=== PATIENT | female | born 1955 | race Caucasian/White ===

== ENCOUNTER → 2018-06-20 15:22 | Outpatient (CLI) | payer OTHER, SELFPAY | PROVIDERS: Family Provider Family Medicine; PCP Family Medicine; Visit Provider Family Medicine | DX: R19.7 Diarrhea, unspecified (principal) | CPT/HCPCS: 36415; 87493; 87506 ==

== ENCOUNTER → 2020-04-09 14:55 | Outpatient (CLI) | payer OTHER, SELFPAY ==
--- NOTE | 2020-04-09 15:40 | BI_ITS ---
MAMMOGRAPHY - BILATERAL SCREENING REASON FOR EXAM: Female, 64 years old. Routine annual screening examination. PERTINENT HISTORY: Aunts with breast cancer. TECHNIQUE: Digital bilateral breast lilliana (3D mammographic acquisition) in the CC and MLO projections. 2-D mediolateral oblique (MLO) and craniocaudad (CC) views of both breasts were obtained. CAD: Full Field Digital Mammography with Computer Added Detection was performed. COMPARISON: Comparison is made with prior study dated 05/07/2017. FINDINGS: Breast Composition: There are scattered areas of fibroglandular density. There are no dominant masses or suspicious calcifications. Stable benign appearing bilateral axillary lymph nodes. No other significant abnormalities are identified. There has been no significant change since the prior study. BI/SCREEN MAMM (CAD) W/LILLIANA BILAT IMPRESSION: Stable bilateral screening mammogram. Yearly follow-up mammogram recommended. (A) ASSESSMENT CATEGORY: BIRADS Category 2: Benign. A letter regarding these results will be sent to the patient by the facility within 30 days. Approximately 10% of breast cancers are not detected by mammography. A normal mammogram should not delay biopsy of a clinically suspicious abnormality. [id number] Electronically Signed: Figueroa Cantrell, at 8:04 EDT , Service support ,
== END ==
PROVIDERS: PCP Family Medicine; Referring Provider Family Medicine; Visit Provider Family Medicine
DX: Z12.31 Encounter for screening mammogram for malignant neoplasm of breast (principal)
CPT/HCPCS: 77063; 77067

== ENCOUNTER 2021-09-30 08:14 | Outpatient (RCR) | payer OTHER, SELFPAY ==
--- NOTE | 2021-10-14 11:22 | HP.OTEVAL_ITS ---
Patient's Visit Information KAYLA ALMARAZ is a 66 year old F, referred to Occupational Therapy by ANDRÉS NEWBY, with a diagnosis of cmc arthritis left hand. Date of Evaluation: 09/30/21 Occupational Therapist: Brenda Angelo, OTR/Yusra, CHT - Subjective This 66 year old female was seen for OT eval with dx of left cmc arthritis- pt states she does pretty well with her hands but notices discomfort after or during her golf game. pt likes to golf and play piano. pt in need of fitting for Metagrip push brace - Pain left thumb 0 Pain Intensity Range: 2 - ROM CMC: right 10 left 15 MP: right 50 left 40 IP: right 55 left 60 Radial Abduction: right 35 left 35 ROM Comments: pt demo with slight decrease in radial abduction increasing MP radial motion. MP does not collapse or hyper-extend - Strength Director Of Collections: right 60# left 55# Lateral Pinch: right 14# left 10# Tripod Pinch: right 10# left 6# Strength Comments: pt demo good strength. no noted thumb deviation with resistive testing - Sensation Sensation Comments: denies - DASH-Disabilities of Arm, Shoulder& Hand DASH Sum: 46 - Goals Goal:: pt will demo understanding of joint protection to prevent joint stress with use of hands with ADLs and IADLs by d/c Goal:: pt will demo ind. doffing and donning of left metagrip push thumb brace by d/c - Rehabilitation General Assessment: pt demo with left cmc arthritis- needing fitting for Metagrip orthosis pt measures at 19.5cm placing her in end range of size one or begining measurements of size 2 therapist rec. Rehabilitation Potential: Good - Anticipated Interventions Orthoses, Other Other Interventions: fitting for metagrip orthosis - Visit Plan TEXT: Thank you for the opportunity to evaluate your patient. For Medicare and Medicare HMO plans, please review the plan of care and approve it. It will need to be FAXED BACK to us at [phone] for Medicare purposes. Please let me know if there are questions or concerns regarding this plan of care. Physician Signature: Date:
--- NOTE | 2021-10-14 11:25 | HP.OTEVAL ---
Patient's Visit Information KAYLA ALMARAZ is a 66 year old F, referred to Occupational Therapy by ANDRÉS NEWBY, with a diagnosis of cmc arthritis left hand. Date of Evaluation: 09/30/21 Occupational Therapist: Brenda Angelo, OTR/Yusra, CHT - Subjective This 66 year old female was seen for OT eval with dx of left cmc arthritis- pt states she does pretty well with her hands but notices discomfort after or during her golf game. pt likes to golf and play piano. pt in need of fitting for Metagrip push brace - Pain left thumb 0 Pain Intensity Range: 2 - ROM CMC: right 10 left 15 MP: right 50 left 40 IP: right 55 left 60 Radial Abduction: right 35 left 35 ROM Comments: pt demo with slight decrease in radial abduction increasing MP radial motion. MP does not collapse or hyper-extend - Strength Vocational Training Director: right 60# left 55# Lateral Pinch: right 14# left 10# Tripod Pinch: right 10# left 6# Strength Comments: pt demo good strength. no noted thumb deviation with resistive testing - Sensation Sensation Comments: denies - DASH-Disabilities of Arm, Shoulder& Hand DASH Sum: 46 - Quick DASH-Disab of Arm,Shoulder& Hand Quick DASH Score: 14.4725 - Goals Goal:: pt will demo understanding of joint protection to prevent joint stress with use of hands with ADLs and IADLs by d/c Goal:: pt will demo ind. doffing and donning of left metagrip push thumb brace by d/c - Rehabilitation General Assessment: pt demo with left cmc arthritis- needing fitting for Metagrip orthosis pt measures at 19.5cm placing her in end range of size one or beginning measurements of size 2 therapist rec'd websites to purchase metigrip. pt demo understanding. pt to call with questions or concerns. Rehabilitation Potential: Good - Anticipated Interventions Orthoses, Other Other Interventions: fitting for metagrip orthosis - Visit Plan TEXT: Thank you for the opportunity to evaluate your patient. For Medicare and Medicare HMO plans, please review the plan of care and approve it. It will need to be FAXED BACK to us at [phone] for Medicare purposes. Please let me know if there are questions or concerns regarding this plan of care. Physician Signature: Date:
== END 2021-09-30 19:00 | disposition home or self-care (01) ==
LOC: OT 08:14
PROVIDERS: PCP Family Medicine
DX: M18.12 Unilateral primary osteoarthritis of first carpometacarpal joint, left hand (principal)
CPT/HCPCS: 97166

== ENCOUNTER 2022-01-28 17:07 | Emergency (ER) | payer MEDICARE, SELFPAY ==
[2022-01-28 17:08] VITALS: BP 152/78; PULSE 93; RESP 18; TEMP 36.6; O2SAT 97; BMI 24.2
--- NOTE | 2022-01-28 18:38 | EX.ED.DYSGE1 ---
HPI History of Present Illness Chief Complaint: Nosebleed Informant: patient Onset/Context/Timing Onset: Today Current Severity: Gone Maximum Severity: Moderate Narrative Narrative: Patient presents secondary to nosebleed. Patient states she developed a nosebleed from left nare early Sunday morning. She was seen by Dr. Vance in the ENT office on Sunday and he placed packing after cauterizing a lesion. Patient states today she had heavy bleeding coming out her right nostril. It is currently well controlled at this time. PFSH PFSH Home Medications omeprazole 20 mg capsule,delayed release 40 mg PO BID ##120 03/04/16 [Rx Last Taken Unknown] sucralfate 100 mg/mL oral suspension 1 g PO 4X/DAY ##120 03/04/16 [Rx Last Taken Unknown] erythromycin 5 mg/gram (0.5 %) eye ointment 0.5 inch ophthalmic (eye) BID #1 g 09/25/21 [Rx Last Taken Unknown] Allergy/AdvReac Type Severity Reaction Status Date / Time No Known Allergies Allergy Verified 03/03/16 00:04 Social History Smoking Status: Never smoker ROS ROS ED Constitutional Constitutional ED: Denies chills or fever(s) Eyes Eyes: Denies change in vision or discharge from eye(s) ENT ENT ED: Reports other Details: Epistaxis ; Denies discharge from eye(s), rhinorrhea or sore throat Cardiovascular Cardiovascular: Denies chest pain or palpitations Respiratory/Chest Respiratory/Chest: Denies cough or dyspnea Gastrointestinal Gastrointestinal: Denies abdominal pain or nausea Musculoskeletal Musculoskeletal: Denies back pain Integumentary Denies Abrasions or rash Neurologic Neurologic: Denies headache(s) or weakness Allergic/Immunologic Allergic/Immunologic ED: Denies lip swelling or urticaria EXAM Physical Exam Const Vital Signs: 01/28/22 17:08 Temperature 97.8 F Temperature Source Temporal Pulse Rate 93 Respiratory Rate 18 Blood Pressure 152/78 H Blood Pressure Mean 102 Pulse Ox 97 Oxygen Delivery Method Room Air Positive well nourished and well developed General Appearance ED: well developed HEENT Reports moist mucous membranes Eyes PERRL and EOMs intact bilaterally Neck no lymphadenopathy Resp normal respiratory effort and clear to auscultation bilaterally Cardio regular rate and regular rhythm GI non-tender and non-distended Neuro oriented x3, CN's II-XII intact bilaterally and no sensory deficits noted Motor Exam: strength 5/5 throughout Psych mental status grossly normal Skin no rashes or lesions noted MDM MDM Treatment and Re-Evaluation Narrative: Cetacaine and Afrin was brought to bedside. Packing that was currently in place was removed. There is very minimal blood noted on this. Exam of the nares revealed no obvious blood in the right. Left side has some irritation along one of the nasal turbinates. I do not see blood up high in the nasal cavity. With patient not having significant bleeding at this time we chose to place Mer[place]. I trimmed the ends and try to place it rather high as my concern is that she had blood up and around the packing previously. At this time patient will continue supportive care at home and has a follow-up ointment scheduled with Dr. Vance on Sunday. Return instructions provided. Discharge Plan Triage Chief Complaint: Nosebleed ED Provider: Smiley Coburn Dx/Rx/DC Orders Clinical Impression: Epistaxis Instructions: ED Epistaxis (Adult) Prescriptions: No Action erythromycin 5 mg/gram (0.5 %) ointment 0.5 inch ophthalmic (eye) BID Qty: 1 0RF sucralfate 1 GM/10 ML Udc 1 g PO 4X/DAY Qty: 120 0RF omeprazole 20 MG capsule 40 mg PO BID Qty: 120 0RF Primary Care Provider: Heide Villavicencio Referrals: Heide Villavicencio MD [Primary Care Provider] - Ming Cox MD [STAFF PHYSICIAN] - Keep Ana Lilia appointment Disposition Disposition: Home, Self Care
[2022-01-28] MEDS: Oxymetazoline 0.05% 1 SPRAY SPRAY.BTL 2 SPRAY NASAL (19:08)
[2022-01-28] MEDS: Tetracaine/Benzocaine/Butamben 1 APPLIC TOPICAL (19:08)
== END 2022-01-28 19:09 | disposition home or self-care (01) ==
PROVIDERS: Emergency Provider Emergency Medicine; PCP Family Medicine; Visit Provider Emergency Medicine
DX: R04.0 Epistaxis (principal); Z79.899 Other long term (current) drug therapy
CPT/HCPCS: 30906; 99282

== ENCOUNTER → 2023-03-19 | Outpatient (CLI) | payer MEDICARE, SELFPAY ==
[2023-03-19 17:43] LABS: Absolute Lymphocyte Count 1.53 X10^3/uL (0.83-4.51); Absolute Neutrophil Count 3.1 X10^3/uL (2.0-7.7); Basophil# 0.06 X10^3/uL; Basophil% 1.2 % (0-1); Eosinophil# 0.18 X10^3/uL; Eosinophils% 3.5 % (0-5); Hematocrit 39.7 % (37-47); Hemoglobin 12.9 g/dL (12.0-15.0); Lymphocyte # 1.53 X10^3/ul (0.83-4.51); Lymphocyte % 29.6 % (19-41); Mean Corp Hgb Conc 32.5 g/dL (32-36); Mean Corpuscular Hgb 31.8 pg (27.0-32.0); Mean Corpuscular Volume 97.8 fL (81-99); Mean Platelet Vol. 9.6 fl (6.2-12.0); Monocyte# 0.26 X10^3/uL; NRBC Flagged by Analyzer 0 % (0-5); Neutrophil # 3.13 X10^3/uL (2.7-7.7); Neutrophil % 60.5 % (47-70); Platelet Count 245 K/mm3 (150-450); RBC Distribution Width CV 12.4 % (11.6-14.6); Red Blood Count 4.06 M/mm3 (4.2-5.4); White Blood Count 5.2 K/mm3 (4.4-11.0)
[2023-03-19 18:11] LABS: Erythrocyte Sedimentation Rate 3 mm/hr (0-30)
[2023-03-19 18:27] LABS: CRP < 2.90 mg/L (0.0-3.0); Rheumatoid Factor < 10.0 IU/mL (<15); Uric Acid 5.6 mg/dL (2.6-6.0)
[2023-03-21 12:09] LABS: ANTINUCLEAR ANTIBODIES DIRECT Negative (Negative)
== END | disposition home or self-care (01) ==
LOC: MFPLAB 15:49
PROVIDERS: PCP Family Medicine; Visit Provider Family Medicine
DX: M19.90 Unspecified osteoarthritis, unspecified site (principal); R31.9 Hematuria, unspecified
CPT/HCPCS: 36415; 84550; 85025; 85652; 86038; 86140; 86431

== ENCOUNTER → 2023-07-24 | Outpatient (CLI) | payer MEDICARE, SELFPAY ==
--- NOTE | 2023-07-24 15:58 | BI_ITS ---
MAMMOGRAPHY - BILATERAL SCREENING REASON FOR EXAM: Female, 68 years old. Routine annual screening examination. PERTINENT HISTORY: Aunt with breast cancer. TECHNIQUE: Digital bilateral breast lilliana (3D mammographic acquisition) in the CC and MLO projections. 2-D mediolateral oblique (MLO) and craniocaudad (CC) views of both breasts were obtained. CAD: Full Field Digital Mammography with Computer Added Detection was performed. COMPARISON: Comparison is made with prior study April 09, 2020 and May 07, 2017. FINDINGS: Breast Composition: There are scattered areas of fibroglandular density. There are no dominant masses or suspicious calcifications. Focal faint nodular density in the upper slightly lateral aspect of the left breast. The patient will be called for additional views including 90 degree lateral and compression spot views. No other significant abnormalities are identified. BI/SCRN MAMM (CAD)W/LILLIANA BILAT IMPRESSION: Faint nodular density seen in the upper slightly outer aspect of the left breast. The patient will be recalled for additional views. Recall Side: Left Breast ASSESSMENT CATEGORY: BIRADS Category 0: Incomplete. Need additional imaging evaluation. A letter regarding these results will be sent to the patient by the facility within 30 days. Approximately 10% of breast cancers are not detected by mammography. A normal mammogram should not delay biopsy of a clinically suspicious abnormality. [id number] Electronically Signed: Figueroa Cantrell MD at 8:53 EST ,
--- NOTE | 2023-07-24 16:00 | BD_ITS ---
STUDY: DUAL ENERGY X-RAY ABSORPTIOMETRY / DXA REASON FOR EXAM: Female, 68 years old. V76.12ScreeningBONE DENSITY REASON FOR EXAM TECHNIQUE: Bone Mineral Density (BMD) measurements of lumbar spine and bilateral hips were obtained. COMPARISON: None. FINDINGS: Lumbar Spine (L1-L4): g/cm2 (1.072) / T-score (0.2) / Z-score (2.1) Findings are suggestive of normal bone density with a low fracture risk. Left Femur Total: g/cm2 (0.840) / T-score (-0.8) / Z-score (0.5) Left Femoral Neck: g/cm2 (0.744) / T-score (-0.9) / Z-score (0.7) Right Femur Total: g/cm2 (0.826) / T-score (-1.0) / Z-score (0.4) Right Femoral Neck: g/cm2 (0.712) / T-score (-1.2) / Z-score (0.4) BD/Dexa Bone Density Study IMPRESSION: The patient is considered osteopenic as outlined below according to World Michael Organization (WHO) criteria with a low fracture risk. Reference Information: The T-score is the number of standard deviations above or below the standard which is normal for young adults at their peak bone mineral density. The World Health Organization (WHO) interprets the T-scores as follows: Above -1 Normal bone density Between -1 and -2.5 Osteopenia Equal to / or below -2.5 Osteoporosis As a practical clinical guideline, osteopenia may be graded as follows: Mild -1 through -1.5 Moderate -1.6 through -2.0 Severe -2.1 through -2.4 The Z-score is the number of standard deviations above or below age-matched controls. A Z-score of less than -1.5 would be considered abnormal. References: 1. NIH Osteoporosis and Related Bone Diseases www osteo.org 2. International Society for Clinical Densitometry www iscd.org 3. National Osteoporosis Foundation www nof.org Electronically Signed: Figueroa Cantrell MD at 13:11 EST ,
== END | disposition home or self-care (01) ==
LOC: OPBD 15:57
PROVIDERS: PCP Family Medicine; Referring Provider Family Medicine; Visit Provider Family Medicine
DX: Z12.31 Encounter for screening mammogram for malignant neoplasm of breast (principal); N95.9 Unspecified menopausal and perimenopausal disorder
CPT/HCPCS: 77063; 77067; 77080

== ENCOUNTER → 2023-07-26 | Outpatient (CLI) | payer MEDICARE, SELFPAY ==
--- NOTE | 2023-07-26 09:24 | US_ITS ---
STUDY: ULTRASOUND BREAST - LEFT REASON FOR EXAM: Female, 68 years old. Abnormal screening mammogram. TECHNIQUE: Axial and longitudinal images of the LEFT breast were performed with a high resolution ultrasound transducer. # OF IMAGES: 18 COMPARISON: Comparison is made with prior mammogram dated July 24, 2023 and July 26, 2023. FINDINGS: LEFT Breast: The upper portion of the left breast was examined with ultrasound. Fibroglandular tissue is seen. No sonographic abnormality is present. US/Breast Limited Unilateral IMPRESSION: No sonographic abnormality is seen. ASSESSMENT CATEGORY: BIRADS Category 1: Negative. A letter regarding these results will be sent to the patient by the facility within 30 days. Electronically Signed: Figueroa Cantrell MD at 11:46 EST ,
--- NOTE | 2023-07-26 09:24 | BI_ITS ---
MAMMOGRAPHY - UNILATERAL DIAGNOSTIC: LEFT BREAST REASON FOR EXAM: Female, 68 years old. Abnormal screening mammogram. PERTINENT HISTORY: Aunt with breast cancer. TECHNIQUE: Compression spot views of the left breast in mediolateral oblique and craniocaudad projections were obtained. CAD: Full Field Digital Mammography with Computer Added Detection was performed. COMPARISON: Comparison is made with prior mammogram dated July 24, 2023. FINDINGS: Breast Composition: There are scattered areas of fibroglandular density. The previously seen faint nodular density in the upper slightly outer aspect of the left breast is not as well seen at this time. Correlation with ultrasound is recommended. No other significant abnormalities are identified. BI/DIAG MAMM W/CAD, UNILAT IMPRESSION: The previously seen faint nodule in the left breast as described is not well seen at this time. Correlation with outside is recommended. ASSESSMENT CATEGORY: BIRADS Category 0: Incomplete. Need additional imaging evaluation. A letter regarding these results will be sent to the patient by the facility within 30 days. Approximately 10% of breast cancers are not detected by mammography. A normal mammogram should not delay biopsy of a clinically suspicious abnormality. Electronically Signed: Figueroa Cantrell MD at 10:06 EST ,
== END | disposition home or self-care (01) ==
LOC: OPBI 09:21
PROVIDERS: PCP Family Medicine; Referring Provider Family Medicine; Visit Provider Family Medicine
DX: R92.8 Other abnormal and inconclusive findings on diagnostic imaging of breast (principal)
CPT/HCPCS: 76642; 77065

== ENCOUNTER → 2023-11-01 | Outpatient (CLI) | payer MEDICARE, SELFPAY ==
[2023-11-01 15:30] LABS: Absolute Lymphocyte Count 1.03 X10^3/uL (0.83-4.51); Absolute Neutrophil Count 4.6 X10^3/uL (2.0-7.7); Basophil# 0.04 X10^3/uL; Basophil% 0.6 % (0-1); Eosinophil# 0.13 X10^3/uL; Eosinophils% 2.1 % (0-5); Hematocrit 38.8 % (37-47); Hemoglobin 12.7 g/dL (12.0-15.0); Lymphocyte # 1.03 X10^3/ul (0.83-4.51); Lymphocyte % 16.6 % (19-41); Mean Corp Hgb Conc 32.7 g/dL (32-36); Mean Corpuscular Hgb 32.3 pg (27.0-32.0); Mean Corpuscular Volume 98.7 fL (81-99); Mean Platelet Vol. 9.5 fl (6.2-12.0); Monocyte% 6.5 % (0-10); NRBC Flagged by Analyzer 0 % (0-5); Neutrophil # 4.59 X10^3/uL (2.7-7.7); Platelet Count 190 K/mm3 (150-450); RBC Distribution Width CV 12.1 % (11.6-14.6); RBC Distribution Width SD 44.2 fl (35.1-43.9); Red Blood Count 3.93 M/mm3 (4.2-5.4); White Blood Count 6.2 K/mm3 (4.4-11.0)
[2023-11-01 16:11] LABS: Anion Gap 4 (5-15); BUN 23 mg/dL (7-18); Calcium,Total 8.8 mg/dL (8.5-10.1); Chloride 110 mmol/L (98-107); EST Glomerular Filtration Rate 59 mL/min (>60); Est Glom Filt Rate - Afr Amer 71 mL/min (>60); Glucose 79 mg/dL (74-106); Potassium 4.2 mmol/L (3.5-5.1); Sodium Level 142 mmol/L (136-145); Troponin-I HS 5 pg/mL (3.0-54.0)
== END | disposition home or self-care (01) ==
PROVIDERS: PCP Family Medicine; Referring Provider Family Medicine; Visit Provider Family Medicine
DX: R07.89 Other chest pain (principal)
CPT/HCPCS: 36415; 80048; 84484; 85025

== ENCOUNTER → 2024-03-19 | Outpatient (CLI) | payer MEDICARE, SELFPAY ==
[2024-03-19 15:04] LABS: Absolute Lymphocyte Count 0.78 X10^3/uL (0.83-4.51); Absolute Neutrophil Count 4.8 X10^3/uL (2.0-7.7); Basophil# 0.04 X10^3/uL; Basophil% 0.7 % (0-1); Eosinophils% 1.7 % (0-5); Hematocrit 39.2 % (37-47); Hemoglobin 12.7 g/dL (12.0-15.0); Lymphocyte # 0.78 X10^3/ul (0.83-4.51); Lymphocyte % 12.9 % (19-41); Mean Corp Hgb Conc 32.4 g/dL (32-36); Mean Corpuscular Volume 98.7 fL (81-99); Mean Platelet Vol. 9.3 fl (6.2-12.0); Monocyte# 0.32 X10^3/uL; Monocyte% 5.3 % (0-10); NRBC Flagged by Analyzer 0 % (0-5); Neutrophil # 4.81 X10^3/uL (2.7-7.7); Neutrophil % 79.2 % (47-70); Platelet Count 195 K/mm3 (150-450); RBC Distribution Width CV 12.6 % (11.6-14.6); RBC Distribution Width SD 45.4 fl (35.1-43.9); Red Blood Count 3.97 M/mm3 (4.2-5.4); White Blood Count 6.1 K/mm3 (4.4-11.0)
[2024-03-19 15:24] LABS: Anion Gap 7 (5-15); BUN 16 mg/dL (7-18); BUN/Creat Ratio 13.2 RATIO (10-20); Chloride 106 mmol/L (98-107); Creatinine, Serum 1.21 mg/dL (0.55-1.02); EST Glomerular Filtration Rate 47 mL/min (>60); Est Glom Filt Rate - Afr Amer 57 mL/min (>60); Glucose 89 mg/dL (74-106); Potassium 3.9 mmol/L (3.5-5.1); Sodium Level 139 mmol/L (136-145); Troponin-I HS 8 pg/mL (3.0-54.0)
== END | disposition home or self-care (01) ==
PROVIDERS: PCP Family Medicine; Visit Provider Registered Nurse
DX: R07.9 Chest pain, unspecified (principal); R19.7 Diarrhea, unspecified
CPT/HCPCS: 36415; 80048; 84484; 85025; 87493

== ENCOUNTER → 2024-05-26 | Outpatient (CLI) | payer MEDICARE, SELFPAY ==
--- NOTE | 2024-05-26 08:02 | AAVD_ITS ---
Reason For Study: AAA Screening Aorta Measurements Aorta Doppler Measurements Proximal aorta measures2.03cm x 2.10cm. in cross- Peak systolic flow velocities within the proximal sectional axis. aorta measure 94 cm/sec. Proximal aorta measures1.74cm. in longitudinal Peak systolic flow velocities within the mid aorta axis. measure 90 cm/sec. Mid aorta measures1.82cm x 1.76cm. in cross- Peak systolic flow velocities within the distal sectional axis. aorta measure 109 cm/sec. Mid aorta measures1.64cm. in longitudinal axis. Distal aorta measures1.64cm x 1.85cm. in cross- sectional axis. Distal aorta measures1.66cm. in longitudinal axis. Left Iliac Artery Left iliac artery measures 1.06cm x 1.10 cm. in the cross-sectional axis. Left iliac artery measures 1.03 cm. in the longitudinal axis. Peak systolic velocity in the left iliac artery measures 80 cm/sec. Right Iliac Artery Right iliac artery measures 1.04cm x 1.17 cm. in the cross-sectional axis. Right iliac artery measures 0.93 cm. in the longitudinal axis. Peak systolic velocity in the right iliac artery measures 98 cm/sec. Procedure Aorta IVC Iliac vasculature or bypass grafts [id number]. Exam performed in department. VL/Abd Aortic/IVC Duplex scan Interpretation Summary The dimensions of the intra-abdominal aorta appear normal, without evidence of aneurysmal dilatation. The iliac arteries also appear to be normal in caliber bilaterally. The intra-abdominal aorta and iliac arteries are patent, demonstrating normal, pulsatile arterial f low and normal peak systolic velocities. Ordering Physician: Heide Villavicencio Referring Physician: Heide Villavicencio Performed By: Nicolle Oconnor, YAN, RVT
--- OUTSIDE RECORDS SUMMARY | 2024-05-26 08:23 | XMS RPT_ITS | CCD ---
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 Name Role Phone Heide Villavicencio Primary Care Provider [phone] ANDRÉS NEWBY Attending Unavailable HEIDE VILLAVICENCIO Primary Care Unavailable Allergies Allergy Classification Reported Allergen(s) Allergy Type Date of Onset Reaction(s) Facility (3 sources) Chlorhexidine; Translations: [CHLORHEXIDINE] Drug Allergy 11-30-2009 [facility] Work Phone: Medications Current Medications Medication Drug Class(es) Dates Sig (Normalized) Sig (Original) pantoprazole 40 mg delayed release oral tablet (2 sources) Proton Pump Inhibitor Start: 10-28-2012 take 1 tablet by mouth once daily pantoprazole (PROTONIX) 40 mg tablet Take 1 tablet by mouth once daily. (may use generic) 30 tablet 2 10/28/2012 Active Comment on above: Take 1 tablet by melody th once daily. (may use generic) Completed/Discontinued Medications Medication Drug Class(es) Dates Sig (Normalized) Sig (Original) betamethasone 3 mg/ml / betamethasone acetate 3 mg/ml injectable suspension (4 sources) Corticosteroid Start: 03-03-2024 End: 03-03-2024 betamethasone acetate-betamethas one sodium phosphate 6 mg injection (CELESTONE) Lidocaine (5 sources) Antiarrhythmic, Amide Local Anesthetic Start: 03-03-2024 End: 03-03-2024 lidocaine 10 mg/mL (1 %) 0.5 mL injection (XYLOCAINE) Start: 12-30-2021 End: 12-30-2021 lidocaine (PF) 10 mg/mL (1 % ) 0.5 mL injection (XYLOCAINE) 1 ml triamcinolone acetonide 40 mg/ml injection (1 source) Corticosteroid Start: 12-30-2021 End: 12-30-2021 triamcinolone acetonide 40 mg injection (KeNALog 40) Start: 12-30-2021 End: 12-30-2021 triamcinolone acetonide 40 m g injection (KeNALog 40) Problems Active Problems Problem Classification Problem Date Documented Date Episodic/Chronic Esophageal disorders (2 sources) Gastro-esophageal reflux disease with esophagitis; Translations: [Gastro-esophageal reflux disease with esophagitis] Onset: 03-05-2016 03-05-2016 Chronic Osteoarthritis (10 sources) Arthritis of first carpometacarpal joint of left hand; Translations: [Unilateral primary osteoarthritis of first carpometacarpal joint, left hand] Onset: 09-28-2021 Chronic Past or Other Problems Problem Classification Problem Date Documented Da te Episodic/Chronic Abdominal pain (2 sources) Epigastric pain; Translations: [Epigastric pain] Onset: 03-05-2016 03-05-2016 Episodic Results Test Name Value Interpretation Reference Range Facility [facility] 03-03-2024 CNOV Office Visit ([id number] ) VALERIE BUCIO ([id number]) 1955 F Date Time Provider Department 03/03/24 2:15 PM ANDRÉS NEWBY [id number] During your visit today, we recorded the following information about you: Respiration Weight Height 16/minute 68 kg 1.676 m Pancho Cardenas Tech 03/10/2024 9:53 PM Signed REVIEW OF SYSTEMS: GENERAL: Well developed, well nourished. No acute distress PAIN: right thumb pain CARDIOVASCULAR: Negative for chest pain, leg swelling and palpations. MSK: Negative for joint swelling SKIN: Negative for lesions, rash, itching, metal sensitivity NEURO: Negative for seizure, trauma, numbness/tingling of extremities. ENDOCRINE: Negative for diabetic associated symptoms HEMATOLOGY: Negative for excessive bleeding, clots, bleeding disorders. Andrés Newby MD 03/10/2024 9:53 PM Signed Patient presents with: Right Thumb - New, Pain HISTORY OF PRESENT ILLNESS Valerie Bucio presents to the office for evaluation of a new issue: Pain at her right thumb. I had seen the patient several years ago for left basilar joint pain and she underwent injection with good response. No recent trauma. Location: Right thumb Severity: 5 on a scale of 0-10 Duration of symptoms: Several months Treatments tried include bracing, activity modification Symptoms have Worsened REVIEW OF SYSTEMS Cardiovascular ROS:No history of chest pain, palpitation, orthopnea, cyanosis, pedal edema Neurologic ROS: Numbness and Tingling: No PAST MEDICAL HISTORY Past medical, surgical, family, and social histories have been reviewed and updated with the patient today and are located elsewhere in the medical record. Diabetes:No ALLERGIES ALLERGIES Allergen Reactions Chlorhexidine Rash PHYSICAL EXAMINATION Resp 16 Ht 167.6 cm (5' 6 ) Wt 68 kg (150 lb) BMI 24.21 kg/m? Body mass index is 24.21 kg/m?. General Appearance Well appearing, alert, in no acute distress, well-hydrated, well nourished. Alert and oriented times: 3 Normal affect times: 3 Appears stated age and well nourished Gait and station:normal Bilateral Upper Extremity Exam: Inspection shows some squaring off at the base of each thumb No atrophy or depigmentation at the site of prior left thumb CMC injection Tenderness to palpation: Painful at bilateral thumb carpometacarpal joints, right greater than left ROM: Full composite fist bilaterally Sensation intact median, radial, ulnar nerve distribution 2+ radial pulse Painful thumb CMC load and grind REVIEW OF STUDIES X-rays 03/03/24 3 views of the right hand demonstrate no fracture or dislocation. Stage II Eaton thumb CMC arthritis is present. No lytic or erosive lesions. Some mild degenerative change at the distal radial ulnar joint with a small osteophyte noted at the ulnar head. X-rays 09/28/21 3 views of the left hand demonstrate Eaton stage IV thumb CMC arthritis. Joint space narrowing, subluxation is noted at the thumb metacarpal. There is STT degenerative change present. No lytic or erosive lesions. ASSESSMENT AND PLAN ASSESSMENT/PLAN: 1. Arthritis of carpometacarpal (CMC) joint of right thumb - ICD9: 716.94, ICD10: M18.11 (primary diagnosis) - XR HAND GENERAL 3V PA/LAT/OBL RIGHT 2. Arthritis of carpometacarpal (CMC) joint of left thumb - ICD9: 716.94, ICD10: M18.12 I reviewed the diagnosis with the patient and reviewed her updated imaging with her. This is a similar issue to what she has dealt with in the past at the left hand. We reviewed treatment options including nonoperative as well as operative measures. She had responded well to injection in the past and would like to proceed with bilateral injections today. Risks and benefits of the injections were reviewed. Please see procedure notes. We will plan on following up together as symptoms dictate. Small Joint Arthro/Inj: bilateral thumb CMC Informed Consent Consent Obtained: Verbal Gilbert Protocol A moment to CARE was completed. SIGN IN Personnel directly involved with the procedure wore the appropriate PPE. Patient/Surrogate Stated/Verified: Patient name, Date of , Relevant allergies and Intended procedure TIME OUT Intended patient and procedure match the source document(s). Relevant labs, photos, and/or imaging studies have been reviewed. Correct side/site marked and visible. Medications required for procedure verified. 03/03/2024 2:34 PM The procedure site was prepped in the usual sterile fashion. Medications (Right): 6 mg betamethasone acetate-betamethasone sodium phosphate 6 mg/mL Medications (Left): 6 mg betamethasone acetate-betamethasone sodium phosphate 6 mg/mL Anesthetics (Right): 0.5 mL lidocaine 10 mg/mL (1 %) Anesthetics (Left): 0.5 mL lidocaine 10 mg/mL (1 %) Outcome: tolerated well, no immediate complications Post-injection instructions were reviewed with th (more content not included)... Normal [facility] Small Joint Arthro/Inj: bila teral thumb CMCon 03-03-2024 Andrés Newby MD 03/10/2024 9:53 PM Small Joint Arthro/Inj: bilateral thumb CMC Informed Consent Consent Obtained: Verbal Gilbert Protocol A moment to CARE was completed. SIGN IN Personnel directly involved with the procedure wore the appropriate PPE. Patient/Surrogate Stated/Verified: Patient name, Date of , Relevant allergies and Intended procedure TIME OUT Intended patient and procedure match the source document(s). Relevant labs, photos, and/or imaging studies have been reviewed. Correct side/site marked and visible. Medications required for procedure verified. 03/03/2024 2:34 PM The procedure site was prepped in the usual sterile fashion. Medications (Right): 6 mg betamethasone acetate-betamethasone sodium phosphate 6 mg/mL Medications (Left): 6 mg betamethasone acetate-betamethasone sodium phosphate 6 mg/mL Anesthetics (Right): 0.5 mL lidocaine 10 mg/mL (1 %) Anesthetics (Left): 0.5 mL lidocaine 10 mg/mL (1 %) Outcome: tolerated well, no immediate complications Post-injection instructions were reviewed with the patient and the patient voiced understanding of these instructions. SIGN OUT All instruments, equipment, possible retained foreign bodies accounted for. Post-procedure follow-up management communicated and Plan of Care Visit completed when applicable [facility] CNOVon 02-09-2017 CNOV Office Visit (AGPLAHWW) ------VALERIE BUCIO ( ) 1955 F IPADate Time Provider Department02/09/17 9:15 AM LEESA YATES During your visit today, we recorded the following information about you: Weight Height 72.6 kg 1.676 MITZY Schuster 02/09/2017 10:47 AM SignedThe patient is a 61 year old female who presents today with complains of excessabdominal skin and fat. She has been dieting and exercising and has lost 6 lbsover the past 4 months. She has 2 children, and has not had any children in thepast year. She currently weighs 160 lbs, and is not satisfied with theappearance of her abdomen.OB History: @OB(ANDlt;SYNTAXANDgt; error)@Plan for future pregnancies: NoPast Medical History:PAST MEDICAL HISTORYDiagnosis Date- Abdominal pain- Abdominal pain, epigastric 11/22/2009- Flatulence, eructation, and gas pain 11/22/2009- Other specified disorders of biliary tract 11/22/2009Past Surgical History: PAST SURGICAL HISTORYNo date: DELIVERY ONLY Comment: , low transverse x210/25/12: COLONOSCOP W/ OR W/O [facility] SPEC Comment: Colonoscopy03/03/16: EGD W/O [facility] SPECIMEN W/BX Comment: distal esophagitis10/25/12: EGD W/O OR W/BRUSH/WASH Comment: EGD11/22/2009: LAP CHOLECYSTECT/CHOLANGIOGRAPHY No date: PAST SURGICAL HISTORY OF Comment: lap x2No date: REMOVAL OF TONSILS,ANDlt;13 Y/O Comment: TonsillectomyOther pertinent history changes since last visit: NoneHistory of Bleeding Disorder: NoHistory of DVT/Pulmonary Embolism: NoHistory of MRSA: No MRSA InfectionHistory of Diabetes: NoHistory of Sleep Apnea: NoHistory of HTN: NoCurrent Outpatient Prescriptions:pantoprazole (PROTONIX) 40 mg tablet Take 1 tablet by mouth once daily. (mayuse generic)No current facility-administered medications for this visit.Uses herbs and/or over-the counters: None.Social History Narrative None on fileEVALUATION:Evaluation of patient reveals laxity. Patient was given an explanation of thesurgical procedure, risks, benefits and personnel. Patient understands andwishes to proceed. We discussed the tap block for post op pain.ROS:CONSTITUTIONAL: Negative for fever, sweats or chills, adenopathy, fatigue,anorexia or weight loss ANDgt; 5 pounds.NEURO: Migraine headaches. On and off no medicationsSKIN: negative for lesions, rash, and itchingBEHAVIOR/PSYCH: NegativePHYSICAL EXAM:Ht 5' 6ANDquot; (1.68m) Wt 160 lb (72.6kg) BMI 25.84 kg/(m2).General Appearance: Well appearing, alert, in no acute distress, well-hydrated,well nourished..Skin: Skin color, texture, turgor normal, no suspicious rashes or lesions.Abdomen:she has had two c-scectionsSkin Tone: Light white skin, always richard, never tansNeuro: Awake, alert and oriented x 3Data- Radiology Review: No outside records or outside imaging availableAssessment:The patient is a good candidate for abdominoplasty. She has a distinct fold inthe mid portion of the abdomen. She has stretch suazo but below the umbilicus.She would also benefit from liposuction of the flanks. If she chooses to haveliposuction, she will have a drain. Because of the previous laparoscopiesinvolving her umbilicus, Dr. Yates explained that he may not be able to keepher bellybutton and she would wake up from surgery without one. She does have adiastasis rectus and worse above her umbilicus.The incision will go below theprevious scar and out to the iliac crest. She may have an incisionaround her bellybutton unless he sacrifices her umbilicus. Explained thatweight loss will help but due to the stretch suazo, diastasis and excess skinshe willk always have laxity without surgery. Daughter is getting atthe end of May..Plan: Abdominoplasty with Diastasis Repair. Liposuction bilateral flanks ifshe wishes to add that at the time of surgery as well.Pre-op photos to be takenPlanned procedure: Abdominoplasty; I have discussed the procedure in detailwith the patient and she agrees to the procedure understanding the roles andtasks of the personnel to be involved; the alternatives to the procedure areliposuction or a mini tummy tuck. She understands the risks to include but notbe limited to infection, bleeding, pain, infection, fluid accumulation, poorwound healing, skin loss, numbness or other changes in skin sensation, skindiscoloration and/or prolonged swelling, unfavorable scarring, recurrentlooseness of skin and possibility of revisional surgery. The patient agrees andconsents to the procedure attesting to her understanding.Follow up at the time of surgeryThis visit lasted for more than 20 minutes and greater than 50% of the visitwas involved in the discussion of the options for treatment.Fatou Maldonado COS 02/09/2017 10:10 AM SignedCall to schedule surgery or with questions.Allergies As of Date: 02/09/2017 Noted Allergy ReactionCHLORHEXIDINE 11/30/2009 2 - RashDate Reviewed: 02/09/2017Reviewed by: Leesa Yates - Fully AssessedReason for Visit: Consult [502] Cmt: abadominalplastyPrimary Visit Diagnosis:Other plastic surgery for unacceptable cosmetic appearance [Z41.1]Prescriptions as of 02/09/2017 Sig: PANTOPRAZOLE 40 MG TABLET,DEL* Take 1 tablet by mouth once d*Problem List As Of Date 02/09/2017 Noted Resolved Epigastric pain [R10.13] INVALID FOR* Gastro-esophageal reflux disease with esophagit*INVALID FOR* Other instructions from your clinician: Call to schedule surgery or with questions.Medications Discontinued During This Encounter cholestyramine low-calorie (CHOLESTY* 30 P* 2 10/28/2012 02/09/2017 Route: ORAL Sig: Take 1 Packet by mouth once daily. in 8 oz of water (may use generic) Disc: Reason for discontinue is not on file.Level of Service: NEW PATIENT VISIT LEVEL 2 [[id number]]Disposition: Return if symptoms worsen or fail to improve.Follow-up and Disposition History RecordedEncounter Number: [id number] Status:Closed by LEESA YATES MD on 02/09/17 [facility] PROGRESSon 02-09-2017 PROGRESS HNO ID: [id number] thor: Nicolle (Cos) Lavelle: (none)Author Type: CosmetologistType: Progress NotesFiled: 02/09/2017 10:47 AMNote Text:The patient is a 61 year old female who presents today with complains ofexcess abdominal skin and fat. She has been dieting and exercising and haslost 6 lbs over the past 4 months. She has 2 children, and has not had anychildren in the past year. She currently weighs 160 lbs, and is notsatisfied with the appearance of her abdomen.OB History: @OB( error)@Plan for future pregnancies: NoPast Medical History:PAST MEDICAL HISTORYDiagnosis Date- Abdominal pain- Abdominal pain, epigastric 11/22/2009- Flatulence, eructation, and gas pain 11/22/2009- Other specified disorders of biliary tract 11/22/2009Past Surgical History: PAST SURGICAL HISTORYNo date: DELIVERY ONLY Comment: , low transverse x210/25/12: COLONOSCOP W/ OR W/O [facility] SPEC Comment: Colonoscopy03/03/16: EGD W/O [facility] SPECIMEN W/BX Comment: distal esophagitis10/25/12: EGD W/O OR W/BRUSH/WASH Comment: EGD11/22/2009: LAP CHOLECYSTECT/CHOLANGIOGRAPHY No date: PAST SURGICAL HISTORY OF Comment: lap x2No date: REMOVAL OF TONSILS,<13 Y/O Comment: TonsillectomyOther pertinent history changes since last visit: NoneHistory of Bleeding Disorder: NoHistory of DVT/Pulmonary Embolism: NoHistory of MRSA: No MRSA InfectionHistory of Diabetes: NoHistory of Sleep Apnea: NoHistory of HTN: NoCurrent Outpatient Prescriptions:pantoprazole (PROTONIX) 40 mg tablet Take 1 tablet by mouth once daily.(may use generic)No current facility-administered medications for this visit.Uses herbs and/or over-the counters: None.Social History Narrative None on fileEVALUATION:Evaluation of patient reveals laxity. Patient was given an explanation ofthe surgical procedure, risks, benefits and personnel. Patientunderstands and wishes to proceed. We discussed the tap block for post oppain.ROS:CONSTITUTIONAL: Negative for fever, sweats or chills, adenopathy,fatigue, anorexia or weight loss > 5 pounds.NEURO: Migraine headaches. On and off no medicationsSKIN: negative for lesions, rash, and itchingBEHAVIOR/PSYCH: NegativePHYSICAL EXAM:Ht 5' 6 (1.68m) Wt 160 lb (72.6kg) BMI 25.84 kg/(m2).General Appearance: Well appearing, alert, in no acute distress,well-hydrated, well nourished..Skin: Skin color, texture, turgor normal, no suspicious rashes or lesions.Abdomen:she has had two c-scectionsSkin Tone: Light white skin, always richard, never tansNeuro: Awake, alert and oriented x 3Data- Radiology Review: No outside records or outside imaging availableAssessment:The patient is a good candidate for abdominoplasty. She has a distinctfold in the mid portion of the abdomen. She has stretch suazo but belowthe umbilicus. She would also benefit from liposuction of the flanks. Ifshe chooses to have liposuction, she will have a drain. Because of theprevious laparoscopies involving her umbilicus, Dr. Yates explainedthat he may not be able to keep her bellybutton and she would wake up fromsurgery without one. She does have a diastasis rectus and worse above herumbilicus.The incision will go below the previous scar and outto the iliac crest. She may have an incision around her bellybutton unlesshe sacrifices her umbilicus. Explained that weight loss will help but dueto the stretch suazo, diastasis and excess skin she willk always havelaxity without surgery. Daughter is getting at the end of May..Plan: Abdominoplasty with Diastasis Repair. Liposuction bilateral flanksif she wishes to add that at the time of surgery as well.Pre-op photos to be takenPlanned procedure: Abdominoplasty; I have discussed the procedure indetail with the patient and she agrees to the procedure understanding theroles and tasks of the personnel to be involved; the alternatives to theprocedure are liposuction or a mini tummy tuck. She understands the risksto include but not be limited to infection, bleeding, pain, infection,fluid accumulation, poor wound healing, skin loss, numbness or otherchanges in skin sensation, skin discoloration and/or prolonged swelling,unfavorable scarring, recurrent looseness of skin and possibility ofrevisional surgery. The patient agrees and consents to the procedureattesting to her understanding.Follow up at the time of surgeryThis visit lasted for more than 20 minutes and greater than 50% of thevisit was involved in the discussion of the options for treatment.Leesa Yates MD [facility] Small Joint Arthro/Inj: L [facility] Vital Signs Date Time Vital Sign Value Performing Clinician Faci ashtyn 03-03-2024 14:11 Body height 167.6 cm Andrés Newby MD Work Phone: [facility] 03-03-2024 14:040 Body mass index (BMI) [Ratio] 24.21 kg/m2 Andrés Newby MD Work Phone: [facility] 03-03-2024 14:11 Body weight 68.04 kg Andrés Newby MD Work Phone: [facility] 03-03-2024 14:040 Respiratory rate 16 /min Andrés Newby MD Work Phone: [facility] 12-30-2021 09:08-0400 Body height 167.6 cm Andrés Newyb MD Work Phone: [facility] 12-30-2021 09:08-0400 Body weight 68.04 kg Andrés Newby MD Work Phone: [facility] 12-30-2021 09:08-0400 Respiratory rate 18 /min Andrés Newby MD Work Phone: [facility] Encounters Encounter Date Encounter Type Care Provider Facility Start: 03-03-2024 End: 03-03-2024 Patient encounter procedure Andrés Newby MD [facility] Phone[facility] Comment on above: 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); Arthritis of carpometacarpal (CMC) joint of left thumb Start: 03-03-2024 End: 03-03-2024 ambulatory ANDRÉS NEWBY Facility:[facility] Start: 12-30-2021 End: 12-30-2021 Patient encounter procedure Andrés eNwby MD Work Phone: [facility] Comment on above: Arthritis of carpome tacarpal (CMC) joint of left thumb (Primary Dx); Arthritis of wpbwcnvn-qzogohvnf-khagsvrvt joint of left hand Procedures Date Procedure Procedure Detail Performing Clinician Start: 03-03-2024 Arthrocentesis aspir &/inj small jt/bursa w/o us Andrés Newby MD Work Phone: Start: 12-30-2021 Arthrocentesis aspir &/inj small jt/bursa w/o us Andrés Newby MD Work Phone: Start: 10-25-2012 [facility] Andrés hernandez MD Work Phone: Plan of Treatment Date Care Activity Detail Author Start: 04-06-2024 Influenza vaccination Influenza Vacc ine (#1) [facility] Start: 08-06-2023 Advance Directive Discussion Advance Directive Discussion [facility] Start: 04-06-2023 Covid-19 Vaccine () Covid-19 Vaccine () [facility] Start: 10-25-2022 Colonoscopy COLONOSCOPY [facility] Start: 10-25-2022 COLORECTAL CANCER SCREENING COLORECTAL CANCER SCREENING [facility] Start: 10-25-2022 Screening for malign ant neoplasm of colon [facility] Start: 04-22-2022 Urine microalbumin profile DTaP,Tdap,Td Vaccine (2 - Td or Tdap) [facility] Start: 10-19-2021 COVID-19 VACCINE (4 - Booster for Moderna series) COVID-19 VACCINE (4 - Booster for Moderna series) [facility] Start: 08-06-2021 ADVANCE DIRECTIVE DISCUSSION ADVANCE DIRECTIVE DISCUSSION [facility] Start: 2021 BONE DENSITY BONE DENSITY [facility] Start: 2021 PNEUMOCOCCAL: 65+ (1 - PCV) PNEUMOCOCCAL: 65+ (1 - PCV) [facility] Start: 2021 Screening for osteoporosis Bone Density Screening [facility] Start: 2016 RSV Vaccine (1 - 1-d ose 60+ series) RSV Vaccine (1 - 1-dose 60+ series) [facility] Start: 10-26-2015 DIABETES SCREEN DIABETES SCREEN [facility] Start: 10-26-2015 Diabetes Screening Diabetes Screenin g [facility] Start: 2006 SHINGRIX VACCINE (1 of 2) SHINGRIX VACCINE (1 of 2) [facility] Start: 2001 COLOGUARD (FIT-DNA) COLOGUARD (FIT-D NA) [facility] Start: [address] COLONOGRAPHY [facility] Start: 2001 FECAL OCCULT BLOOD FECAL OCCULT BLOO D [facility] Start: 2001 Lipid panel Lipid Screening [facility] Start: 2001 LIPID SCREEN LIPID SCREEN [facility] Start: 2001 Screening for malign ant neoplasm of colon [facility] Start: 2001 SIGMOIDOSCOPY SIGMOIDOSCOPY [facility] Start: 1996 Mammography MAMMOGRAM [facility] Start: 1996 Screening for malign ant neoplasm of breast Mammogram Screening [facility] Start: 1975 Urine microalbumin profile DTAP,TDAP,TD (1 - Tdap) [facility] Start: 1974 Anxiety Screening Anxiety Screening [facility] Start: 1974 Depression Screening Depression Scre enjulienne [facility] Start: 1974 HEPATITIS C SCREENING HEPATITIS C [facility] Start: 1974 Hepatitis C screening Hepatitis C [facility] Start: 1974 HIV SCREENING HIV SCREENING [facility] Start: 1968 Adult depression screening assessment DEPRESSION SCREENING [facility] XR Hand - right PA a nd Lateral and Oblique XR HAND GENERAL 3V PA/LAT/OBL RIGHT Radiology Routine Arthritis of carpometacarpal (CMC) joint of right thumb Ordered: 03/03/2024 [facility] Work Phone: Comment on above: Ordered: 03/03/2024 Immunizations Immunization Date Immunization Notes Care Provider Jared low 05-31-2023 influenza virus vacc ine, unspecified formulation Andrés Newby MD Work Phone: [facility] Payers Date Payer Category Payer Medicare [facility] MEDICARE [facility] AARP [employer] HMO [id number] 2022-Present [phone] [address] [address] [place] [address] HMO [id number] 2022 Unknown [id number] 2021 Unknown MMO MMO MHS [id number] 2021-Present [phone] [address] [address] [place] [address] Indemnity [id number] Social History Date Type Detail Facility Start: 03-03-2024 Tobacco smoking stat us NHIS Never smoked tobacco [facility] Start: 12-30-2021 End: 03-03-2024 Alcohol intake Current non-drinker of alcohol (finding) [facility] Start: 1955 Sex Assigned At Not on file [facility] Start: 12-20-2021 End: 12-30-2021 Exposure to SARS-CoV-2 (event) Not sure [facility] Start: 03-03-2024 Tobacco use and exposure Smoke less tobacco non-user [facility] Start: 03-03-2024 History of Social function [facility] Start: 03-03-2024 Tobacco use panel [facility] National Score (1-10 0), lower number is lower risk 35 [facility] Progress note 03-03-2024 Note Date & Type Note Facility 03-03-2024 Note HNO ID: [id number] Author: BING AVILEZ LPN Service: ? Author Type: LICENSED NURSE Type: Progress Notes Filed: 03/10/2024 21:53 Note Text: Injection prepared per Dr. Newby's order and handed directly to him. Injection site: karen thumbs Bing Avilez LPN [facility] History of Present illness Narrative 03-03-2024 Bing Avilez LPN - 03/03/2024 2:36 PM Andrés Mccarthy MD - 03/03/2024 2:34 PM Pancho Quarles Tech - 03/03/2024 2:08 PM EDT Note Date & Type Note Facility 03-03-2024 History of Presen t illness Narrative Injection prepared per Dr. Newby's order and handed directly to him. Injection site: karen thumbs Bing Avilez LPN Associated Order(s): Small Joint Arthro/Inj: bilateral thumb CMC Post-Procedure Diagnose(s): Arthritis of carpometacarpal (CMC) joint of right thumb; Arthritis of carpometacarpal (CMC) joint of left thumb Patient presents with: Right Thumb - New, Pain HISTORY OF PRESENT ILLNESS Valerie Bucio presents to the office for evaluation of a new issue: Pain at her right thumb. I had seen the patient several years ago for left basilar joint pain and she underwent injection with good response. No recent trauma. Location: Right thumb Severity: 5 on a scale of 0-10 Duration of symptoms: Several months Treatments tried include bracing, activity modification Symptoms have Worsened REVIEW OF SYSTEMS Cardiovascular ROS:No history of chest pain, palpitation, orthopnea, cyanosis, pedal edema Neurologic ROS: Numbness and Tingling: No PAST MEDICAL HISTORY Past medical, surgical, family, and social histories have been reviewed and updated with the patient today and are located elsewhere in the medical record. Diabetes:No ALLERGIES ALLERGIES Allergen Reactions Chlorhexidine Rash PHYSICAL EXAMINATION Resp 16 Ht 167.6 cm (5' 6 ) Wt 68 kg (150 lb) BMI 24.21 kg/m Body mass index is 24.21 kg/m . General Appearance Well appearing, alert, in no acute distress, well-hydrated, well nourished. Alert and oriented times: 3 Normal affect times: 3 Appears stated age and well nourished Gait and station:normal Bilateral Upper Extremity Exam: Inspection shows some squaring off at the base of each thumb No atrophy or depigmentation at the site of prior left thumb CMC injection Tenderness to palpation: Painful at bilateral thumb carpometacarpal joints, right greater than left ROM: Full composite fist bilaterally Sensation intact median, radial, ulnar nerve distribution 2+ radial pulse Painful thumb CMC load and grind REVIEW OF STUDIES X-rays 03/03/24 3 views of the right hand demonstrate no fracture or dislocation. Stage II Eaton thumb CMC arthritis is present. No lytic or erosive lesions. Some mild degenerative change at the distal radial ulnar joint with a small osteophyte noted at the ulnar head. X-rays 09/28/21 3 views of the left hand demonstrate Eaton stage IV thumb CMC arthritis. Joint space narrowing, subluxation is noted at the thumb metacarpal. There is STT degenerative change present. No lytic or erosive lesions. ASSESSMENT AND PLAN ASSESSMENT/PLAN: 1. Arthritis of carpometacarpal (CMC) joint of right thumb - ICD9: 716.94, ICD10: M18.11 (primary diagnosis) - XR HAND GENERAL 3V PA/LAT/OBL RIGHT 2. Arthritis of carpometacarpal (CMC) joint of left thumb - ICD9: 716.94, ICD10: M18.12 I reviewed the diagnosis with the patient and reviewed her updated imaging with her. This is a similar issue to what she has dealt with in the past at the left hand. We reviewed treatment options including nonoperative as well as operative measures. She had responded well to injection in the past and would like to proceed with bilateral injections today. Risks and benefits of the injections were reviewed. Please see procedure notes. We will plan on following up together as symptoms dictate. Small Joint Arthro/Inj: bilateral thumb CMC Informed Consent Consent Obtained: Verbal Gilbert Protocol A moment to CARE was completed. SIGN IN Personnel directly involved with the procedure wore the appropriate PPE. Patient/Surrogate Stated/Verified: Patient name, Date of , Relevant allergies and Intended procedure TIME OUT Intended patient and procedure match the source document(s). Relevant labs, photos, and/or imaging studies have been reviewed. Correct side/site marked and visible. Medications required for procedure verified. 03/03/2024 2:34 PM The procedure site was prepped in the usual sterile fashion. Medications (Right): 6 mg betamethasone acetate-betamethasone sodium phosphate 6 mg/mL Medications (Left): 6 mg betamethasone acetate-betamethasone sodium phosphate 6 mg/mL Anesthetics (Right): 0.5 mL lidocaine 10 mg/mL (1 %) Anesthetics (Left): 0.5 mL lidocaine 10 mg/mL (1 %) Outcome: tolerated well, no immediate complications Post-injection instructions were reviewed with the patient and the patient voiced understanding of these instructions. SIGN OUT All instruments, equipment, possible retained foreign bodies accounted for. Post-procedure follow-up management communicated and Plan of Care Visit completed when applicable Andrés Newby MD Patient educated on treatment options for thumb CMC arthritis. Patient instructed to call the office with questions or concerns. REVIEW OF SYSTEMS: GENERAL: Well developed, well nourished. No acute distress PAIN: right thumb pain CARDIOVASCULAR: Negative for chest pain, leg swelling and palpations. MSK: Negative for joint swelling SKIN: Negative for lesions, rash, itching, metal sensitivity NEURO: Negative for seizure, trauma, numbness/tingling of extremities. ENDOCRINE: Negative for diabetic associated symptoms HEMATOLOGY: Negative for excessive bleeding, clots, bleeding disorders. documented in this encounter [facility] Progress note 03-03-2024 Note Date & Type Note Facility 03-03-2024 Note HNO ID: [id number] Author: ANDRÉS NEWBY MD Service: ? Author Type: Physician Type: Progress Notes Filed: 03/10/2024 21:53 Note Text: Patient presents with: Right Thumb - New, Pain HISTORY OF PRESENT ILLNESS Valerie Bucio presents to the office for evaluation of a new issue: Pain at her right thumb. I had seen the patient several years ago for left basilar joint pain and she underwent injection with good response. No recent trauma. Location: Right thumb Severity: 5 on a scale of 0-10 Duration of symptoms: Several months Treatments tried include bracing, activity modification Symptoms have Worsened REVIEW OF SYSTEMS Cardiovascular ROS:No history of chest pain, palpitation, orthopnea, cyanosis, pedal edema Neurologic ROS: Numbness and Tingling: No PAST MEDICAL HISTORY Past medical, surgical, family, and social histories have been reviewed and updated with the patient today and are located elsewhere in the medical record. Diabetes:No ALLERGIES ALLERGIES Allergen Reactions Chlorhexidine Rash PHYSICAL EXAMINATION Resp 16 Ht 167.6 cm (5' 6 ) Wt 68 kg (150 lb) BMI 24.21 kg/m? Body mass index is 24.21 kg/m?. General Appearance Well appearing, alert, in no acute distress, well-hydrated, well nourished. Alert and oriented times: 3 Normal affect times: 3 Appears stated age and well nourished Gait and station:normal Bilateral Upper Extremity Exam: Inspection shows some squaring off at the base of each thumb No atrophy or depigmentation at the site of prior left thumb CMC injection Tenderness to palpation: Painful at bilateral thumb carpometacarpal joints, right greater than left ROM: Full composite fist bilaterally Sensation intact median, radial, ulnar nerve distribution 2+ radial pulse Painful thumb CMC load and grind REVIEW OF STUDIES X-rays 03/03/24 3 views of the right hand demonstrate no fracture or dislocation. Stage II Eaton thumb CMC arthritis is present. No lytic or erosive lesions. Some mild degenerative change at the distal radial ulnar joint with a small osteophyte noted at the ulnar head. X-rays 09/28/21 3 views of the left hand demonstrate Eaton stage IV thumb CMC arthritis. Joint space narrowing, subluxation is noted at the thumb metacarpal. There is STT degenerative change present. No lytic or erosive lesions. ASSESSMENT AND PLAN ASSESSMENT/PLAN: 1. Arthritis of carpometacarpal (CMC) joint of right thumb - ICD9: 716.94, ICD10: M18.11 (primary diagnosis) - XR HAND GENERAL 3V PA/LAT/OBL RIGHT 2. Arthritis of carpometacarpal (CMC) joint of left thumb - ICD9: 716.94, ICD10: M18.12 I reviewed the diagnosis with the patient and reviewed her updated imaging with her. This is a similar issue to what she has dealt with in the past at the left hand. We reviewed treatment options including nonoperative as well as operative measures. She had responded well to injection in the past and would like to proceed with bilateral injections today. Risks and benefits of the injections were reviewed. Please see procedure notes. We will plan on following up together as symptoms dictate. Small Joint Arthro/Inj: bilateral thumb CMC Informed Consent Consent Obtained: Verbal Gilbert Protocol A moment to CARE was completed. SIGN IN Personnel directly involved with the procedure wore the appropriate PPE. Patient/Surrogate Stated/Verified: Patient name, Date of , Relevant allergies and Intended procedure TIME OUT Intended patient and procedure match the source document(s). Relevant labs, photos, and/or imaging studies have been reviewed. Correct side/site marked and visible. Medications required for procedure verified. 03/03/2024 2:34 PM The procedure site was prepped in the usual sterile fashion. Medications (Right): 6 mg betamethasone acetate-betamethasone sodium phosphate 6 mg/mL Medications (Left): 6 mg betamethasone acetate-betamethasone sodium phosphate 6 mg/mL Anesthetics (Right): 0.5 mL lidocaine 10 mg/mL (1 %) Anesthetics (Left): 0.5 mL lidocaine 10 mg/mL (1 %) Outcome: tolerated well, no immediate complications Post-injection instructions were reviewed with the patient and the patient voiced understanding of these instructions. SIGN OUT All instruments, equipment, possible retained foreign bodies accounted for. Post-procedure follow-up management communicated and Plan of Care Visit completed when applicable Andrés Newby MD Patient educated on treatment options for thumb CMC arthritis. Patient instructed to call the office with questions or concerns. [facility] Progress note 03-03-2024 Note Date & Type Note Facility 03-03-2024 Note HNO ID: [id number] Author: PANCHO CARDENAS Tech Service: ? Author Type: Web Press Roll Tender Type: Progress Notes Filed: 03/10/2024 21:53 Note Text: REVIEW OF SYSTEMS: GENERAL: Well developed, well nourished. No acute distress PAIN: right thumb pain CARDIOVASCULAR: Negative for chest pain, leg swelling and palpations. MSK: Negative for joint swelling SKIN: Negative for lesions, rash, itching, metal sensitivity NEURO: Negative for seizure, trauma, numbness/tingling of extremities. ENDOCRINE: Negative for diabetic associated symptoms HEMATOLOGY: Negative for excessive bleeding, clots, bleeding disorders. [facility] History of Present illness Narrative 12-30-2021 Donna Calderon LPN - 12/30/2021 9:38 AM Wade Newby MD - 12/30/2021 9:26 AM EDT Note Date & Type Note Facility 12-30-2021 History of Presen t illness Narrative Injection prepared per Dr. Newby's order and handed directly to him. Lulu Calderon LPN Associated Order(s): Small Joint Arthro/Inj: L thumb CMC Post-Procedure Diagnose(s): Arthritis of carpometacarpal (CMC) joint of left thumb Patient presents with: Left Thumb - Follow Up Follow Up: lt thumb HISTORY OF PRESENT ILLNESS Valerie Bucio presents to the office for follow up of left thumb CMC arthritis. The patient has found the brace to be helpful but she still having significant pain. This is localized consistently to the base of the thumb metacarpal, not noticeably at the STT articulation. She like to discuss further options today. Location: Left thumb CMC, wrist Severity: 3 on a scale of 0-10 Duration of symptoms: Several years Treatments tried include bracing, anti-inflammatories Symptoms have Worsened REVIEW OF SYSTEMS Cardiovascular ROS:No history of chest pain, palpitation, orthopnea, cyanosis, pedal edema Neurologic ROS: Numbness and Tingling: No PAST MEDICAL HISTORY Past medical, surgical, family, and social histories have been reviewed and updated with the patient today and are located elsewhere in the medical record. Diabetes:No ALLERGIES ALLERGIES Allergen Reactions Chlorhexidine Rash PHYSICAL EXAMINATION Resp 18 Ht 167.6 cm (5' 6 ) Wt 68 kg (150 lb) BMI 24.21 kg/m Body mass index is 24.21 kg/m . General Appearance Well appearing, alert, in no acute distress, well-hydrated, well nourished. Alert and oriented times: 3 Normal affect times: 3 Appears stated age and well nourished Gait and station:normal Left Upper Extremity Exam: Inspection shows some mild swelling at the base of the left thumb Squaring off at the joint is noted shoulder sign Skin: WNL Tenderness to palpation: Tender at the base of the thumb metacarpal Some tenderness at the STT ROM: Wrist flexion, extension, pronation/supination symmetric to the contralateral side Instability: none Sensation:Normal sensation Atrophy: None Brisk capillary refill Special tests: Pain with thumb CMC load/grind REVIEW OF STUDIES X-rays 09/28/21 3 views of the left hand demonstrate Eaton stage IV thumb CMC arthritis. Joint space narrowing, subluxation is noted at the thumb metacarpal. There is STT degenerative change present. No lytic or erosive lesions. ASSESSMENT AND PLAN ASSESSMENT/PLAN: 1. Arthritis of carpometacarpal (CMC) joint of left thumb - ICD9: 716.94, ICD10: M18.12 (primary diagnosis) 2. Arthritis of yjefrybb-bgarofvet-nibuvrlbg joint of left hand - ICD9: 716.93, ICD10: M19.032 I reviewed the diagnosis with the patient and we discussed options. I think she would be a good candidate for an injection. As noted the STT articulation does not seem to be nearly as symptomatic. We will begin with injection at the thumb CMC. Risks and benefits reviewed. Please see procedure note. We will follow-up together as symptoms dictate. Small Joint Arthro/Inj: L thumb CMC Informed Consent Consent Obtained: Verbal Gilbert Protocol A moment to CARE was completed. SIGN IN Personnel directly involved with the procedure wore the appropriate PPE. Patient/Surrogate Stated/Verified: Patient name, Date of , Relevant allergies and Intended procedure TIME OUT Intended patient and procedure match the source document(s). 12/30/2021 9:38 AM The procedure site was prepped in the usual sterile fashion. Medications: 40 mg triamcinolone acetonide 40 mg/mL Anesthetics: 0.5 mL lidocaine (PF) 10 mg/mL (1 %) Outcome: tolerated well, no immediate complications Post-injection instructions were reviewed with the patient and the patient voiced understanding of these instructions. SIGN OUT Post-procedure follow-up management communicated and Plan of Care Visit completed when applicable Andrés Newby Patient educated on treatment options for thumb CMC, STT arthritis Patient instructed to call the office with questions or concerns. documented in this encounter [facility] Evaluation note Note Date & Type Note Facility Evaluation note Diagnosis Arthritis of carpometacarpal (CMC) joint of left thumb- Primary Arthritis of mikyvugm-omiorbvmw-iiobymvih joint of left hand documented in this encounter [facility] Evaluation note Note Date & Type Note Facility Evaluation note Diagnosis Arthritis of carpometacarpal (CMC) joint of right thumb- Primary Arthritis of carpometacarpal (CMC) joint of left thumb documented in this encounter [facility] Reason for referral (narrative) Diagnostic Procedure Only (Routine) - New Request Note Date & Type Note Facility Reason for referral (narrati ve) Specialty Diagnoses / Procedures Referred By Hugo t Referred To Contact XR IMAGING Diagnoses Arthritis of carpometacarpal (CMC) joint of right thumb Procedures XR HAND GENERAL 3V PA/LAT/OBL RIGHT RADEX HAND MINIMUM 3 VIEWS Andrés Newby MD [address] [address] [place] [address] Referral ID Status Reason Start Date Expiration Date Visits Requested Visits Authorized [id number] New Request Auto-Generat ed Referral 03/03/2024 04/02/2025 1 1 [facility] Summary Purpose Family History No Family History Records FoundNo Family History Records Found Advance Directives No Advanced Directives Records FoundNo Advanced Directives Records Found Medications Administered Section Inactive Administered Medications - up to 3 most recent administrations Medication Order MAR Action Action Date Dose Rate Site lidocaine (PF) 10 mg/mL (1 %) 0.5 mL injection (XYLOCAINE) 0.5 mL, Injection - FOR ORTHO USE ONLY, ONE TIME INJECTION, 1 dose, Starting on Sun12/30/21 at 0938, Until 5/27/22 at 0938 Given 12/30/2021 9:38 AM EDT 0.5 mL triamcinolone acetonide 40 mg injection (KeNALog 40) 40 mg, Injection - FOR ORTHO USE ONLY, ONE TIME INJECTION, 1 dose, Starting on Sun12/30/21 at 0938, Until Sun12/30/21 at 0938 Given 12/30/2021 9:38 AM EDT 40 mg Additional Source Comments INFORMATION SOURCE (unrecogn ized section and content) DATE CREATED AUTHOR 01/30/2018 [facility] DATE CREATED AUTHOR AUTHOR'S ORGANIZ ATION 03/12/2024 [facility] Source Comments (unrecognize d section and content) In the event this informatio n is protected by the Federal Confidentiality of Alcohol and Drug Abuse Patient Records regulations: The Federal rules restrict any use of the information to criminally investigate or prosecute any alcohol or drug abuse patient.[facility] the event this information is protected by the Federal Confidentiality of Alcohol and Drug Abuse Patient Records regulations: The Federal rules restrict any use of the information to criminally investigate or prosecute any alcohol or drug abuse patient.[facility] Reason for Visit (unrecogniz ed section and content) Reason Comments Follow Up lt thumb Follow Up Reason Comments New Pain Care Teams (unrecognized sec tion and content) Steel Unloader Relationship Specialty Start Date End Date Heide Villavicencio [address] [place] [address] PCP - General 11/13/00 Steel Unloader Relationship Specialty Start Date End Date Heide Villavicencio [address] [place] [address] PCP - General 11/13/00 FOR RECORDS PERTAINING TO PATIENTS WHO ARE OR HAVE BEEN ENROLLED IN A CHEMICAL DEPENDENCY/SUBSTANCEABUSE PROGRAM, SOME INFORMATION MAY BE OMITTED. This clinical summary was aggregated from multiple sources. Caution should be exercised in using it in the provision of clinical care. This summary normalizes information from multiple sources, and as a consequence, information in this document may materially change the coding, format and clinical context of patient data. In addition, data may be omitted in some cases. CLINICAL DECISIONS SHOULD BE BASED ON THE PRIMARY CLINICAL RECORDS. [facility] [employer] [facility]. provides no warranty or guarantee of the accuracy or completeness of information in this document.
== END | disposition home or self-care (01) ==
LOC: CVS 08:01
PROVIDERS: PCP Family Medicine; Referring Provider Family Medicine; Visit Provider Family Medicine
DX: Z13.6 Encounter for screening for cardiovascular disorders (principal); Z82.49 Family history of ischemic heart disease and other diseases of the circulatory system
CPT/HCPCS: 93978

== ENCOUNTER → 2024-06-18 | Outpatient (CLI) | payer MEDICARE, SELFPAY ==
[2024-06-18 18:14] LABS: Absolute Lymphocyte Count 0.91 X10^3/uL (0.83-4.51); Absolute Neutrophil Count 3.3 X10^3/uL (2.0-7.7); Basophil# 0.05 X10^3/uL; Basophil% 1.1 % (0-1); Eosinophil# 0.06 X10^3/uL; Eosinophils% 1.3 % (0-5); Hematocrit 40.7 % (37-47); Hemoglobin 12.8 g/dL (12.0-15.0); Lymphocyte # 0.91 X10^3/ul (0.83-4.51); Lymphocyte % 19.3 % (19-41); Mean Corp Hgb Conc 31.4 g/dL (32-36); Mean Corpuscular Hgb 31.1 pg (27.0-32.0); Mean Corpuscular Volume 98.8 fL (81-99); Mean Platelet Vol. 9.4 fl (6.2-12.0); Monocyte# 0.43 X10^3/uL; Monocyte% 9.1 % (0-10); NRBC Flagged by Analyzer 0 % (0-5); Neutrophil # 3.26 X10^3/uL (2.7-7.7); Platelet Count 202 K/mm3 (150-450); RBC Distribution Width CV 12.2 % (11.6-14.6); RBC Distribution Width SD 44.5 fl (35.1-43.9); Red Blood Count 4.12 M/mm3 (4.2-5.4); White Blood Count 4.7 K/mm3 (4.4-11.0)
[2024-06-18 18:45] LABS: AST(SGOT) 20 U/L (15-37); Alanine Aminotransfer ALT/SGPT 23 U/L (13-56); Albumin, Serum 3.7 g/dL (3.2-5.0); Alkaline Phosphatase 73 U/L (45-117); Anion Gap 5 (5-15); BUN 21 mg/dL (7-18); BUN/Creat Ratio 18.3 RATIO (10-20); Calcium,Total 9.2 mg/dL (8.5-10.1); Chloride 110 mmol/L (98-107); Creatinine, Serum 1.15 mg/dL (0.55-1.02); EST Glomerular Filtration Rate 50 mL/min (>60); Est Glom Filt Rate - Afr Amer 60 mL/min (>60); Globulin 3.6 g/dL (2.2-4.2); Glucose 88 mg/dL (74-106); Protein, Total 7.3 g/dL (6.4-8.2); Sodium Level 140 mmol/L (136-145)
[2024-06-18 18:55] LABS: Erythrocyte Sedimentation Rate < 1 mm/hr (0-30)
[2024-06-20 15:09] LABS: PROEL- A/G Ratio 1.3 (0.7-1.7); PROEL- Albumin 3.8 g/dL (2.9-4.4); PROEL- Alpha-1 Globulin 0.3 g/dL (0.0-0.4); PROEL- Alpha-2 Globulin 0.6 g/dL (0.4-1.0); PROEL- Beta Globulin 0.9 g/dL (0.7-1.3); PROEL- Gamma Globulin 1.2 g/dL (0.4-1.8); PROEL- Globulin, Total 2.9 g/dL (2.2-3.9); PROEL- TOTAL PROTEIN 6.7 g/dL (6.0-8.5); PROEL-M-Spike 0.6 g/dL (Not Observed)
== END | disposition home or self-care (01) ==
LOC: MFPLAB 13:51
PROVIDERS: PCP Family Medicine; Referring Provider Family Medicine; Visit Provider Family Medicine
DX: R10.9 Unspecified abdominal pain (principal)
CPT/HCPCS: 36415; 80053; 84165; 85025; 85652

== ENCOUNTER → 2024-07-24 | Outpatient (CLI) | payer MEDICARE, SELFPAY ==
--- NOTE | 2024-07-24 13:30 | CT_ITS ---
STUDY: CT ABDOMEN AND PELVIS WITH CONTRAST REASON FOR EXAM: Female, 69 years old. L flank pain for months and is worsening RADIATION DOSAGE (If Supplied By Facility): CTDIvol = ( 7.73 ) mGy, DLP = ( 556.51 ) mGycm TECHNIQUE: Transaxial images were obtained from the dome of the diaphragm to the symphysis pubis with oral contrast. Oral and amp; IV Redi-CAT and amp; 100mL Isovue-300 was administered. Sagittal and coronal images were reconstructed. Individualized dose optimization techniques were used for this CT. COMPARISON: Comparison is made with prior study dated March 03, 2016. FINDINGS: The visualized lung bases are unremarkable. The visualized portions of the heart are within normal limits. There is a 2 cm x 2 cm cyst in the anterior aspect of the right lobe of the liver. This has increased in size as compared to prior study. There is also evidence of a 2.6 cm x 2.6 cm cyst in the posterior inferior lateral aspect of the right lobe of the liver. This has increased in size as well. The patient is status post cholecystectomy. Normal spleen. Normal pancreas. Normal bilateral adrenal glands. Normal right kidney. Normal left kidney. Normal visualized stomach. Normal small intestine. There are multiple colonic diverticula consistent with diverticulosis. The appendix is visualized and appears normal. There is scattered atherosclerotic calcification of the abdominal aorta, without a demonstrated aneurysm. Normal inferior vena cava. Normal retroperitoneum. Normal urinary bladder. Normal abdominal wall. There are degenerative changes of the visualized lumbar spine. This is worse at the L2-L3 level. CT/Abdomen/Pelvis WITH Contrast IMPRESSION: Right hepatic cysts which have increased in size as compared to prior study. Status post cholecystectomy. Sigmoid diverticulosis with no radiographic evidence of diverticulitis at this time. Electronically Signed: Figueroa Cantrell MD at 12:57 EST ,
== END | disposition home or self-care (01) ==
LOC: CT 13:29
PROVIDERS: PCP Family Medicine; Referring Provider Family Medicine; Visit Provider Family Medicine
DX: R10.9 Unspecified abdominal pain (principal); G89.29 Other chronic pain
CPT/HCPCS: 74177; Q9967

== ENCOUNTER → 2024-07-28 | Outpatient (CLI) | payer MEDICARE, SELFPAY ==
--- NOTE | 2024-07-28 09:57 | BI_ITS ---
MAMMOGRAPHY - BILATERAL SCREENING 3-D TOMOSYNTHESIS REASON FOR EXAM: Female, 69 years old. screening PERTINENT HISTORY: No significant family history. TECHNIQUE: 2-D mammograms and 3-D Tomosynthesis of the breast (s) were performed. CAD was performed. COMPARISON: 07/24/2023 FINDINGS: The breast composition is composed of scattered fibroglandular density. Scattered benign calcifications are seen. No dense spiculated masses or suspicious microcalcifications are identified. No architectural distortion is identified. There is no skin thickening or retraction. There has been no significant change since the prior study. BI/SCRN MAMM (CAD)W/LILLIANA BILAT IMPRESSION: No mammographic signs of malignancy. Routine yearly mammograms recommended. ASSESSMENT CATEGORY: BIRADS Category 1: Negative. A letter regarding these results will be sent to the patient by the facility within 30 days. FOLLOW UP RECOMMENDATION: Yearly follow up mammogram recommended. (A) Approximately 10% of breast cancers are not detected by mammography. A normal mammogram should not delay biopsy of a clinically suspicious abnormality. Electronically Signed: Rishabh Willoughby MD at 17:47 EST ,
== END | disposition home or self-care (01) ==
LOC: OPBI 09:57
PROVIDERS: PCP Family Medicine; Referring Provider Family Medicine; Visit Provider Family Medicine
DX: Z12.31 Encounter for screening mammogram for malignant neoplasm of breast (principal)
CPT/HCPCS: 77063; 77067

== ENCOUNTER → 2024-08-14 | Outpatient (CLI) | payer MEDICARE, SELFPAY ==
[2024-08-15 15:07] LABS: Endomysial Antibody IgA Negative (Negative); Immunoglobulin A 78 mg/dL (87-352); t-Transglutaminase IgA <2 U/mL (0-3)
== END | disposition home or self-care (01) ==
LOC: MTLAB 10:07
PROVIDERS: PCP Family Medicine; Referring Provider Internal Medicine Gastroenterology; Visit Provider Internal Medicine Gastroenterology
DX: R10.13 Epigastric pain (principal); R11.0 Nausea
CPT/HCPCS: 36415; 82784; 83516; 86255

== ENCOUNTER 2024-10-09 10:00 | Outpatient (RCR) | payer MEDICARE, SELFPAY ==
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
== END 2024-10-09 19:00 | disposition home or self-care (01) ==
LOC: PT 10:00
PROVIDERS: PCP Family Medicine; Referring Provider Family Medicine; Visit Provider Family Medicine
DX: R10.9 Unspecified abdominal pain (principal)
CPT/HCPCS: 97035; 97162; 97530

== ENCOUNTER → 2025-08-03 | Outpatient (CLI) | payer MEDICARE, SELFPAY ==
--- NOTE | 2025-08-03 12:30 | BI_ITS ---
EXAM: SCRN MAMM (CAD)W/LILLIANA BILAT DATE: 08/03/2025 CLINICAL HISTORY: F, Age 70 y/o , SCREEN FOR BREAST CANCER TECHNIQUE: Procedure Code: [id number] Modality: MG Procedure: SCRN MAMM (CAD)W/LILLIANA BILAT COMPARISON: Prior exam(s) dated 07/28/2024 and 07/24/2023. FINDINGS: TISSUE DENSITY: There are scattered areas of fibroglandular density. Bilateral Breast Mammographic Findings: Partially obscured stable isodense masses are seen in both breasts. Benign- appearing round microcalcifications are seen in both breasts. No suspicious masses, suspicious cluster of microcalcifications, architectural distortion or secondary sign of malignancy is identified in either breast. BI/SCRN MAMM (CAD)W/LILLIANA BILAT IMPRESSION: Benign screening mammogram OVERALL FINAL ASSESSMENT BI-RADS 2: BENIGN RECOMMENDATION: Routine annual follow-up in 1 Year Additional Recommendation none A letter with findings and recommendations will be mailed to the patient. Reading Location: [id number]
--- OUTSIDE RECORDS SUMMARY | 2025-08-03 17:19 | XMS RPT_ITS | CCD ---
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 Heide Villavicencio Primary Care Provider [phone] Dr. Heide Villavicencio Referring Provider Dr. Chelsey Gibson Attending Provider [phone] Heide Villavicencio Primary Care Provider DA, DANIEL A Referring Unavailable JOLLIFF, HEIDE KE Primary Care Unavailable MASCI, DANIEL A Referring Unavailable JOLLIFF, HEIDE KE Primary Care Unavailable ANDRÉS MOLINA Attending Unavailable JOLLIFF, HEIDE KE Primary Care Unavailable SELF Referring Unavailable JOLLIFF, HEIDE KE Primary Care Unavailable DOMITILA HENNESSY Attending Unavailable Joseph Méndez MD Unavailable CHELSEY PLUMMER Referring Unavailable JOLLIFF, HEIDE KE Primary Care Unavailable MASCI, DANIEL Chen Referring Unavailable MASCDANIEL Kilgore Attending Unavailable JOLLIFF, HEIDE KE Primary Care Unavailable MASCDANIEL Kilgore Referring Unavailable JOLLIFF, HEIDE KE Primary Care Unavailable MASCI, DANIEL A Referring Unavailable JOLLIFF, HEIDE KE Primary Care Unavailable MASCI, DANIEL A Referring Unavailable JOLLIFF, HEIDE KE Primary Care Unavailable DEMETRA RUIZ Attending Unavailable JOLLIFF, HEIDE KE Primary Care Unavailable MASCI, DANIEL A Referring Unavailable JOLLIFF, HEIDE KE Primary Care Unavailable MASCI, DANIEL A Referring Unavailable JOLLIFF, HEIDE KE Primary Care Unavailable MASCI, DANIEL A Attending Unavailable JOLLIFF, HEIDE KE Primary Care Unavailable JOLLIFF, HEIDE KE Primary Care Unavailable JOLLIFF, HEIDE KE Primary Care Unavailable CHELSEY PLUMMER Attending Unavailable MASCI, DANIEL Chen Referring Unavailable MASCI, DANIEL Chen Attending Unavailable JOLLIFF, HEIDE KE Primary Care Unavailable JOLLIFF, HEIDE KE Primary Care Unavailable MASCI, DANIEL A Referring Unavailable CHELSEY PLUMMER Attending Unavailable JOLLIFF, HEIDE KE Primary Care Unavailable MASCI, DANIEL A Referring Unavailable JOLLIFF, HEIDE KE Primary Care Unavailable MASCI, DANIEL A Referring Unavailable JOLLIFF, HEIDE KE Primary Care Unavailable MASCI, DANIEL A Referring Unavailable JOLLIFF, HEIDE KE Primary Care Unavailable ROCK, KYM A Referring Unavailable MASCI, DANIEL A Attending Unavailable JOLLIFF, HEIDE KE Primary Care Unavailable Jolliff, Heide S Primary Care Unavailable Rock, Kym Attending Unavailable Rock, Kym Referring Unavailable Jolliff, Heide S Referring Unavailable Jolliff, Heide S Primary Care Unavailable Jolliff, Heide S Attending Unavailable Jolliff, Heide S Primary Care Unavailable Joseph Méndez Attending Unavailable Jabour, Vincbrandon Referring Unavailable Jolliff, Heide S Referring Unavailable Jolliff, Heide S Primary Care Unavailable Jolliff, Heide S Attending Unavailable Jolliff, Heide S Attending Unavailable Jolliff, Heide S Referring Unavailable Jolliff, Heide S Primary Care Unavailable Jolliff, Heide S Primary Care Unavailable Pranav, Kym Attending Unavailable Rock, Kym Referring Unavailable Allergies Allergy Classification Reported Allergen(s) Allergy Type Date of Onset Reaction(s) Facility (20 sources) Chlorhexidine; Translations: [CHLORHEXIDINE] Drug Allergy 11-30-2009 Rash [facility] Work Phone: Medications Current Medications Medication Drug Class(es) Dates Sig (Normalized) Sig (Original) acetaminophen 500 mg oral tablet (20 sources) take 2 tablets by mouth every eight hours as needed acetaminophen (TYLENOL EXTRA STRENGTH) 500 mg tablet Take 1,000 mg by mouth every 8 hours as needed. Active benzonatate 200 mg oral capsule (15 sources) Non-narcotic Antitussive Start: 09-18-2024 End: 04-21-2025 Benzonatate 200 mg capsule 09/18/2024 04/21/2025 Discontinued Start: 09-25-2021 End: 10-02-2021 take 1 capsule by mouth twice daily as needed for cough Benzonatate 100 mg capsule Discontinued 100 mg PO TWICE A DAY as needed for cough 14 7 0 September 25, 2021 1:00am October 01, 2021 1:00am September 25, 2021 2:27pm enteric contrast (will be provided with radiology test) (1 source) Start: 10-06-2024 End: 10-07-2024 enteric contrast (will be provided with radiology test) Indications: IgG lambda monoclonal gammopathy , Epigastric pain , Left flank pain For CT ABD/PEL W IVCON Routine order Administer, As Directed One Time Only, via Oral, Rectal, both Oral and Rectal, Enteric Tube, Stoma or Indwelling Catheter, Enteric Contrast as designated per enteric contrast guidelines 1 Each 10/06/2024 10/07/2024 Active erythromycin 0.005 mg/mg ophthalmic ointment (12 sources) Macrolide, Macrolide Antimicrobial Start: 09-25-2021 End: 09-25-2021 Start: 09-25-2021 End: 09-25-2021 Erythromycin Active 0.5 INCH OPHTHALMIC TWICE A DAY September 25, 2021 1:00am LORazepam 1 mg oral tablet (4 sources) Benzodiazepine Start: 11-05-2024 End: 04-21-2025 take 1 tablet by mouth once, then take 1 tablet by mouth every hour LORazepam (ATIVAN) 1 mg tablet Take 1 tablet by mouth one time only for 1 dose. about 1 hour prior to MRI. 11/05/2024 04/21/2025 Discontinued Start: 09-11-2024 End: 09-11-2024 take 1 tablet by mouth once, then take 1 tablet by mouth every hour omeprazole 20 mg delayed release oral capsule (12 sources) Proton Pump Inhibitor Start: 03-04-2016 End: 03-04-2016 take 2 capsules by mouth twice daily Start: 03-04-2016 End: 03-04-2016 take 40 mg by mouth twice daily Omeprazole Active 40 M G PO TWICE A DAY 120 March 04, 2016 10:24am RABEprazole sodium 20 mg delayed release oral tablet (20 sources) Proton Pump Inhibitor Start: 08-01-2024 take 1 tablet by mouth once daily RABEprazole (ACIPHEX) 20 mg tablet Take 20 mg by mouth once daily. 08/01/2024 Active sucralfate 100 mg/ml oral suspension (12 sources) Aluminum Complex Start: 03-04-2016 End: 03-04-2016 take 1 g by mouth four times daily Completed/Discontinued Medications Medication Drug Class(es) Dates Sig (Normalized) Sig (Original) amoxicillin 500 mg oral capsule (12 sources) Penicillin-class Antibacterial Start: 09-25-2021 End: 10-05-2021 take 1 capsule by mouth every six hours Amoxicillin 500 mg capsule Discontinued 500 mg PO EVERY 6 HOURS 40 10 0 September 25, 2021 1:00am October 04, 2021 1:00am September 25, 2021 2:26pm betamethasone 3 mg/ml / betamethasone acetate 3 mg/ml injectable suspension (6 sources) Corticosteroid Start: 09-10-2024 End: 09-10-2024 betamethasone acetate-betamethas one sodium phosphate 6 mg injection (CELESTONE) Start: 09-10-2024 End: 09-10-2024 6 mg, Injection - FOR ORTHO USE ONLY, ONCE, 1 dose, Starting on Sun09/10/24 at 1456, Until Sun09/10/24 at 1456 Start: 03-03-2024 End: 03-03-2024 betamethasone acetate-betame thasone sodium phosphate 6 mg injection (CELESTONE) iv contrast (will be provide d with radiology test) (2 sources) Start: 11-21-2024 End: 11-22-2024 iv contrast (will be provide d with radiology test) CT kidney wow Inject, intravenously, once for 1 dose.No IV access, insert saline lock prior to the beginning of sedation, infusion, injection of imaging exam. Discontinue saline lock post exam. If Pt. has a central line or IVAD, may access for administration according to line specific nursing protocol. Once exam is complete flush line and de-access according to line specific nursing protocol in the CT contrast administration guidelines link. 1 each 11/21/2024 11/22/2024 Start: 10-06-2024 End: 10-07-2024 iv contrast (will be provide d with radiology test) Indications: IgG lambda monoclonal gammopathy , Epigastric pain , Left flank pain CT ABD/PEL -Inject, intravenously, once for 1 dose.No IV access, insert saline lock prior to the beginning of sedation, infusion, injection of imaging exam. Discontinue saline lock post exam. If Pt. has a central line or IVAD, may access for administration according to line specific nursing protocol. Once exam is complete flush line and de-access according to line specific nursing protocol in the CT contrast administration guidelines link. 1 Each 10/06/2024 10/07/2024 Active Lidocaine (7 sources) Antiarrhythmic, Amide Local Anesthetic Start: 09-10-2024 End: 09-10-2024 lidocaine 10 mg/mL (1 %) 1 mL injection (XYLOCAINE) Start: 09-10-2024 End: 09-10-2024 1 mL, Injection - FOR ORTHO USE ONLY, ONCE, 1 dose, Starting on Sun09/10/24 at 1456, Until Sun09/10/24 at 1456 Start: 03-03-2024 End: 03-03-2024 lidocaine 10 mg/mL (1 %) 0.5 mL injection (XYLOCAINE) Start: 12-30-2021 End: 12-30-2021 lidocaine (PF) 10 mg/mL (1 % ) 0.5 mL injection (XYLOCAINE) pantoprazole 40 mg delayed release oral tablet (4 sources) Proton Pump Inhibitor Start: 10-28-2012 End: 08-13-2024 take 1 tablet by mouth once daily pantoprazole (PROTONIX) 40 mg tablet Take 1 tablet by mouth once daily. (may use generic) 30 tablet 2 10/28/2012 08/13/2024 Discontinued Comment on above: Take 1 tablet by melody once daily. 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 Neoplasms of unspecified nature or uncertain behavior (15 sources) Monoclonal gammopathy (clinical); Translations: [Monoclonal gammopathy] Onset: 08-13-2024 08-13-2024 Chronic Osteoarthritis (20 sources) Arthritis of first carpometacarpal joint of left hand; Translations: [Unilateral primary osteoarthritis of first carpometacarpal joint, left hand] Onset: 09-28-2021 Chronic Other diseases of kidney and ureters (2 sources) Disorder of kidney and/or ureter; Translations: [Other specified disorders of kidney and ureter] 11-10-2024 Chronic Other diseases of kidney and ureters (5 sources) Renal mass; Translations: [Other specified disorders of kidney and ureter] Onset: 01-08-2025 11-10-2024 Chronic Other diseases of kidney and ureters (3 sources) Other specified disorders of kidney and ureter; Translations: [Left renal mass] Onset: 11-21-2024 Chronic Other diseases of kidney and ureters (1 source) Disorder of kidney and/or ureter 01-08-2025 Episodic Other nutritional; endocrine; and metabolic disorders (1 source) Abnormal weight loss; Translations: [Abnormal weight loss] 10-06-2024 Episodic Other upper respiratory disease (6 sources) Bleeding from nose; Translations: [Epistaxis] 02-05-2022 Episodic Pancreatic disorders (not diabetes) (1 source) Disorder of pancreas; Translations: [Disease of pancreas, unspecified] 11-10-2024 Episodic Residual codes; unclassified (1 source) Family history of breast cancer; Translations: [Family history of malignant neoplasm of breast] 10-06-2024 Episodic Residual codes; unclassified (1 source) Family history of malignant neoplasm of ovary; Translations: [Family history of malignant neoplasm of ovary] 10-06-2024 Episodic Past or Other Problems Problem Classification Problem Date Documented Da te Episodic/Chronic Abdominal pain (20 sources) Epigastric pain; Translations: [Epigastric pain] Onset: 03-05-2016 03-05-2016 Episodic Other screening for suspected conditions (not mental disorders or infectious disease) (8 sources) Raised cardiac enzyme or marker; Translations: [Other specified abnormal findings of blood chemistry] Onset: 06-20-2024 10-06-2024 Episodic Results Test Name Value Interpretation Reference Range Facility [facility] 05-12-2025 CNOV Office Visit (UROLMN ) ----- VALERIE ALMARAZ ([id number]) 1955 F Date Time Provider Department 05/12/25 3:10 PM CHELSEY PLUMMER During your visit today, we recorded the following information about you: Letitia Michelle APRN.FLAKER OPERATOR 05/13/2025 7:46 AM Signed Chief Complaint: follow up renal mass Clinic note from 11/21/2024 copied and updated. HPI: Valerie Almaraz is a 69 year old female with left renal mass on who presents for follow up evaluation. Renal mass incidentally discovered on CT scan in 10/2023 for evaluation of abdominal pain. Initially presented to Dr. Plummer 11/21/2024 for evaluation of renal mass. Reported dull left flank pain for past 6 months. Discussed management including , biopsy vs partial nephrectomy. Patient wished to continue with with CT kidney in 04/2025. Presents today to discuss results. CT KIDNEY WO/W IVCON 05/06/2025 IMPRESSION: 1. Since 11/10/2024, similar appearance of a 3 cm left renal mass/neoplasm, allowing for differences in modality. 2. Patent renal veins and inferior vena cava. No abdominal metastatic disease. Interval Hx: She reports persistent, continuous flank pain since summer of 2023. Describes as nagging ache- rates pain 2 out of 10. Doesn't stop her from doing normal activities- plays golf and pickleball. Her son is a physical therapist- she does exercises to stretch her back. She is no longer have sharp pain that she was previously experiencing last summer. No gross hematuria. UA dip today with moderate blood. States her urine tests have historically shown blood- had UA w/ micro in the past which was negative for red blood cells. LABS Creatinine Date Value Ref Range Status 04/13/2025 0.93 0.58 - 0.96 mg/dL Final 10/30/2024 0.78 0.58 - 0.96 mg/dL Final 08/13/2024 0.87 0.58 - 0.96 mg/dL Final IMAGING MRI Kidney (11/10/2024) IMPRESSION: Upper pole left renal heterogeneously enhancing solid mass is consistent with neoplasm. No evidence of metastatic disease within the visualized abdomen. Sub-5 mm nonenhancing pancreatic cystic foci are consistent with IPMN. No solid or enhancing pancreatic lesion or focal enlargement CT Abdomen/Pelvis (10/31/2024) IMPRESSION: 1. There is a 3.0 x 2.8 cm heterogeneously enhancing mass within the upper pole of the left kidney that is considered malignant until proven otherwise. Further evaluation with MRI is recommended. 2. A 1.3 cm enhancing focus within the pancreatic body is incidentally noted. However, this is not well seen and may be artifactual, reflecting small vascular structures. This can also be further evaluated at MRI. REVIEW OF SYSTEMS GENERAL:Negative for significant weight loss, fever, SEE HPI; +fatigue GENITOURINARY: Negative for hematuria The remainder of the ROS was negative. HISTORIES PAST MEDICAL HISTORY Diagnosis Date Abdominal pain Abdominal pain, epigastric 11/22/2009 Flatulence, eructation, and gas pain 11/22/2009 GERD (gastroesophageal reflux disease) Other specified disorders of biliary tract 11/22/2009 FAMILY HISTORY Problem Relation Age of Onset Hearing Loss Mother Heart Brother Heart Brother Coronary Artery Disease Maternal Grandfather Emphysema Paternal Grandfather Breast Cancer Paternal Aunt Ovarian cancer Paternal Aunt Breast Cancer Maternal Aunt SOCIAL HISTORY SOCIAL HISTORY[1] PHYSICAL EXAMINATION General appearance: Well appearing, alert, in no acute distress, and well-hydrated, well nourished Lungs: no wheezing or rhonchi Abdomen: Negative CVA tenderness Genitourinary: deferred Assessment (N28.89) Left renal mass (primary encounter diagnosis) (Z13.89) Screening for genitourinary condition 69 year old female with left renal mass on Discussed CT kidney results from 05/06/25 with stable mass- results also reviewed with patient by Dr. Plummer who recommends continued surveillance. Dr. Plummer reassured that her left flank discomfort is likely unrelated to renal mass. Urine dip with blood- discussed rationale to check UA w/ micro Plan -Check UA w/ micro- if +RBC's, recommend cystoscopy and CT urogram for hematuria evaluation -Will proceed with of renal mass with CT abdomen in 1 year with follow up visit Plan of care reviewed and reinforced with patient by Dr. Plummer. Letitia Michelle APRN.FLAKER OPERATOR [1] Social History Tobacco Use Smoking status: Never Smokeless tobacco: Never Vaping Use Vaping status: Never Used Substance Use Topics Alcohol use: No Drug use: No Allergies As of Date: 05/12/2025 Noted Allergy Reaction CHLORHEXIDINE 11/30/2009 2 - Rash Date Reviewed: 05/12/2025 Reviewed by: Vivian Bay MA - Fully Assessed Reason for Visit: Follow Up [171] Primary Visit Diagnosis:Left renal mass [N28.89] Other Visit Diagnoses:Screening for genitourinary condition [Z13.89] Other s (more content not included)... Normal [facility] Urinalysis complete panel (U )on 05-12-2025 Bacteria LM.HPF (Urine sed) [#/Area] Negative Normal Negative [facility] Comment on above: Order Comment: Speci men Type: URINE SPECIMEN Ordering Facility: [facility] Address: [address] [place] [address] Performed By: #### 2 4356-8 #### [facility] CLIA [id number] [address] [place] [address] [place] Bilirubin Ql (U) Negative Normal Negative [facility] Comment on above: Order Comment: Speci men Type: URINE SPECIMEN Ordering Facility: [facility] Address: [address] [place] [address] Performed By: #### 2 4356-8 #### [facility] CLIA [id number] [address] [place] [address] [place] Clarity (Unsp spec) Clear Normal Clear [facility] Comment on above: Order Comment: Speci men Type: URINE SPECIMEN Ordering Facility: [facility] Address: [address] [place] [address] Performed By: #### 2 4356-8 #### [facility] CLIA [id number] [address] [place] [address] [place] Color (U) Yellow Normal Yellow [facility] Comment on above: Order Comment: Speci men Type: URINE SPECIMEN Ordering Facility: [facility] Address: [address] [place] [address] Performed By: #### 2 4356-8 #### [facility] CLIA [id number] [address] [place] [address] [place] Epithelial cells LM.HPF (Urine sed) [#/Area] None Seen Normal [facility] Comment on above: Order Comment: Speci men Type: URINE SPECIMEN Ordering Facility: [facility] Address: [address] [place] [address] Performed By: #### 2 4356-8 #### [facility] CLIA [id number] [address] [place] [address] [place] Glucose Test strip (U) [Mass/Vol] Negative Normal Negative [facility] Comment on above: Order Comment: Speci men Type: URINE SPECIMEN Ordering Facility: [facility] Address: [address] [place] [address] Performed By: #### 2 4356-8 #### [facility] CLIA [id number] [address] [place] [address] [place] Hemoglobin Ql (U) 1+ Abnormal Negative [facility] Comment on above: Order Comment: Speci men Type: URINE SPECIMEN Ordering Facility: [facility] Address: [address] [place] [address] Performed By: #### 2 4356-8 #### [facility] CLIA [id number] [address] [place] [address] [place] Hyaline casts (Urine sed) [#/Area] 1-3 /LPF Abnormal 0 /LPF [facility] Comment on above: Order Comment: Speci men Type: URINE SPECIMEN Ordering Facility: [facility] Address: [address] [place] [address] Performed By: #### 2 4356-8 #### [facility] CLIA [id number] [address] [place] [address] [place] Ketones Ql (U) Negative Normal Negative [facility] Comment on above: Order Comment: Speci men Type: URINE SPECIMEN Ordering Facility: [facility] Address: [address] [place] [address] Performed By: #### 2 4356-8 #### [facility] CLIA [id number] [address] [place] [address] [place] Leukocyte esterase Test strip Ql (U) Negative Normal Negative [facility] Comment on above: Order Comment: Speci men Type: URINE SPECIMEN Ordering Facility: [facility] Address: [address] [place] [address] Performed By: #### 2 4356-8 #### [facility] CLIA [id number] [address] [place] [address] [place] Nitrite Ql (U) Negative Normal Negative [facility] Comment on above: Order Comment: Speci men Type: URINE SPECIMEN Ordering Facility: [facility] Address: [address] [place] [address] Performed By: #### 2 4356-8 #### [facility] CLIA [id number] [address] [place] [address] [place] pH (U) 7.0 [pH] Normal 5.0-8.0 [facility] Comment on above: Order Comment: Speci men Type: URINE SPECIMEN Ordering Facility: [facility] Address: [address] [place] [address] Performed By: #### 2 4356-8 #### [facility] CLIA [id number] [address] [place] [address] [place] Protein (U) [Mass/Vol] Negative Normal Negative [facility] Comment on above: Order Comment: Speci men Type: URINE SPECIMEN Ordering Facility: [facility] Address: [address] [place] [address] Performed By: #### 2 4356-8 #### [facility] CLIA [id number] [address] [place] [address] [place] RBC LM.HPF (Urine sed) [#/Area] 0-2 /HPF Normal 0-2 /HPF [facility] Comment on above: Order Comment: Speci men Type: URINE SPECIMEN Ordering Facility: [facility] Address: [address] [place] [address] Performed By: #### 2 4356-8 #### [facility] IA [id number] [address] [place] [address] [place] Specific gravity (U) [Rel density] 1.006 Normal 1.005-1.030 [facility] Comment on above: Order Comment: Speci men Type: URINE SPECIMEN Ordering Facility: [facility] Address: [address] [place] [address] Performed By: #### 2 4356-8 #### [facility] IA [id number] [address] [place] [address] [place] Urobilinogen Ql (U) 0.2 EU/dL Normal 0.2-1.0 EU/dL [facility] Comment on above: Order Comment: Speci men Type: URINE SPECIMEN Ordering Facility: [facility] Address: [address] [place] [address] Performed By: #### 2 4356-8 #### [facility] IA [id number] [address] [place] [address] [place] WBC LM.HPF (Urine sed) [#/Area] 0-5 /HPF Normal 0-5 /HPF [facility] Comment on above: Order Comment: Speci men Type: URINE SPECIMEN Ordering Facility: [facility] Address: [address] [place] [address] Performed By: #### 2 4356-8 #### [facility] IA [id number] [address] [place] [address] [place] CT KIDNEY WO/W IVCONon 05-06 CT KIDNEY WO/W IVCON * * *Final Report* * * DATE OF EXAM: May 06 2025 12:00PM [facility] 0546 - CT KIDNEY WO/W IVCON / PROCEDURE REASON: Other specified disorders of kidney and ureter * * * * Physician Interpretation * * * * EXAMINATION: CT ABDOMEN (KIDNEY) WITHOUT AND WITH IV CONTRAST CLINICAL HISTORY: Renal mass characterization. TECHNIQUE: Spiral imaging in three phases through the kidneys and including the abdomen was performed utilizing IV contrast only. No oral contrast was given. Arterial phase MIP, and nephrographic phase oblique coronal and sagittal reformations were created from thin-slice images under physician supervision on the imaging modality workstation. MQ: [id number] Contrast: IV: 121 ml of Omnipaque 350 Oral Contrast: None CT Radiation dose: Integrated dose-length product (DLP) for this visit = 642 mGy*cm. CT Dose Reduction Employed: Automated exposure control(AEC) and iterative recon COMPARISON: MRI renal mass 11/10/[address] abdomen/pelvis 10/31/2024 RESULT: Renal findings RIGHT kidney and vasculature: Right kidney and ureter: No nephrolithiasis or hydronephrosis. Normal enhancement of the renal parenchyma. No suspicious right renal mass. Right renal vasculature: Patent artery and vein. Right adrenal: Normal, no nodules or thickening LEFT kidney and vasculature: Left kidney and ureter: No nephrolithiasis or hydronephrosis. A heterogeneously enhancing mass arising from the medial left renal upper pole measures 3 x 2.5 cm on series 11, image 24 (previously 2.6 x 2.9 cm on 11/10/2024). Left renal vasculature: Patent artery and vein Left adrenal: Normal, no nodules or thickening Retroperitoneal lymphadenopathy and IVC involvement: No retroperitoneal lymphadenopathy. The inferior vena cava is patent. Abdomen: Liver: Normal liver morphology. There are hepatic cysts, measuring up to 2.9 cm within segment 6. No suspicious hepatic mass. Biliary: No bile duct dilation. The gallbladder is absent. Spleen: No mass. No splenomegaly. Pancreas: No mass or duct dilation. GI tract: The imaged bowel is normal in caliber and without wall thickening or obstruction. Lymph nodes (other): No abdominal lymphadenopathy. Mesentery/Peritoneum: No ascites or mass. Retroperitoneum: No mass. Vasculature (other): - Abdominal aorta: Atherosclerotic calcifications without aneurysm. - Celiac and SMA: Patent without stenosis. - Portal venous system (SMV, splenic vein, portal vein and branches): Patent. - Hepatic veins: Patent. - IVC: Patent IVC without thrombus. Bones/Soft Tissues: Degenerative change involves the lumbar spine. No destructive lytic or blastic osseous abnormality. Lower thorax: Unremarkable. Localizer images: No additional findings. IMPRESSION: 1. Since 11/10/2024, similar appearance of a 3 cm left renal mass/neoplasm, allowing for differences in modality. 2. Patent renal veins and inferior vena cava. No abdominal metastatic disease. Uniform Room Attendant: WINIFRED Transcribe Date/Time: May 06 2025 12:25P Dictated by : YUNG MENDOZA MD This examination was interpreted and the report reviewed and electronically signed by: YUNG MENDOZA MD on May 06 2025 1:55PM EST [id number] Normal [facility] CNOVSPon 04-20-2025 CNOVSP Visit (SP) Office (HEMAWS) ----- VALERIE ALMARAZ ([id number]) 1955 F Date Time Provider Department 04/20/25 3:10 PM DANIEL ROBERSON During your visit today, we recorded the following information about you: Temperature Pulse Blood pressure Weight 98.6 degrees 68/minute 120/76 60.1 kg Daniel Roberson DO 04/21/2025 6:16 AM Signed Hematologic problem(s): 1) IgG lambda monoclonal gammopathy. HPI: The patient is a 69-year-old female with past medical history as outlined below. Initial consultation: Noticed morning stiffness "all over" beginning about a year ago. Labs for RA negative. Left flank pain started more consistently and couldn't find comfortable position. CT A/P. EGD/colonoscopy. Diverticula. Biopsy--inflammation in duodenum. Was told needs serologic testing for celiac. Patient had a CBC on 06/18/2024 demonstrated total white count 4700. Red blood cell count slightly low at 4,120,000/mm?. Hemoglobin normal 12.8 g/dL with a normal hematocrit of 40.7%. MCV was 98.8 fL and MCH was 31.1 pg. Platelet count was 202,000. Differential was unremarkable with the exception of extremely mild increase in basophils of 1.1%. In March 2023 basophils were 1.2%. On 2 other occasions in 2023 basophils were normal. A recent chemistry panel on 03/19/2024 demonstrated a serum creatinine of 1.31 mg/L with a BUN of 16. Calcium was normal at 9.0 mg/dL. Repeat chemistry panel on 06/18/2024 revealed a serum creatinine of 1.15 mg/dL with a BUN of 21. Ratio was 18.3. Calcium was 9.2 mg/dL. Total bilirubin 0.40 mg/dL with normal AST and ALT of 20 and 23 units/L respectively. Alkaline phosphatase normal at 73 units/L. Total serum protein of 7.3 g/dL with an albumin of 3.7 g/dL and a globulin fraction of 3.6 g/dL. On 06/25/2024, had electrophoresis of the serum which demonstrated a monoclonal spike quantitated at 0.6 g/dL. No immunofixation. No symptoms of neuropathy. The flank pain is localized to left CVA. Pain radiates if turns to the right. All other motions okay. Long history microscopic hematuria. No NSAID use. Presents for ongoing hematologic management. Interim history: No complaints today, but does endorse generalized joint stiffness and pain in the mornings. PAST MEDICAL HISTORY Diagnosis Date Abdominal pain Abdominal pain, epigastric 11/22/2009 Flatulence, eructation, and gas pain 11/22/2009 GERD (gastroesophageal reflux disease) Other specified disorders of biliary tract 11/22/2009 PAST SURGICAL HISTORY Procedure Laterality Date DELIVERY ONLY , low transverse x2 COLONOSCOPY 06/20/2024 COLONOSCOPY FLX DX W/COLLJ SPEC WHEN PFRMD 10/25/2012 Colonoscopy EGD 08/05/2024 EGD TRANSORAL BIOPSY SINGLE/MULTIPLE 03/03/2016 distal esophagitis ESOPHAGOGASTRODUODENOSCOP Y TRANSORAL DIAGNOSTIC 10/25/2012 EGD LAPS SURG CHOLECYSTECTOMY W/CHOLANGIOGRAPHY 11/22/2009 PAST SURGICAL HISTORY OF lap x2 TONSILLECTOMY PRIMARY/SECONDARY Tonsillectomy RABEprazole (ACIPHEX) 20 mg tablet Take 20 mg by mouth once daily. acetaminophen (TYLENOL EXTRA STRENGTH) 500 mg tablet Take 1,000 mg by mouth every 8 hours as needed. Benzonatate 200 mg capsule LORazepam (ATIVAN) 1 mg tablet Take 1 tablet by mouth one time only for 1 dose. about 1 hour prior to MRI. ALLERGIES Allergen Reactions Chlorhexidine Rash Social History Tobacco Use Smoking status: Never Smokeless tobacco: Never Vaping Use Vaping status: Never Used Substance Use Topics Alcohol use: No Drug use: No FAMILY HISTORY Problem Relation Age of Onset Hearing Loss Mother Heart Brother Heart Brother Coronary Artery Disease Maternal Grandfather Emphysema Paternal Grandfather Breast Cancer Paternal Aunt Ovarian cancer Paternal Aunt Breast Cancer Maternal Aunt REVIEW OF SYSTEMS: Constitutional: No episodes of fever and night sweats. Not significantly fatigued. Normal appetite. Neuro: No OQUENDO, vertigo, dizziness and imbalance. HEENT: No recent change in voice, vision or hearing. Resp: No cough, wheeze and hemoptysis. No shortness of breath at rest. No DUFFY. CVS: No exertional chest pain, PND, orthopnea and LE edema. GI: No n/v, change in bowel habits or abdominal pain. : No dysuria or gross hematuria. No symptoms of bladder outlet obstruction. Endo: No hot flashes. No polyuria and polydipsia. No heat and cold intolerance. Musculoskeletal: See above. Derm: No current rash. No history of jaundice or diffuse pruritis. Heme: No unusual bleeding and unexplained bruising. Psych: Normal mood. PHYSICAL EXAM: Vitals: Blood pressure 120/76, pulse 68, temperature 37 ?C (98.6 ?F), temperature source Temporal, weight 60.1 kg (132 lb 8 oz), SpO2 97%. Well-appearing and in no acute distress. EYES: Sclerae are anicteric bilaterally. LYMPHATIC: There is no palpable cervical or supraclavicular adenopa (more content not included)... Normal [facility] B2 Microglob SerPl-mCncon Kmik-9-Keepcqxgvayvy [Mass/Vol] 2.0 ug/mL Normal <3.1 [facility] Comment on above: Order Comment: Speci men Type: URINE SPECIMEN Ordering Facility: [facility] Address: [address] [place] [address] Result Comment: Beta -2 Microglobulin test is performed using the [employer] immunoturbidimetric method. Results obtained with different methods or kits cannot be used interchangeably. Performed By: #### L [id number] #### [facility] CLIA [id number] [address] [place] [address] [place] CBC W Auto Differential pane l (Bld)on 04-13-2025 Basophils (Bld) [#/Vol] 0.05 10*3/uL Normal <0.11 [facility] Comment on above: Order Comment: Speci men Type: BLOOD SPECIMENOrdering Facility: [facility] Address: [address] [place] [address] Performed By: #### 5 7021-8 ####[facility] [id number] [place] [address] [place] Basophils/100 WBC (Bld) 1.1 % Normal [facility] Comment on above: Order Comment: Speci men Type: BLOOD SPECIMENOrdering Facility: [facility] Address: [address] [place] [address] Performed By: #### 5 7021-8 ####[facility] [id number] [place] [address] [place] Differential cell count method Nom (Bld) Auto Normal [facility] Comment on above: Order Comment: Speci men Type: BLOOD SPECIMENOrdering Facility: [facility] Address: [address] [place] [address] Performed By: #### 5 7021-8 ####[facility] MILLWNCLIA [id number] [place] [address] [place] Eosinophils (Bld) [#/Vol] 0.12 10*3/uL Normal <0.46 [facility] Comment on above: Order Comment: Speci men Type: BLOOD SPECIMENOrdering Facility: [facility] Address: [address] [place] [address] Performed By: #### 5 7021-8 ####[facility] [id number] [place] [id number] [place] Eosinophils/100 WBC (Bld) 2.5 % Normal [facility] Comment on above: Order Comment: Speci men Type: BLOOD SPECIMENOrdering Facility: [facility] Address: [address] [place] [address] Performed By: #### 5 7021-8 ####[facility]OKENCLIA [id number] [place] [address] [place] Erythrocyte distribution width (RBC) [Ratio] 12.8 % Normal 11.5-15.0 [facility] Comment on above: Order Comment: Speci men Type: BLOOD SPECIMENOrdering Facility: [facility] Address: [address] [place] [address] Performed By: #### 5 7021-8 ####[facility] PEM[facility]OKENCA [id number] [place] [address] [place] Hematocrit (Bld) [Volume fraction] 38.5 % Normal 36.0-46.0 [facility] Comment on above: Order Comment: Speci men Type: BLOOD SPECIMENOrdering Facility: [facility] Address: [address] [place] [address] Performed By: #### 5 7021-8 ####[facility] PEMBROKENCLIA [id number] [place] [address] [place] Hemoglobin (Bld) [Mass/Vol] 12.8 g/dL Normal 11.5-15.5 [facility] Comment on above: Order Comment: Speci men Type: BLOOD SPECIMENOrdering Facility: [facility] Address: [address] [place] [address] Performed By: #### 5 7021-8 ####[facility] PEM[facility]OKENCLIA [id number] [place] [address] [place] Immature granulocytes (Bld) [#/Vol] 10*3/uL Normal <0.10 [facility] Comment on above: Order Comment: Speci men Type: BLOOD SPECIMENOrdering Facility: [facility] Address: [address] [place] [address] Performed By: #### 5 7021-8 ####[facility] NANIJOON [id number] [place] [address] [place] Immature granulocytes/100 WBC (Bld) 0.4 % Normal [facility] Comment on above: Order Comment: Speci men Type: BLOOD SPECIMENOrdering Facility: [facility] Address: [address] [place] [address] Performed By: #### 5 7021-8 ####[facility] [id number] [place] [address] [place] Lymphocytes (Bld) [#/Vol] 1.39 10*3/uL Normal 1.00-4.00 [facility] Comment on above: Order Comment: Speci men Type: BLOOD SPECIMENOrdering Facility: [facility] Address: [address] [place] [address] Performed By: #### 5 7021-8 ####[facility] [id number] [address] [place] [facility] Lymphocytes/100 WBC (Bld) 29.4 % Normal [facility] Comment on above: Order Comment: Speci men Type: BLOOD SPECIMENOrdering Facility: [facility] Address: [address] [place] [address] Performed By: #### 5 7021-8 ####[facility] [id number] [place] [address] [place] MCH (RBC) [Entitic mass] 32.6 pg Normal 26.0-34.0 [facility] Comment on above: Order Comment: Speci men Type: BLOOD SPECIMENOrdering Facility: [facility] Address: [address] [place] [address] Performed By: #### 5 7021-8 ####[facility] PEMBROKENCLIA [id number] [place] [address] [place] MCHC (RBC) [Mass/Vol] 33.2 g/dL Normal 30.5-36.0 [facility] Comment on above: Order Comment: Speci men Type: BLOOD SPECIMENOrdering Facility: [facility] Address: [address] [place] [address] Performed By: #### 5 7021-8 ####[facility] PEMBROKENCLIA [id number] [place] [address] [place] MCV (RBC) [Entitic vol] 98.0 fL Normal 80.0-100.0 [facility] Comment on above: Order Comment: Speci men Type: BLOOD SPECIMENOrdering Facility: [facility] Address: [address] [place] [address] Performed By: #### 5 7021-8 ####[facility] [id number] [place] [address] [place] Monocytes (Bld) [#/Vol] 0.29 10*3/uL Normal <0.87 [facility] Comment on above: Order Comment: Speci men Type: BLOOD SPECIMENOrdering Facility: [facility] Address: [address] [place] [address] Performed By: #### 5 7021-8 ####[facility] [id number] [place] [address] [place] Monocytes/100 WBC (Bld) 6.1 % Normal [facility] Comment on above: Order Comment: Speci men Type: BLOOD SPECIMENOrdering Facility: [facility] Address: [address] [place] [address] Performed By: #### 5 7021-8 ####[facility] PEMBROKENCLIA [id number] [place] [address] [place] Neutrophils (Bld) [#/Vol] 2.85 10*3/uL Normal 1.45-7.50 [facility] Comment on above: Order Comment: Speci men Type: BLOOD SPECIMENOrdering Facility: [facility] Address: [address] [place] [address] Performed By: #### 5 7021-8 ####[facility] [id number] [place] [address] [place] Neutrophils/100 WBC (Bld) 60.5 % Normal [facility] Comment on above: Order Comment: Speci men Type: BLOOD SPECIMENOrdering Facility: [facility] Address: [address] [place] [address] Performed By: #### 5 7021-8 ####[facility] [id number] [place] [address] [place] Nucleated RBC (Bld) [#/Vol] 10*3/uL Normal <0.01 [facility] Comment on above: Order Comment: Speci men Type: BLOOD SPECIMENOrdering Facility: [facility] Address: [address] [place] [address] Performed By: #### 5 7021-8 ####[facility] [id number] [place] [address] [place] Nucleated RBC/100 WBC (Bld) [Ratio] 0.0 /100 WBC Normal [facility] Comment on above: Order Comment: Speci men Type: BLOOD SPECIMENOrdering Facility: [facility] Address: [address] [place] [address] Performed By: #### 5 7021-8 ####[facility] [id number] [place] [address] [place] Platelet mean volume (Bld) [Entitic vol] 8.5 fL Low 9.0-12.7 [facility] Comment on above: Order Comment: Speci men Type: BLOOD SPECIMENOrdering Facility: [facility] Address: [address] [place] [address] Performed By: #### 5 7021-8 ####[facility] TEJINDERNCLIA [id number] [place] [address] [place] Platelets (Bld) [#/Vol] 221 10*3/uL Normal 150-400 [facility] Comment on above: Order Comment: Speci men Type: BLOOD SPECIMENOrdering Facility: [facility] Address: [address] [place] [address] Performed By: #### 5 7021-8 ####[facility] NANIERBACONNCLIA [id number] [place] [address] [place] RBC (Bld) [#/Vol] 3.93 10*6/uL Normal 3.90-5.20 [facility] Comment on above: Order Comment: Speci men Type: BLOOD SPECIMENOrdering Facility: [facility] Address: [address] [place] [address] Performed By: #### 5 7021-8 ####[facility] NANIERBACONNCLIA [id number] [place] [address] [place] WBC (Bld) [#/Vol] 4.72 10*3/uL Normal 3.70-11.00 [facility] Comment on above: Order Comment: Speci men Type: BLOOD SPECIMENOrdering Facility: [facility] Address: [address] [place] [address] Performed By: #### 5 7021-8 ####[facility] PEMBROKENCLIA [id number] [place] [address] [place] Comprehensive metabolic 2000 panelon 04-13-2025 Albumin [Mass/Vol] 4.5 g/dL Normal 3.9-4.9 [facility] Comment on above: Order Comment: Speci men Type: BLOOD SPECIMENOrdering Facility: [facility] Address: [address] [place] [address] Performed By: #### 2 4323-8, 2531-0 ####[facility] MILLTOWNCLIA [id number] [place] [address] [place] ALP [Catalytic activity/Vol] 77 U/L Normal 34-123 [facility] Comment on above: Order Comment: Speci men Type: BLOOD SPECIMENOrdering Facility: [facility] Address: [address] [place] [address] Performed By: #### 2 4323-8, 2531-0 ####[facility] NANIWMARYAMLIA [id number] [place] [address] [place] ALT [Catalytic activity/Vol] 8 U/L Normal 7-38 [facility] Comment on above: Order Comment: Speci men Type: BLOOD SPECIMENOrdering Facility: [facility] Address: [address] [place] [address] Performed By: #### 2 4323-8, 2531-0 ####[facility]ITALWMARYAMLIA [id number] [place] [address] [place] Anion gap [Moles/Vol] 12 mmol/L Normal 8-15 [facility] Comment on above: Order Comment: Speci men Type: BLOOD SPECIMENOrdering Facility: [facility] Address: [address] [place] [address] Performed By: #### 2 4323-8, 2531-0 ####[facility] MILLTOWNCLIA [id number] [place] [address] [place] AST [Catalytic activity/Vol] 14 U/L Normal 13-35 [facility] Comment on above: Order Comment: Speci men Type: BLOOD SPECIMENOrdering Facility: [facility] Address: [address] [place] [address] Performed By: #### 2 4323-8, 2-0 ####[facility] PEMBROKENCLIA [id number] [place] [address] [place] Bilirubin [Mass/Vol] 0.4 mg/dL Normal 0.2-1.3 [facility] Comment on above: Order Comment: Speci men Type: BLOOD SPECIMENOrdering Facility: [facility] Address: [address] [place] [address] Performed By: #### 2 4323-8, 2531-0 ####[facility] MILLTOWNCLIA [id number] [place] [address] [place] Calcium [Mass/Vol] 9.5 mg/dL Normal 8.5-10.2 [facility] Comment on above: Order Comment: Speci men Type: BLOOD SPECIMENOrdering Facility: [facility] Address: [address] [place] [address] Performed By: #### 2 432-8, 2531-0 ####[facility] MILLTOWNCLIA [id number] [place] [address] [place] Chloride [Moles/Vol] 107 mmol/L Normal 98-107 [facility] Comment on above: Order Comment: Speci men Type: BLOOD SPECIMENOrdering Facility: [facility] Address: [address] [place] [address] Performed By: #### 2 4323-8, 2531-0 ####[facility] MILLTOWNCLIA [id number] [place] [address] [place] CO2 [Moles/Vol] 24 mmol/L Normal 22-30 [facility] Comment on above: Order Comment: Speci men Type: BLOOD SPECIMENOrdering Facility: [facility] Address: [address] [place] [address] Performed By: #### 2 4323-8, 2531-0 ####[facility] MILLTOWNCLIA [id number] [place] [address] [place] Creatinine [Mass/Vol] 0.93 mg/dL Normal 0.58-0.96 [facility] Comment on above: Order Comment: Darron mazariegos Type: BLOOD SPECIMENOrdering Facility: [facility] Address: [address] [place] [address] Performed By: #### 2 4323-8, 2531-0 ####[facility] [id number] [place] [address] [place] eGFRcr SerPlBld CKD-EPI 2020 67 mL/min/1.73m??? Normal >=60 [facility] Comment on above: Order Comment: Darron mazariegos Type: BLOOD SPECIMENOrdering Facility: [facility] Address: [address] [place] [address] Result Comment: Divya mated Glomerular Filtration Rate (eGFR) is calculated using the 2020 CKD-EPI creatinine equation. This equation utilizes serum creatinine, sex, and age as parameters. The creatinine assay has traceable calibration to isotope dilution-mass spectrometry. Refer to KDIGO guidelines for clinical interpretation. In patients with unstable renal function, e.g. those with acute kidney injury, the eGFR may not accurately reflect actual GFR. Performed By: #### 2 4323-8, 0 ####[facility] [id number] [place] [address] [place] Glucose [Mass/Vol] 112 mg/dL High 74-99 [facility] Comment on above: Order Comment: Darron mazariegos Type: BLOOD SPECIMENOrdering Facility: [facility] Address: [address] [place] [address] Result Comment: The [place] Diabetes Association (ADA) provides guidance for cutoff values for fasting glucose and random glucose. The ADA defines fasting as no caloric intake for at least 8 hours. Fasting plasma glucose results between 100 to 125 mg/dL indicate increased risk for diabetes (prediabetes). Fasting plasma glucose results greater than or equal to 126 mg/dL meet the criteria for diagnosis of diabetes. In the absence of unequivocal hyperglycemia, results should be confirmed by repeat testing. In a patient with classic symptoms of hyperglycemia or hyperglycemic crisis, random plasma glucose results greater than or equal to 200 mg/dL meet the criteria for diagnosis of diabetes. Reference: Standards of Medical Care in Diabetes 2016, [place] [employer]. Diabetes Care. 2016.39(Suppl 1). Performed By: #### 2 432-8, ####[facility] [id number] [place] [address] [place] Potassium [Moles/Vol] 3.6 mmol/L Low 3.7-5.1 [facility] Comment on above: Order Comment: Speci men Type: BLOOD SPECIMENOrdering Facility: [facility] Address: [address] [place] [address] Performed By: #### 2 4328, ####[facility] [id number] [place] [address] [place] Protein [Mass/Vol] 6.9 g/dL Normal 6.3-8.0 [facility] Comment on above: Order Comment: Speci men Type: BLOOD SPECIMENOrdering Facility: [facility] Address: [address] [place] [address] Performed By: #### 2 4328, ####[facility] [id number] [place] [address] [place] Sodium [Moles/Vol] 143 mmol/L Normal 136-144 [facility] Comment on above: Order Comment: Speci men Type: BLOOD SPECIMENOrdering Facility: [facility] Address: [address] [place] [address] Performed By: #### 2 4328, ####[facility] [id number] [place] [address] [place] Urea nitrogen [Mass/Vol] 16 mg/dL Normal 7-21 [facility] Comment on above: Order Comment: Speci men Type: BLOOD SPECIMENOrdering Facility: [facility] Address: [address] [place] [address] Performed By: #### 2 4323-8, 2532-0 ####[facility] RADHA LEDEZMA [id number] [place] [id number] [place] [address] [place] IMMUNOFIXATION SCREEN, SERUM on 04-13-2025 INTERPRETATION (MPA) Atypical restricted bands are present in the IgG and lambda regions. Consistent with IgG lambda monoclonal gammopathy. Normal [facility] Comment on above: Order Comment: Speci men Type: BLOOD SPECIMENOrdering Facility: [facility] Address: [address] [place] [address] Performed By: #### I FES ####[facility] [id number] [address] [place] MPA RESULT M protein is present. Abnormal No M p rotein is identified. [facility] Comment on above: Order Comment: Speci men Type: BLOOD SPECIMENOrdering Facility: [facility] Address: [address] [place] [address] Performed By: #### I FES ####[facility] [id number] [address] STAFF REVIEW ([facility]) Reviewed by Rach Sterling MD Normal [facility] Comment on above: Order Comment: Speci men Type: BLOOD SPECIMENOrdering Facility: [facility] Address: [address] [place] [address] Performed By: #### I FES ####[facility] [id number] [place] [id number] [place] IMMUNOGLOBULINS,IGG,IGA,IGMo n 04-13-2025 IgA [Mass/Vol] 75 mg/dL Normal 70-400 [facility] Comment on above: Order Comment: Speci men Type: BLOOD SPECIMENOrdering Facility: [facility] Address: [address] [place] [address] Performed By: #### S ERIMM ####[facility] [id number] [place] [address] [place] IgG [Mass/Vol] 1252 mg/dL Normal 700-1600 [facility] Comment on above: Order Comment: Speci men Type: BLOOD SPECIMENOrdering Facility: [facility] Address: [address] [place] [address] Performed By: #### S ERIMM ####[facility] [id number] [place] [address] [place] IgM [Mass/Vol] 74 mg/dL Normal 40-230 [facility] Comment on above: Order Comment: Speci men Type: BLOOD SPECIMENOrdering Facility: [facility] Address: [address] [place] [address] Performed By: #### S ERIMM ####[facility] [id number] [place] [address] [place] KAPPA/LOPEZ,FREE,SERon 2024 Immunoglobulin light chains.kappa.free (S) [Mass/Vol] 12.0 mg/L Normal 3.3-19.4 [facility] Comment on above: Order Comment: Speci men Type: URINE SPECIMEN [facility] Address: [address] [place] [address] Result Comment: Rare ly, increased serum free light chains levels may not be detected or accurately quantified due to prozone phenomenon or in high viscosity samples using this immunoturbidimetric assay. Correlation with other laboratory results and clinical findings is recommended. The [place] Free Light Chain was performed using the Binding Site Optilite immunoturbidimetric method. Result obtained with different assay methods or kits cannot be used interchangeably. Performed By: #### L [id number] #### [facility] CLIA [id number] [address] [place] [address] [place] Immunoglobulin light chains.kappa/Immunogl obulin light chains.lambda (S) [Mass ratio] 0.15 Low 0.26-1.65 [facility] Comment on above: Order Comment: Speci men Type: URINE SPECIMEN [facility] Address: [address] [place] [address] Performed By: #### L [id number] #### [facility] CLIA [id number] [address] [place] [address] [place] Immunoglobulin light chains.lambda.free [Mass/Vol] 82.3 mg/L High 5.7-26.3 [facility] Comment on above: Order Comment: Speci men Type: URINE SPECIMEN [facility] Address: [address] [place] [address] Result Comment: Rare ly, increased serum free light chains levels may not be detected or accurately quantified due to prozone phenomenon or in high viscosity samples using this immunoturbidimetric assay. Correlation with other laboratory results and clinical findings is recommended. The [place] Free Light Chain was performed using the Binding Site Optilite immunoturbidimetric method. Result obtained with different assay methods or kits cannot be used interchangeably. Performed By: #### L [id number] #### [facility] CLIA [id number] [address] [place] [address] [place] LDH SerPl-cCncon 04-13-2025 LDH [Catalytic activity/Vol] 196 U/L Normal 135-214 [facility] Comment on above: Order Comment: Speci men Type: BLOOD SPECIMENOrdering Facility: [facility] Address: [address] [place] [address] Result Comment: Hemo lysis present. The origin of the hemolysis, in vitro versus an in vivo hemolytic process, cannot be distinguished via this assay alone. In vitro hemolysis may lead to non-physiological (spurious) elevation in lactate dehydrogenase (LDH) results. The result should be interpreted in context of the clinical setting and other test results. Suggest reorder as clinically indicated. Performed By: #### 2 4323-8, 2532-0 ####[facility] [id number] [place] [address] [place] MONOCLONAL PROT UR W/INTERPo n 04-13-2025 INTERPRETATION ([place]) An atypical restri cted band is present in the lambda region. The presence of free lambda light chains in the urine is consistent with a lambda-containing monoclonal gammopathy. Normal [facility] Comment on above: Order Comment: Speci men Type: URINE SPECIMEN [facility] Address: [address] [place] [address] Performed By: #### L [id number] #### [facility] CLIA [id number] [address] [place] [address] [place] STAFF [place] ([place]) Reviewed by Yuridia Downing M.D., Ph.D Normal [facility] Comment on above: Order Comment: Speci men Type: URINE SPECIMEN [facility] Address: [address] [place] [address] Performed By: #### L [id number] #### [facility] CLIA [id number] [address] [place] [address] [place] UMPA RESULT M protein is present. Abnormal No M p rotein is identified. [facility] Comment on above: Order Comment: Speci men Type: URINE SPECIMEN [facility] Address: [address] [place] [address] Performed By: #### L [id number] #### [facility] CLIA [id number] [address] [place] [address] [place] PROTEIN ELECTROPHORESIS SERU M (P)on 04-13-2025 Albumin [Mass/Vol] 4.34 g/dL Normal 3.43-5.41 [facility] Comment on above: Order Comment: Speci men Type: BLOOD SPECIMENOrdering Facility: [facility] Address: [address] [place] [address] Performed By: #### L [id number] ####[facility] [id number] [place] [address] [place] Alpha 1 globulin Elph [Mass/Vol] 0.29 g/dL Normal 0.18-0.43 [facility] Comment on above: Order Comment: Speci men Type: BLOOD SPECIMENOrdering Facility: [facility] Address: [address] [place] [address] Performed By: #### L [id number] ####[facility] [id number] [place] [address] [place] Alpha 2 globulin Elph [Mass/Vol] 0.57 g/dL Normal 0.42-0.98 [facility] Comment on above: Order Comment: Speci men Type: BLOOD SPECIMENOrdering Facility: [facility] Address: [address] [place] [address] Performed By: #### L [id number] ####[facility] [id number] [place] [address] [place] Beta globulin Elph [Mass/Vol] 0.57 g/dL Low 0.61-1.17 [facility] Comment on above: Order Comment: Speci men Type: BLOOD SPECIMENOrdering Facility: [facility] Address: [address] [place] [address] Performed By: #### L [id number] ####[facility] [id number] [place] [address] [place] Gamma globulin Elph [Mass/Vol] 1.03 g/dL Normal 0.53-1.51 [facility] Comment on above: Order Comment: Speci men Type: BLOOD SPECIMENOrdering Facility: [facility] Address: [address] [place] [address] Performed By: #### L [id number] ####[facility] [id number] [place] [address] [place] M-PROTEIN LOCATION Gamma Fraction 1 Normal [facility] Comment on above: Order Comment: Speci men Type: BLOOD SPECIMENOrdering Facility: [facility] Address: [address] [place] [address] Performed By: #### L [id number] ####[facility] [id number] [place] [address] [place] Protein Fractions [Interp] An M protein is identified on protein electrophoresis. Abnormal No definitive M protein is identified on protein electrophore sis. [facility] Comment on above: Order Comment: Speci men Type: BLOOD SPECIMENOrdering Facility: [facility] Address: [address] [place] [address] Performed By: #### L [id number] ####[facility] [id number] [place] [address] [place] Protein.monoclonal Elph [Mass/Vol] 0.49 g/dL High <=0.00 [facility] Comment on above: Order Comment: Speci men Type: BLOOD SPECIMENOrdering Facility: [facility] Address: [address] [place] [address] Performed By: #### L [id number] ####[facility] [id number] [place] [address] [place] SPE STAFF REVIEW Reviewed by Yuridia Downing M.D., Ph.D Normal [facility] Comment on above: Order Comment: Speci men Type: BLOOD SPECIMENOrdering Facility: [facility] Address: [address] [place] [address] Performed By: #### L [id number] ####[facility] [id number] [place] [id number] [place] Prot SerPl-mCncon 04-13-2025 Protein [Mass/Vol] 6.8 g/dL Normal 6.3-8.0 [facility] Comment on above: Order Comment: Speci men Type: URINE SPECIMEN [facility] Address: [address] [place] [address] Performed By: #### L [id number] #### [facility] CLIA [id number] [address] [place] [address] [place] Prot Ur-mCncon 04-13-2025 Protein (U) [Mass/Vol] 7 mg/dL Normal 0-20 [facility] Comment on above: Order Comment: Speci men Type: URINE SPECIMENOrdering Facility: [facility] Address: [address] [place] [address] Performed By: #### 2 [id number] ####[facility] [id number] [place] [address] [place] URINE PROTEIN ELECTROPHORESI S RANDOM (P)on 04-13-2025 Albumin Elph (U) [Mass fraction] 29.29 % Normal [facility] Comment on above: Order Comment: Speci men Type: URINE SPECIMEN [facility] Address: [address] [place] [address] Performed By: #### L [id number] #### [facility] CLIA [id number] [address] [place] [address] [place] Alpha 1 globulin Elph (U) [Mass fraction] 6.47 % Normal [facility] Comment on above: Order Comment: Speci men Type: URINE SPECIMEN [facility] Address: [address] [place] [address] Performed By: #### L [id number] #### [facility] CLIA [id number] [address] [place] [address] [place] Alpha 2 globulin Elph (U) [Mass fraction] 14.23 % Normal [facility] Comment on above: Order Comment: Speci men Type: URINE SPECIMEN [facility] Address: [address] [place] [address] Performed By: #### L [id number] #### [facility] CLIA [id number] [address] [place] [address] [place] Beta globulin Elph (U) [Mass fraction] 21.07 % Normal [facility] Comment on above: Order Comment: Speci men Type: URINE SPECIMEN [facility] Address: [address] [place] [address] Performed By: #### L [id number] #### [facility] CLIA [id number] [place], [place] [address] [place] Gamma globulin Elph (U) [Mass fraction] 28.93 % Normal [facility] Comment on above: Order Comment: Speci men Type: URINE SPECIMEN [facility] Address: [address] [place] [address] Performed By: #### L [id number] #### [facility] CLIA [id number] [address] [place] [address] [place] INTERPRETATION COMMENT FOR PROTEIN ELECTROPHORESIS See separate immunofixation report for characterization of monoclonal gammopathy. Normal [facility] Comment on above: Order Comment: Speci men Type: URINE SPECIMEN [facility] Address: [address] [place] [address] Performed By: #### L [id number] #### [facility] CLIA [id number] [address] [place] [address] [place] Order Comment: Speci men Type: BLOOD SPECIMENOrdering Facility: [facility] Address: [address] [place] [address] Performed By: #### L [id number] ####[facility] [id number] [place] [id number] [place] Protein Fractions Elph Hernan (U) [Interp] An M protein is identified on protein electrophoresis. Abnormal No definitive M protein is identified on protein electrophore sis. [facility] Comment on above: Order Comment: Speci men Type: URINE SPECIMEN [facility] Address: [address] [place], [place] [id number] Performed By: #### L [id number] #### [facility] CLIA [id number] [address] [place] [address] [place] STAFF REVIEW (URINE ELECTRO) Reviewed by Yuridia Downing M.D., Ph.D Normal [facility] Comment on above: Order Comment: Speci men Type: URINE SPECIMEN [facility] Address: [address] [place] [address] Performed By: #### L [id number] #### [facility] CLIA [id number] [address] [place] [address] OF [facility] CNOVon 11-21-2024 CNOV Office Visit (UROLMN ) ----- VALERIE ALMARAZ ([id number]) 1955 F Date Time Provider Department 11/21/24 11:30 AM CHELSEY PLUMMER During your visit today, we recorded the following information about you: Chelsey Plummer MD 01/08/2025 2:58 PM Signed Referring Provider: Self Chief Complaint: Left renal mass HPI Valerie Floresnargis is a 69 year old female with a history of MGUS, incidentally diagnosed left renal mass on CT for abdominal pain in 10/2023 (prior CT A/P at OSH negative on report) , confirmed by her oncologist on MRI ,who presents for evaluation of the same Interval Hx: Complains of continuous left flank pian, dull- aching for the past 6 months No Family history of malignancy PSH: Laparoscopic Cholecystectomy (2009), C-sections x 2 Never- smoker Not on any AC, H/O DVT/PE/ Cardiac issues LABS Creatinine Date Value Ref Range Status 10/30/2024 0.78 0.58 - 0.96 mg/dL Final 08/13/2024 0.87 0.58 - 0.96 mg/dL Final IMAGING MRI Kidney (11/10/2024) IMPRESSION: Upper pole left renal heterogeneously enhancing solid mass is consistent with neoplasm. No evidence of metastatic disease within the visualized abdomen. Sub-5 mm nonenhancing pancreatic cystic foci are consistent with IPMN. No solid or enhancing pancreatic lesion or focal enlargement CT Abdomen/Pelvis (10/31/2024) IMPRESSION: 1. There is a 3.0 x 2.8 cm heterogeneously enhancing mass within the upper pole of the left kidney that is considered malignant until proven otherwise. Further evaluation with MRI is recommended. 2. A 1.3 cm enhancing focus within the pancreatic body is incidentally noted. However, this is not well seen and may be artifactual, reflecting small vascular structures. This can also be further evaluated at MRI. REVIEW OF SYSTEMS: GENERAL: Negative for fevers, chills, or night sweats. HEENT: Negative for sudden vision or hearing changes. RESPIRATORY: Negative for cough or shortness of breath. CARDIAC: Negative for chest pain, palpitations, murmurs, or syncopal episodes. GASTROINTESTINAL: Negative for diarrhea, constipation, abdominal pain and poor appetite. GENITOURINARY: See HPI. MUSCULOSKELETAL: Negative Bone Aches/pain NEUROLOGIC: Negative for dizziness, headache, weakness or numbness. HEMATOLOGIC: Negative for bleeding or easy bruising. SKIN: Negative for rashes or other skin changes. 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 Back: Normal exam Lungs: Negative Heart: Not examined Abdomen: Normal abdominal exam Extremities: Extremities normal. No deformities, edema, or skin discoloration. Good capillary refill. Musculoskeletal: Negative Genitourinary: No CVA tenderness Assessment We talked with the patient about vs. Biopsy vs Partial Nephrectomy, all risks and befits were explained. The patient wants to continue with , with CT kidney in April 2025 at [facility]. Plan CT Kidney w/ WO contrast in 04/2025 and VV atleast [address] Plummer. Anjelica Attestation: By signing my name below, I, Dany Cobb, attest that this documentation has been prepared under the direction and in the presence of Dr. Chelsey Plummer MD. Electronically signed: Anjelica Stack, November 21, 2024 8:53 AM I, Chelsey Plummer MD, personally performed the services described in this documentation. All medical record entries made by the boraibe were at my direction and in my presence. I have reviewed the chart and discharge instructions (if applicable) and agree that the record reflects my personal performance and is accurate and complete. Chelsey Plummer MD Referring Provider: DANIEL ROBERSON [[id number]] Allergies As of Date: 11/21/2024 Noted Allergy Reaction CHLORHEXIDINE 11/30/2009 2 - Rash Date Reviewed: 11/21/2024 Reviewed by: Vivian Bay MA - Fully Assessed Reason for Visit: New Patient [172] Primary Visit Diagnosis:Screening for genitourinary condition [Z13.89] Other Visit Diagnoses:Renal mass [N28.89] Other specified disorders of kidney and ureter [N28.89] Order(s):CONS (more content not included)... Normal [facility] Laboratory - Hematology and Cell countson 11-21-2024 Hemoglobin Ql (U) Small Abnormal Negative [facility] Laboratory - Urinalysison Protein Ql (U) Negative Negative mg/dL [facility] No Panel Informationon 11-21 BILIRUBIN UA (POCT) Negative Negative [facility] CLARITY UA (POCT) Clear [facility] COLOR UA (POCT) Other [facility] GLUCOSE UA (POCT) Negative Negative mg/dL [facility] Interpretation and review of laboratory results Abnormal [facility] KETONE UA (POCT) Negative Negative mg/dL [facility] LEUKOCYTES UA (POCT) Negative Negative [facility] NITRITE UA (POCT) Negative Negative [facility] PH UA (POCT) 6.5 4.5 - 8.0 [facility] SPECIFIC GRAVITY UA (POCT) <=1.005 Abnormal 1.005 - 1.030 [facility] UROBILINOGEN UA (POCT) 0.2 Normal E.U./dL [facility] Location:[facility], [address] [place] [address], [address] [facility] POINT OF CARE [facility] MRI KIDNEY WO/W IVCONon 04-0 MRI KIDNEY WO/W IVCON * * *Final Report* * * DATE OF EXAM: Nov 10 2024 12:10PM [facility] 0721 - MRI KIDNEY WO/W IVCON / PROCEDURE REASON: multiple diagnoses * * * * Physician Interpretation * * * * EXAMINATION: MRI ABDOMEN WITHOUT AND WITH IV CONTRAST CLINICAL HISTORY: Left renal mass . Possible pancreatic lesion TECHNIQUE: Pulse sequences included: axial precontrast T1 weighted in- and efo-yt-enenq, axial and coronal HASTE, axial DWI with creation of ADC map; axial and coronal T1-VIBE before and after the administration of intravenous gadolinium chelate. Multiple post processing techniques were performed. MQ: [id number] Contrast: IV administration of 6 ml of Elucirem COMPARISON: 10/31/2024 CT. RESULT: Kidneys, adrenals and ureters: Bilateral subcentimeter cysts Right kidney: No solid/enhancing mass. Right renal vasculature - Arterial: single. No early branch (< 1cm). - Venous: single. Right ureter: Single ureter. No hydronephrosis. Right adrenal: Normal, no nodules or thickening Left kidney: Upper pole heterogeneously enhancing solid left renal lesion of 3 x 2.7 x 2.6 cm. No significant encroachment on the renal sinus Left renal vasculature - Arterial: single. No early branch (< 1cm). - Venous: conventional, anterior to the aorta. Left ureter: Single ureter. No hydronephrosis. Left adrenal: Normal, no nodules or thickening Retroperitoneal lymphadenopathy and IV involvement: None Abdomen: Liver: Normal morphology. No hepatic steatosis. No solid or enhancing mass. Several cysts. Inferior right lobe 3.2 cm anterior right lobe 2.5 cm. Biliary: No bile duct dilation. Cholecystectomy. Common duct is 0.6 cm. No filling defect within it. Spleen: No mass. No splenomegaly. Pancreas: No duct dilation. Several sub-5 mm cystic foci within the pancreas. No worrisome features. No pathologic enhancement. Likely sidebranch IPMN GI tract: No dilation or wall thickening. The appendix appears normal Lymph nodes (other): No abdominal or pelvic lymphadenopathy. Mesentery/Peritoneum: No ascites or mass. Retroperitoneum: No mass. Vasculature: The celiac axis and SMA are patent. The portal vein and branches, splenic vein, SMV, and hepatic veins are patent. The aorta is normal in caliber Bones/Soft Tissues: Degenerative changes. Mild levoscoliosis Lower thorax: Unremarkable. IMPRESSION: Upper pole left renal heterogeneously enhancing solid mass is consistent with neoplasm. No evidence of metastatic disease within the visualized abdomen. Sub-5 mm nonenhancing pancreatic cystic foci are consistent with IPMN. No solid or enhancing pancreatic lesion or focal enlargement Uniform Room Attendant: [facility] Transcribe Date/Time: Nov 13 2024 7:46A Dictated by : BENNY BLOUNT MD This examination was interpreted and the report reviewed and electronically signed by: BENNY BLOUNT MD on Nov 13 2024 8:07AM EST [id number] Normal [facility] CNPCoret[facility] VALERIE ALMARAZ ([id number]) 1955 F Date Time Provider Department 11/04/24 DANIEL ROBERSON During your visit today, we recorded the following information about you: Daniel Roberson DO 11/04/2024 4:25 PM Signed Can let her know the echocardiogram showed normal heart pumping strength and no evidence of cardiac amyloidosis. Can schedule up as followed in April. DO Da Duran Paul A, DO 11/05/2024 12:56 PM Signed I spoke with her about the results of the CT scan. Please schedule for MRI (prefers here). Also please refer to urologic surgery at [facility]. Referral order filed. DO Da Duran Paul A, DO 11/05/2024 12:56 PM Signed Addended by: DANIEL ROBERSON on: 11/05/2024 12:56 PM Modules accepted: Lucía Pelletier 11/05/2024 3:30 PM Signed Patient is already scheduled for the MRI for 11/10/24. I called her and scheduled the consult to urology at [facility] for 11/25/24 @ 3:[address]Robert Plummer, patient confirmed this date, time and location Lucía Mendoza Allergies As of Date: 11/04/2024 Noted Allergy Reaction CHLORHEXIDINE 11/30/2009 2 - Rash Date Reviewed: 10/30/2024 Reviewed by: Cherie Hermosillo, RT(R) - Fully Assessed Reason for Visit: Results [95] Primary Visit Diagnosis:Renal mass [N28.89] Other Visit Diagnoses:Other specified disorders of kidney and ureter [N28.89] Pancreatic lesion (HCC) [K86.9] Order(s):MRI KIDNEY WO/W IVCON [[id number]] Order #: [id number] FUTURE iv contrast (will be provided with radiology test)MRI Kidney Inject, intravenously, once for 1 dose. No IV access, insert saline lock prior to the beginning of sedation, infusion, injection of imaging exam. Discontinue saline lock post exam. If Pt. has a central line or IVAD, may access for administration according to line specific nursing protocol. Once exam is complete flush line and de-access according to line specific nursing protocol in the MR contrast administration guidelines link.Disp: 1 EachRfl: 0 LORazepam (ATIVAN) 1 mg tabletTake 1 tablet by mouth one time only for 1 dose. about 1 hour prior to MRI.Disp: 1 tabletRfl: 0 CONSULT TO UROLOGY [9041] Order #: [id number]: 1 FUTURE Prescriptions as of 11/05/2024 - iv contrast (will be provided with radiology test) MRI Kidney Inject, intravenously, once for 1 dose. No IV access, insert saline lock prior to the beginning of sedation, infusion, injection of imaging exam. Discontinue saline lock post exam. If Pt. has a central line or IVAD, may access for administration according to line specific nursing protocol. Once exam is complete flush line and de-access according to line specific nursing protocol in the MR contrast administration guidelines link. - LORazepam (ATIVAN) 1 mg tablet Take 1 tablet by mouth one time only for 1 dose. about 1 hour prior to MRI. - RABEprazole (ACIPHEX) 20 mg tablet Take 20 mg by mouth once daily. - acetaminophen (TYLENOL EXTRA STRENGTH) 500 mg tablet Take 1,000 mg by mouth every 8 hours as needed. Problem List As Of Date 11/04/2024 Noted Resolved Epigastric pain [R10.13] 03/05/2016 Gastro-esophageal reflux disease with esophagit*03/05/2016 Arthritis of carpometacarpal (CMC) joint of lef*09/28/2021 Arthritis of ulkcyzsd-vfdmdyeqa-rszaas oid joint*09/28/2021 Prescriptions ordered this encounter Disp Refills Start End IV CONTRAST (RADIOLOGY PROCEDURE) - * 1 Ea* 0 11/05/2024 11/06/2024 Class: In Office Sig: MRI Kidney Inject, intravenously, once for 1 dose. No IV access, insert saline lock prior to the beginning of sedation, infusion, injection of imaging exam. Discontinue saline lock post exam. If Pt. has a central line or IVAD, may access for administration according to line specific nursing protocol. Once exam is complete flush line and de-access according to line specific nursing protocol in the MR contrast administration guidelines link. LORAZEPAM 1 MG TABLET 1 ta* 0 11/05/2024 11/05/2024 Route: ORAL Sig: Take 1 tablet by mouth one time only for 1 dose. about 1 hour prior to MRI. Encounter Status:Closed by LEANA WHITMAN on 11/05/24 [facility] ECHOon 11-04-2024 Echocardiography Echocardiography Rep ort: Transthoracic Echo [facility] Date of service: 11/04/2024 1:43:19 PM DIGGER Ordering physician: DANIEL ROBERSON Indication: Initial evaluation of Heart Failure Technologist: Steffany Craven [facility] Interpreting physician: Jeison Thomas MD PATIENT: Name: MRS. VALERIE ALMARAZ : 1955 Age: 69 years Gender: F Primary rhythm: sinus. Height: 166.00 cm BSA: 1.66 m Weight: 59.88 kg BMI: 21.7 kg/m Heart rate 65 bpm Blood pressure 143/68 mmHg Color Doppler was utilized to interrogate the cardiac valves assessed and spectral Doppler was utilized to determine the flow velocities and pressure gradients reported in this exam. Myocardial strain analysis was performed in this exam to aid in the assessment of cardiac function. MEASUREMENTS: Value Indexed Normal Max aortic dimension 3.2 cm Ao < 3.8 Left atrial volume 52 ml (biplane A-L) 31 ml/m Jacque <= 34 LV ID (diastole) 4.1 cm (2D) 2.49 cm/m LV ID (systole) 2.5 cm (2D) 1.48 cm/m IVS, leaflet tips 1.0 cm (2D) Posterior wall thickness 1.0 cm (2D) Left ventricular mass 136 g (2D) 82 g/m Global peak long strain -21.3 % LV stroke volume 50 ml (2D biplane) LV end diastolic volume 74 ml (2D biplane) 44.8 ml/m 29<=EDVi<62 LV end systolic volume 24 ml (2D biplane) 14.6 ml/m Ejection Fraction 67 % (2D biplane) EF > 54 FINDINGS: LEFT VENTRICLE The left ventricle is normal in size. Left ventricular systolic function is normal. Global LV myocardial strain is normal. Normal left ventricular diastolic function. Mitral annular lateral E/e': 5.7. Mitral annular septal E/e': 9.6. Wall Motion: All scored segments are normal. RIGHT VENTRICLE The right ventricle is normal in size. Right ventricular systolic function is normal. RV systolic tissue Doppler velocity is 13.0 cm/s. Tricuspid annular displacement is 2.0 cm. Estimated right ventricular systolic pressure is 31 mmHg consistent with normal pulmonary artery pressures. Estimated right atrial pressure is 3 mmHg (although IVC not seen). LEFT ATRIUM The left atrial cavity is normal in size. RIGHT ATRIUM The right atrial cavity is normal in size. Inferior Vena Cava: The inferior vena cava appears normal measuring 1.5 cm. MITRAL VALVE The mitral valve leaflets are structurally normal. There is trace mitral valve regurgitation. The pressure half time is 35 msec. The peak mitral E/A ratio is 0.81. The average mitral E/e' ratio is 7.7. The mitral flow deceleration time is 122 msec. TRICUSPID VALVE The tricuspid valve leaflets are structurally normal. There is trace (trace - 1+) tricuspid valve regurgitation. AORTIC VALVE The aortic valve cusps are structurally normal. There is no aortic valve regurgitation. Tricuspid aortic valve. The peak gradient is 11 mmHg (peak velocity = 164.2 cm/s). PULMONIC VALVE The pulmonic valve cusps are structurally normal. There is trace (trace - 1+) pulmonic valve regurgitation. AORTA The visualized aorta is normal in size. Measurements - Mid ascending aorta 3.2 cm. INTERATRIAL SEPTUM There is no evidence of intracardiac shunting as detected by Doppler. PERICARDIUM There is no pericardial effusion. CONCLUSIONS: - Exam indication: Initial evaluation of Heart Failure - The left ventricle is normal in size. Left ventricular systolic function is normal. EF = 67 5% (2D biplane) Normal left ventricular diastolic function. - The right ventricle is normal in size. Right ventricular systolic function is normal. - There are no significant valvular abnormalities. - The patient has not had a prior CC echocardiographic exam for comparison. * * * Final * * * [facility] Image : [id number] Normal [facility] CT ABD/PEL W IVCONon 10-31-[address] ABD/PEL W IVCON * * *Final Report* * * DATE OF EXAM: Oct 31 2024 2:52PM [facility] 0530 - CT ABD/PEL W IVCON / PROCEDURE REASON: multiple diagnoses * * * * Physician Interpretation * * * * EXAMINATION: CT ABDOMEN AND PELVIS WITH IV CONTRAST CLINICAL HISTORY: Epigastric and left flank pain in a patient with IgG lambda monoclonal gammopathy TECHNIQUE: CT of the abdomen and pelvis was performed using standard technique, scanning from just above the dome of the diaphragm to the upper thighs. Contrast: IV: 100 ml of Omnipaque 350 Oral: 10 ml of Omni 240 10-25ml diluted with water CT Radiation dose: Integrated Dose-length product (DLP) for this visit = 357 mGy*cm. CT Dose Reduction Employed: Automated exposure control(AEC) and iterative recon COMPARISON: None FINDINGS: LOWER CHEST: No significant abnormality. A flattened 4 mm soft tissue nodule at the lateral periphery of the left lower lobe likely reflects a subpleural lymph node given the appearance and location. HEPATOBILIARY: Few scattered water-attenuating cysts are present within the liver. Otherwise, the liver is grossly unremarkable. The gallbladder is absent. No biliary ductal dilatation. SPLEEN, PANCREAS, ADRENAL GLANDS: A 1.3 cm enhancing region of the pancreatic body (5:31) is noted. However, this is not well seen and may be artifactual, reflecting small vascular structures. Otherwise, within normal limits. KIDNEYS, URETERS, BLADDER: There is a 2.8 x 3.0 cm heterogeneously enhancing mass within the left upper pole that is of uncertain etiology but highly concerning for malignancy. A tiny hypodensity at the lateral periphery of the left upper pole (7:61) is too small to accurately characterize. Otherwise, parenchymal enhancement remain symmetric with no obstructing calculus or hydronephrosis. Ureters and bladder within normal limits.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 chromosome abnormality and no structural change detected within the limits of resolution. Clinical and pathologic correlation is recommended. As reviewed by Yuko Yan, PhD Performed by [facility] Molecular Pathology and Cytogenomics ([id number]), Division of Laboratory Medicine Chelsey Tapia Department of Pathology & Laboratory Medicine, Diagnostics [place] [address] [place] [address] Toll free: Performed By: #### [facility] ####[facility] [id number] [place] [address] [place] CBC W Auto Differential pane l (Bld)on 09-22-2024 Basophils (Bld) [#/Vol] 0.09 10*3/uL Normal <0.11 [facility] Comment on above: Order Comment: Speci men Type: BLOOD SPECIMENOrdering Facility: [facility] Address: [address] [place] [address] Performed By: #### 5 7021-8 ####[facility] [id number] [place] [address] [place] Basophils/100 WBC (Bld) 1.4 % Normal [facility] Comment on above: Order Comment: Speci men Type: BLOOD SPECIMENOrdering Facility: [facility] Address: [address] [place] [address] Performed By: #### 5 7021-8 ####[facility] [id number] [place] [address] [place] Differential cell count method Nom (Bld) Auto Normal [facility] Comment on above: Order Comment: Speci men Type: BLOOD SPECIMENOrdering Facility: [facility] Address: [address] [place] [address] Performed By: #### 5 7021-8 ####[facility] [id number] [place] [address] [place] Eosinophils (Bld) [#/Vol] 0.43 10*3/uL Normal <0.46 [facility] Comment on above: Order Comment: Speci men Type: BLOOD SPECIMENOrdering Facility: [facility] Address: [address] [place] [address] Performed By: #### 5 7021-8 ####[facility] GUNNARWMARYAMLIA [id number] [place] [address] [place] Eosinophils/100 WBC (Bld) 6.5 % Normal [facility] Comment on above: Order Comment: Speci men Type: BLOOD SPECIMENOrdering Facility: [facility] Address: [address] [place] [address] Performed By: #### 5 7021-8 ####[facility] PEMBROKEMARYAMLIA [id number] [place] [address] [place] Erythrocyte distribution width (RBC) [Ratio] 12.4 % Normal 11.5-15.0 [facility] Comment on above: Order Comment: Speci men Type: BLOOD SPECIMENOrdering Facility: [facility] Address: [address] [place] [address] Performed By: #### 5 7021-8 ####[facility] [id number] [place] [address] [place] Hematocrit (Bld) [Volume fraction] 38.5 % Normal 36.0-46.0 [facility] Comment on above: Order Comment: Speci men Type: BLOOD SPECIMENOrdering Facility: [facility] Address: [address] [place] [address] Performed By: #### 5 7021-8 ####[facility] NANIERBACONNCLIA [id number] [place] [address] [place] Hemoglobin (Bld) [Mass/Vol] 12.8 g/dL Normal 11.5-15.5 [facility] Comment on above: Order Comment: Speci men Type: BLOOD SPECIMENOrdering Facility: [facility] Address: [address] [place] [address] Performed By: #### 5 7021-8 ####[facility] NANIERBACONMARYAMLIA [id number] [place] [address] [place] Immature granulocytes (Bld) [#/Vol] 10*3/uL Normal <0.10 [facility] Comment on above: Order Comment: Speci men Type: BLOOD SPECIMENOrdering Facility: [facility] Address: [address] [place] [address] Performed By: #### 5 7021-8 ####[facility] MILLWNCLIA [id number] [place] [address] [place] Immature granulocytes/100 WBC (Bld) 0.3 % Normal [facility] Comment on above: Order Comment: Speci men Type: BLOOD SPECIMENOrdering Facility: [facility] Address: [address] [place] [address] Performed By: #### 5 7021-8 ####[facility] PEMBROKENCLIA [id number] [place] [address] [place] Lymphocytes (Bld) [#/Vol] 1.07 10*3/uL Normal 1.00-4.00 [facility] Comment on above: Order Comment: Speci men Type: BLOOD SPECIMENOrdering Facility: [facility] Address: [address] [place] [address] Performed By: #### 5 7021-8 ####[facility] [id number] [place] [address] [place] Lymphocytes/100 WBC (Bld) 16.1 % Normal [facility] Comment on above: Order Comment: Speci men Type: BLOOD SPECIMENOrdering Facility: [facility] Address: [address] [place] [address] Performed By: #### 5 7021-8 ####[facility] PEMBROKENCLIA [id number] [place] [address] [place] MCH (RBC) [Entitic mass] 31.8 pg Normal 26.0-34.0 [facility] Comment on above: Order Comment: Speci men Type: BLOOD SPECIMENOrdering Facility: [facility] Address: [address] [place] [address] Performed By: #### 5 7021-8 ####[facility] RADHA MARRNCANA [id number] [place] [address] [place] MCHC (RBC) [Mass/Vol] 33.2 g/dL Normal 30.5-36.0 [facility] Comment on above: Order Comment: Speci men Type: BLOOD SPECIMENOrdering Facility: [facility] Address: [address] [place] [address] Performed By: #### 5 7021-8 ####[facility] PEMBROKENCLIA [id number] [place] [address] [place] MCV (RBC) [Entitic vol] 95.8 fL Normal 80.0-100.0 [facility] Comment on above: Order Comment: Speci men Type: BLOOD SPECIMENOrdering Facility: [facility] Address: [address] [place] [address] Performed By: #### 5 7021-8 ####[facility] PEMBROKENCLIA [id number] [place] [address] [place] Monocytes (Bld) [#/Vol] 0.34 10*3/uL Normal <0.87 [facility] Comment on above: Order Comment: Speci men Type: BLOOD SPECIMENOrdering Facility: [facility] Address: [address] [place] [address] Performed By: #### 5 7021-8 ####[facility] PEMBROKENCLIA [id number] [address] [place] Monocytes/100 WBC (Bld) 5.1 % Normal [facility] Comment on above: Order Comment: Speci men Type: BLOOD SPECIMENOrdering Facility: [facility] Address: [address] [place] [address] Performed By: #### 5 7021-8 ####[facility] MILLWNCLIA [id number] [place] [address] [place] Neutrophils (Bld) [#/Vol] 4.71 10*3/uL Normal 1.45-7.50 [facility] Comment on above: Order Comment: Speci men Type: BLOOD SPECIMENOrdering Facility: [facility] Address: [address] [place] [address] Performed By: #### 5 7021-8 ####[facility] [id number] [place] [address] [place] Neutrophils/100 WBC (Bld) 70.6 % Normal [facility] Comment on above: Order Comment: Speci men Type: BLOOD SPECIMENOrdering Facility: [facility] Address: [address] [place] [address] Performed By: #### 5 7021-8 ####[facility] [id number] [place] [address] [place] Nucleated RBC (Bld) [#/Vol] 10*3/uL Normal <0.01 [facility] Comment on above: Order Comment: Speci men Type: BLOOD SPECIMENOrdering Facility: [facility] Address: [address] [place] [address] Performed By: #### 5 7021-8 ####[facility] PEMBROKENCLIA [id number] [place] [address] [place] Nucleated RBC/100 WBC (Bld) [Ratio] 0.0 /100 WBC Normal [facility] Comment on above: Order Comment: Speci men Type: BLOOD SPECIMENOrdering Facility: [facility] Address: [address] [place] [address] Performed By: #### 5 7021-8 ####[facility] PEMBROKENCLIA [id number] [place] [address] [place] Platelet mean volume (Bld) [Entitic vol] 8.6 fL Low 9.0-12.7 [facility] Comment on above: Order Comment: Speci men Type: BLOOD SPECIMENOrdering Facility: [facility] Address: [address] [place] [address] Performed By: #### 5 7021-8 ####[facility] NANIERBACONMARYAMANA [id number] [place] [address] [place] Platelets (Bld) [#/Vol] 255 10*3/uL Normal 150-400 [facility] Comment on above: Order Comment: Speci men Type: BLOOD SPECIMENOrdering Facility: [facility] Address: [address] [place] [address] Performed By: #### 5 7021-8 ####[facility] PEMBROKENCANA [id number] [place] [address] [place] RBC (Bld) [#/Vol] 4.02 10*6/uL Normal 3.90-5.20 [facility] Comment on above: Order Comment: Speci men Type: BLOOD SPECIMENOrdering Facility: [facility] Address: [address] [place] [address] Performed By: #### 5 7021-8 ####[facility] PEMBROKEMARYAMLIA [id number] [place] [address] [place] WBC (Bld) [#/Vol] 6.66 10*3/uL Normal 3.70-11.00 [facility] Comment on above: Order Comment: Speci men Type: BLOOD SPECIMENOrdering Facility: [facility] Address: [address] [place] [address] Performed By: #### 5 7021-8 ####[facility] PEMBROKENCLIA [id number] [place] [address] [place] CNOVSPon 09-22-2024 CNOVSP Visit (SP) Office (HEMAWS) ----- RUFINAVALERIE ([id number]) 1955 F Date Time Provider Department 09/22/24 1:00 PM DEMETRA RUIZ During your visit today, we recorded the following information about you: Temperature Pulse Respiration Blood pressure 98.6 degrees 67/minute 12/minute 130/79 Deanna Xavier LPN 09/22/2024 1:25 PM Signed Pt discharged to home with after BMBX with dry sterile dressing in place. No drainage noted. Post-procedure care reviewed with patient. Pt to call with any complaints of redness, swelling, increased or unresolved pain, bleeding, chills, bruising, and/or fever. Pt verbalized understanding. Demetra Salinas LPN, APRN.CNP 09/22/2024 1:25 PM Signed BEDSIDE PROCEDURE NOTE BONE MARROW BIOPSY Date/Start Time: 09/22/2024 1:00 PM Date/Stop Time: 09/22/2024 1:14 PM Performed by: Demetra Ruiz APRN.FLAKER OPERATOR Authorized by: Demetra Ruiz APRN.RADHA Where was Patient When this Procedure was Performed: [facility] Informed Consent Consent Obtained: Written [place] Protocol A moment to CARE was completed. SIGN IN Personnel directly involved with the procedure wore the appropriate PPE. Special Equipment: Yes Patient/Surrogate Stated/Verified: Patient name, Date of , Relevant allergies and Intended procedure TIME OUT Relevant labs, photos, and/or imaging studies have been reviewed. Intended patient and procedure match the source document(s). Consent documented and matches the intended procedure. Correct side/site marked and visible. Medications required for procedure verified. No fire risk assessment and interventions applicable. No implant(s) inserted. Pre-Procedure Details: The area was prepped with povidone Iodine (Betadine) and allowed to dry. A sterile partial body drape was applied following the usual aseptic technique. Medications: Local Anesthesia (see MAR): Lidocaine 1% Anxiolysis (see MAR): Lorazapem Procedure Details: Patient Position: Left lateral decubitus Aspiration Laterality: Unilateral Aspiration Site: Right posterior superior iliac crest Biopsy Laterality: Unilateral Biopsy Site: Right posterior sperior iliac crest OnControl biopsy system was used. Using aseptic technique, bone marrow aspiration was performed. A touch prep was taken. Core biopsy was obtained 0.9 cm. The core biopsy was confirmed. Number of External Insertion Sites: 1 Pressure dressing applied to Bone Marrow site(s). Hemostasis maintained. Assisting Clinician(s): Deanna Xavier LPN and Teresa Pinto MA Post-Procedure Details: Patient Tolerance: Patient tolerated the procedure well with no immediate complications Immediate Complications: N/A Estimated Blood Loss: scant Specimens Sent: bone marrow analysis, bone marrow chromosome analysis, DNA extraction and flow cytometry Teaching Complete: Bone Marrow Biopsy Post-procedure teaching complete Post-procedure care was reviewed and explained. Patient instructed to communicate complaints of redness, swelling, increased or unresolved pain, bleeding chills, bruising, and/or fever. Patient verbalized understanding. SIGN OUT All specimen containers correctly labeled. All instruments, equipment, possible retained foreign bodies accounted for. Post-procedure follow-up management communicated and Plan of Care Visit completed when applicable SIGNATURE: Demetra Ruiz APRN.RADHA PATIENT NAME: Valerie Almaraz DATE: September 22, 2024 TIME: 1:23 PM Allergies As of Date: 09/22/2024 Noted Allergy Reaction CHLORHEXIDINE 11/30/2009 2 - Rash Date Reviewed: 09/22/2024 Reviewed by: Demetra Ruiz APRN.FLAKER OPERATOR - Fully Assessed Reason for Visit: Procedure [88] Cmt: BMBX Visit Diagnosis:MGUS (monoclonal gammopathy of unknown significance) [D47.2] Order(s):BONE MARROW ASPIRATE ANDBIOPSY [[id number]] Order #: [id number]: 1 BONE MARROW ANALYSIS [SQBMRT] Order #: [id number]. #:[id number] BONE MARROW CHROMOSOME ANAL [SQCHRBMH] Order #: [id number]. #:[id number] DNA EXTRACTION BONE MARROW (BUFFY COAT) [SQNUCBUF] Order #: [id number]. #:[id number] FLOW CYTOMETRY FOR LEUKEMIA/LYMPHOMA (FCLL) [VCE4865] Order #: [id number]. #:[id number] FISH FOR PLASMA CELL MYELOMA [SQFSHPCM] Order #: [id number]. #:[id number] FLOW CYTOMETRY FOR LEUKEMIA/LYMPHOMA (FCLL) PERFORMABLE [ONX9589] Reflex Order#: [id number] (Ord#:[id number])Spec. #:[id number] BONE MARROW BIOPSY [PRO6] Order #: [id number] Prescriptions as of 09/22/2024 - RABEprazole (ACIPHEX) 20 mg tablet Take 20 mg by mouth once daily. - acetaminophen (TYLENOL EXTRA STRENGTH) 500 mg tablet Take 1,000 mg by mouth every 8 hours as needed. Problem List As Of Date 09/22/2024 Noted Resolved Epigastric pain [R10.13] 03/05/2016 Gastro-esophageal reflux disease with esophagit* (more content not included)... Normal [facility] DNA EXTRACTION BONE MARROW ( BUFFY COAT)on 09-22-2024 DNA EXTRACTION BONE MARROW (BUFFY COAT) Normal [facility] Comment on above: Order Comment: Speci men Type: BONE MARROW SPECIMENOrdering Facility: [facility] Address: [address] [place] [address] Result Comment: This specimen was received and successfully processed for future DNA purification should molecular testing be needed. Specimens will be available for 3 years from date of collection. To order testing on this specimen for [facility] patients, please place an [facility] order for DNA and RNA Clinical Testing ([id number]). To order testing for patients outside of the [facility] system, please request DNA and RNA for Clinical Testing, order code [id number]. If additional paperwork is required for testing, please send completed forms via secure email to . Performed By: #### N UCBUF ####CLARITY ILLUMINA LIMSCLIA [id number] [address] OF [place] FISH FOR PLASMA CELL MYELOMA on 09-22-2024 FISH FOR PLASMA CELL MYELOMA Normal [facility] Comment on above: Order Comment: Speci men Type: BONE MARROW SPECIMENOrdering Facility: [facility] Address: Tammy OB[address]O, [place] [address] Result Comment: FISH for Plasma Cell Myeloma Laboratory Accession Number: [id number] Case: [id number] Sample type: Bone Marrow Aspirate Number of nuclei scored: 93-100 Received Date: 2024-09-23 06:32:35 RESULT: Result 1p32 (CDKN2C): Normal pattern 1q21 (CKS1B): Normal pattern +9 (CEP9): Normal pattern t(11;14)(q13;q32)(IGH/CCND1): Normal pattern 13q14 (RB1): Normal pattern 14q32 (IGH): Positive for IGH translocation (33/100) +15 (CEP15): Normal pattern 17p13 (TP53): Normal pattern t(4;14)(p16;q32)(MMSET/IGH): Negative t(14;16)(q32;q23)(IGH/MAF): Positive (40/100) INTERPRETATION: These findings demonstrate a plasma cell population with IGH::MAF translocation. These findings are consistent with the presence of a plasma cell neoplasm. In plasma cell myeloma, these findings are associated with high risk disease. Clinical and pathological correlation is recommended. REFERENCE RANGE: Reference ranges for the 13q14/17p13, 1p32/1q21 and CEP9/CEP15: Normal Range = 0-20% if at least 100 cells scored If fewer than 100 cells scored, then report if positive when >19 abnormal nuclei found If <20 plasma cells counted, report as insufficient Reference range for IGH: Normal Range = 0-15% if at least 100 cells scored If fewer than 100 cells scored, then report if positive when >14 abnormal nuclei found If <20 plasma cells counted, report as insufficient Reference range for t(11;14), t(4;14) and t(14;16) Normal Range = 0-10% if at least 100 cells scored If fewer than 100 cells scored, then report if positive when >9 abnormal nuclei found If <20 plasma cells counted, report as insufficient Nomenclature: nuc yesenia(IGHx2)(3'IGH sep 5'IGHx1)[],(IGH,MAF)x3(IGH con MAFx2)[31/100] REFERENCES: 1) Poncho E et al. The International Consensus Classification of Mature Lymphoid Neoplasms: a report from the Clinical Advisory Committee. Blood. 2021 15;140(11):4961-0816 (PMID: 75696972) 2) Marek SK, [place] SV. The multiple myelomas - current concepts in cytogenetic classification and therapy. Adilene Rev Oncol. 2018;15(7):409-421 (PMID: 70523173) 3) Wyatt JR et al. Management of newly diagnosed symptomatic multiple myeloma: updated [place] Stratification of Myeloma and Risk- Adapted Therapy (mSMART) consensus guidelines 2013. Storey Clin Proc 2013 Nov;88(4):360-76 (PMID: 27009160) 4) Cora NC et al. Consensus recommendations for risk stratification in multiple myeloma: report of the International Myeloma Workshop Consensus Panel 2. Blood 2010December 08;117(18):4290-4366 (PMID: 10613761) METHODOLOGY: Bone marrow plasma cells were isolated by CD138 purification ([employer], [facility], [facility], [place]). Interphase fluorescence in situ hybridization was performed using probes to the CDKN2C locus on chromosome 1p32 (Hwang [employer]/Cytocell), CKS1B locus on chromosome 1q21 (Hwang Vysis/Cytocell), t(4;14) (LSI IGH/FGFR3 Dual Color, Dual Fusion, Hwang Vysis), chromosome 9 centromere (Hwang [employer]ysis), t(11;14) (IGH/CCND1 Dual Color, Dual Fusion probe, Hwang Vysis), 13q14 ([employer], [facility] [place], [place]), IGH locus on chromosome 14q32 (LSI IGH Dual Color, Break-Apart, Hwang Vysis), t(14;16) (LSI IGH/MAF Dual Color, Dual Fusion, Hwang Vysis), chromosome 15 centromere (Hwang Vysis), and the TP53 locus on chromosome 17p13 (Hwang Vysis). 100 plasma cells were scored whenever possible. DISCLAIMER: This test was developed and its performance characteristics determined by [facility]'s Pathology and Laboratory Medicine Department. It has not been cleared or approved by the FDA. [facility] Pathology and Laboratory Medicine Department is regulated under CLIA as certified to perform high-complexity testing. This test is used for clinical purposes. It should not be regarded as investigational or for research. Interpretation performed at [facility], [address] [place] [address]. CLIA Number: [id number] As reviewed by Allie Mclaughlin MD, PhD Performed By: #### F SHP ####CLARITY ILLUMINA LIMSCLIA [id number] [address] OF [place] FLOW CYTOMETRY FOR LEUKEMIA/ LYMPHOMA (FCLL) PERFORMABLEon 09-22-2024 FLOW CYTOMETRY ORDER STATUS Results will be reported under F case ID when completed Normal [facility] Comment on above: Order Comment: Speci men Type: BONE MARROW SPECIMENOrdering Facility: [facility] Address: [address] [place] [address] Performed By: #### F CLLP ####[facility] [id number] [address] FLOW CYTOMETRY FOR LEUKEMIA/ LYMPHOMA (FCLL) REFLEXon 09-22-2024 DIAGNOSIS COMMENT Normal [facility] Comment on above: Order Comment: Speci men Type: URINE SPECIMEN [facility] Address: [address] [place] [address] Result Comment: This assay is not designed to detect minimal residual disease or myeloid antigen maturational patterns. This test was developed and its performance characteristics determined by [facility]'s Chelsey Suarez [facility] Pathology and Laboratory Medicine [place] ([facility]). It has not been cleared or approved by the FDA. [facility] is regulated under CLIA as qualified to perform high-complexity testing. This test is used for clinical purposes. It should not be regarded as investigational or for research. Performed By: #### L [id number] #### [facility] CLIA [id number] [address] [place] [address] OF [facility] FINAL PERFORMING LAB Normal [facility] Comment on above: Order Comment: Speci men Type: URINE SPECIMEN [facility] Address: [address] [place] [address] Result Comment: Diag nostic interpretation performed at [facility], [address] [place] [address] CLIA# [id number] Client Account Specialist: Rico Huerta M.D. Performed By: #### L [id number] #### [facility] CLIA [id number] [address] [place] [address] [place] FLOW CYTOMETRY RESULTS Normal [facility] Comment on above: Order Comment: Speci men Type: URINE SPECIMEN [facility] Address: [address] [place] [address] Result Comment: Spec imen type: Bone marrow aspirate Morphology comments: See histopathology report ([id number]) Viability: 96% Results: Flow Cytometry Bone Marrow Immunophenotyping Marker Normal Cell Type Result (Lymphocytes) CD3 T-cells Normal Pattern CD4 T-cell subset Normal Pattern CD5 T-cells Normal Pattern CD7 T/NK-cells Normal Pattern CD8 T-cell subset Normal Pattern CD13 Myeloid Normal Pattern CD16/56 NK cells Normal Pattern CD19 B-cells Normal Pattern CD34 Blasts Normal Pattern CD45 [place]-leukocyte Normal Pattern kappa/lambda B-cells Normal Pattern Flow Cytometry Bone Marrow Plasma Cell Immunophenotyping Marker Normal Cell Type Result (Plasma Cells) CD19 B lymphocyte See Interpretation CD20 B lymphocyte See Interpretation CD27 Plasma cell See Interpretation VS38c Plasma cell See Interpretation CD45 Leukocyte See Interpretation CD56 NK cell See Interpretation CD81 Plasma cell See Interpretation CD117 Progenitor cell See Interpretation CD138 Plasma cell See Interpretation CD229 Plasma cell See Interpretation cKappa/cLambda Plasma cell See Interpretation Flow cytometric analysis of the bone marrow aspirate reveals that 7% of total events have the CD45 and light scatter properties of lymphocytes. The lymphocytes are composed of T-cells 83%, CD4:CD8 ratio = 1.1), NK cells (4%), and polytypic B-cells (11%). Granulocytic elements are 80% of events. Blasts are not increased. Plasma cells are 0.04% of total events according to the staining properties. The plasma cells are too few for definitive immunophenotypic evaluation. Performed By: #### L [id number] #### [facility] CLIA [id number] [address] [place] [address] [place] GROSS DESCRIPTION A. Bone Marrow Normal [facility] Comment on above: Order Comment: Speci men Type: URINE SPECIMEN [facility] Address: [address] [place] [address] Result Comment: Rece ived 3 ml BM in heparin. Performed By: #### L [id number] #### [facility] CLIA [id number] [address] [place] [address] [place] INTERPRETATION Normal [facility] Comment on above: Order Comment: Speci men Type: URINE SPECIMEN [facility] Address: [address] [place] [address] Result Comment: Ther e is no evidence of involvement by a lymphoproliferative disorder or abnormal blast population. The plasma cells are too few for definitive immunophenotypic evaluation. Correlation with the clinical laboratory, radiologic, and bone marrow histopathologic findings is suggested. at 0907 EST Performed By: #### L [id number] #### [facility] CLIA [id number] [address] [place] [address] [place] HIGH SENSITIVITY TROPONIN To n 09-22-2024 Troponin T.cardiac High sensitivity method [Mass/Vol] 13 ng/L High <12 [facility] Comment on above: Order Comment: Speci men Type: BLOOD SPECIMENOrdering Facility: [facility] Address: [address] [place] [address] Performed By: #### H STNT, [id number] ####[facility] [id number] [place] [address] [place] NT-proBNP [facility] 09-22 Natriuretic peptide.B prohormone N-Terminal [Mass/Vol] 111 pg/mL Normal <125 [facility] Comment on above: Order Comment: Speci men Type: BLOOD SPECIMENOrdering Facility: [facility] Address: [address] [place] [address] Performed By: #### H STNT, [id number] ####[facility]KEY [id number] [place] [address] [place] CNOVSPon 09-11-2024 CNOVSP Visit (SP) Office (HEMAWS) ----- RUFINAVALERIE R ([id number]) 1955 F Date Time Provider Department 09/11/24 9:30 AM DANIEL ROBERSON During your visit today, we recorded the following information about you: Temperature Pulse Respiration Blood pressure 98.8 degrees 77/minute 12/minute 118/70 Weight 60.8 kg Daniel Roberson DO 09/11/2024 5:00 PM Signed Hematologic problem(s): 1) IgG lambda monoclonal gammopathy. HPI: The patient is a 69-year-old female with past medical history as outlined below. Noticed morning stiffness "all over" beginning about a year ago. Labs for RA negative. Left flank pain started more consistently and couldn't find comfortable position. CT A/P. EGD/colonoscopy. Diverticular today. Biopsy--inflammation in duodenum. Was told needs serologic testing for celiac. Patient had a CBC on 06/18/2024 demonstrated total white count 4700. Red blood cell count slightly low at 4,120,000/mm?. Hemoglobin normal 12.8 g/dL with a normal hematocrit of 40.7%. MCV was 98.8 fL and MCH was 31.1 pg. Platelet count was 202,000. Differential was unremarkable with the exception of extremely mild increase in basophils of 1.1%. In March 2023 basophils were 1.2%. On 2 other occasions in 2023 basophils were normal. A recent chemistry panel on 03/19/2024 demonstrated a serum creatinine of 1.31 mg/L with a BUN of 16. Calcium was normal at 9.0 mg/dL. Repeat chemistry panel on 06/18/2024 revealed a serum creatinine of 1.15 mg/dL with a BUN of 21. Ratio was 18.3. Calcium was 9.2 mg/dL. Total bilirubin 0.40 mg/dL with normal AST and ALT of 20 and 23 units/L respectively. Alkaline phosphatase normal at 73 units/L. Total serum protein of 7.3 g/dL with an albumin of 3.7 g/dL and a globulin fraction of 3.6 g/dL. On 06/25/2024, had electrophoresis of the serum which demonstrated a monoclonal spike quantitated at 0.6 g/dL. No immunofixation. No symptoms of neuropathy. The flank pain is localized to left CVA. Pain radiates if turns to the right. All other motions okay. Long history microscopic hematuria. No NSAID use. Presents for ongoing hematologic management. Interim history: Left flank pain persists. PAST MEDICAL HISTORY Diagnosis Date Abdominal pain Abdominal pain, epigastric 11/22/2009 Flatulence, eructation, and gas pain 11/22/2009 GERD (gastroesophageal reflux disease) Other specified disorders of biliary tract 11/22/2009 PAST SURGICAL HISTORY Procedure Laterality Date DELIVERY ONLY , low transverse x2 COLONOSCOPY 06/20/2024 COLONOSCOPY FLX DX W/COLLJ SPEC WHEN PFRMD 10/25/2012 Colonoscopy EGD 08/05/2024 EGD TRANSORAL BIOPSY SINGLE/MULTIPLE 03/03/2016 distal esophagitis ESOPHAGOGASTRODUODENOSCOP Y TRANSORAL DIAGNOSTIC 10/25/2012 EGD LAPS SURG CHOLECYSTECTOMY W/CHOLANGIOGRAPHY 11/22/2009 PAST SURGICAL HISTORY OF lap x2 TONSILLECTOMY PRIMARY/SECONDARY Tonsillectomy RABEprazole (ACIPHEX) 20 mg tablet Take 20 mg by mouth once daily. acetaminophen (TYLENOL EXTRA STRENGTH) 500 mg tablet Take 1,000 mg by mouth every 8 hours as needed. ALLERGIES Allergen Reactions Chlorhexidine Rash Social History Tobacco Use Smoking status: Never Smokeless tobacco: Never Substance Use Topics Alcohol use: No Drug use: No FAMILY HISTORY Problem Relation Age of Onset Hearing Loss Mother Heart Brother Heart Brother Coronary Artery Disease Maternal Grandfather Emphysema Paternal Grandfather Breast Cancer Paternal Aunt Ovarian cancer Paternal Aunt Breast Cancer Maternal Aunt REVIEW OF SYSTEMS: Constitutional: No episodes of fever and night sweats. Not significantly fatigued. Normal appetite. Neuro: No OQUENDO, vertigo, dizziness and imbalance. HEENT: No recent change in voice, vision or hearing. Resp: No cough, wheeze and hemoptysis. No shortness of breath at rest. No DUFFY. CVS: No exertional chest pain, PND, orthopnea and LE edema. GI: No n/v, change in bowel habits or abdominal pain. : No dysuria or gross hematuria. No symptoms of bladder outlet obstruction. Endo: No hot flashes. No polyuria and polydipsia. No heat and cold intolerance. Musculoskeletal: See above. Derm: No current rash. No history of jaundice or diffuse pruritis. Heme: No unusual bleeding and unexplained bruising. Psych: Normal mood. PHYSICAL EXAM: Vitals: Blood pressure 118/70, pulse 77, temperature 37.1 ?C (98.8 ?F), resp. rate 12, weight 60.8 kg (134 lb), SpO2 98%. Well-appearing and in no acute distress. EYES: Sclerae are anicteric bilaterally. LYMPHATIC: There is no palpable cervical or supraclavicular adenopathy. CARDIOVASCULAR: Rhythm is regular. ABDOMEN: The abdomen is nondistended. Extremities: No swelling or edema. SKIN: No jaundice. MUSCULOSKELETAL: No left flank tenderness. No posterior rib tenderness. ASSESSMENT/PLAN: Assessment: -The patie (more content not included)... [facility] VALERIE ALMARAZ ([id number]) 1955 F Date Time Provider Department 09/11/24 DANIEL ROBERSON During your visit today, we recorded the following information about you: Daniel Roberson DO 09/11/2024 5:02 PM Signed Can let her know we got the fax of her previous EKG from March 25. Difficult to read but no obvious abnormality. Plan to repeat EKG when here for bone marrow biopsy. Order filed under today's office visit encounter. DO Bucky Cardozo Melissa 09/12/2024 9:18 AM Signed 1st attempt. Message left for patient to call for message below. EKG is scheduled, inform patient to arrive at 1215. Samreen Brewer 09/12/2024 2:32 PM Signed Patient returned the call, informed the below appointment Samreen Brewer Allergies As of Date: 09/11/2024 Noted Allergy Reaction CHLORHEXIDINE 11/30/2009 2 - Rash Date Reviewed: 09/11/2024 Reviewed by: Deanna Xavier LPN - Fully Assessed Reason for Visit: Follow Up [171] Prescriptions as of 09/12/2024 - RABEprazole (ACIPHEX) 20 mg tablet Take 20 mg by mouth once daily. - acetaminophen (TYLENOL EXTRA STRENGTH) 500 mg tablet Take 1,000 mg by mouth every 8 hours as needed. Problem List As Of Date 09/11/2024 Noted Resolved Epigastric pain [R10.13] 03/05/2016 Gastro-esophageal reflux disease with esophagit*03/05/2016 Arthritis of carpometacarpal (CMC) joint of lef*09/28/2021 Arthritis of khakhimd-gttnughwo-jhhgvp oid joint*09/28/2021 Encounter Status:Closed by SAMREEN BREWER on 09/12/24 [facility] CNOVon 09-10-2024 CNOV Office Visit (AGHWW1 ) ----- VALERIE ALMARAZ ([id number]) 1955 F Date Time Provider Department 09/10/24 2:30 PM DOMITILA HENNESSY [id number] During your visit today, we recorded the following information about you: Temperature Weight Height 98.3 degrees 59 kg 1.676 m Domitila Hennessy PA-C 09/10/2024 3:00 PM Signed ORTHOPAEDIC OFFICE NOTE CHIEF COMPLAINT: Follow Up and Pain of the Right Hand and Follow Up and Pain of the Right Thumb Patient presents with: Right Hand - Follow Up, Pain Right Thumb - Follow Up, Pain HISTORY OF PRESENT ILLNESS: Valerie Almaraz presents to the office for follow up of right thumb CMC joint pain. Patient states she has pain and difficulty with gripping, grasping, and twisting motions. She states it is difficult for her to wear the push MetaGrip splint due to how active she is. She is interested in hearing about all treatment options for her right thumb CMC arthritis. Location: Right thumb Severity: 1 on a scale of 0-10 Duration of symptoms: Years Date of injury: None Symptoms have: Worsened Previous treatment: Right thumb CMC joint injection x 1 Numbness/tingling: No Radiating: Yes Context worse with Activity/Motion and Gripping Smoking status: Tobacco Use: Never Reviewed nursing note and current pain scale. PAIN EVALUATION 09/03/2024 1835 09/10/2024 1429 Pain Level: 4 1 Pain Location: Hand-Right -- Description: Aching;Sharp Aching;Stabbing Duration Amount of Time: 8 -- Duration Units: Months -- Frequency: Intermittent Intermittent Intervention/Comfort measure: Reposition;Positioning -- PAST MEDICAL HISTORY Past medical, surgical, family, and social histories have been reviewed and updated with the patient today and are located elsewhere in the medical record. Diabetes:No ALLERGIES ALLERGIES Allergen Reactions Chlorhexidine Rash PHYSICAL EXAMINATION Temp 36.8 ?C (98.3 ?F) Ht 167.6 cm (5' 6") Wt 59 kg (130 lb) BMI 20.98 kg/m? Body mass index is 20.98 kg/m?. General Appearance: Well appearing, alert, in no acute distress, well-hydrated, well nourished. Psyche: she is alert and oriented and cooperative to our examination. Neuro: she alert and oriented times: 3. Normal affect times: 3. Gait and station: normal. Pulmonary: she has non labored breathing. There is no evidence of cyanosis. There is no clubbing of fingernails. she has no pursed lips. Head: Normocephalic and atraumatic Neck: Supple with no JVD Lymph: There is no palpable epitrochlear Musculoskeletal- Right Hand/Wrist/Upper Extremity Exam: Skin: WNL. There is no swelling or ecchymosis. There are no skin lacerations or abrasions. Inspection: There is no boutonniere or swan-neck deformity of the fingers. There is no ulnar drift of the fingers. There is no intrinsic muscular atrophy. There is a + shoulder sign over the thumb CMC joint. There is no dorsal subluxation of the ulnar head. Cardiovascular: <3 sec capillary refill, +2 radial pulse palpated. Tenderness to palpation: Over right thumb CMC joint ROM: Able to make full fist. Instability: none Sensation: Normal sensation Atrophy: None Special tests: - Thumb CMC grind: Positive REVIEW OF STUDIES: No new imaging obtained at today's visit. ASSESSMENT AND PLAN: 1. Arthritis of carpometacarpal (CMC) joint of right thumb - ICD9: 716.94, ICD10: M18.11 - SMALL JOINT INJECTION/ARTHROCENTESIS Patient educated on clinical and exam findings, suspected diagnosis, and treatment options. -We discussed treatment options such as thumb CMC MetaGrip splint, thumb CMC custom orthosis made by OT, egmm-dbp-ycoucqr oral medicines such as ibuprofen and Tylenol, topical Voltaren, steroid injections, and thumb CMC arthroplasty surgery. After discussion, patient would like to pursue injection. -I did offer patient a corticosteroid injection into right thumb CMC joint. I explained the risks and benefits of this. Risks of corticosteroid injection were discussed including self-limited post-injection flare, risk of transient blood glucose elevation, risk of self-limited facial flushing, risk of skin atrophy or depigmentation and risk of infection. Activities and restrictions after injection were also discussed. Patient may perform any ADLs after injection. I recommend no increase in baseline activity while the lidocaine is in effect. It could take 3-5 days for maximal steroid effect. Patient advised to monitor symptoms for the next 3 days and allow 2 weeks for maximal effect. Patient expressed understanding and agreed to proceed. See procedure note below. -Ice/elevate as needed -NSAIDs/Tylenol as needed Follow up as needed - Patient instructed to call office with questions or concerns. Arthritis of carpometacarpal (cmc) joint of right thumb (primary encounter diagnosis) Injection performed as detailed below: Small (more content not included)... Normal [facility] Small Joint Arthro/Inj: R th umb CMCon 09-10-2024 Domitila Hennessy PA- C 09/10/2024 3:00 PM Small Joint Arthro/Inj: R thumb CMC Informed Consent Consent Obtained: Verbal [place] Protocol A moment to CARE was completed. SIGN IN Personnel directly involved with the procedure wore the appropriate PPE. Special Equipment: Yes Patient/Surrogate Stated/Verified: Patient name, Date of , Relevant allergies and Intended procedure TIME OUT Relevant labs, photos, and/or imaging studies have been reviewed. Intended patient and procedure match the source document(s). Consent documented and matches the intended procedure. Correct side/site marked and visible. Medications required for procedure verified. No fire risk assessment and interventions applicable. No implant(s) inserted.09/10/2024 2:56 PM The procedure site was prepped in the usual sterile fashion. Medications: 6 mg betamethasone acetate-betamethasone sodium phosphate 6 mg/mL Anesthetics: 1 mL lidocaine 10 mg/mL (1 %) Outcome: tolerated well, no immediate complications Post-injection instructions were reviewed with the patient and the patient voiced understanding of these instructions. SIGN OUT No specimen collected. All instruments, equipment, possible retained foreign bodies accounted for. Post-procedure follow-up management communicated and Plan of Care Visit completed when applicable [facility] GLUCOSE, BLOOD (POC)on 08-25 Glucose [Mass/Vol] 79 mg/dL 74 - 99 mg/dL [facility] Comment on above: Location:[facility], [address] [place] [address], [id number] The Accu-Chek Inform II glucose meter has not been approved for testing on patients receiving intensive medical intervention or therapy and results from this point of care glucose test should not be used for patient management decisions in these cases. Inaccurate results may also occur from other interfering factors, such as N-acetylcysteine (blood concentrations of greater than 5mg/dL), galactose, extremes of hematocrit (<10 or >65), or high doses of ascorbic acid (vitamin C) greater than 3mg/dL. Consider alternate testing mechanisms (e.g. core lab, blood gas instrument) in the above situations. [facility] NM PET/CT WHOLE BODY INITon 08-25-2024 NM PET/CT WHOLE BODY INIT * * *Final Report* * * DATE OF EXAM: Aug 25 2024 12:59PM MDP 0061 - NM PET/CT WHOLE BODY INIT / PROCEDURE REASON: multiple diagnoses * * * * Physician Interpretation * * * * EXAMINATION: BODY FDG PET-CT CLINICAL HISTORY: 69-year-old female with monoclonal gammopathy. EXAM CATEGORY: Initial treatment strategy. TECHNIQUE: Radiopharmaceutical was administered intravenously followed by PET imaging from the skull vertex to feet. Free breathing, low dose CT of the same body region was acquired without IV contrast for attenuation correction and anatomic localization. Unenhanced imaging is limited for the evaluation of some pathology and the acquired CT was not designed to produce diagnostic CT scan quality. Physiologic/non-pathologi c uptake in some body regions could confound or obscure some pathology. * CT Dose-Length Product (DLP): 500 mGy*cm * CT Dose Reduction Employed: Yes * Blood glucose: 79 mg/dL * Injection site: Right Forearm-Antecubital * Injected activity: 10.6 mCi * Uptake Time: 53 minutes * Radiopharmaceutical: X49-Xtefjouklhqmhizwxa (FDG) COMPARISON: No previous FDG PET/CT available CORRELATION: XR Bone survey 08/13/2024 RESULT: REFERENCES: FDG uptake is used as a surrogate marker for glucose metabolism. All reported standardized uptake values represent maximum SUV (SUVmax) per body weight, unless otherwise specified. SUV reference values, as follows: * Blood Pool (Descending Aorta): SUVmax 1.8 * Background Liver: SUVmax 2.7; SUVmean 2.2 Localizer Images: No additional findings. HEAD AND NECK: Head: No radiotracer avid lesion or mass effect in the imaged intracranial compartment. Aerodigestive Tract: No radiotracer avid lesion. Lymph Nodes: No radiotracer avid lymphadenopathy. Neck Soft Tissues: Diffuse increased thyroid uptake with SUV max 6.6. CHEST: Lungs and Pleura: No radiotracer avid mass, nodule, or consolidation. No pleural effusion. Lymph Nodes: No radiotracer avid lymphadenopathy. Mediastinum: No radiotracer avid mass. Cardiovascular: Blood pool activity. No pericardial effusion. Normal heart size. Chest Wall: No radiotracer avid soft tissue lesion. ABDOMEN AND PELVIS: Hepatobiliary: No radiotracer avid lesion. No measurable mass. Hepatic hypodensities presumably cysts. Spleen: No radiotracer avid lesion. No splenomegaly. Pancreas: No radiotracer avid lesion. Adrenals: No radiotracer avid nodule. Urinary Tract: Physiologic radiotracer excretion in the renal collecting systems and urinary bladder. No hydronephrosis. GI Tract: No radiotracer avid lesion. No bowel dilation. Peritoneum: No radiotracer avid lesion. No ascites. Lymph Nodes: No radiotracer avid lymphadenopathy. Vasculature: Blood pool activity. Abdominal aortic atherosclerotic calcifications without aneurysm. Pelvic Organs: No radiotracer avid lesion. MUSCULOSKELETAL: Bones: No radiotracer avid lesion. Degenerative changes. Soft Tissues: No radiotracer avid lesion. IMPRESSION: OSSEOUS DISEASE: * No metabolically active osseous lesion. EXTRAOSSEOUS DISEASE: * No metabolically active extraosseous disease. ADDITIONAL FINDINGS: * Diffuse increased thyroid uptake for correlation with thyroid function. Uniform Room Attendant: [facility] Transcribe Date/Time: Aug 25 2024 2:56P Dictated by : JAIME BECKER MD This examination was interpreted and the report reviewed and electronically signed by: JAIME BECKER MD on Aug 25 2024 3:05PM EST [id number] [facility] PET+CT Whole body Bone W 18F -NaF [place] 08-25-2024 IMPRESSION: OSSEOUS DISEASE: * No metabolically active osseous lesion. EXTRAOSSEOUS DISEASE: * No metabolically active extraosseous disease. ADDITIONAL FINDINGS: * Diffuse increased thyroid uptake for correlation with thyroid function. Uniform Room Attendant: [facility] Transcribe Date/Time: Aug 25 2024 2:56P Dictated by : JAIME BECKER MD This examination was interpreted and the report reviewed and electronically signed by: JAIME BECKER MD on Aug 25 2024 3:05PM EST [facility] * * *Final Report* * * DATE OF EXAM: Aug 25 2024 12:59PM MDP 0061 - NM PET/CT WHOLE BODY INIT / PROCEDURE REASON: multiple diagnoses * * * * Physician Interpretation * * * * EXAMINATION: BODY FDG PET-CT CLINICAL HISTORY: 69-year-old female with monoclonal gammopathy. EXAM CATEGORY: Initial treatment strategy. TECHNIQUE: Radiopharmaceutical was administered intravenously followed by PET imaging from the skull vertex to feet. Free breathing, low dose CT of the same body region was acquired without IV contrast for attenuation correction and anatomic localization. Unenhanced imaging is limited for the evaluation of some pathology and the acquired CT was not designed to produce diagnostic CT scan quality. Physiologic/non-pathologi c uptake in some body regions could confound or obscure some pathology. * CT Dose-Length Product (DLP): 500 mGy*cm * CT Dose Reduction Employed: Yes * Blood glucose: 79 mg/dL * Injection site: Right Forearm-Antecubital * Injected activity: 10.6 mCi * Uptake Time: 53 minutes * Radiopharmaceutical: Q42-Fwgqejbqfefhlknxhg (FDG) COMPARISON: No previous FDG PET/CT available CORRELATION: XR Bone survey 08/13/2024 RESULT: REFERENCES: FDG uptake is used as a surrogate marker for glucose metabolism. All reported standardized uptake values represent maximum SUV (SUVmax) per body weight, unless otherwise specified. SUV reference values, as follows: * Blood Pool (Descending Aorta): SUVmax 1.8 * Background Liver: SUVmax 2.7; SUVmean 2.2 Localizer Images: No additional findings. HEAD AND NECK: Head: No radiotracer avid lesion or mass effect in the imaged intracranial compartment. Aerodigestive Tract: No radiotracer avid lesion. Lymph Nodes: No radiotracer avid lymphadenopathy. Neck Soft Tissues: Diffuse increased thyroid uptake with SUV max 6.6. CHEST: Lungs & Pleura: No radiotracer avid mass, nodule, or consolidation. No pleural effusion. Lymph Nodes: No radiotracer avid lymphadenopathy. Mediastinum: No radiotracer avid mass. Cardiovascular: Blood pool activity. No pericardial effusion. Normal heart size. Chest Wall: No radiotracer avid soft tissue lesion. ABDOMEN AND PELVIS: Hepatobiliary: No radiotracer avid lesion. No measurable mass. Hepatic hypodensities presumably cysts. Spleen: No radiotracer avid lesion. No splenomegaly. Pancreas: No radiotracer avid lesion. Adrenals: No radiotracer avid nodule. Urinary Tract: Physiologic radiotracer excretion in the renal collecting systems and urinary bladder. No hydronephrosis. GI Tract: No radiotracer avid lesion. No bowel dilation. Peritoneum: No radiotracer avid lesion. No ascites. Lymph Nodes: No radiotracer avid lymphadenopathy. Vasculature: Blood pool activity. Abdominal aortic atherosclerotic calcifications without aneurysm. Pelvic Organs: No radiotracer avid lesion. MUSCULOSKELETAL: Bones: No radiotracer avid lesion. Degenerative changes. Soft Tissues: No radiotracer avid lesion. [facility] * * *Final Report* * * DATE OF EXAM: Aug 25 2024 12:59PM MDP 0061 - NM PET/CT WHOLE BODY INIT / PROCEDURE REASON: multiple diagnoses * * * * Physician Interpretation * * * * EXAMINATION: BODY FDG PET-CT CLINICAL HISTORY: 69-year-old female with monoclonal gammopathy. EXAM CATEGORY: Initial treatment strategy. TECHNIQUE: Radiopharmaceutical was administered intravenously followed by PET imaging from the skull vertex to feet. Free breathing, low dose CT of the same body region was acquired without IV contrast for attenuation correction and anatomic localization. Unenhanced imaging is limited for the evaluation of some pathology and the acquired CT was not designed to produce diagnostic CT scan quality. Physiologic/non-pathologi c uptake in some body regions could confound or obscure some pathology. * CT Dose-Length Product (DLP): 500 mGy*cm * CT Dose Reduction Employed: Yes * Blood glucose: 79 mg/dL * Injection site: Right Forearm-Antecubital * Injected activity: 10.6 mCi * Uptake Time: 53 minutes * Radiopharmaceutical: B44-Ifegdxgybuavmjqmax (FDG) COMPARISON: No previous FDG PET/CT available CORRELATION: XR Bone survey 08/13/2024 RESULT: REFERENCES: FDG uptake is used as a surrogate marker for glucose metabolism. All reported standardized uptake values represent maximum SUV (SUVmax) per body weight, unless otherwise specified. SUV reference values, as follows: * Blood Pool (Descending Aorta): SUVmax 1.8 * Background Liver: SUVmax 2.7; SUVmean 2.2 Localizer Images: No additional findings. HEAD AND NECK: Head: No radiotracer avid lesion or mass effect in the imaged intracranial compartment. Aerodigestive Tract: No radiotracer avid lesion. Lymph Nodes: No radiotracer avid lymphadenopathy. Neck Soft Tissues: Diffuse increased thyroid uptake with SUV max 6.6. CHEST: Lungs & Pleura: No radiotracer avid mass, nodule, or consolidation. No pleural effusion. Lymph Nodes: No radiotracer avid lymphadenopathy. Mediastinum: No radiotracer avid mass. Cardiovascular: Blood pool activity. No pericardial effusion. Normal heart size. Chest Wall: No radiotracer avid soft tissue lesion. ABDOMEN AND PELVIS: Hepatobiliary: No radiotracer avid lesion. No measurable mass. Hepatic hypodensities presumably cysts. Spleen: No radiotracer avid lesion. No splenomegaly. Pancreas: No radiotracer avid lesion. Adrenals: No radiotracer avid nodule. Urinary Tract: Physiologic radiotracer excretion in the renal collecting systems and urinary bladder. No hydronephrosis. GI Tract: No radiotracer avid lesion. No bowel dilation. Peritoneum: No radiotracer avid lesion. No ascites. Lymph Nodes: No radiotracer avid lymphadenopathy. Vasculature: Blood pool activity. Abdominal aortic atherosclerotic calcifications without aneurysm. Pelvic Organs: No radiotracer avid lesion. MUSCULOSKELETAL: Bones: No radiotracer avid lesion. Degenerative changes. Soft Tissues: No radiotracer avid lesion. IMPRESSION IMPRESSION: OSSEOUS DISEASE: * No metabolically active osseous lesion. EXTRAOSSEOUS DISEASE: * No metabolically active extraosseous disease. ADDITIONAL FINDINGS: * Diffuse increased thyroid uptake for correlation with thyroid function. Uniform Room Attendant: [facility] Transcribe Date/Time: Aug 25 2024 2:56P Dictated by : JAIME BECKER MD This examination was interpreted and the report reviewed and electronically signed by: JAIME BECKER MD on Aug 25 2024 3:05PM EST [facility] Radiology Study observation (narrative) [facility] PET+CT Whole body Bone W 18F -NaF IVOrdered By: [facility] Provider on 08-25-2024 [facility] MONOCLONAL PROT 24 UR W/INTE RPon 08-18-2024 INTERPRETATION (UMPA) Atypical restricte d bands are present in the IgG and lambda regions. Consistent with IgG lambda monoclonal gammopathy. Normal [facility] Comment on above: Order Comment: Speci men Type: URINE SPECIMENOrdering Facility: [facility] Address: [address] [place] [address] Performed By: #### U 24MPA ####[facility] [id number] [address] OF [place] STAFF REVIEW (UMPA) Reviewed by Dr. Hansel Marshall MD Normal [facility] Comment on above: Order Comment: Speci men Type: URINE SPECIMENOrdering Facility: [facility] Address: [address] [place] [address] Performed By: #### U 24MPA ####[facility] [id number] [address] [address] UMPA RESULT M protein is present. Abnormal No M p rotein is identified. [facility] Comment on above: Order Comment: Speci men Type: URINE SPECIMENOrdering Facility: [facility] Address: [address] [place] [address] Performed By: #### U 24MPA ####[facility] [id number] [place] [address] [place] PROT ELEC UR 24HR W/M SPIKE (P)on 08-18-2024 Albumin/Globulin Elph (24H U) [Mass ratio] 23.52 % Normal [facility] Comment on above: Order Comment: Speci men Type: URINE SPECIMENOrdering Facility: [facility] Address: [address] [place] [address] Performed By: #### L [id number] ####[facility] [id number] [place] [address] [place] Alpha 1 globulin Elph (24H U) [Mass fraction] 3.77 % Normal [facility] Comment on above: Order Comment: Speci men Type: URINE SPECIMENOrdering Facility: [facility] Address: [address] [place] [address] Performed By: #### L [id number] ####[facility] [id number] [place] [address] [place] Alpha 2 globulin Elph (24H U) [Mass fraction] 18.66 % Normal [facility] Comment on above: Order Comment: Speci men Type: URINE SPECIMENOrdering Facility: [facility] Address: [address] [place] [address] Performed By: #### L [id number] ####[facility] [id number] [place] [address] [place] Beta globulin Elph (24H U) [Mass fraction] 26.82 % Normal [facility] Comment on above: Order Comment: Speci men Type: URINE SPECIMENOrdering Facility: [facility] Address: [address] [place] [address] Performed By: #### L [id number] ####[facility] [id number] [place] [address] [place] Gamma globulin Elph (24H U) [Mass fraction] 27.23 % Normal [facility] Comment on above: Order Comment: Speci men Type: URINE SPECIMENOrdering Facility: [facility] Address: [address] [place] [address] Performed By: #### L [id number] ####[facility] [id number] [place] [address] [place] INTERPRETATION COMMENT FOR PROTEIN ELECTROPHORESIS See separate immunofixation report for characterization of monoclonal gammopathy. Normal [facility] Comment on above: Order Comment: Speci men Type: URINE SPECIMENOrdering Facility: [facility] Address: [address] [place] [address] Performed By: #### L [id number] ####[facility] LABIA [id number] [place] [address] [place] Protein Fractions Elph [place] (24H U) [Interp] An M protein is identified on protein electrophoresis. Abnormal No definitive M protein is identified on protein electrophore sis. [facility] Comment on above: Order Comment: Speci men Type: URINE SPECIMENOrdering Facility: [facility] Address: [address] [place] [address] Performed By: #### L [id number] ####[facility]IA [id number] [place] [address] [place] Protein.monoclonal Elph (24H U) [Mass/Time] 0.01 g/24hr Normal [facility] Comment on above: Order Comment: Speci men Type: URINE SPECIMENOrdering Facility: [facility] Address: [address] [place] [address] Performed By: #### L [id number] ####[facility] LABIA [id number] [place] [id number] [facility] OF [place] STAFF REVIEW ([id number]) Reviewed by Dr. Sa souleymane Marshall MD Normal [facility] Comment on above: Order Comment: Speci men Type: URINE SPECIMENOrdering Facility: [facility] Address: [address] [place] [address] Performed By: #### L [id number] ####[facility] [id number] [place] [id number] [place] Prot 24h Ur-mRateon 08-18-19 25 Protein (24H U) [Mass/Time] 0.09 g/24 Hr Normal <0.15 [facility] Comment on above: Order Comment: Speci men Type: URINE SPECIMENOrdering Facility: [facility] Address: [address] [place] [address] Result Comment: Adul t Proteinuria Categories: <0.15 g/24 hours is considered normal to mildly increased 0.15 - 0.50 g/24 hours is considered moderately increased >0.50 g/24 hours is considered severely increased KDIGO. (2013). KDIGO 2012 Clinical Practice Guideline for the Evaluation and Management of Chronic Kidney Disease. Official Journal of the International Society of Nephrology, 3(1), 1-150. Performed By: #### 2 889-4 ####[facility] [id number] [place] [id number] [place] [facility] [id number] [place] [address] [place] Protein (24H U) [Mass/Time]o n 08-18-2024 PERIOD (HRS) 24 hr Normal [facility] Comment on above: Order Comment: Speci men Type: URINE SPECIMENOrdering Facility: [facility] Address: [address] [place] [address] Performed By: #### 2 889-4 ####[facility]IA [id number] [place] [id number] [facility] [id number] [place] [address] [place] Specimen volume (24H U) 0.45 L Normal [facility] Comment on above: Order Comment: Speci men Type: URINE SPECIMENOrdering Facility: [facility] Address: [address] [place] [address] Performed By: #### 2 889-4 ####[facility]CL[facility] [id number] [facility]ITAL[facility] Anne AVENUEDESK [place] [id number] [facility] [id number] [address] STATES OF [place] Celiac Disease Profileon ENDOMYSIAL IGA Negative Normal Negative [facility] Comment on above: Order Comment: FAX R ESULTS [phone] Performed By: #### L 3410.2400 #### [facility] [address] [facility] [id number] IMMUNOGLOB A QN 78 mg/dL Low 87-352 [facility] Comment on above: Order Comment: FAX R ESULTS [phone] Performed By: #### L 3410.2400 #### [facility] [address] [facility] [address] tTG IGA <2 Normal 0-3 [facility] Comment on above: Order Comment: FAX R ESULTS [phone] Result Comment: Nega tive 0 - 3 Weak Positive 4 - 10 Positive >10 Tissue Transglutaminase (tTG) has been identified as the endomysial antigen. Studies have demonstr- ated that endomysial IgA antibodies have over 99% specificity for gluten sensitive enteropathy. Performed By: #### L 3410.2400 #### [facility] [address] [facility] [address] tTG IGG <2 Normal 0-5 [facility] Comment on above: Order Comment: FAX R ESULTS [phone] Result Comment: Nega tive 0 - 5 Weak Positive 6 - 9 Positive >9 Performed at: - [facility] [id number] Engine Maintenance Mechanic: Joseph Linton PhD, Phone: [phone] Performed By: #### L 3410.2400 #### [facility] [address] [place], [address] B2 Microglob SerPl-mCncon Wsfx-5-Sqrtgaramprjd [Mass/Vol] 2.1 ug/mL Normal <3.1 [facility] Comment on above: Order Comment: Speci men Type: BLOOD SPECIMENOrdering Facility: [facility] Address: [address] [place] [address] Result Comment: Beta -2 Microglobulin test is performed using the [employer] immunoturbidimetric method. Results obtained with different methods or kits cannot be used interchangeably. Performed By: #### 1 988-5, 2885-2, 19509-06 ####[facility] [id number] [place] [address] [place] CBC W Auto Differential pane l (Bld)on 08-13-2024 Basophils (Bld) [#/Vol] 0.05 10*3/uL [facility] Basophils/100 WBC (Bld) 0.8 % [facility] Differential cell count method Nom (Bld) Auto [facility] Eosinophils (Bld) [#/Vol] 0.07 10*3/uL [facility] Eosinophils/100 WBC (Bld) 1.1 % [facility] Erythrocyte distribution width (RBC) [Ratio] 12.3 % 11.5 - 15.0 % [facility] Hematocrit (Bld) [Volume fraction] 38.4 % 36.0 - 46.0 % [facility] Hemoglobin (Bld) [Mass/Vol] 12.4 g/dL 11.5 - 15.5 g/dL [facility] Immature granulocytes (Bld) [#/Vol] 0.03 10*3/uL [facility] Immature granulocytes/100 WBC (Bld) 0.5 % [facility] Lymphocytes (Bld) [#/Vol] 1.33 10*3/uL [facility] Lymphocytes/100 WBC (Bld) 21.0 % [facility] MCH (RBC) [Entitic mass] 31.2 pg 26.0 - 34.0 pg [facility] MCHC (RBC) [Mass/Vol] 32.3 g/dL 30.5 - 36.0 g/dL [facility] MCV (RBC) [Entitic vol] 96.5 fL 80.0 - 100.0 fL [facility] Monocytes (Bld) [#/Vol] 0.33 10*3/uL [facility] Monocytes/100 WBC (Bld) 5.2 % [facility] Neutrophils (Bld) [#/Vol] 4.52 10*3/uL [facility] Neutrophils/100 WBC (Bld) 71.4 % [facility] Nucleated RBC (Bld) [#/Vol] NINF [facility] Nucleated RBC/100 WBC (Bld) [Ratio] 0.0 % /100 WBC [facility] Platelet mean volume (Bld) [Entitic vol] 9.2 fL 9.0 - 12.7 fL [facility] Platelets (Bld) [#/Vol] 203 10*3/uL [facility] RBC (Bld) [#/Vol] 3.98 10*6/uL 3.90 - 5.2 0 m/uL [facility] WBC (Bld) [#/Vol] 6.33 10*3/uL [facility] Basophils (Bld) [#/Vol] 0.05 10*3/uL Normal <0.11 [facility] Comment on above: Order Comment: Speci men Type: BLOOD SPECIMENOrdering Facility: [facility] Address: [address] [place] [address] Performed By: #### 5 7021-8 ####[facility] [id number] [place] [id number] [place] Basophils/100 WBC (Bld) 0.8 % Normal [facility] Comment on above: Order Comment: Speci men Type: BLOOD SPECIMENOrdering Facility: [facility] Address: [address] [place] [address] Performed By: #### 5 7021-8 ####[facility] NANIJESUSLIA [id number] [place] [address] [place] Differential cell count method Nom (Bld) Auto Normal [facility] Comment on above: Order Comment: Speci men Type: BLOOD SPECIMENOrdering Facility: [facility] Address: [address] [place] [address] Performed By: #### 5 7021-8 ####[facility]AM[facility]BERA [id number] [place] [address] [place] Eosinophils (Bld) [#/Vol] 0.07 10*3/uL Normal <0.46 [facility] Comment on above: Order Comment: Speci men Type: BLOOD SPECIMENOrdering Facility: [facility] Address: [address] [place] [address] Performed By: #### 5 7021-8 ####[facility] [id number] [place] [address] [place] Eosinophils/100 WBC (Bld) 1.1 % Normal [facility] Comment on above: Order Comment: Speci men Type: BLOOD SPECIMENOrdering Facility: [facility] Address: [address] [place] [address] Performed By: #### 5 7021-8 ####[facility]EMBROKEMARYAMLIA [id number] [place] [address] [place] Erythrocyte distribution width (RBC) [Ratio] 12.3 % Normal 11.5-15.0 [facility] Comment on above: Order Comment: Speci men Type: BLOOD SPECIMENOrdering Facility: [facility] Address: [address] [place] [address] Performed By: #### 5 7021-8 ####[facility] PEMBROKENCLIA [id number] [place] [address] [place] Hematocrit (Bld) [Volume fraction] 38.4 % Normal 36.0-46.0 [facility] Comment on above: Order Comment: Speci men Type: BLOOD SPECIMENOrdering Facility: [facility] Address: [address] [place] [address] Performed By: #### 5 7021-8 ####[facility] PEMBROKEAMELIE [id number] [place] [address] [place] Hemoglobin (Bld) [Mass/Vol] 12.4 g/dL Normal 11.5-15.5 [facility] Comment on above: Order Comment: Speci men Type: BLOOD SPECIMENOrdering Facility: [facility] Address: [address] [place] [address] Performed By: #### 5 7021-8 ####[facility] PEMBROKEAMELIE [id number] [place] [address] [place] Immature granulocytes (Bld) [#/Vol] 0.03 10*3/uL Normal <0.10 [facility] Comment on above: Order Comment: Speci men Type: BLOOD SPECIMENOrdering Facility: [facility] Address: [address] [place] [address] Performed By: #### 5 7021-8 ####[facility] PEMBROKETHOMASA [id number] [place] [address] [place] Immature granulocytes/100 WBC (Bld) 0.5 % Normal [facility] Comment on above: Order Comment: Speci men Type: BLOOD SPECIMENOrdering Facility: [facility] Address: [address] [place] [address] Performed By: #### 5 7021-8 ####[facility] PEMBROKENCLIA [id number] [place] [address] [place] Lymphocytes (Bld) [#/Vol] 1.33 10*3/uL Normal 1.00-4.00 [facility] Comment on above: Order Comment: Speci men Type: BLOOD SPECIMENOrdering Facility: [facility] Address: [address] [place] [address] Performed By: #### 5 7021-8 ####[facility] NANIDipakNCANA [id number] [place] [address] [place] Lymphocytes/100 WBC (Bld) 21.0 % Normal [facility] Comment on above: Order Comment: Speci men Type: BLOOD SPECIMENOrdering Facility: [facility] Address: [address] [place] [address] Performed By: #### 5 7021-8 ####[facility] PEMBROKENCANA [id number] [place] [address] [place] MCH (RBC) [Entitic mass] 31.2 pg Normal 26.0-34.0 [facility] Comment on above: Order Comment: Speci men Type: BLOOD SPECIMENOrdering Facility: [facility] Address: [address] [place] [address] Performed By: #### 5 7021-8 ####[facility] PEMBROKENCA [id number] [place] [address] [place] MCHC (RBC) [Mass/Vol] 32.3 g/dL Normal 30.5-36.0 [facility] Comment on above: Order Comment: Speci men Type: BLOOD SPECIMENOrdering Facility: [facility] Address: [address] [place] [address] Performed By: #### 5 7021-8 ####[facility] PEMBROKENCLIA [id number] [place] [address] [place] MCV (RBC) [Entitic vol] 96.5 fL Normal 80.0-100.0 [facility] Comment on above: Order Comment: Speci men Type: BLOOD SPECIMENOrdering Facility: [facility] Address: [address] [place] [address] Performed By: #### 5 7021-8 ####[facility] MILLTOWNCLIA [id number] [place] [address] [place] Monocytes (Bld) [#/Vol] 0.33 10*3/uL Normal <0.87 [facility] Comment on above: Order Comment: Speci men Type: BLOOD SPECIMENOrdering Facility: [facility] Address: [address] [place] [address] Performed By: #### 5 7021-8 ####[facility] HOSPITALWNCLIA [id number] [place] [address] [place] Monocytes/100 WBC (Bld) 5.2 % Normal [facility] Comment on above: Order Comment: Speci men Type: BLOOD SPECIMENOrdering Facility: [facility] Address: [address] [place] [address] Performed By: #### 5 7021-8 ####[facility] HOSPITALLIA [id number] [place] [address] [place] Neutrophils (Bld) [#/Vol] 4.52 10*3/uL Normal 1.45-7.50 [facility] Comment on above: Order Comment: Speci men Type: BLOOD SPECIMENOrdering Facility: [facility] Address: [address] [place] [address] Performed By: #### 5 7021-8 ####[facility] MILLWNCLIA [id number] [place] [address] [place] Neutrophils/100 WBC (Bld) 71.4 % Normal [facility] Comment on above: Order Comment: Speci men Type: BLOOD SPECIMENOrdering Facility: [facility] Address: [address] [place] [address] Performed By: #### 5 7021-8 ####[facility] PEMBROKENCLIA [id number] [place] [id number] [place] Nucleated RBC (Bld) [#/Vol] 10*3/uL Normal <0.01 [facility] Comment on above: Order Comment: Speci men Type: BLOOD SPECIMENOrdering Facility: [facility] Address: [address] [place] [address] Performed By: #### 5 7021-8 ####[facility]BROKENCDEL[facility] [id number] [place] [address] [place] Nucleated RBC/100 WBC (Bld) [Ratio] 0.0 /100 WBC Normal [facility] Comment on above: Order Comment: Speci men Type: BLOOD SPECIMENOrdering Facility: [facility] Address: [address] [place] [address] Performed By: #### 5 7021-8 ####[facility]EMBROKENCDEL[facility] [id number] [place] [address] [place] Platelet mean volume (Bld) [Entitic vol] 9.2 fL Normal 9.0-12.7 [facility] Comment on above: Order Comment: Speci men Type: BLOOD SPECIMENOrdering Facility: [facility] Address: [address] [place] [address] Performed By: #### 5 7021-8 ####[facility] PEMBROKENCLIA [id number] [place] [address] [place] Platelets (Bld) [#/Vol] 203 10*3/uL Normal 150-400 [facility] Comment on above: Order Comment: Speci men Type: BLOOD SPECIMENOrdering Facility: [facility] Address: [address] [place] [address] Performed By: #### 5 7021-8 ####[facility] PEMBROKENCLIA [id number] [place] [address] [place] RBC (Bld) [#/Vol] 3.98 10*6/uL Normal 3.90-5.20 [facility] Comment on above: Order Comment: Speci men Type: BLOOD SPECIMENOrdering Facility: [facility] Address: [address] [place] [address] Performed By: #### 5 7021-8 ####[facility] NANITOWNCLIA [id number] [place] [address] [place] WBC (Bld) [#/Vol] 6.33 10*3/uL Normal 3.70-11.00 [facility] Comment on above: Order Comment: Speci men Type: BLOOD SPECIMENOrdering Facility: [facility] Address: [address] [place] [address] Performed By: #### 5 7021-8 ####[facility] NANITOWNCLIA [id number] [address] [place] CNOVSPon 08-13-2024 CNOVSP Visit (SP) Office (HEMAWS) ----- VALERIE ALMARAZ ([id number]) 1955 F Date Time Provider Department 08/13/24 1:00 PM DANIEL ROBERSON During your visit today, we recorded the following information about you: Temperature Pulse Blood pressure Weight 97.2 degrees 69/minute 133/76 62.1 kg Height 1.651 m Daniel Roberson DO 08/13/2024 2:26 PM Signed 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 HPI: The patient is a 69-year-old female with past medical history as outlined below. Noticed morning stiffness "all over" beginning about a year ago. Labs for RA negative. Left flank pain started more consistently and couldn't find comfortable position. CT A/P. EGD/colonoscopy. Diverticular today. Biopsy--inflammation in duodenum. Was told needs serologic testing for celiac. Patient had a CBC on 06/18/2024 demonstrated total white count 4700. Red blood cell count slightly low at 4,120,000/mm?. Hemoglobin normal 12.8 g/dL with a normal hematocrit of 40.7%. MCV was 98.8 fL and MCH was 31.1 pg. Platelet count was 202,000. Differential was unremarkable with the exception of extremely mild increase in basophils of 1.1%. In March 2023 basophils were 1.2%. On 2 other occasions in 2023 basophils were normal. A recent chemistry panel on 03/19/2024 demonstrated a serum creatinine of 1.31 mg/L with a BUN of 16. Calcium was normal at 9.0 mg/dL. Repeat chemistry panel on 06/18/2024 revealed a serum creatinine of 1.15 mg/dL with a BUN of 21. Ratio was 18.3. Calcium was 9.2 mg/dL. Total bilirubin 0.40 mg/dL with normal AST and ALT of 20 and 23 units/L respectively. Alkaline phosphatase normal at 73 units/L. Total serum protein of 7.3 g/dL with an albumin of 3.7 g/dL and a globulin fraction of 3.6 g/dL. On 06/25/2024, had electrophoresis of the serum which demonstrated a monoclonal spike quantitated at 0.6 g/dL. No immunofixation. No symptoms of neuropathy. The flank pain is localized to left CVA. Pain radiates if turns to the right. All other motions okay. Long history microscopic hematuria. No NSAID use. PAST MEDICAL HISTORY Diagnosis Date Abdominal pain Abdominal pain, epigastric 11/22/2009 Flatulence, eructation, and gas pain 11/22/2009 GERD (gastroesophageal reflux disease) Other specified disorders of biliary tract 11/22/2009 PAST SURGICAL HISTORY Procedure Laterality Date DELIVERY ONLY , low transverse x2 COLONOSCOPY 06/20/2024 COLONOSCOPY FLX DX W/COLLJ SPEC WHEN PFRMD 10/25/2012 Colonoscopy EGD TRANSORAL BIOPSY SINGLE/MULTIPLE 03/03/2016 distal esophagitis ESOPHAGOGASTRODUODENOSCOP Y TRANSORAL DIAGNOSTIC 10/25/2012 EGD LAPS SURG CHOLECYSTECTOMY W/CHOLANGIOGRAPHY 11/22/2009 PAST SURGICAL HISTORY OF lap x2 TONSILLECTOMY PRIMARY/SECONDARY Tonsillectomy RABEprazole (ACIPHEX) 20 mg tablet Take 20 mg by mouth once daily. acetaminophen (TYLENOL EXTRA STRENGTH) 500 mg tablet Take 1,000 mg by mouth every 8 hours as needed. pantoprazole (PROTONIX) 40 mg tablet Take 1 tablet by mouth once daily. (may use generic) ALLERGIES Allergen Reactions Chlorhexidine Rash Social History Tobacco Use Smoking status: Never Smokeless tobacco: Never Substance Use Topics Alcohol use: No Drug use: No FAMILY HISTORY Problem Relation Age of Onset Coronary Artery Disease Brother Coronary Artery Disease Maternal Grandfather Emphysema Paternal Grandfather Hearing Loss Mother REVIEW OF SYSTEMS: Constitutional: No episodes of fever and night sweats. Not significantly fatigued. Normal appetite. Neuro: No OQUENDO, vertigo, dizziness and imbalance. HEENT: No recent change in voice, vision or hearing. Resp: No cough, wheeze and hemoptysis. No shortness of breath at rest. No DUFFY. CVS: No exertional chest pain, PND, orthopnea and LE edema. GI: No n/v, change in bowel habits or abdominal pain. : No dysuria or gross hematuria. No symptoms of bladder outlet obstruction. Endo: No hot flashes. No polyuria and polydipsia. No heat and cold intolerance. Musculoskeletal: See above. Derm: No current rash. No history of jaundice or diffuse pruritis. Heme: No unusual bleeding and unexplained bruising. Psych: Normal mood. PHYSICAL EXAM: Vitals: Blood pressure 133/76, pulse 69, temperature 36.2 ?C (97.2 ?F), temperature source Temporal, height 165.1 cm (5' 5"), weight 62.1 kg (137 lb), SpO2 99%. Well-appearing and in no acute distress. EYES: Sclerae are anicteric bilaterally. LYMPHATIC: There is no palpable cervical or supraclavicular adenopathy. CARDIOVASCULAR: Rhythm is regular. ABDOMEN: The abdomen is nondistended. Extremities: No swelling or edema. SKIN: No jaundice. MUSCULOSKELETAL: No left flank tenderness. No posterior rib tenderness. ASSESSMENT/PLAN: Assessment: -The patient is a 69-year-old female with a past medical history as outlined abov (more content not included)... Normal [facility] CRP SerPl-mCncon 08-13-2024 CRP [Mass/Vol] mg/L Normal <0.9 [facility] Comment on above: Order Comment: Speci men Type: BLOOD SPECIMENOrdering Facility: [facility] Address: [address] [facility] [place] [address] Performed By: #### 1 988-5, 2885-2, 1951-08 ####[facility] LABCLIA [id number] [facility]ITALMary Anne AVENUEDESK [id number] [facility] Comprehensive metabolic 2000 panelOrdered By: Makayla Zee on 08-13-2024 Albumin [Mass/Vol] 4.4 g/dL 3.9 - 4.9 g/dL [facility] ALP [Catalytic activity/Vol] 73 U/L 34 - 123 U/L [facility] ALT [Catalytic activity/Vol] 11 U/L 7 - 38 U/L [facility] Anion gap [Moles/Vol] 8 mmol/L 8 - 15 mmol/L [facility] AST [Catalytic activity/Vol] 15 U/L 13 - 35 U/L [facility] Bilirubin [Mass/Vol] 0.5 mg/dL 0.2 - 1 .3 mg/dL [facility] Calcium [Mass/Vol] 9.5 mg/dL 8.5 - 10. 2 mg/dL [facility] Chloride [Moles/Vol] 105 mmol/L 98 - 10 7 mmol/L [facility] CO2 [Moles/Vol] 28 mmol/L 22 - 30 mmol/L [facility] Creatinine [Mass/Vol] 0.87 mg/dL 0.58 - 0.96 mg/dL [facility] GFR/1.73 sq M.predicted among non-blacks MDRD (S/P/Bld) [Vol rate/Area] 73 mL/min/{1.73_m2} - PINF [facility] Comment on above: Estimated Glomerular Filtration Rate (eGFR) is calculated using the 2020 CKD-EPI creatinine equation. This equation utilizes serum creatinine, sex, and age as parameters. The creatinine assay has traceable calibration to isotope dilution-mass spectrometry. Refer to KDIGO guidelines for clinical interpretation. In patients with unstable renal function, e.g. those with acute kidney injury, the eGFR may not accurately reflect actual GFR. Glucose [Mass/Vol] 91 mg/dL 74 - 99 mg/dL [facility] Comment on above: The [place] Diab[employer] s Association (ADA) provides guidance for cutoff values for fasting glucose and random glucose. The ADA defines fasting as no caloric intake for at least 8 hours. Fasting plasma glucose results between 100 to 125 mg/dL indicate increased risk for diabetes (prediabetes). Fasting plasma glucose results greater than or equal to 126 mg/dL meet the criteria for diagnosis of diabetes. In the absence of unequivocal hyperglycemia, results should be confirmed by repeat testing. In a patient with classic symptoms of hyperglycemia or hyperglycemic crisis, random plasma glucose results greater than or equal to 200 mg/dL meet the criteria for diagnosis of diabetes. Reference: Standards of Medical Care in Diabetes 2016, [place] [employer] Association. Diabetes Care. 2016.39(Suppl 1). Interpretation and review of laboratory results Abnormal [facility] Potassium [Moles/Vol] 3.6 mmol/L Low 3.7 - 5.1 mmol/L [facility] Protein [Mass/Vol] 6.8 g/dL 6.3 - 8.0 g/dL [facility] Sodium [Moles/Vol] 141 mmol/L 136 - 144 mmol/L [facility] Urea nitrogen [Mass/Vol] 16 mg/dL 7 - 21 mg/dL [facility] Comprehensive metabolic 2000 panelon 08-13-2024 Albumin [Mass/Vol] 4.4 g/dL Normal 3.9-4.9 [facility] Comment on above: Order Comment: Darron mazariegos Type: BLOOD SPECIMENOrdering Facility: [facility] Address: [address] [place] [address] Performed By: #### 3 084-1, 2532-0, 57236-6 ####[facility] PEMBROKEAMELIE [id number] [address] [place] ALP [Catalytic activity/Vol] 73 U/L Normal 34-123 [facility] Comment on above: Order Comment: Trevoni men Type: BLOOD SPECIMENOrdering Facility: [facility] Address: [address] [place] [address] Performed By: #### 3 084-1, 2532-0, 32465-0 ####[facility] PEMBROKEAMELIE [id number] [place] [id number] [place] ALT [Catalytic activity/Vol] 11 U/L Normal 7-38 [facility] Comment on above: Order Comment: Speci men Type: BLOOD SPECIMENOrdering Facility: [facility] Address: [address] [place] [address] Performed By: #### 3 084-1, 2532-0, 79912-8 ####[facility] RADHA NANIERBACONAMELIE [id number] [place] [address] [place] Anion gap [Moles/Vol] 8 mmol/L Normal 8-15 [facility] Comment on above: Order Comment: Speci men Type: BLOOD SPECIMENOrdering Facility: [facility] Address: [address] [place] [address] Performed By: #### 3 084-1, 2532-0, 23951-6 ####[facility] PEMBROKEAMELIE [id number] [place] [address] [place] AST [Catalytic activity/Vol] 15 U/L Normal 13-35 [facility] Comment on above: Order Comment: Speci men Type: BLOOD SPECIMENOrdering Facility: [facility] Address: [address] [place] [address] Performed By: #### 3 084-1, 2532-0, 68924-6 ####[facility] PEMBROKETHOMASA [id number] [place] [address] [place] Bilirubin [Mass/Vol] 0.5 mg/dL Normal 0.2-1.3 [facility] Comment on above: Order Comment: Speci men Type: BLOOD SPECIMENOrdering Facility: [facility] Address: [address] [place] [address] Performed By: #### 3 084-1, 2532-0, 16140-4 ####[facility] PEMBROKENCLIA [id number] [place] [address] [place] Calcium [Mass/Vol] 9.5 mg/dL Normal 8.5-10.2 [facility] Comment on above: Order Comment: Speci men Type: BLOOD SPECIMENOrdering Facility: [facility] Address: [address] [place] [address] Performed By: #### 3 084-1, 2532-0, 06022-7 ####[facility] NANIWNCLIA [id number] [place] [address] [place] Chloride [Moles/Vol] 105 mmol/L Normal 98-107 [facility] Comment on above: Order Comment: Speci men Type: BLOOD SPECIMENOrdering Facility: [facility] Address: [address] [place] [address] Performed By: #### 3 084-1, 2532-0, 33030-4 ####[facility] PEMBROKENCAMBERA [id number] [place] [address] [place] CO2 [Moles/Vol] 28 mmol/L Normal 22-30 [facility] Comment on above: Order Comment: Speci men Type: BLOOD SPECIMENOrdering Facility: [facility] Address: [address] [place] [address] Performed By: #### 3 084-1, 2-0, 12802-7 ####[facility] PEMBROKENCLIA [id number] [place] [address] [place] Creatinine [Mass/Vol] 0.87 mg/dL Normal 0.58-0.96 [facility] Comment on above: Order Comment: Speci men Type: BLOOD SPECIMENOrdering Facility: [facility] Address: [address] [place] [address] Performed By: #### 3 084-1, 2532-0, 92038-1 ####[facility] PEMBROKENCLIA [id number] [place] [address] [place] Creatinine and Glomerular filtration rate.predicted panel (S/P/Bld) 73 mL/min/1.73m??? Normal >=60 [facility] Comment on above: Order Comment: Darron mazariegos Type: BLOOD SPECIMENOrdering Facility: [facility] Address: [address] [place] [id number] Result Comment: Divya mated Glomerular Filtration Rate (eGFR) is calculated using the 2020 CKD-EPI creatinine equation. This equation utilizes serum creatinine, sex, and age as parameters. The creatinine assay has traceable calibration to isotope dilution-mass spectrometry. Refer to KDIGO guidelines for clinical interpretation. In patients with unstable renal function, e.g. those with acute kidney injury, the eGFR may not accurately reflect actual GFR. Performed By: #### 3 084-1, 2532-0, 03963-6 ####[facility] [id number] [place] [address] [place] Glucose [Mass/Vol] 91 mg/dL Normal 74-99 [facility] Comment on above: Order Comment: Darron mazariegos Type: BLOOD SPECIMENOrdering Facility: [facility] Address: [address] [place] [address] Result Comment: The [place] Diabetes Association (ADA) provides guidance for cutoff values for fasting glucose and random glucose. The ADA defines fasting as no caloric intake for at least 8 hours. Fasting plasma glucose results between 100 to 125 mg/dL indicate increased risk for diabetes (prediabetes). Fasting plasma glucose results greater than or equal to 126 mg/dL meet the criteria for diagnosis of diabetes. In the absence of unequivocal hyperglycemia, results should be confirmed by repeat testing. In a patient with classic symptoms of hyperglycemia or hyperglycemic crisis, random plasma glucose results greater than or equal to 200 mg/dL meet the criteria for diagnosis of diabetes. Reference: Standards of Medical Care in Diabetes 2016, [place] Diabetes Association. Diabetes Care. 2016.39(Suppl 1). Performed By: #### 3 084-1, 2532-0, 66037-2 ####[facility] [id number] [place] [address] [place] Potassium [Moles/Vol] 3.6 mmol/L Low 3.7-5.1 [facility] Comment on above: Order Comment: Speci men Type: BLOOD SPECIMENOrdering Facility: [facility] Address: [address] [place] [address] Performed By: #### 3 084-1, 2531-0, ####[facility] PEMBROKENCLIA [id number] [place] [address] [place] Protein [Mass/Vol] 6.8 g/dL Normal 6.3-8.0 [facility] Comment on above: Order Comment: Speci men Type: BLOOD SPECIMENOrdering Facility: [facility] Address: [address] [place] [address] Performed By: #### 3 084-1, 2531-0, ####[facility] PEMBROKEMARYAMApril [id number] [place] [address] [place] Sodium [Moles/Vol] 141 mmol/L Normal 136-144 [facility] Comment on above: Order Comment: Speci men Type: BLOOD SPECIMENOrdering Facility: [facility] Address: [address] [place] [address] Performed By: #### 3 084-1, 0, ####[facility] PEMBROKETHOMASA [id number] [place] [address] [place] Urea nitrogen [Mass/Vol] 16 mg/dL Normal 7-21 [facility] Comment on above: Order Comment: Speci men Type: BLOOD SPECIMENOrdering Facility: [facility] Address: [address] [place] [address] Performed By: #### 3 084-1, 2531-0, ####[facility]OSPITALWNCLIA [id number] [place] [address] [place] ESR Westergren method (Bld) [Velocity]on 08-13-2024 ESR (Bld) [Velocity] 2 mm/h Normal 0-20 [facility] Comment on above: Order Comment: Darron mazariegos Type: BLOOD SPECIMENOrdering Facility: [facility] Address: [address] [place] [address] Performed By: #### 4 537-7 ####[facility] LABCLIA [id number] [place] [address] [place] HBV core Ab Ser Qlon 025 HBV core Ab Ql (S) Negative Normal Negative [facility] Comment on above: Order Comment: Darron mazariegos Type: BLOOD SPECIMENOrdering Facility: [facility] Address: [address] [place] [address] Result Comment: No e vidence of current or past infection with Hepatitis B virus. Should recent infection be suspected, repeat testing may be considered 3-4 weeks after this draw. Performed By: #### 2 2322-2, 5195-3, 96736-6 ####[facility] LABCLIA [id number] [address] [place] HBV surface Ab Ql (S)on HBV surface Ab Qn (S) <8.00 Normal [facility] Comment on above: Order Comment: Darron mazariegos Type: BLOOD SPECIMENOrdering Facility: [facility] Address: [address] [place] [address] Result Comment: <8 m IU/mL: No serological evidence of immunity to Hepatitis B Virus. >/= 8 to <12 mIU/mL: No serological evidence of immunity to Hepatitis B Virus. >/= 12 mIU/mL: Consistent with serological evidence of immunity to Hepatitis B Virus. Performed By: #### 2 2322-2, 5195-3, 69930-2 ####[facility] LABCLIA [id number] [place] [address] [place] HBV surface Ab Ser Qlon HBV surface Ab Ql (S) Negative Normal [facility] Comment on above: Order Comment: Speci men Type: BLOOD SPECIMENOrdering Facility: [facility] Address: [address] [place] [address] Result Comment: No s erological evidence of immunity to Hepatitis B Virus. Performed By: #### 2 2322-2, 5195-3, 23774-6 ####[facility] LABCLIA [id number] [place] [address] [place] HBV surface Ag Ser Qlon HBV surface Ag Ql (S) Negative Normal Negative [facility] Comment on above: Order Comment: Speci men Type: BLOOD SPECIMENOrdering Facility: [facility] Address: [address] [place] [address] Performed By: #### 2 2322-2, 5195-3, 44935-2 ####[facility] [id number] [address] [place] HCV Ab Ser Qlon 08-13-2024 HCV Ab Ql (S) Negative Normal Negative [facility] Comment on above: Order Comment: Speci [facility] Type: BLOOD SPECIMENOrdering Facility: [facility] Address: [address] [place] [address] Result Comment: The result suggests no evidence of active infection with Hepatitis C virus. Should recent infection be suspected, repeat testing may be considered 4-6 weeks after this draw. Performed By: #### 1 6128-1 ####[facility] [id number] [address] [place] IMMUNOFIXATION SCREEN, SERUM on 08-13-2024 INTERPRETATION (MPA) Atypical restricted bands are present in the IgG and lambda regions. Consistent with IgG lambda monoclonal gammopathy. Normal [facility] Comment on above: Order Comment: Speci [facility] Type: BLOOD SPECIMENOrdering Facility: [facility] Address: [address] [place] [address] Performed By: #### I [facility] ####[facility] [id number] [address] MPA RESULT M protein is present. Abnormal No M p rotein is identified. [facility] Comment on above: Order Comment: Speci men Type: BLOOD SPECIMENOrdering Facility: [facility] Address: [address] [place] [address] Performed By: #### I FESC ####[facility] [id number] [address] [place] STAFF REVIEW (MPA) Reviewed by Dr. Hansel Marshall MD [facility] Comment on above: Order Comment: Speci men Type: BLOOD SPECIMENOrdering Facility: [facility] Address: [address] [place] [address] Performed By: #### I FESC ####[facility] [id number] [place] [address] [place] IMMUNOGLOBULINS,IGG,IGA,IGMo n 08-13-2024 IgA [Mass/Vol] 67 mg/dL Low 70-400 [facility] Comment on above: Order Comment: Speci men Type: URINE SPECIMEN [facility] Address: [address] [place] [address] Performed By: #### L [id number] #### [facility] CLIA [id number] [address] [place] [address] [place] IgG [Mass/Vol] 1179 mg/dL Normal 700-1600 [facility] Comment on above: Order Comment: Speci men Type: URINE SPECIMEN [facility] Address: [address] [place] [address] Performed By: #### L [id number] #### [facility] CLIA [id number] [address] [place] [address] [place] IgM [Mass/Vol] 68 mg/dL Normal 40-230 [facility] Comment on above: Order Comment: Speci men Type: URINE SPECIMEN [facility] Address: [address] [place] [address] Performed By: #### L [id number] #### [facility] CLIA [id number] [address] [place] [address] [place] KAPPA/LOPEZ,FREE,SERon 2024 Immunoglobulin light chains.kappa.free (S) [Mass/Vol] 11.9 mg/L Normal 3.3-19.4 [facility] Comment on above: Order Comment: Speci men Type: URINE SPECIMEN [facility] Address: [address] [place] [address] Result Comment: Rare ly, increased serum free light chains levels may not be detected or accurately quantified due to prozone phenomenon or in high viscosity samples using this immunoturbidimetric assay. Correlation with other laboratory results and clinical findings is recommended. The [place] Free Light Chain was performed using the Binding Site Optilite immunoturbidimetric method. Result obtained with different assay methods or kits cannot be used interchangeably. Performed By: #### L [id number] #### [facility] CLIA [id number] [address] [place] [address] [place] Immunoglobulin light chains.kappa/Immunogl obulin light chains.lambda (S) [Mass ratio] 0.16 Low 0.26-1.65 [facility] Comment on above: Order Comment: Speci men Type: URINE SPECIMEN [facility] Address: [address] [place] [address] Performed By: #### L [id number] #### [facility] CLIA [id number] [address] [place] [address] [place] Immunoglobulin light chains.lambda.free [Mass/Vol] 76.0 mg/L High 5.7-26.3 [facility] Comment on above: Order Comment: Speci men Type: URINE SPECIMEN [facility] Address: [address] [place] [address] Result Comment: Rare ly, increased serum free light chains levels may not be detected or accurately quantified due to prozone phenomenon or in high viscosity samples using this immunoturbidimetric assay. Correlation with other laboratory results and clinical findings is recommended. The [place] Free Light Chain was performed using the Binding Site Optilite immunoturbidimetric method. Result obtained with different assay methods or kits cannot be used interchangeably. Performed By: #### L [id number] #### [facility] CLIA [id number] [address] [place] [address] [place] LACTATE DEHYDROGENASEon -0 LDH [Catalytic activity/Vol] 181 U/L 135 - 214 U/L [facility] LDH SerPl-cCncon 08-13-2024 LDH [Catalytic activity/Vol] 181 U/L Normal 135-214 [facility] Comment on above: Order Comment: Speci men Type: BLOOD SPECIMENOrdering Facility: [facility] Address: [address] [place] [address] Performed By: #### 3 084-1, 2532-0, 68075-7 ####[facility] RADHA [facility] [id number] [place] [address] [place] LDH [Catalytic activity/Vol] on 08-13-2024 Interpretation and review of laboratory results Normal [facility] No Panel InformationOrdered By: Makayla Zee on 08-13-2024 [facility] PROTEIN ELECTROPHORESIS SERU M (P)on 08-13-2024 Albumin [Mass/Vol] 4.38 g/dL Normal 3.43-5.41 [facility] Comment on above: Order Comment: Speci men Type: URINE SPECIMEN [facility] Address: [address] [place] [address] Performed By: #### L [id number] #### [facility] CLIA [id number] [address] [place] [address] [place] Alpha 1 globulin Elph [Mass/Vol] 0.25 g/dL Normal 0.18-0.43 [facility] Comment on above: Order Comment: Speci men Type: URINE SPECIMEN [facility] Address: [address] [place] [address] Performed By: #### L [id number] #### [facility] CLIA [id number] [address] [place] [address] [place] Alpha 2 globulin Elph [Mass/Vol] 0.48 g/dL Normal 0.42-0.98 [facility] Comment on above: Order Comment: Speci men Type: URINE SPECIMEN [facility] Address: [address] [place] [address] Performed By: #### L [id number] #### [facility] CLIA [id number] [address] [place] [address] [place] Beta globulin Elph [Mass/Vol] 0.60 g/dL Low 0.61-1.17 [facility] Comment on above: Order Comment: Speci men Type: URINE SPECIMEN [facility] Address: [address] [place] [address] Performed By: #### L [id number] #### [facility] CLIA [id number] [address] [place] [address] [place] Gamma globulin Elph [Mass/Vol] 1.00 g/dL Normal 0.53-1.51 [facility] Comment on above: Order Comment: Speci men Type: URINE SPECIMEN [facility] Address: [address] [place] [address] Performed By: #### L [id number] #### [facility] CLIA [id number] [address] [place], [place] [address] [place] INTERPRETATION COMMENT FOR PROTEIN ELECTROPHORESIS See separate immunofixation report for characterization of monoclonal gammopathy. Normal [facility] Comment on above: Order Comment: Speci men Type: URINE SPECIMEN [facility] Address: [address] [place] [address] Performed By: #### L [id number] #### [facility] CLIA [id number] [address] [place] [address] [place] M-PROTEIN LOCATION Gamma Fraction 1 Normal [facility] Comment on above: Order Comment: Speci men Type: URINE SPECIMEN [facility] Address: [address] [place] [address] Performed By: #### L [id number] #### [facility] CLIA [id number] [address] [place] [address] [place] Protein Fractions [Interp] An M protein is identified on protein electrophoresis. Abnormal No definitive M protein is identified on protein electrophore sis. [facility] Comment on above: Order Comment: Speci men Type: URINE SPECIMEN [facility] Address: [address] [place] [address] Performed By: #### L [id number] #### [facility] CLIA [id number] [address] [place] [address] [place] Protein.monoclonal Elph [Mass/Vol] 0.48 g/dL High <=0.00 [facility] Comment on above: Order Comment: Speci men Type: URINE SPECIMEN [facility] Address: [address] [place] [address] Performed By: #### L [id number] #### [facility] CLIA [id number] [address] [place] [address] [place] SPE STAFF REVIEW Reviewed by Dr. Hasnel Marshall MD Normal [facility] Comment on above: Order Comment: Speci men Type: URINE SPECIMEN [facility] Address: [address] [place] [address] Performed By: #### L [id number] #### [facility] CLIA [id number] [address] [place] [address] [place] Prot SerPl-mCncon 08-13-2024 Protein [Mass/Vol] 6.7 g/dL Normal 6.3-8.0 [facility] Comment on above: Order Comment: Speci men Type: BLOOD SPECIMENOrdering Facility: [facility] Address: [address] [place] [address] Performed By: #### 1 988-5, 2885-2, 1951-08 ####[facility] [id number] [place] [id number] [place] SERUM VISCOSITYon 08-13-2024 VISCOSITY, SERUM 1.10 cP Normal <=1.50 [facility] Comment on above: Order Comment: Speci men Type: BLOOD SPECIMENOrdering Facility: [facility] Address: [address] [place] [address] Result Comment: INTE RPRETIVE INFORMATION: Viscosity, Serum Increased viscosity is associated with disorders such as monoclonal gammopathy, macroglobulinemia, and multiple myeloma. Significantly elevated viscosity (>3.0 cP) is associated with clinical symptoms of hyperviscosity syndrome. This test was developed and its performance characteristics determined by [employer]. It has not been cleared or approved by the [place] Food and Drug Administration. This test was performed in a CLIA certified laboratory and is intended for clinical purposes. Performed By: [facility] [address] [place] [address] Client Account Specialist: Alexia Reyna MD, PhD CLIA Number: [id number] Performed By: #### S DONALD ####[facility] LABORATORIESIA [id number] [place] [address] URIC ACIDon 08-13-2024 Urate [Mass/Vol] 5.7 mg/dL 2.5 - 6.6 mg/dL [facility] Urate SerPl-mCncon Urate [Mass/Vol] 5.7 mg/dL Normal 2.5-6.6 [facility] Comment on above: Order Comment: Speci men Type: BLOOD SPECIMENOrdering Facility: [facility] Address: [address] [place] [address] Performed By: #### 3 084-1, 2532-0, 97123-8 ####[facility] RADHA [facility] [id number] [place] [address] [place] Urate [Mass/Vol]on Interpretation and review of laboratory results Normal [facility] XR BONE SURVEY ROUTINEon XR BONE SURVEY ROUTINE * * *Final Report* * * DATE OF EXAM: Aug 13 2024 3:05PM [id number] - XR BONE SURVEY ROUTINE / PROCEDURE REASON: Monoclonal gammopathy * * * * Physician Interpretation * * * * EXAMINATION / TECHNIQUE: XR BONE SURVEY ROUTINE HISTORY: PT STATES ABNORMAL LABS FIRST BONE SURVEY Monoclonal gammopathy COMPARISON: None. RESULT: No aggressive calvarial lesion is identified. There is multilevel lower cervical degenerative disc disease. No thoracic or lumbar compression fracture is identified. There is no acute displaced rib fracture or expansile rib lesion. No aggressive osseous lesion or area of aggressive endosteal scalloping is identified within the visualized upper or lower extremities. No aggressive pelvic osseous lesion is identified. IMPRESSION: No suspicious bony lesion is identified. Uniform Room Attendant: [facility] Transcribe Date/Time: Aug 16 2024 1:33P Dictated by : ALEXIA KRAMER MD This examination was interpreted and the report reviewed and electronically signed by: ALEXIA KRAMER MD on Aug 16 2024 1:34PM EST [id number] Normal [facility] SCRN MAMM (CAD)W/LILLIANA BILATo n 07-28-2024 SCRN MAMM (CAD)W/LILLIANA BILAT [facility] Imaging Services [address] [place] [id number] SCRN MAMM (CAD)W/LILLIANA BILAT MR#: [id number] Acct: [id number] Name: VALERIE ALMARAZ Rep #: [id number] : 1955 F 69 From: Rishabh Willoughby MD PCP: Dr. Heide Villavicencio MD Status: REG CLI Study: SCRN MAMM (CAD)W/LILLIANA BILAT Date of Exam: 07/07 10/27 Exam# [id number] Ordering Dr: Heide Villavicencio MD [id number] MAMMOGRAPHY - BILATERAL SCREENING 3-D TOMOSYNTHESIS REASON FOR EXAM: Female, 69 years old. screening PERTINENT HISTORY: No significant family history. TECHNIQUE: 2-D mammograms and 3-D Tomosynthesis of the breast (s) were performed. CAD was performed. COMPARISON: 07/24/2023 FINDINGS: The breast composition is composed of scattered fibroglandular density. Scattered benign calcifications are seen. No dense spiculated masses or suspicious microcalcifications are identified. No architectural distortion is identified. There is no skin thickening or retraction. There has been no significant change since the prior study. BI/SCRN MAMM (CAD)W/LILLIANA BILAT IMPRESSION: No mammographic signs of malignancy. Routine yearly mammograms recommended. ASSESSMENT CATEGORY: BIRADS Category 1: Negative. A letter regarding these results will be sent to the patient by the facility within 30 days. FOLLOW UP RECOMMENDATION: Yearly follow up mammogram recommended. (A) Approximately 10% of breast cancers are not detected by mammography. A normal mammogram should not delay biopsy of a clinically suspicious abnormality. Electronically Signed: Rishabh Willoughby MD at 17:47 EST , CC: Dr. Heide Villavicencio MD Uniform Room Attendant: Signed Normal [facility] Abdomen/Pelvis WITH Contrast on 07-24-2024 Abdomen/Pelvis WITH Contrast [facility] Imaging Services [address] [place] [id number] Abdomen/Pelvis WITH Contrast MR#: [id number] Acct: [id number] Name: VALERIE ALMARAZ Rep #: [id number] : 1955 F 69 From: Figueroa pelaez MD PCP: Dr. Heide Villavicencio MD Status: REG CLI Study: Abdomen/Pelvis WITH Contrast Date of Exam: Exam# [id number] Ordering Dr: Kym Rock MD [id number] STUDY: CT ABDOMEN AND PELVIS WITH CONTRAST REASON FOR EXAM: Female, 69 years old. L flank pain for months and is worsening RADIATION DOSAGE (If Supplied By Facility): CTDIvol = ( 7.73 ) mGy, DLP = ( 556.51 ) mGycm TECHNIQUE: Transaxial images were obtained from the dome of the diaphragm to the symphysis pubis with oral contrast. Oral and amp; IV Redi-CAT and amp; 100mL Isovue-300 was administered. Sagittal and coronal images were reconstructed. Individualized dose optimization techniques were used for this CT. COMPARISON: Comparison is made with prior study dated March 03, 2016. FINDINGS: The visualized lung bases are unremarkable. The visualized portions of the heart are within normal limits. There is a 2 cm x 2 cm cyst in the anterior aspect of the right lobe of the liver. This has increased in size as compared to prior study. There is also evidence of a 2.6 cm x 2.6 cm cyst in the posterior inferior lateral aspect of the right lobe of the liver. This has increased in size as well. The patient is status post cholecystectomy. Normal spleen. Normal pancreas. Normal bilateral adrenal glands. Normal right kidney. Normal left kidney. Normal visualized stomach. Normal small intestine. There are multiple colonic diverticula consistent with diverticulosis. The appendix is visualized and appears normal. There is scattered atherosclerotic calcification of the abdominal aorta, without a demonstrated aneurysm. Normal inferior vena cava. Normal retroperitoneum. Normal urinary bladder. Normal abdominal wall. There are degenerative changes of the visualized lumbar spine. This is worse at the L2-L3 level. CT/Abdomen/Pelvis WITH Contrast IMPRESSION: Right hepatic cysts which have increased in size as compared to prior study. Status post cholecystectomy. Sigmoid diverticulosis with no radiographic evidence of diverticulitis at this time. Electronically Signed: Figueroa Cantrell MD at 12:57 EST , CC: Dr. Heide Villavicencio MD; Dr. Kym Rock MD Uniform Room Attendant: Signed [facility] 07-23-2024 CNPN Telephone (4CQ) ----- VALERIE ALMARAZ ([id number]) 1955 F Date Time Provider Department 07/23/24 DANIEL ROBERSON 4CQ During your visit today, we recorded the following information about you: Rajesh Chiquita 07/23/2024 11:26 AM Signed Pt called to schedule appt with da, Pt stated orders were sent twice on 07/16 and 07/[address] Kym Rock. Please advise. Deanna Xavier LPN 07/23/2024 12:50 PM Signed The only thing we received for this referral was a referral note. No labs and no OV note. I sent a fax requesting labs be sent and again today contacted the office to request labs and OV note. They were faxed today. 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 ANIKA Stevens Brandy 07/23/2024 3:58 PM Signed Patient called back and has been scheduled for 08/13/24 @ 1:00 pm with She confirmed this date, time and location Lucía Chavis Pss Allergies As of Date: 07/23/2024 Noted Allergy Reaction CHLORHEXIDINE 11/30/2009 2 - Rash Date Reviewed: 03/03/2024 Reviewed by: Pancho Cardenas Tech - Fully Assessed Prescriptions as of 07/23/2024 - pantoprazole (PROTONIX) 40 mg tablet Take 1 tablet by mouth once daily. (may use generic) Problem List As Of Date 07/23/2024 Noted Resolved Epigastric pain [R10.13] 03/05/2016 Gastro-esophageal reflux disease with esophagit*03/05/2016 Arthritis of carpometacarpal (CMC) joint of lef*09/28/2021 Arthritis of djvcnpjq-ylokokwrw-xdnoxw oid joint*09/28/2021 Encounter Status:Closed by LUCÍA MORRIS on 07/23/24 Normal [facility] [place] Protein Electroph, Son 06-20 Albumin [Mass/Vol] 3.8 g/dL Normal 2.9-4.4 [facility] Comment on above: Order Comment: Order Date: 06/17/24 Order Info: 0060-1 - PROEL Performed By: #### L 100.0100, L101.9900, L3100.3450, L500.4050 #### [facility] [address] [place], [address] Albumin/Globulin [Mass ratio] 1.3 {ratio} Normal 0.7-1.7 [facility] Comment on above: Order Comment: Order Date: 06/17/24 Order Info: 0060-1 - PROEL Performed By: #### L 100.0100, L101.9900, L3100.3450, L500.4050 #### [facility] [address] [place], [address] ALPHA-1 GLOBUL 0.3 g/dL Normal 0.0-0.4 [facility] Comment on above: Order Comment: Order Date: 06/17/24 Order Info: 0060-1 - PROEL Performed By: #### L 100.0100, L101.9900, L3100.3450, L500.4050 #### [facility] [address] [place], [address] ALPHA-2 GLOBUL 0.6 g/dL Normal 0.4-1.0 [facility] Comment on above: Order Comment: Order Date: 06/17/24 Order Info: 0060-1 - PROEL Performed By: #### L 100.0100, L101.9900, L3100.3450, L500.4050 #### [facility] [address] [place], [address] BETA GLOBULIN 0.9 g/dL Normal 0.7-1.3 [facility] Comment on above: Order Comment: Order Date: 06/17/24 Order Info: 0060-1 - PROEL Performed By: #### L 100.0100, L101.9900, L3100.3450, L500.4050 #### [facility] [address] [place], [address] GAMMA GLOBULIN 1.2 g/dL Normal 0.4-1.8 [facility] Comment on above: Order Comment: Order Date: 06/17/24 Order Info: 0060-1 - PROEL Performed By: #### L 100.0100, L101.9900, L3100.3450, L500.4050 #### [facility] [address] [place], [address] Globulin (S) [Mass/Vol] 2.9 g/dL Normal 2.2-3.9 [facility] Comment on above: Order Comment: Order Date: 06/17/24 Order Info: 0060-1 - PROEL Performed By: #### L 100.0100, L101.9900, L3100.3450, L500.4050 #### [facility] [address] [place], [address] INTERPRETATION Comment Normal . [facility] Comment on above: Order Comment: Order Date: 06/17/24 Order Info: 0060-1 - PROEL Result Comment: Prot ein electrophoresis scan will follow via computer, mail, or return clerk delivery. Performed By: #### L 100.0100, L101.9900, L3100.3450, L500.4050 #### [facility] [address] [place], [address] M-SPIKE 0.6 g/dL Abnormal Not Observed [facility] Comment on above: Order Comment: Order Date: 06/17/24 Order Info: 0060-1 - PROEL Performed By: #### L 100.0100, L101.9900, L3100.3450, L500.4050 #### [facility] [address] [place], [place], [id number] NOTE: Comment Normal . [facility] Comment on above: Order Comment: Order Date: 06/17/24 Order Info: 0060-1 - PROEL Result Comment: The SPE pattern demonstrates a single peak (M-spike) in the gamma region which may represent monoclonal protein. This peak may also be caused by circulating immune complexes, cryoglobulins, C-reactive protein, fibrinogen or hemolysis. If clinically indicated, the presence of a monoclonal gammopathy may be confirmed by immuno-fixation, as well as an evaluation of the urine for the presence of Bence-Miller protein. Performed at: [address] [id number] Engine Maintenance Mechanic: Joseph Linton PhD, Phone: [phone] Performed By: #### L 100.0100, L101.9900, L3100.3450, L500.4050 #### [facility] [address] [place], [place], [id number] Protein [Mass/Vol] 6.7 g/dL Normal 6.0-8.5 [facility] Comment on above: Order Comment: Order Date: 06/17/24 Order Info: 0060-1 - PROEL Performed By: #### L 100.0100, L101.9900, L3100.3450, L500.4050 #### [facility] [address] [place], [place], [id number] CBC W/Diff, Automatedon 06-06 Absolute Lymph 0.91 X10 3/uL Normal 0.83-4.51 [facility] Comment on above: Order Comment: Order Date: 06/17/24 Order Info: 0184-1 - CBCD Order Info: 33910-4 - SED Performed By: #### L 100.0100, L101.9900, L3100.3450, L500.4050 #### [facility] [address] [place], [address] Absolute Neut 3.3 X10 3/uL Normal 2.0-7.7 [facility] Comment on above: Order Comment: Order Date: 06/17/24 Order Info: 018-1 - CBCD Order Info: 65199-1 - SED Performed By: #### L 100.0100, L101.9900, L3100.3450, L500.4050 #### [facility] [address] [place], [address] Basophils/100 WBC (Bld) 1.1 % High 0-1 [facility] Comment on above: Order Comment: Order Date: 06/17/24 Order Info: 183-1 - CBCD Order Info: 04607-1 - SED Performed By: #### L 100.0100, L101.9900, L3100.3450, L500.4050 #### [facility] [address] [place], [address] Eosinophils/100 WBC (Bld) 1.3 % Normal 0-5 [facility] Comment on above: Order Comment: Order Date: 06/17/24 Order Info: [id number] - CBCD Order Info: 33494-5 - SED Performed By: #### L 100.0100, L101.9900, L3100.3450, L500.4050 #### [facility] [address] [place], [address] Erythrocyte distribution width (RBC) [Ratio] 12.2 % Normal 11.6-14.6 [facility] Comment on above: Order Comment: Order Date: 06/17/24 Order Info: 018- - CBCD Order Info: 31794-6 - SED Performed By: #### L 100.0100, L101.9900, L3100.3450, L500.4050 #### [facility] [address] [place], [address] Hematocrit (Bld) [Volume fraction] 40.7 % Normal 37-47 [facility] Comment on above: Order Comment: Order Date: 06/17/24 Order Info: 018-1 - CBCD Order Info: 73922-8 - SED Performed By: #### L 100.0100, L101.9900, L3100.3450, L500.4050 #### [facility] [address] [place], [address] Hemoglobin (Bld) [Mass/Vol] 12.8 g/dL Normal 12.0-15.0 [facility] Comment on above: Order Comment: Order Date: 06/17/24 Order Info: 183-08 - CBCD Order Info: - SED Performed By: #### L 100.0100, L101.9900, L3100.3450, L500.4050 #### [facility] [address] [place], [address] IG% 0.200 Normal 0.0-0.9 [facility] Comment on above: Order Comment: Order Date: 06/17/24 Order Info: 183-08 - CBCD Order Info: - SED Result Comment: IG% - Immature Granulocytes (promyelocytes, myelocytes and metamyelocytes) > 1% indicates that a LEFT SHIFT is Present. Performed By: #### L 100.0100, L101.9900, L3100.3450, L500.4050 #### [facility] [address] [place], [address] Lymphocytes/100 WBC (Bld) 19.3 % Normal 19-41 [facility] Comment on above: Order Comment: Order Date: 06/17/24 Order Info: [id number] - CBCD Order Info: 03204-7 - SED Performed By: #### L 100.0100, L101.9900, L3100.3450, L500.4050 #### [facility] [address] [place], [address] MCH (RBC) [Entitic mass] 31.1 pg Normal 27.0-32.0 [facility] Comment on above: Order Comment: Order Date: 06/17/24 Order Info: 183-08 - CBCD Order Info: - SED Performed By: #### L 100.0100, L101.9900, L3100.3450, L500.4050 #### [facility] [address] [place], [address] MCHC (RBC) [Mass/Vol] 31.4 g/dL Low 32-36 [facility] Comment on above: Order Comment: Order Date: 06/17/24 Order Info: 183-08 - CBCD Order Info: - SED Performed By: #### L 100.0100, L101.9900, L3100.3450, L500.4050 #### [facility] [address] [place], [address] MCV (RBC) [Entitic vol] 98.8 fL Normal 81-99 [facility] Comment on above: Order Comment: Order Date: 06/17/24 Order Info: 183-08 - CBCD Order Info: - SED Performed By: #### L 100.0100, L101.9900, L3100.3450, L500.4050 #### [facility] [address] [place], [address] Monocytes/100 WBC (Bld) 9.1 % Normal 0-10 [facility] Comment on above: Order Comment: Order Date: 06/17/24 Order Info: 183-08 - CBCD Order Info: - SED Performed By: #### L 100.0100, L101.9900, L3100.3450, L500.4050 #### [facility] [address] [place], [address] Neutrophils/100 WBC (Bld) 69.0 % Normal 47-70 [facility] Comment on above: Order Comment: Order Date: 06/17/24 Order Info: 183-08 - CBCD Order Info: 97559-5 - SED Performed By: #### L 100.0100, L101.9900, L3100.3450, L500.4050 #### [facility] [address] [place], [address] Nucleated RBC (Bld) [#/Vol] 0 10*3/uL Normal 0-5 [facility] Comment on above: Order Comment: Order Date: 06/17/24 Order Info: 183-08 - CBCD Order Info: [id number] - SED Performed By: #### L 100.0100, L101.9900, L3100.3450, L500.4050 #### [facility] [address] [place], [address] Platelet mean volume (Bld) [Entitic vol] 9.4 fL Normal 6.2-12.0 [facility] Comment on above: Order Comment: Order Date: 06/17/24 Order Info: 183-08 - CBCD Order Info: 71437-3 - SED Performed By: #### L 100.0100, L101.9900, L3100.3450, L500.4050 #### [facility] [address] [place], [address] Platelets (Bld) [#/Vol] 202 10*3/uL Normal 150-450 [facility] Comment on above: Order Comment: Order Date: 06/17/24 Order Info: 183-08 - CBCD Order Info: [id number] - SED Performed By: #### L 100.0100, L101.9900, L3100.3450, L500.4050 #### [facility] [address] [place], [address] RBC (Bld) [#/Vol] 4.12 10*6/uL Low 4.2-5.4 [facility] Comment on above: Order Comment: Order Date: 06/17/24 Order Info: 183-08 - CBCD Order Info: 87875-0 - SED Performed By: #### L 100.0100, L101.9900, L3100.3450, L500.4050 #### [facility] [address] [place], [address] RDW SD 44.5 fl High 35.1-43.9 [facility] Comment on above: Order Comment: Order Date: 06/17/24 Order Info: 0184-1 - CBCD Order Info: 93431-6 - SED Performed By: #### L 100.0100, L101.9900, L3100.3450, L500.4050 #### [facility] [address] [place], [address] WBC (Bld) [#/Vol] 4.7 10*3/uL Normal 4.4-11.0 [facility] Comment on above: Order Comment: Order Date: 06/17/24 Order Info: 0184- - CBCD Order Info: [id number] - SED Performed By: #### L 100.0100, L101.9900, L3100.3450, L500.4050 #### [facility] [address] [place], [address] Comprehensive Metabolic Prof [facility] 06-18-2024 Albumin [Mass/Vol] 3.7 g/dL Normal 3.2-5.0 [facility] Comment on above: Order Comment: Order Date: 06/17/24 Order Info: 0786-1 - CMP Performed By: #### L 100.0100, L101.9900, L3100.3450, L500.4050 #### [facility] [address] [place], [address] Albumin/Globulin [Mass ratio] 1.0 {ratio} Normal 0.9-2.4 [facility] Comment on above: Order Comment: Order Date: 06/17/24 Order Info: 0786-1 - CMP Performed By: #### L 100.0100, L101.9900, L3100.3450, L500.4050 #### [facility] [address] [place], [address] ALK P 73 U/L Normal 45-117 [facility] Comment on above: Order Comment: Order Date: 06/17/24 Order Info: 0786-1 - CMP Performed By: #### L 100.0100, L101.9900, L3100.3450, L500.4050 #### [facility] [address] [place], [address] ALT [Catalytic activity/Vol] 23 U/L Normal 13-56 [facility] Comment on above: Order Comment: Order Date: 06/17/24 Order Info: 0786-1 - CMP Performed By: #### L 100.0100, L101.9900, L3100.3450, L500.4050 #### [facility] [address] [place], [address] AST [Catalytic activity/Vol] 20 U/L Normal 15-37 [facility] Comment on above: Order Comment: Order Date: 06/17/24 Order Info: 0786-1 - CMP Result Comment: Slig ht Hemolysis, Result may be falsely increased. Performed By: #### L 100.0100, L101.9900, L3100.3450, L500.4050 #### [facility] [address] [place], [address] Bilirubin [Mass/Vol] 0.40 mg/dL Normal 0.20-1.00 [facility] Comment on above: Order Comment: Order Date: 06/17/24 Order Info: 0786-1 - CMP Result Comment: For patients on eltrombopag therapy, use of Dimension [place] TBIL is not recommended. Performed By: #### L 100.0100, L101.9900, L3100.3450, L500.4050 #### [facility] [address] [place], [address] BUN/CRE 18.3 RATIO Normal 10-20 [facility] Comment on above: Order Comment: Order Date: 06/17/24 Order Info: 0786-1 - CMP Performed By: #### L 100.0100, L101.9900, L3100.3450, L500.4050 #### [facility] [address] [place], [address] CA,Total 9.2 mg/dL Normal 8.5-10.1 [facility] Comment on above: Order Comment: Order Date: 06/17/24 Order Info: 0786-1 - CMP Performed By: #### L 100.0100, L101.9900, L3100.3450, L500.4050 #### [facility] [address] [place], [address] Chloride [Moles/Vol] 110 mmol/L High 98-107 [facility] Comment on above: Order Comment: Order Date: 06/17/24 Order Info: 0786-1 - CMP Performed By: #### L 100.0100, L101.9900, L3100.3450, L500.4050 #### [facility] [address] [place], [address] CO2 [Moles/Vol] 25.0 mmol/L Normal 21.0-32.0 [facility] Comment on above: Order Comment: Order Date: 06/17/24 Order Info: 0786-1 - CMP Performed By: #### L 100.0100, L101.9900, L3100.3450, L500.4050 #### [facility] [address] [place], [address] Creatinine [Mass/Vol] 1.15 mg/dL High 0.55-1.02 [facility] Comment on above: Order Comment: Order Date: 06/17/24 Order Info: 0786-1 - CMP Result Comment: The validity of the calculated GFR GFRAA in patients over 70 years has not been determined. Clinical correlation is essential. Performed By: #### L 100.0100, L101.9900, L3100.3450, L500.4050 #### [facility] [address] [place], [address] EST GFR - AA 60 mL/min Normal >60 [facility] Comment on above: Order Comment: Order Date: 06/17/24 Order Info: 0786-1 - CMP Result Comment: Afri can [place] GFR Calc Performed By: #### L 100.0100, L101.9900, L3100.3450, L500.4050 #### [facility] [address] [place], [address] GAP 5 Normal 5-15 [facility] Comment on above: Order Comment: Order Date: 06/17/24 Order Info: 0786-1 - CMP Performed By: #### L 100.0100, L101.9900, L3100.3450, L500.4050 #### [facility] [address] [place], [address] GFR/1.73 sq M.predicted among non-blacks MDRD (S/P/Bld) [Vol rate/Area] 50 mL/min/{1.73_m2} Low >60 [facility] Comment on above: Order Comment: Order Date: 06/17/24 Order Info: 0786-1 - CMP Result Comment: Non- GFR Calc Performed By: #### L 100.0100, L101.9900, L3100.3450, L500.4050 #### [facility] [address] [place], [address] Globulin (S) [Mass/Vol] 3.6 g/dL Normal 2.2-4.2 [facility] Comment on above: Order Comment: Order Date: 06/17/24 Order Info: 0786-1 - CMP Performed By: #### L 100.0100, L101.9900, L3100.3450, L500.4050 #### [facility] [address] [place], [address] Glucose [Mass/Vol] 88 mg/dL Normal 74-106 [facility] Comment on above: Order Comment: Order Date: 06/17/24 Order Info: 0786-1 - CMP Performed By: #### L 100.0100, L101.9900, L3100.3450, L500.4050 #### [facility] [address] [place], [address] Potassium [Moles/Vol] 4.0 mmol/L Normal 3.5-5.1 [facility] Comment on above: Order Comment: Order Date: 06/17/24 Order Info: 0786-1 - CMP Result Comment: Slig ht Hemolysis, Result may be falsely increased. Performed By: #### L 100.0100, L101.9900, L3100.3450, L500.4050 #### [facility] [address] [place], [address] Sodium [Moles/Vol] 140 mmol/L Normal 136-145 [facility] Comment on above: Order Comment: Order Date: 06/17/24 Order Info: 0786-1 - CMP Performed By: #### L 100.0100, L101.9900, L3100.3450, L500.4050 #### [facility] [address] [place], [address] T PROT 7.3 g/dL Normal 6.4-8.2 [facility] Comment on above: Order Comment: Order Date: 06/17/24 Order Info: 0786-1 - CMP Performed By: #### L 100.0100, L101.9900, L3100.3450, L500.4050 #### [facility] [address] [place], [address] Urea nitrogen [Mass/Vol] 21 mg/dL High 7-18 [facility] Comment on above: Order Comment: Order Date: 06/17/24 Order Info: 0786-1 - CMP Performed By: #### L 100.0100, L101.9900, L3100.3450, L500.4050 #### [facility] [address] [place], [address] Erythrocyte Sed Rateon 06-18 SED RATE < 1 Normal 0-30 [facility] Comment on above: Order Comment: Order Date: 06/17/24 Order Info: 0184-1 - CBCD Order Info: [id number] - SED Performed By: #### L 100.0100, L101.9900, L3100.3450, L500.4050 #### [facility] [address] [place], [address] Abd Aortic/IVC Duplex scanon 05-26-2024 Abd Aortic/IVC Duplex scan [facility] [address] [place] [address] Abd Aortic/IVC Duplex scan 05/26/24 0808 MR#: [id number] Acct: [id number] Name: VALERIE ALMARAZ Rep #: [id number] : 1955 69 From: Bi Miranda MD Attending Dr: Dr. Heide Villavicencio MD Status: REG CLI Ordering Dr: Heide Villavicencio MD Date: 05/26/24 Location: [facility] Sex: F C Admitted: Reason For Study: AAA Screening Aorta Measurements Aorta Doppler Measurements Proximal aorta measures2.03cm x 2.10cm. in cross- Peak systolic flow velocities within the proximal sectional axis. aorta measure 94 cm/sec. Proximal aorta measures1.74cm. in longitudinal Peak systolic flow velocities within the mid aorta axis. measure 90 cm/sec. Mid aorta measures1.82cm x 1.76cm. in cross- Peak systolic flow velocities within the distal sectional axis. aorta measure 109 cm/sec. Mid aorta measures1.64cm. in longitudinal axis. Distal aorta measures1.64cm x 1.85cm. in cross- sectional axis. Distal aorta measures1.66cm. in longitudinal axis. Left Iliac Artery Left iliac artery measures 1.06cm x 1.10 cm. in the cross-sectional axis. Left iliac artery measures 1.03 cm. in the longitudinal axis. Peak systolic velocity in the left iliac artery measures 80 cm/sec. Right Iliac Artery Right iliac artery measures 1.04cm x 1.17 cm. in the cross-sectional axis. Right iliac artery measures 0.93 cm. in the longitudinal axis. Peak systolic velocity in the right iliac artery measures 98 cm/sec. Procedure Aorta IVC Iliac vasculature or bypass grafts [address]96[address]. Exam performed in department. VL/Abd Aortic/IVC Duplex scan Interpretation Summary The dimensions of the intra-abdominal aorta appear normal, without evidence of aneurysmal dilatation. The iliac arteries also appear to be normal in caliber bilaterally. The intra-abdominal aorta and iliac arteries are patent, demonstrating normal, pulsatile arterial flow and normal peak systolic velocities. ___ Ordering Physician: Heide Villavicencio Referring Physician: Heide Villavicencio Performed By: Nicolle Oconnor, YAN, RVT 05/27/241757 Date Bi Miranda MD CC: Dr. Heide Villavicencio MD Date Dictated: 05/26/24807 Date Transcribed: 05/27/241757 Uniform Room Attendant: Signed [facility] 03-03-2024 [facility] Office Visit ([id number] ) ----- VALERIE ALMARAZ ([id number]) 1955 F Date Time Provider Department 03/03/24 2:15 PM ANDRÉS MOLINA [id number] During your visit today, we recorded the following information about you: Respiration Weight Height 16/minute 68 kg 1.676 m Armin PanchoAlbina 03/10/2024 9:53 PM Signed REVIEW OF SYSTEMS: [...] for excessive bleeding, clots, bleeding disorders. Andrés Molina MD 03/10/2024 9:53 PM Signed Patient presents with: Right Thumb - New, Pain HISTORY OF PRESENT ILLNESS Valerie Almaraz presents to the office for evaluation of [...] EXAMINATION Resp 16 Ht 167.6 cm (5' 6") Wt 68 kg (150 lb) BMI 24.21 [...] thumb [facility] Informed Consent Consent Obtained: Verbal [place] Protocol A moment to CARE was completed. [...] immediate complications Post-injection instructions were reviewed with (more content not included)... Normal [facility] Small Joint Arthro/Inj: bila teral thumb CMCon 03-03-2024 Andrés Molina MD 03/10/2024 9:53 PM Small Joint Arthro/Inj: bilateral thumb [facility] Informed Consent Consent Obtained: Verbal [place] Protocol A moment to CARE was completed. [...] Plan of Care Visit completed when applicable [facility] Absolute lymphocyte countOrd ered By: Daniel Lucero on 11-01-2023 Lymphocytes Auto (Unsp spec) [#/Vol] 1.03 10*3/uL 0.83-4.51 [facility] Automated lymphocyte count a s percentage of total leukocytesOrdered By: Daniel Lucero on 11-01-2023 Lymphocytes/100 WBC Auto (Unsp spec) 16.6 % 19-41 [facility] Basophil percentageOrdered B y: Daniel Lucero on 11-01-2023 Basophils/100 WBC (Bld) 0.6 % 0-1 [facility] Chloride [Moles/Vol] 110 mmol/L 98-107 [facility] Eosinophils/100 WBC (Bld) 2.1 % 0-5 [facility] Glucose [Mass/Vol] 79 mg/dL 74-106 [facility] Hemoglobin (Bld) [Mass/Vol] 12.7 g/dL 12.0-15.0 [facility] Monocytes/100 WBC (Bld) 6.5 % 0-10 [facility] Neutrophils (Bld) [#/Vol] 4.6 10*3/uL 2.0-7.7 [facility] Neutrophils/100 WBC (Bld) 74.0 % 47-70 [facility] Potassium [Moles/Vol] 4.2 mmol/L 3.5-5.1 [facility] Sodium [Moles/Vol] 142 mmol/L 136-145 [facility] WBC (Bld) [#/Vol] 6.2 10*3/uL 4.4-11.0 [facility] Determination of erythrocyte mean corpuscular volume (MCV)Ordered By: Daniel Lucero on 11-01-2023 MCV (RBC) [Entitic vol] 98.7 fL 81-99 [facility] Erythrocyte distribution wid th ratioOrdered By: Daniel Lucero on 11-01-2023 Erythrocyte distribution width (RBC) [Ratio] 12.1 % 11.6-14.6 [facility] Erythrocyte distribution wid th standard deviationOrdered By: Daniel Lucero on 11-01-2023 Erythrocyte distribution width (RBC) [Entitic vol] 44.2 fL 35.1-43.9 [facility] Hematocrit Auto (Bld) [Volum e fraction]Ordered By: Daniel Lucero on 11-01-2023 Hematocrit (Bld) [Volume fraction] 38.8 % 37-47 [facility] Immature granulocytes/100 WB C Auto (Bld)Ordered By: Daniel Lucero on 11-01-2023 Immature granulocytes/100 WBC (Bld) 0.200 % 0.0-0.9 [facility] Comment on above: IG% - Immature Granu locytes (promyelocytes, myelocytes and metamyelocytes) > 1% indicates that a LEFT SHIFT is Present. Laboratory - Chemistry and C hemistry - challengeOrdered By: Daniel Lucero on 11-01-2023 CO2 [Moles/Vol] 28.0 mmol/L 21.0-32.0 [facility] Urea nitrogen/Creatinine [Mass ratio] 23.0 mg/mg 10-20 [facility] - Hematology and Cell countsOrdered By: Daniel Lucero on 11-01-2023 MCH (RBC) [Entitic mass] 32.3 pg 27.0-32.0 [facility] MCHC (RBC) [Mass/Vol] 32.7 g/dL 32-36 [facility] Nucleated RBC/100 WBC (Bld) [Ratio] 0 % 0-5 [facility] Platelet mean volume (Bld) [Entitic vol] 9.5 fL 6.2-12.0 [facility] Platelets (Bld) [#/Vol] 190 10*3/uL 150-450 [facility] No Panel InformationOrdered By: Daniel Lucero on 11-01-2023 Estimated GFR (MDRD) Amer 71 mL/min >60 [facility] Comment on above: GFR Calc Estimated GFR (MDRD) Non-Af Amer 59 mL/min >60 [facility] Comment on above: Non- GFR Calc Troponin I High Sensitivity 5 pg/mL 3.0-54.0 [facility] Comment on above: Please Note: [place] t Units and Gender Specific Reference Ranges. For more information see Policy Stat Procedure [place] High Sensitivity Troponin (TNIH) and attachments. RBC Auto (Bld) [#/Vol]Ordere d By: Daniel Lucero on 11-01-2023 RBC (Bld) [#/Vol] 3.93 10*6/uL 4.2-5.4 [facility] Serum or plasma calcium daniel urement (mass/volume)Ordered By: Daniel Lucero on 11-01-2023 Calcium [Mass/Vol] 8.8 mg/dL 8.5-10.1 [facility] Serum or plasma creatinine m easurement (mass/volume)Ordered By: Daniel Lucero on 11-01-2023 Creatinine [Mass/Vol] 1.00 mg/dL 0.55-1.02 [facility] Comment on above: The validity of the calculated GFR & GFRAA in patients over 70 years has not been determined. Clinical correlation is essential. Serum or plasma urea nitroge n measurement (mass/volume)Ordered By: Daniel Lucero on 11-01-2023 Urea nitrogen [Mass/Vol] 23 mg/dL 7-18 [facility] Thin prep Papanicolaou smear with manual screeningOrdered By: Daniel Lucero on 11-01-2023 Thin prep Papanicolaou smear with manual screening 4 5-15 [facility] Absolute lymphocyte countOrd ered By: Heide Villavicencio on 03-19-2023 Lymphocytes Auto (Unsp spec) [#/Vol] 1.53 10*3/uL 0.83-4.51 [facility] Basophil percentageOrdered B y: Heide Villavicencio on 03-19-2023 Basophils/100 WBC (Bld) 1.2 % 0-1 [facility] Eosinophils/100 WBC (Bld) 3.5 % 0-5 [facility] Neutrophils (Bld) [#/Vol] 3.1 10*3/uL 2.0-7.7 [facility] Neutrophils/100 WBC (Bld) 60.5 % 47-70 [facility] WBC (Bld) [#/Vol] 5.2 10*3/uL 4.4-11.0 [facility] Blood erythrocytes count (nu mber/volume)Ordered By: Heide Villavicencio on 03-19-2023 RBC (Bld) [#/Vol] 4.06 10*6/uL 4.2-5.4 [facility] Blood hemoglobin measurement (mass/volume)Ordered By: Heide Villavicencio on 03-19-2023 Hemoglobin (Bld) [Mass/Vol] 12.9 g/dL 12.0-15.0 [facility] Blood lymphocytes/100 leukoc ytesOrdered By: Heide Villavicencio on 03-19-2023 Lymphocytes/100 WBC (Bld) 29.6 % 19-41 [facility] Blood monocytes/100 leukocyt esOrdered By: Heide Villavicencio on 03-19-2023 Monocytes/100 WBC (Bld) 5.0 % 0-10 [facility] Blood platelet mean volumeOr dered By: Heide Villavicencio on 03-19-2023 Platelet mean volume (Bld) [Entitic vol] 9.6 fL 6.2-12.0 [facility] Determination of erythrocyte mean corpuscular volume (MCV)Ordered By: Heide Villavicencio on 03-19-2023 MCV (RBC) [Entitic vol] 97.8 fL 81-99 [facility] Erythrocyte sedimentation ra teOrdered By: Heide Villavicencio on 03-19-2023 ESR (Bld) [Velocity] 3 mm/h 0-30 [facility] Hematocrit Auto (Bld) [Volum e fraction]Ordered By: Heide Villavicencio on 03-19-2023 Hematocrit (Bld) [Volume fraction] 39.7 % 37-47 [facility] - Hematology and Cell countsOrdered By: Heide Villavicencio on 03-19-2023 Erythrocyte distribution width (RBC) [Entitic vol] 44.0 fL 35.1-43.9 [facility] Erythrocyte distribution width (RBC) [Ratio] 12.4 % 11.6-14.6 [facility] Immature granulocytes/100 WBC (Bld) 0.200 % 0.0-0.9 [facility] Comment on above: IG% - Immature Granu locytes (promyelocytes, myelocytes and metamyelocytes) > 1% indicates that a LEFT SHIFT is Present. MCH (RBC) [Entitic mass] 31.8 pg 27.0-32.0 [facility] Nucleated RBC/100 WBC (Bld) [Ratio] 0 % 0-5 [facility] MCHC Auto (RBC) [Mass/Vol]Or dered By: Heide Villavicencio on 03-19-2023 MCHC (RBC) [Mass/Vol] 32.5 g/dL 32-36 [facility] No Panel InformationOrdered By: Heide Villavicencio on 03-19-2023 Anti-Nuclear Antibody Screen Negative Negative [facility] Comment on above: Performed at: [address] Director: Joseph Linton PhD, Phone: [phone] Platelets bldOrdered By: Heide Villavicencio on 03-19-2023 Platelets (Bld) [#/Vol] 245 10*3/uL 150-450 [facility] Serum or plasma C reactive p rotein measurement (mass/volume)Ordered By: Heide Villavicencio on 03-19-2023 CRP [Mass/Vol] mg/L 0.0-3.0 [facility] Comment on above: C-Reactive Protein ( CRP) provides useful information for thediagnosis, therapy and monitoring of inflammatory processesand associated diseases. For the evaluation of Relative Riskfor Cardiovascular Disease, a High Sensitivity CRP (HSCRP)should be ordered. Serum or plasma uric acid me asurement (mass/volume)Ordered By: Heide Villavicencio on 03-19-2023 Urate [Mass/Vol] 5.6 mg/dL 2.6-6.0 [facility] Comment on above: The drugs N-Acetylcy steine and Metamizole may falsely depress this assay. Serum rheumatoid factor dete ctionOrdered By: Heide Villavicencio on 03-19-2023 Rheumatoid factor Ql (S) < 10.0 IU/mL <15 [facility] - Microbiology an d Antimicrobial susceptibilityon 10-17-2021 SARS-CoV-2 (COVID-19) RNA HERBERTH+probe Ql (Unsp spec) Detected [facility] Work Phone: No Panel Informationon 10-17 Influenza Types A,B Rapid (Clinic) Not detected [facility] Work Phone: CNOVon 02-09-2017 CNOV Office Visit (LESA) VALERIE ALMARAZ ( ) 1955 F IPADate Time Provider [...] EGD W/O OR W/BRUSH/WASH Comment: EGD11/22/2009: LAP CHOLECYSTECT/CHOLANGIOGRA PHYNo date: PAST SURGICAL HISTORY OF Comment: lap x2No date: REMOVAL OF TONSILS,ANDlt;13 Y/O Comment: TonsillectomyOther pertinent history changes since last visit: NoneHistory of Bleeding Disorder: NoHistory of DVT/Pulmonary Embolism: NoHistory of MRSA: No MRSA InfectionHistory of Diabetes: NoHistory of Sleep Apnea: NoHistory of HTN: NoCurrent Outpatient Prescriptions:pantoprazol e (PROTONIX) 40 mg tablet Take 1 tablet [...] the discussion of the options for treatment.Fatou Maldonado, MITZY 02/09/2017 10:10 AM SignedCall to schedule surgery [...] of Service: NEW PATIENT VISIT LEVEL 2 [[id number]]Disposition: Return if symptoms worsen or fail to improve.Follow-up and Disposition History RecordedEncounter Number: [id number] Status:Closed by LEESA YATES MD on 02/09/17 Normal [facility] PROGRESSon 02-09-2017 PROGRESS HNO ID: [id number] thor: Nicolle (Cos) Lavelle: (none)Author Type: CosmetologistType: [...] date: DELIVERY ONLY Comment: , low transverse x23: COLONOSCOP W/ OR W/O [facility] SPEC Comment: Colonoscopy03/03/16: EGD W/O [facility] SPECIMEN W/BX Comment: distal esophagitis10/25/12: EGD W/O OR W/BRUSH/WASH Comment: EGD11/22/2009: LAP CHOLECYSTECT/CHOLANGIOGRA PHYNo date: PAST SURGICAL HISTORY OF Comment: lap x2No date: REMOVAL OF TONSILS,<13 Y/O Comment: TonsillectomyOther pertinent history changes since last visit: NoneHistory of Bleeding Disorder: NoHistory of DVT/Pulmonary Embolism: NoHistory of MRSA: No MRSA InfectionHistory of Diabetes: NoHistory of Sleep Apnea: NoHistory of HTN: NoCurrent Outpatient Prescriptions:pantoprazol e (PROTONIX) 40 mg tablet Take 1 tablet by mouth once daily.(may use generic)No current facility-administered medications for this visit.Uses herbs and/or over-the counters: None.Social History Narrative None on fileEVALUATION:Evaluation of patient reveals laxity. Patient was given an explanation ofthe surgical procedure, risks, benefits and personnel. Patientunderstands and wishes to proceed. We discussed the tap block for post oppain.ROS:CONSTITUTIONAL : Negative for fever, sweats or chills, adenopathy,fatigue, anorexia or weight loss > 5 pounds.NEURO: Migraine headaches. On and off no medicationsSKIN: negative for lesions, rash, and itchingBEHAVIOR/PSYCH: NegativePHYSICAL EXAM:Ht 5' 6" (1.68m) Wt 160 lb (72.6kg) BMI 25.84 [...] of the options for treatment.Leesa Yates MD Normal [facility] Small Joint Arthro/Inj: L [facility] Vital Signs Date Time Vital Sign Value Performing Clinician Facility 04-20-2025 15:05-0400 Body mass index (BMI) [Ratio] 21.81 kg/m2 Daniel Roberson DO Work Phone: [facility] 04-20-2025 15:05-040 Body temperature 98.6 [degF] Daniel Roberson DO Work Phone: [facility] 04-20-2025 15:05-0400 Body weight 60.1 kg Daniel Masci DO Work Phone: [facility] 04-20-2025 15:05-0400 Diastolic blood pressure 76 mm[Hg] Daniel Masci DO Work Phone: [facility] 04-20-2025 15:05-0400 Heart rate 68 /min Daniel Masci DO Work Phone: [facility] 04-20-2025 15:05-0400 SaO2% (BldA) [Mass fraction] 97 % Daniel Masci DO Work Phone: [facility] 04-20-2025 15:05-0400 Systolic blood pressure 120 mm[Hg] Daniel Masci DO Work Phone: [facility] 10-06-2024 09:22-0500 Body height 166 cm Daniel Masci DO Work Phone: [facility] 10-06-2024 09:22-0500 Body mass index (BMI) [Ratio] 21.73 kg/m2 Daniel Masci DO Work Phone: [facility] 10-06-2024 09:22-0500 Body temperature 98.1 [degF] Daniel Masci DO Work Phone: [facility] 10-06-2024 09:22-0500 Body weight 59.88 kg Daniel Masci DO Work Phone: [facility] 10-06-2024 09:22-0500 Diastolic blood pressure 58 mm[Hg] Daniel Masci DO Work Phone: [facility] 10-06-2024 09:22-0500 Heart rate 56 /min Daniel Masci DO Work Phone: [facility] 10-06-2024 09:22-0500 SaO2% (BldA) [Mass fraction] 98 % Daniel Masci DO Work Phone: [facility] 10-06-2024 09:22-0500 Systolic blood pressure 119 mm[Hg] Dnaiel Masci DO Work Phone: [facility] 09-22-2024 13:16-0500 Diastolic blood pressure 79 mm[Hg] Demetra Ruiz FOOD CART ATTENDANT.FLAKER OPERATOR Work Phone: [facility] 09-22-2024 13:16-0500 Heart rate 67 /min Demetra De Leonenter FOOD CART ATTENDANT.FLAKER OPERATOR Work Phone: [facility] 09-22-2024 13:16-0500 SaO2% (BldA) [Mass fraction] 97 % Demetra Ruiz FOOD CART ATTENDANT.FLAKER OPERATOR Work Phone: [facility] 09-22-2024 13:16-0500 Systolic blood pressure 130 mm[Hg] Greensborodemetrice Ruiz FOOD CART ATTENDANT.FLAKER OPERATOR Work Phone: [facility] 09-22-2024 12:50-0500 Body temperature 98.6 [degF] Demetra De Leonenter FOOD CART ATTENDANT.FLAKER OPERATOR Work Phone: [facility] 09-22-2024 12:50-0500 Respiratory rate 12 /min Demetra De Leonenter FOOD CART ATTENDANT.FLAKER OPERATOR Work Phone: [facility] 09-11-2024 09:28-0500 Body mass index (BMI) [Ratio] 21.63 kg/m2 Daniel Masci DO Work Phone: [facility] 09-11-2024 09:28-0500 Body temperature 98.8 [degF] Daniel Masci DO Work Phone: [facility] 09-11-2024 09:28-0500 Body weight 60.78 kg Daniel Masci DO Work Phone: [facility] 09-11-2024 09:28-0500 Diastolic blood pressure 70 mm[Hg] Daniel Masci DO Work Phone: [facility] 09-11-2024 09:28-0500 Heart rate 77 /min Daniel Masci DO Work Phone: [facility] 09-11-2024 09:28-0500 Respiratory rate 12 /min Daniel Masci DO Work Phone: [facility] 09-11-2024 09:28-0500 SaO2% (BldA) [Mass fraction] 98 % Daniel Masci DO Work Phone: [facility] 09-11-2024 09:28-0500 Systolic blood pressure 118 mm[Hg] Daniel Masci DO Work Phone: [facility] 09-10-2024 14:30-0500 Body height 167.6 cm Domitila Saldivarulski PA-C Work Phone: [facility] 09-10-2024 14:30-0500 Body mass index (BMI) [Ratio] 20.98 kg/m2 Domitila Mikulski PA-C Work Phone: [facility] 09-10-2024 14:30-0500 Body temperature 98.29 [degF] Domitila Mikulski PA-C Work Phone: [facility] 09-10-2024 14:30-0500 Body weight 58.97 kg Domitila Mikulski PA-C Work Phone: [facility] 08-13-2024 12:59-0500 Body height 165.1 cm Daniel Masci DO Work Phone: [facility] 08-13-2024 12:59-0500 Body mass index (BMI) [Ratio] 22.8 kg/m2 Daniel Masci DO Work Phone: [facility] 08-13-2024 12:59-0500 Body temperature 97.2 [degF] Daniel Masci DO Work Phone: [facility] 08-13-2024 12:59-0500 Body weight 62.14 kg Daniel Masci DO Work Phone: [facility] 08-13-2024 12:59-0500 Diastolic blood pressure 76 mm[Hg] Daniel Masci DO Work Phone: [facility] 08-13-2024 12:59-0500 Heart rate 69 /min Daniel Masci DO Work Phone: [facility] 08-13-2024 12:59-0500 SaO2% (BldA) [Mass fraction] 99 % Daniel Masci DO Work Phone: [facility] 08-13-2024 12:59-0500 Systolic blood pressure 133 mm[Hg] Daniel Masci DO Work Phone: [facility] 03-03-2024 14:11-0400 Body height 167.6 cm Andrés Molina MD Work Phone: [facility] 03-03-2024 14:11-0400 Body mass index (BMI) [Ratio] 24.21 kg/m2 Andrés Molina MD Work Phone: [facility] 03-03-2024 14:11-0400 Body weight 68.04 kg Andrés Molina MD Work Phone: [facility] 03-03-2024 14:11-0400 Respiratory rate 16 /min Andrés Molina MD Work Phone: [facility] 01-28-2022 17:08-0400 Body height 167.[address] Heide Villavicencio Work Phone: [facility] Work Phone: 01-28-2022 17:08-0400 Body mass index (BMI) [Ratio] 24.2 kg/m2 Dr. Heide Villavicencio Work Phone: [facility] Work Phone: 01-28-2022 17:08-0400 Body temperature 97.8 [degF] Dr. Heide Villavicencio Work Phone: [facility] Work Phone: 01-28-2022 17:08-0400 Body weight 68.[address] Heide Villavicencio Work Phone: [facility] Work Phone: 01-28-2022 17:08-0400 Diastolic blood pressure 78 mm[Hg] Dr. Heide Villavicencio Work Phone: [facility] Work Phone: 01-28-2022 17:08-0400 Heart rate 93 /min Dr. Heide Villavicencio Work Phone: [facility] Work Phone: 01-28-2022 17:08-0400 Respiratory rate 18 /min Dr. Heide Villavicencio Work Phone: [facility] Work Phone: 01-28-2022 17:08-0400 SaO2% (BldA) [Mass fraction] 97 % Dr. Heide Villavicencio Work Phone: [facility] Work Phone: 01-28-2022 17:08-0400 Systolic blood pressure 152 mm[Hg] Dr. Heide Villavicencio Work Phone: [facility] Work Phone: 12-30-2021 09:08-0400 Body height 167.6 cm Andrés Molina MD Work Phone: [facility] 12-30-2021 09:08-0400 Body weight 68.04 kg Andrés Molina MD Work Phone: [facility] 12-30-2021 09:08-0400 Respiratory rate 18 /min Andrés Molina MD Work Phone: [facility] Encounters Encounter Date Encounter Type Care Provider Facility Start: 05-12-2025 End: 05-12-2025 ambulatory CHELSEY PLUMMER Facility:[facility] Start: 05-06-2025 ambulatory CHELSEY PLUMMER Facility :[facility] Start: 04-20-2025 End: 04-20-2025 Patient encounter procedure Daniel Roberson DO Work Phone: Hematology/Oncology Start: 04-20-2025 End: 04-20-2025 ambulatory Daniel Roberson DO Work Phone: Hematology/Oncology Comment on above: IgG lambda monoclona l gammopathy (Primary Dx) Start: 04-13-2025 End: 04-13-2025 ambulatory DANIEL ROBERSON Facility:[facility] Start: 11-21-2024 End: 11-21-2024 Patient encounter procedure Chelsey Plummer MD Work Phone: Urology Comment on above: Screening for genito urinary condition (Primary Dx); Renal mass; Other specified disorders of kidney and ureter Start: 11-21-2024 End: 11-24-2024 ambulatory Chelsey Plummer MD Work Phone: Urology Start: 11-17-2024 End: 11-17-2024 ambulatory Daniel Roberson DO Work Phone: Hematology/Oncology Comment on above: MRI results Start: 11-17-2024 End: 01-17-2025 Follow-up encounter Daniel Roberson DO Work Phone: Hematology/Oncology Start: 11-10-2024 End: 11-10-2024 ambulatory DANIEL ROBERSON Facility:[facility] Start: 11-10-2024 End: 11-10-2024 Subsequent hospital visit by physician Mri Radio [facility] Virtual Webtr (I-Stat/1.5t) Work Phone: Radiology Comment on above: Other specified diso rders of kidney and ureter [N28.89] Start: 11-04-2024 End: 11-05-2024 Telephone encounter Daniel Roberson DO Work Phone: Hematology/Oncology Comment on above: Results Start: 11-04-2024 End: 11-04-2024 ambulatory HEIDE VILLAVICENCIO Facility:[facility] Start: 10-31-2024 End: 10-31-2024 ambulatory DANIEL ROBERSON Facility:[facility] Start: 10-31-2024 End: 10-31-2024 Subsequent hospital visit by physician Ct [facility]tr (I-Stat) Work Phone: Cat Scan Comment on above: 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] Start: 10-30-2024 End: 10-30-2024 ambulatory DANIEL ROBERSON Facility:[facility] Start: 10-28-2024 End: 10-29-2024 Telephone encounter Daniel Roberson DO Work Phone: Hematology/Oncology Comment on above: Orders Start: 10-09-2024 End: 10-09-2024 ambulatory Heide Villavicencio Facility:[facility] Start: 10-06-2024 End: 10-06-2024 ambulatory Daniel Roberson DO Work Phone: Hematology/Oncology Comment on above: IgG lambda monoclona l gammopathy (Primary Dx); Elevated troponin; Epigastric pain; Left flank pain; Abnormal weight loss; Family history of breast cancer in male; Family history of ovarian cancer Start: 10-06-2024 End: 10-06-2024 Patient encounter procedure Daniel Roberson DO Work Phone: Hematology/Oncology Start: 09-22-2024 End: 09-22-2024 Patient encounter procedure Demetra Ruiz FOOD CART ATTENDANT.FLAKER OPERATOR Work Phone: Hematology/Oncology Start: 09-22-2024 End: 09-22-2024 ambulatory Lab/[place] [facility] Work Phone: Hematology/Oncology Comment on above: MGUS (monoclonal gume mopathy of unknown significance) (Primary Dx) MGUS (monoclonal gume mopathy of unknown significance) Start: 09-11-2024 End: 09-12-2024 Telephone encounter Daniel Roberson DO Work Phone: Hematology/Oncology Comment on above: Follow Up Start: 09-11-2024 End: 09-11-2024 ambulatory Daniel Roberson DO Work Phone: Hematology/Oncology Comment on above: MGUS (monoclonal gume mopathy of unknown significance) (Primary Dx) Start: 09-11-2024 End: 09-11-2024 Patient encounter procedure Daniel Roberson DO Work Phone: Hematology/Oncology Start: 09-10-2024 End: 09-10-2024 Patient encounter procedure Domitila Hennessy PA-C Work Phone: [facility] Comment on above: 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) Start: 09-10-2024 End: 09-10-2024 ambulatory SELF Facility:[facility] Start: 08-28-2024 End: 08-28-2024 Telephone encounter Daniel Roberson DO Work Phone: Hematology/Oncology Comment on above: Opened In Error Start: 08-25-2024 ambulatory DANIEL ROBERSON Facility:[facility] Start: 08-25-2024 End: 08-25-2024 Subsequent hospital visit by physician Injection Pet Ct [facility] CT Comment on above: Monoclonal gammopath y [D47.2] Start: 08-13-2024 End: 08-13-2024 Subsequent hospital visit by physician Xr [facility] Jared Work Phone: Radiology Comment on above: Monoclonal gammopath y [D47.2] Start: 08-13-2024 End: 08-14-2024 ambulatory Daniel Roberson DO Work Phone: Hematology/Oncology Comment on above: Monoclonal gammopath y (Primary Dx); Left flank pain Start: 08-13-2024 End: 08-13-2024 Patient encounter procedure Daniel Roberson DO Work Phone: Hematology/Oncology Start: 07-28-2024 End: 07-28-2024 ambulatory Heide S Jolliff Facility:[facility] Start: 07-24-2024 End: 07-24-2024 ambulatory [facility] S Jolliff Facility:[facility] Start: 07-23-2024 End: 07-23-2024 Telephone encounter Daniel April Richiclyde MENDOZA Work Phone: [address] [place] [address] Start: 06-18-2024 End: 06-18-2024 ambulatory Heide S Jolliff Facility:[facility] Start: 05-26-2024 End: 05-26-2024 ambulatory Heide S Jolliff Facility:[facility] Start: 03-03-2024 End: 03-03-2024 Patient encounter procedure Andrés Molina MD Work Phone: [facility] Comment on above: 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); Arthritis of carpometacarpal (CMC) joint of left thumb Start: 03-03-2024 End: 03-03-2024 ambulatory ANDRÉS MOLINA Facility:[facility] Start: 11-01-2023 End: 11-01-2023 ambulatory [facility] Work Phone: Start: 11-01-2023 End: 11-01-2023 Patient encounter procedure [facility] Work Phone: Start: 07-26-2023 End: 07-26-2023 Patient encounter procedure [facility]-Outpatient Breast Imaging Work Phone: Start: 07-24-2023 End: 07-24-2023 ambulatory [facility] Work Phone: Start: 07-24-2023 End: 07-24-2023 Patient encounter procedure [facility]-Outpatient Bone Densitometry Work Phone: Start: 03-19-2023 End: 03-19-2023 ambulatory [facility] Work Phone: Start: 03-19-2023 End: 03-19-2023 Patient encounter procedure [facility] Start: 01-28-2022 End: 01-28-2022 Emergency department patient visit Dr. Heide Villavicencio Work Phone: [facility]-Emergency Department Start: 12-30-2021 End: 12-30-2021 Patient encounter procedure Andrés Molina MD Work Phone: [facility] Comment on above: Arthritis of carpome tacarpal (CMC) joint of left thumb (Primary Dx); Arthritis of fhofhcid-szpykhljk-usdjxirnb joint of left hand Start: 10-17-2021 End: 10-17-[address] Heide Villavicencio Work Phone: [facility] Start: 09-30-[address] Heide temple Work Phone: [facility]-Occupational Therapy Procedures Date Procedure Procedure Detail Performing Clinician Start: 11-21-2024 Urnls dip stick/tabl et rgnt auto w/o microscopy Bulk Order Provider Start: 09-22-2024 Diagnostic bone hayley ow biopsies & aspirations Demetra Ruiz FOOD CART ATTENDANT.FLAKER OPERATOR Work Phone: Start: 09-22-2024 Ecg routine ecg w/le ast 12 lds i&r only Daniel Stoddardi DO Work Phone: Start: 09-10-2024 Arthrocentesis aspir &/inj small jt/bursa w/o us Domitila Hennessy PA-C Work Phone: Start: 08-25-[address] attenuation whole body Daniel Roberson DO Work Phone: Start: 08-25-2024 Gluc bld gluc mntr d ev cleared fda spec home use [facility] Provider Start: 03-03-2024 Arthrocentesis aspir &/inj small jt/bursa w/o us Andrés Molina MD Work Phone: Start: 07-26-2023 Mammography Start: 07-26-2023 Ultrasonography of breast Start: 07-24-2023 Dual energy X-ray absorptiometry Start: 07-24-2023 Screening mammography Start: 12-30-2021 Arthrocentesis aspir &/inj small jt/bursa w/o us Andrés Molina MD Work Phone: Start: 10-25-2012 Colonoscopy Andrés hernandez MD Work Phone: Plan of Treatment Date Care Activity Detail Author Start: 2031 RSV Vaccine (1 - 1-dose 75+ series) RSV Vaccine (1 - 1-dose 75+ series) [facility] Start: 04-13-2028 Diabetes Screening Diabetes Screening [facility] Start: 08-13-2027 Diabetes Screening Diabetes Screening [facility] Start: 10-19-2025 End: 10-19-2025 ambulatory 10/19/2025 10:30 AM EDT Visit (SP) Office Hematology/Oncology [address] [place] [address] Daniel Roberson DO [address] [place] [address] 6 MO OV/LAB 04/13* Hematology/Oncology Comment on above: 6 MO OV/LAB 04/13* Start: 10-12-2025 End: 10-12-2025 ambulatory 10/12/2025 3:00 PM EDT Results Only [facility] [address] [place] [address] CBC/CMP/Myeloma labs with urine* [facility] Comment on above: CBC/CMP/Myeloma labs with urine* Start: 05-12-2025 End: 05-12-2025 Patient encounter procedure 05/12/2025 3:10 PM EDT Office Visit Urology [address] [place] [address] Chelsey Plummer MD [address] [place] [address] renal mass f/u Urology Comment on above: renal mass f/u Start: 05-06-2025 End: 05-06-2025 Patient encounter procedure 05/06/2025 11:20 AM EDT Appointment Cat Scan [address] [place] [id number] Other specified disorders of kidney and ureter [N28.89] Cat Scan Comment on above: Other specified disorders of kidney and ureter [N28.89] Start: 04-30-2025 End: 12-21-2025 CT Kidney WO and W contrast IV CT KIDNEY WO/W IVCON Radiology Routine Other specified disorders of kidney and ureter Expected: 04/30/2025, Expires: 12/21/2025 [facility] Work Phone: Comment on above: Expected: 04/30/2025, Expires: Start: 04-29-2025 End: 04-29-2025 ambulatory 04/29/2025 9:00 AM EDT [facility] [address] [place] [address] Chelsey Plummer MD [address] [id number] [facility] Comment on above: VV Start: 04-20-2025 End: 04-20-2025 ambulatory 04/20/2025 3:10 PM EDT Visit (SP) Office Hematology/Oncology [address] [place], [place] [id number] Daniel Roberson DO [address] [address] 6 MO OV/LAB 04/13* Hematology/Oncology Comment on above: 6 MO OV/LAB 04/13* Start: 04-13-2025 End: 04-13-2025 ambulatory 04/13/2025 1:00 PM EDT Results Only [facility] [address] [place] [address] CBC/CMP/MM LABS/URINE [facility] Comment on above: CBC/CMP/MM LABS/URINE Start: 04-06-2025 Influenza vaccination Influenza Vaccine (#1) [facility] Start: 11-28-2024 End: 11-28-2024 Patient encounter procedure 11/28/2024 11:30 AM EDT Office Visit Urology [address] [address] Chelsey Plummer MD [address] [place] [address] Renal mass [N28.89] Urology Comment on above: Renal mass [N28.89] Start: 11-04-2024 End: 11-04-2024 Patient encounter procedure 11/04/2024 1:50 PM EDT Office Visit Cardiology [address] [place] [address] IgG lambda monoclonal gammopathy [D47.2] Cardiology Comment on above: IgG lambda monoclonal gammopathy [D47.2] Start: 10-31-2024 End: 10-31-2024 Patient encounter procedure Cat Scan Comment on above: CT ABD/PEL W IVCON Start: 10-30-2024 End: 10-30-2024 ambulatory 10/30/2024 2:00 PM EDT Results Only [facility] Draw Station [address] [place] [address] [facility] Draw Station Start: 10-28-2024 End: 01-27-2025 CREATININE BLD CREATININE BLD Lab Routine MGUS (monoclonal gammopathy of unknown significance) IgG lambda monoclonal gammopathy Expected: 10/28/2024, Expires: 01/27/2025 [facility] Work Phone: Comment on above: Expected: 10/28/2024, Expires: Start: 10-28-2024 End: 10-28-2024 Patient encounter procedure Cat Scan Comment on above: IgG lambda monoclonal gammopathy [D47.2] Start: 10-06-2024 End: 10-06-2024 ambulatory 10/06/2024 9:10 AM EST Visit (SP) Office Hematology/Oncology [address] [place] [address] Daniel Roberson DO [address] [place] [address] OV/BMBX 09/22 Hematology/Oncology Comment on above: OV/BMBX 09/22 Start: 09-22-2024 End: 09-22-2024 ambulatory [facility] Comment on above: CBC/BNP/TROPONIN BMBXTODAY BMBX* pt arriving at 1215 Start: 09-11-2024 End: 09-11-2024 ambulatory 09/11/2024 9:30 AM EST Visit (SP) Office Hematology/Oncology [address] [place] [address] Daniel Roberson DO [address] [place] [address] OV/PET 08/25* Hematology/Oncology Comment on above: OV/PET 08/25* Start: 09-10-2024 End: 09-10-2024 Patient encounter procedure 09/10/2024 2:30 PM EST Office Visit [facility] [address] [place] [address] Andrés Molina MD [address] [phone] right Hand (Thumb)- Pain [facility] Comment on above: right Hand (Thumb)- Pain Start: 08-25-2024 End: 08-25-2024 Patient encounter procedure Mobile PET CT Comment on above: Monoclonal gammopathy [D47.2] Start: 08-13-2024 End: 08-13-2024 Patient encounter procedure 08/13/2024 2:45 PM EST Office Visit [facility] [address] [place] [address] Andrés Molina MD [address] [place] [address] right Hand (Thumb)- Pain [facility] Comment on above: right Hand (Thumb)- Pain Start: 08-13-2024 End: 11-12-2024 [id number] [Mass/volume] in Serum or Plasma [facility] Comment on above: Expected: 08/13/2024, Expires: Start: 08-13-2024 End: 11-12-2024 C reactive protein [Mass/volume] in Serum or Plasma [facility] Comment on above: Expected: 08/13/2024, Expires: Start: 08-13-2024 End: 11-12-2024 Chronic hepatitis differentiation between hepatitis B and C virus panel - Serum or Plasma [facility] Comment on above: Expected: 08/13/2024, Expires: Start: 08-13-2024 End: 11-12-2024 Erythrocyte sedimentation rate [facility] Comment on above: Expected: 08/13/2024, Expires: Start: 08-13-2024 End: 11-12-2024 MONOCLONAL PROTEIN, SERUM (BLOOD) [facility] Work Phone: Comment on above: Expected: 08/13/2024, Expires: Start: 08-13-2024 End: 11-12-2024 PROTEIN ELECTROPHORESIS SERUM W/INTERP [facility] Comment on above: Expected: 08/13/2024, Expires: Start: 08-13-2024 End: 11-12-2024 SERUM VISCOSITY [facility] Comment on above: Expected: 08/13/2024, Expires: Start: 08-13-2024 End: 08-13-2024 ambulatory 08/13/2024 1:00 PM EST Visit (SP) Office Hematology/Oncology [address], [place] [id number] Daniel Roberson, DO [address], [place] [id number] Patient requested this date-due to provider/SUPPLY CHAIN VICE PRESIDENT/MM VS. MGUS/REF.DR.ERIC ROCK* Hematology/Oncology Comment on above: Patient requested this date-due to provi keke/SUPPLY CHAIN VICE PRESIDENT/MM VS. MGUS/REF.DR.ERIC ROCK* Start: 08-06-2024 Advance Directive Discussion Advance Directive Discussion [facility] Start: 08-06-2024 Medicare Advantage Annual Wellness Visit Medicare Advantage Annual Wellness Visit [facility] Start: 04-06-2024 Covid-19 Vaccine () Covid-19 Vaccine () [facility] Start: 04-06-2024 Influenza vaccination Influenza Vaccine (#1) [facility] Start: 08-06-2023 Advance Directive Discussion Advance Directive Discussion [facility] Start: 04-06-2023 Covid-19 Vaccine () Covid-19 Vaccine () [facility] Start: 10-25-2022 Colonoscopy COLONOSCOPY [facility] Start: 10-25-2022 COLORECTAL CANCER SCREENING COLORECTAL CANCER SCREENING [facility] Start: 10-25-2022 Screening for malignant neoplasm of colon [facility] Start: 04-22-2022 Urine microalbumin profile DTaP,Tdap,Td Vaccine (2 - Td or Tdap) [facility] Start: 10-19-2021 COVID-19 VACCINE (4 - Booster for Moderna series) COVID-19 VACCINE (4 - Booster for Moderna series) [facility] Start: 08-06-2021 ADVANCE DIRECTIVE DISCUSSION ADVANCE DIRECTIVE DISCUSSION [facility] Start: 2021 BONE DENSITY BONE DENSITY [facility] Start: 2021 PNEUMOCOCCAL: 65+ (1 - PCV) PNEUMOCOCCAL: 65+ (1 - PCV) [facility] Start: 2021 Screening for osteoporosis Bone Density Screening [facility] Start: 2016 RSV Vaccine (1 - 1-dose 60+ series) RSV Vaccine (1 - 1-dose 60+ series) [facility] Start: 10-26-2015 DIABETES SCREEN DIABETES SCREEN [facility] Start: 10-26-2015 Diabetes Screening Diabetes Screening [facility] Start: 2006 SHINGRIX VACCINE (1 of 2) SHINGRIX VACCINE (1 of 2) [facility] Start: 2001 COLOGUARD (FIT-DNA) COLOGUARD (FIT-DNA) [facility] Start: [address] COLONOGRAPHY [facility] Start: 2001 FECAL OCCULT BLOOD FECAL OCCULT BLOOD [facility] Start: 2001 Lipid panel Lipid Screening [facility] Start: 2001 LIPID SCREEN LIPID SCREEN [facility] Start: 2001 Screening for malignant neoplasm of colon [facility] Start: 2001 SIGMOIDOSCOPY SIGMOIDOSCOPY [facility] Start: 1996 Mammography MAMMOGRAM [facility] Start: 1996 Screening for malignant neoplasm of breast Mammogram Screening [facility] Start: 1975 Urine microalbumin profile DTAP,TDAP,TD (1 - Tdap) [facility] Start: 1974 Anxiety Screening Anxiety Screening [facility] Start: 1974 Depression Screening Depression Screening [facility] Start: 1974 HEPATITIS C SCREENING HEPATITIS C SCREENING [facility] Start: 1974 Hepatitis C screening Hepatitis C Screening [facility] Start: 1974 HIV SCREENING HIV SCREENING [facility] Start: 1968 Adult depression screening assessment DEPRESSION SCREENING [facility] BONE MARROW ANALYSIS BONE MARROW ANALYSIS Lab Routine MGUS (monoclonal gammopathy of unknown significance) 09/22/2024 1:14 PM EST [facility] Work Phone: BONE MARROW CHROMOSO ME ANAL BONE MARROW CHROMOSOME ANAL Lab Routine MGUS (monoclonal gammopathy of unknown significance) 09/22/2024 1:14 PM EST [facility] End: 11-05-2025 CT Abdomen and Pelvis W contrast IV CT ABD/PEL W IVCON Radiology Routine IgG lambda monoclonal gammopathy Epigastric pain Left flank pain 1 Occurrences starting 10/06/2024 until 11/05/2025 [facility] Comment on above: 1 Occurrences starting 10/06/2024 until 11/05/2025 CT Abdomen and Pelvi s W contrast IV CT ABD/PEL W IVCON Radiology Routine IgG lambda monoclonal gammopathy Epigastric pain Left flank pain 10/31/2024 2:52 PM EDT [facility] Work Phone: DNA EXTRACTION BONE MARROW (BUFFY COAT) DNA EXTRACTION BONE MARROW (BUFFY COAT) Lab Routine MGUS (monoclonal gammopathy of unknown significance) 09/22/2024 1:14 PM [facility] End: 09-11-2025 ECG COMPLETE ECG COMPLETE ECG Routine MGUS (monoclonal gammopathy of unknown significance) 1 Occurrences starting 09/11/2024 until 09/11/2025 [facility] Work Phone: Comment on above: 1 Occurrences starting 09/11/2024 until 09/11/2025 ECG COMPLETE ECG COMPLETE ECG Routine MGUS (monoclonal gammopathy of unknown significance) 09/22/2024 11:56 AM EST [facility] Work Phone: End: 10-06-2025 Echocardiography ECHO Cardiology Routine IgG lambda monoclonal gammopathy Elevated troponin 1 Occurrences starting 10/06/2024 until 10/06/2025 [facility] Work Phone: Comment on above: 1 Occurrences starting 10/06/2024 until 10/06/2025 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 Lab Routine MGUS (monoclonal gammopathy of unknown significance) 09/22/2024 1:14 PM [facility] FLOW CYTOMETRY FOR LEUKEMIA/LYMPHOMA (FCLL) FLOW CYTOMETRY FOR LEUKEMIA/LYMPHOMA (FCLL) Lab Routine MGUS (monoclonal gammopathy of unknown significance) 09/22/2024 1:14 PM [facility] FLOW CYTOMETRY FOR LEUKEMIA/LYMPHOMA (FCLL) PERFORMABLE FLOW CYTOMETRY FOR LEUKEMIA/LYMPHOMA (FCLL) PERFORMABLE Lab Routine MGUS (monoclonal gammopathy of unknown significance) 09/22/2024 1:14 PM [facility] MONOCLONAL PROT 24 U R W/INTERP MONOCLONAL PROT 24 UR W/INTERP Lab Routine Monoclonal gammopathy Ordered: 08/13/2024 [facility] Comment on above: Ordered: 08/13/2024 MR Kidney WO and W contrast IV MRI KIDNEY WO/W IVCON Radiology Routine Other specified disorders of kidney and ureter Renal mass Pancreatic lesion (HCC) 11/10/2024 12:12 PM EDT [facility] Work Phone: Patient Education ED Epistaxis (Adult) [facility] Work Phone: Patient referral [facility] Work Phone: End: 09-12-2025 PET+CT Whole body Bone W [id number] IV NM PET/CT WHOLE BODY INITIAL Radiology Routine Monoclonal gammopathy Left flank pain 1 Occurrences starting 08/13/2024 until 09/12/2025 [facility] Comment on above: 1 Occurrences starting 08/13/2024 until 09/12/2025 PROT ELEC UR 24HR W/ M SPIKE (P) PROT ELEC UR 24HR W/M SPIKE (P) Lab Routine Monoclonal gammopathy Ordered: 08/13/2024 [facility] Comment on above: Ordered: 08/13/2024 PROT ELEC UR 24HR W/ M SPIKE AND INTERP PROT ELEC UR 24HR W/M SPIKE AND INTERP Lab Routine Monoclonal gammopathy Ordered: 08/13/2024 [facility] Comment on above: Ordered: 08/13/2024 Protein [Mass/time] in 24 hour Urine PROTEIN, 24 HOUR URINE Lab Routine Monoclonal gammopathy Ordered: 08/13/2024 [facility] Comment on above: Ordered: 08/13/2024 End: 09-12-2025 XR Bones Complete Survey Views XR BONE SURVEY ROUTINE Radiology Routine Monoclonal gammopathy 1 Occurrences starting 08/13/2024 until 09/12/2025 [facility] Comment on above: 1 Occurrences starting 08/13/2024 until 09/12/2025 XR Bones Complete White rvey Views XR BONE SURVEY ROUTINE Radiology Routine Monoclonal gammopathy 08/13/2024 3:05 PM EST [facility] XR Hand - right PA a nd Lateral and Oblique XR HAND GENERAL 3V PA/LAT/OBL RIGHT Radiology Routine Arthritis of carpometacarpal (CMC) joint of right thumb Ordered: 03/03/2024 [facility] Work Phone: Comment on above: Ordered: 03/03/2024 Immunizations Immunization Date Immunization Notes Care Provider Jared low 05-20-2024 influenza virus vaccine, unspecified formulation Daniel Roberson DO Work Phone: [facility] 05-31-2023 influenza virus vaccine, unspecified formulation Andrés Molina MD Work Phone: [facility] 06-21-2021 Covid (Moderna) Dr. Heide davidson Work Phone: [facility] 05-31-2021 influenza, injectabl e, quadrivalent, preservative free [facility] 05-31-2021 influenza, seasonal, injectable Dr. Heide Villavicencio Work Phone: [facility] 09-23-2020 Covid (Moderna) Dr. Heide davidson Work Phone: [facility] 08-24-2020 Covid (Moderna) Dr. Heide davidson Work Phone: [facility] 06-10-2020 influenza, injectabl e, quadrivalent, preservative free [facility] 06-10-2020 influenza, seasonal, injectable Dr. Heide Villavicencio Work Phone: [facility] 06-09-2019 influenza, injectabl e, quadrivalent, preservative free [facility] 06-09-2019 influenza, seasonal, injectable Dr. Heide Villavicencio Work Phone: [facility] 06-05-2018 influenza, injectabl e, quadrivalent, preservative free [facility] 06-05-2018 influenza, seasonal, injectable Dr. Heide Villavicencio Work Phone: [facility] 06-13-2017 influenza, injectabl e, quadrivalent, preservative free [facility] 06-13-2017 influenza, seasonal, injectable Dr. Heide Villavicencio Work Phone: [facility] 06-05-2016 influenza, injectabl e, quadrivalent, preservative free [facility] 06-05-2016 influenza, seasonal, injectable Dr. Heide Villavicencio Work Phone: [facility] 06-21-2015 influenza, injectabl e, quadrivalent, preservative free [facility] 06-21-2015 influenza, seasonal, injectable Dr. Heide Villavicencio Work Phone: [facility] 06-04-2014 influenza, injectabl e, quadrivalent, preservative free [facility] 06-04-2014 influenza, seasonal, injectable Dr. Heide Villavicencio Work Phone: [facility] 06-05-[address] Heide Villavicencio Work Phone: [facility] Payers Date Payer Category Payer Self-pay [id number] [phone] [id number] 2022 Medicare UHC MEDICARE UHC AAR [employer] C[employer] O [id number] 2022-Present [phone] [address] [address] [place] [address] HMO [id number] 2022 Medicare (Managed Care) [facility] OPTUM CARE HMO [id number] 2022 Unknown [id number] 2021 Unknown MMO MMO [employer] [id number] 2021-Present [phone] [address] [address] [place] [address] Indemnity [id number] 2015 Unknown [id number] Unknown [id number] Unknown [id number] Unknown [id number] Unknown [id number] Unknown [id number] Unknown [id number] Social History Date Type Detail Facility Start: 03-03-2024 Tobacco smoking status NHIS Never smoked tobacco [facility] Start: 12-30-2021 End: 04-20-2025 Alcohol intake Current non-drinker of alcohol (finding) [facility] Start: 1955 Sex Assigned At Not on file [facility] Start: 12-20-2021 End: 12-30-2021 Exposure to SARS-CoV-2 (event) Not sure [facility] Start: 01-28-2022 End: 01-28-2022 Tobacco smoking status NHIS Unknown if ever smoked [facility] Start: 1955 Sex Assigned At Female [facility] Start: 03-03-2016 None [facility] Start: 03-03-2016 Spouse/ Signif icant Other [facility] Start: 03-03-2024 Tobacco use and exposure Smokeless tobacco non-user [facility] Start: 03-03-2024 End: 04-19-2025 History of Social function [facility] Start: 03-03-2024 End: 04-19-2025 Tobacco use panel [facility] Start: 07-07-2012 National Score (1-100), lower number is lower risk 35 [facility] Clinical Notes 12-30-2021 to 05-12-2025 Daniel Roberson DO - 04/20/2025 3:06 PM Chelsey Zuluaga MD - 11/21/2024 11:30 AM Rach Wilson RT(Benita) - 11/10/2024 11:30 AM EDTTelephone Encounter - Daniel Roberson DO - 11/04/2024 4:23 PM EDT Note Date & Type Note Facility 05-12-2025 Note HNO ID: [id number] Author: LETITIA MICHELLE APRN.FLAKER OPERATOR Service: ? Author Type: Nurse Practitioner Type: Progress Notes Filed: 05/13/2025 07:46 Note Text: Chief Complaint: follow up renal mass Clinic note from 11/21/2024 copied and updated. HPI: Valerie Almaraz is a 69 year old female with left renal mass on who presents for follow up evaluation. Renal mass incidentally discovered on CT scan in 10/2023 for evaluation of abdominal pain. Initially presented to Dr. Plummer 11/21/2024 for evaluation of renal mass. Reported dull left flank pain for past 6 months. Discussed management including , biopsy vs partial nephrectomy. Patient wished to continue with with CT kidney in 04/2025. Presents today to discuss results. CT KIDNEY WO/W IVCON 05/06/2025 IMPRESSION: 1. Since 11/10/2024, similar appearance of a 3 cm left renal mass/neoplasm, allowing for differences in modality. 2. Patent renal veins and inferior vena cava. No abdominal metastatic disease. Interval Hx: She reports persistent, continuous flank pain since summer of 2023. Describes as nagging ache- rates pain 2 out of 10. Doesn't stop her from doing normal activities- plays golf and pickleball. Her son is a physical therapist- she does exercises to stretch her back. She is no longer have sharp pain that she was previously experiencing last summer. No gross hematuria. UA dip today with moderate blood. States her urine tests have historically shown blood- had UA w/ micro in the past which was negative for red blood cells. LABS Creatinine Date Value Ref Range Status 04/13/2025 0.93 0.58 - 0.96 mg/dL Final 10/30/2024 0.78 0.58 - 0.96 mg/dL Final 08/13/2024 0.87 0.58 - 0.96 mg/dL Final IMAGING MRI Kidney (11/10/2024) IMPRESSION: Upper pole left renal heterogeneously enhancing solid mass is consistent with neoplasm. No evidence of metastatic disease within the visualized abdomen. Sub-5 mm nonenhancing pancreatic cystic foci are consistent with IPMN. No solid or enhancing pancreatic lesion or focal enlargement CT Abdomen/Pelvis (10/31/2024) IMPRESSION: 1. There is a 3.0 x 2.8 cm heterogeneously enhancing mass within the upper pole of the left kidney that is considered malignant until proven otherwise. Further evaluation with MRI is recommended. 2. A 1.3 cm enhancing focus within the pancreatic body is incidentally noted. However, this is not well seen and may be artifactual, reflecting small vascular structures. This can also be further evaluated at MRI. REVIEW OF SYSTEMS GENERAL:Negative for significant weight loss, fever, SEE HPI; +fatigue GENITOURINARY: Negative for hematuria The remainder of the ROS was negative. HISTORIES PAST MEDICAL HISTORY Diagnosis Date Abdominal pain Abdominal pain, epigastric 11/22/2009 Flatulence, eructation, and gas pain 11/22/2009 GERD (gastroesophageal reflux disease) Other specified disorders of biliary tract 11/22/2009 FAMILY HISTORY Problem Relation Age of Onset Hearing Loss Mother Heart Brother Heart Brother Coronary Artery Disease Maternal Grandfather Emphysema Paternal Grandfather Breast Cancer Paternal Aunt Ovarian cancer Paternal Aunt Breast Cancer Maternal Aunt SOCIAL HISTORY SOCIAL HISTORY[1] PHYSICAL EXAMINATION General appearance: Well appearing, alert, in no acute distress, and well-hydrated, well nourished Lungs: no wheezing or rhonchi Abdomen: Negative CVA tenderness Genitourinary: deferred Assessment (N28.89) Left renal mass (primary encounter diagnosis) (Z13.89) Screening for genitourinary condition 69 year old female with left renal mass on Discussed CT kidney results from 05/06/25 with stable mass- results also reviewed with patient by Dr. Plummer who recommends continued surveillance. Dr. Plummer reassured that her left flank discomfort is likely unrelated to renal mass. Urine dip with blood- discussed rationale to check UA w/ micro Plan -Check UA w/ micro- if +RBC's, recommend cystoscopy and CT urogram for hematuria evaluation -Will proceed with of renal mass with CT abdomen in 1 year with follow up visit Plan of care reviewed and reinforced with patient by Dr. Plummer. Letitia Michelle APRN.FLAKER OPERATOR [1] Social History Tobacco Use Smoking status: Never Smokeless tobacco: Never Vaping Use Vaping status: Never Used Substance Use Topics Alcohol use: No Drug use: No [facility] 05-12-2025 Note Patient Outreach (UR OLMN) RUFINAVALERIE Benita ([id number]) 1955 F Date Time Provider Department 05/12/25 CHELSEY PLUMMER During your visit today, we recorded the following information about you: Allergies As of Date: 05/12/2025 Noted Allergy Reaction CHLORHEXIDINE 11/30/2009 2 - Rash Date Reviewed: 05/12/2025 Reviewed by: Vivian Bay MA - Fully Assessed Visit Diagnosis:Screening for genitourinary condition [Z13.89] Order(s):UA DIP, URINE (POC) [8809402] Order #: [id number] FUTURE Prescriptions as of 05/15/2025 - predniSONE (DELTASONE) 20 mg tablet TAKE TWO TABLETS BY MOUTH EVERY DAY FOR 5 DAYS THEN TAKE ONE TABLET EVERY DAY FOR 5 DAYS - RABEprazole (ACIPHEX) 20 mg tablet Take 20 mg by mouth once daily. - acetaminophen (TYLENOL EXTRA STRENGTH) 500 mg tablet Take 1,000 mg by mouth every 8 hours as needed. Problem List As Of Date 05/12/2025 Noted Resolved Epigastric pain [R10.13] 03/05/2016 Gastro-esophageal reflux disease with esophagit*03/05/2016 Arthritis of carpometacarpal (CMC) joint of lef*09/28/2021 Arthritis of wnfkymko-bswgmpyqp-elbunpgin joint*09/28/2021 Renal mass [N28.89] 01/08/2025 Encounter Status:Closed by KACI HUGO on 05/15/25 [facility] 05-06-2025 Note HNO ID: [id number] Author: CHERIE HERMOSILLO RT(R) Service: ? Author Type: Social Work Coordinator Type: Progress Notes Filed: 05/06/2025 13:54 Note Text: Radiology Service Progress Note DATE OF SERVICE: May 06, 2025 TIME: 1:54 PM PATIENT IDENTITY VERIFICATION COMPLETED USING TWO (2) STANDARD IDENTIFIERS: Name and Date of confirmed by patient verbally. FALL SCREENING: Has the patient had 2 falls in the last year or 1 fall with injury or currently using an Ambulatory Assistive Device (Walker, Cane, Wheelchair, Crutches, etc.)? No PATIENT GENDER DATA: Assigned female at . status: : No status: NO. PATIENT RELEVANT IMPLANT DATA REVIEWED: Yes PATIENT PRESENTS WITH AN IMPLANTABLE OR ATTACHED BLOWER INSULATOR: No ALLERGIES: Reviewed and unchanged CONTRAST ALLERGY: NO. EXAM: CT -CONTRAST INDUCED NEPHROPATHY RISK FACTORS: Patient age > 60 years CREATININE: Creatinine Date Value Ref Range Status 04/13/2025 0.93 0.58 - 0.96 mg/dL Final 10/30/2024 0.78 0.58 - 0.96 mg/dL Final 08/13/2024 0.87 0.58 - 0.96 mg/dL Final Estimated Glomerular Filtration Rate Date Value Ref Range Status 04/13/2025 67 >=60 mL/min/1.73m? Final Comment: Estimated Glomerular Filtration Rate (eGFR) is calculated using the 2020 CKD-EPI creatinine equation. This equation utilizes serum creatinine, sex, and age as parameters. The creatinine assay has traceable calibration to isotope dilution-mass spectrometry. Refer to KDIGO guidelines for clinical interpretation. In patients with unstable renal function, e.g. those with acute kidney injury, the eGFR may not accurately reflect actual GFR. P.O.C.T. RESULTS: POC done: Yes, See Lab Tab May 06, 2025 TREATMENT: N/A PERIPHERAL IV DATA: Ambulatory: A peripheral IV was started in the Left antecubital site with a Angio cath: 18 gauge. RADIOLOGY DEPARTMENT: CT; Exam(s) Completed: Kidney . Anesthesia: No SIGNATURE: RT Shameka(R) PATIENT NAME: Valerie Almaraz DATE: May 06, 2025 TIME: 1:54 PM [facility] 04-20-2025 Note HNO ID: [id number] Author: DANIEL ROBERSON, DO Service: ? Author Type: Physician Type: Progress Notes Filed: 04/21/2025 06:16 Note Text: Hematologic problem(s): 1) IgG lambda monoclonal gammopathy. HPI: The patient is a 69-year-old female with past medical history as outlined below. Initial consultation: Noticed morning stiffness "all over" beginning about a year ago. Labs for RA negative. Left flank pain started more consistently and couldn't find comfortable position. CT A/P. EGD/colonoscopy. Diverticula. Biopsy--inflammation in duodenum. Was told needs serologic testing for celiac. Patient had a CBC on 06/18/2024 demonstrated total white count 4700. Red blood cell count slightly low at 4,120,000/mm?. Hemoglobin normal 12.8 g/dL with a normal hematocrit of 40.7%. MCV was 98.8 fL and MCH was 31.1 pg. Platelet count was 202,000. Differential was unremarkable with the exception of extremely mild increase in basophils of 1.1%. In March 2023 basophils were 1.2%. On 2 other occasions in 2023 basophils were normal. A recent chemistry panel on 03/19/2024 demonstrated a serum creatinine of 1.31 mg/L with a BUN of 16. Calcium was normal at 9.0 mg/dL. Repeat chemistry panel on 06/18/2024 revealed a serum creatinine of 1.15 mg/dL with a BUN of 21. Ratio was 18.3. Calcium was 9.2 mg/dL. Total bilirubin 0.40 mg/dL with normal AST and ALT of 20 and 23 units/L respectively. Alkaline phosphatase normal at 73 units/L. Total serum protein of 7.3 g/dL with an albumin of 3.7 g/dL and a globulin fraction of 3.6 g/dL. On 06/25/2024, had electrophoresis of the serum which demonstrated a monoclonal spike quantitated at 0.6 g/dL. No immunofixation. No symptoms of neuropathy. The flank pain is localized to left CVA. Pain radiates if turns to the right. All other motions okay. Long history microscopic hematuria. No NSAID use. Presents for ongoing hematologic management. Interim history: No complaints today, but does endorse generalized joint stiffness and pain in the mornings. PAST MEDICAL HISTORY Diagnosis Date Abdominal pain Abdominal pain, epigastric 11/22/2009 Flatulence, eructation, and gas pain 11/22/2009 GERD (gastroesophageal reflux disease) Other specified disorders of biliary tract 11/22/2009 PAST SURGICAL HISTORY Procedure Laterality Date DELIVERY ONLY , low transverse x2 COLONOSCOPY 06/20/2024 COLONOSCOPY FLX DX W/COLLJ SPEC WHEN PFRMD 10/25/2012 Colonoscopy EGD 08/05/2024 EGD TRANSORAL BIOPSY SINGLE/MULTIPLE 03/03/2016 distal esophagitis ESOPHAGOGASTRODUODENOSCOPY TRANSORAL DIAGNOSTIC 10/25/2012 EGD LAPS SURG CHOLECYSTECTOMY W/CHOLANGIOGRAPHY 11/22/2009 PAST SURGICAL HISTORY OF lap x2 TONSILLECTOMY PRIMARY/SECONDARY Tonsillectomy RABEprazole (ACIPHEX) 20 mg tablet Take 20 mg by mouth once daily. acetaminophen (TYLENOL EXTRA STRENGTH) 500 mg tablet Take 1,000 mg by mouth every 8 hours as needed. Benzonatate 200 mg capsule LORazepam (ATIVAN) 1 mg tablet Take 1 tablet by mouth one time only for 1 dose. about 1 hour prior to MRI. ALLERGIES Allergen Reactions Chlorhexidine Rash Social History Tobacco Use Smoking status: Never Smokeless tobacco: Never Vaping Use Vaping status: Never Used Substance Use Topics Alcohol use: No Drug use: No FAMILY HISTORY Problem Relation Age of Onset Hearing Loss Mother Heart Brother Heart Brother Coronary Artery Disease Maternal Grandfather Emphysema Paternal Grandfather Breast Cancer Paternal Aunt Ovarian cancer Paternal Aunt Breast Cancer Maternal Aunt REVIEW OF SYSTEMS: Constitutional: No episodes of fever and night sweats. Not significantly fatigued. Normal appetite. Neuro: No OQUENDO, vertigo, dizziness and imbalance. HEENT: No recent change in voice, vision or hearing. Resp: No cough, wheeze and hemoptysis. No shortness of breath at rest. No DUFFY. CVS: No exertional chest pain, PND, orthopnea and LE edema. GI: No n/v, change in bowel habits or abdominal pain. : No dysuria or gross hematuria. No symptoms of bladder outlet obstruction. Endo: No hot flashes. No polyuria and polydipsia. No heat and cold intolerance. Musculoskeletal: See above. Derm: No current rash. No history of jaundice or diffuse pruritis. Heme: No unusual bleeding and unexplained bruising. Psych: Normal mood. PHYSICAL EXAM: Vitals: Blood pressure 120/76, pulse 68, temperature 37 ?C (98.6 ?F), temperature source Temporal, weight 60.1 kg (132 lb 8 oz), SpO2 97%. Well-appearing and in no acute distress. EYES: Sclerae are anicteric bilaterally. LYMPHATIC: There is no palpable cervical or supraclavicular adenopathy. CARDIOVASCULAR: Rhythm is regular. ABDOMEN: The abdomen is nondistended. No epigastric tenderness currently. Extremities: No swelling or edema. SKIN: No jaundice. PATHOLOGY: Bone marrow bipsy This addendum is to note results of CD138, kappa and lambda Immunohisto (more content not included)... [facility] 04-20-2025 History of Present illness Narrative Hematologic problem(s): 1) IgG lambda monoclonal gammopathy. HPI: The patient is a 69-year-old female with past medical history as outlined below. Initial consultation: Noticed morning stiffness "all over" beginning about a year ago. Labs for RA negative. Left flank pain started more consistently and couldn't find comfortable position. CT A/P. EGD/colonoscopy. Diverticula. Biopsy--inflammation in duodenum. Was told needs serologic testing for celiac. Patient had a CBC on 06/18/2024 demonstrated total white count 4700. Red blood cell count slightly low at 4,120,000/mm . Hemoglobin normal 12.8 g/dL with a normal hematocrit of 40.7%. MCV was 98.8 fL and MCH was 31.1 pg. Platelet count was 202,000. Differential was unremarkable with the exception of extremely mild increase in basophils of 1.1%. In March 2023 basophils were 1.2%. On 2 other occasions in 2023 basophils were normal. A recent chemistry panel on 03/19/2024 demonstrated a serum creatinine of 1.31 mg/L with a BUN of 16. Calcium was normal at 9.0 mg/dL. Repeat chemistry panel on 06/18/2024 revealed a serum creatinine of 1.15 mg/dL with a BUN of 21. Ratio was 18.3. Calcium was 9.2 mg/dL. Total bilirubin 0.40 mg/dL with normal AST and ALT of 20 and 23 units/L respectively. Alkaline phosphatase normal at 73 units/L. Total serum protein of 7.3 g/dL with an albumin of 3.7 g/dL and a globulin fraction of 3.6 g/dL. On 06/25/2024, had electrophoresis of the serum which demonstrated a monoclonal spike quantitated at 0.6 g/dL. No immunofixation. No symptoms of neuropathy. The flank pain is localized to left CVA. Pain radiates if turns to the right. All other motions okay. Long history microscopic hematuria. No NSAID use. Presents for ongoing hematologic management. Interim history: No complaints today, but does endorse generalized joint stiffness and pain in the mornings. PAST MEDICAL HISTORY Diagnosis Date Abdominal pain Abdominal pain, epigastric 11/22/2009 Flatulence, eructation, and gas pain 11/22/2009 GERD (gastroesophageal reflux disease) Other specified disorders of biliary tract 11/22/2009 PAST SURGICAL HISTORY Procedure Laterality Date DELIVERY ONLY , low transverse x2 COLONOSCOPY 06/20/2024 COLONOSCOPY FLX DX W/COLLJ SPEC WHEN PFRMD 10/25/2012 Colonoscopy EGD 08/05/2024 EGD TRANSORAL BIOPSY SINGLE/MULTIPLE 03/03/2016 distal esophagitis ESOPHAGOGASTRODUODENOSCOPY TRANSORAL DIAGNOSTIC 10/25/2012 EGD LAPS SURG CHOLECYSTECTOMY W/CHOLANGIOGRAPHY 11/22/2009 PAST SURGICAL HISTORY OF lap x2 TONSILLECTOMY PRIMARY/SECONDARY <AGE 13 Tonsillectomy RABEprazole (ACIPHEX) 20 mg tablet Take 20 mg by mouth once daily. acetaminophen (TYLENOL EXTRA STRENGTH) 500 mg tablet Take 1,000 mg by mouth every 8 hours as needed. Benzonatate 200 mg capsule LORazepam (ATIVAN) 1 mg tablet Take 1 tablet by mouth one time only for 1 dose. about 1 hour prior to MRI. ALLERGIES Allergen Reactions Chlorhexidine Rash Social History Tobacco Use Smoking status: Never Smokeless tobacco: Never Vaping Use Vaping status: Never Used Substance Use Topics Alcohol use: No Drug use: No FAMILY HISTORY Problem Relation Age of Onset Hearing Loss Mother Heart Brother Heart Brother Coronary Artery Disease Maternal Grandfather Emphysema Paternal Grandfather Breast Cancer Paternal Aunt Ovarian cancer Paternal Aunt Breast Cancer Maternal Aunt REVIEW OF SYSTEMS: Constitutional: No episodes of fever and night sweats. Not significantly fatigued. Normal appetite. Neuro: No OQUENDO, vertigo, dizziness and imbalance. HEENT: No recent change in voice, vision or hearing. Resp: No cough, wheeze and hemoptysis. No shortness of breath at rest. No DUFFY. CVS: No exertional chest pain, PND, orthopnea and LE edema. GI: No n/v, change in bowel habits or abdominal pain. : No dysuria or gross hematuria. No symptoms of bladder outlet obstruction. Endo: No hot flashes. No polyuria and polydipsia. No heat and cold intolerance. Musculoskeletal: See above. Derm: No current rash. No history of jaundice or diffuse pruritis. Heme: No unusual bleeding and unexplained bruising. Psych: Normal mood. PHYSICAL EXAM: Vitals: Blood pressure 120/76, pulse 68, temperature 37 C (98.6 F), temperature source Temporal, weight 60.1 kg (132 lb 8 oz), SpO2 97%. Well-appearing and in no acute distress. EYES: Sclerae are anicteric bilaterally. LYMPHATIC: There is no palpable cervical or supraclavicular adenopathy. CARDIOVASCULAR: Rhythm is regular. ABDOMEN: The abdomen is nondistended. No epigastric tenderness currently. Extremities: No swelling or edema. SKIN: No jaundice. PATHOLOGY: Bone marrow bipsy This addendum is to note results of CD138, kappa and lambda Immunohistochemical studies performed on clot section. CD138 highlights clustered and scattered plasma cells, variable 3-8% of clot section, plasma cells appear slightly lambda predominant over kappa. Correlation with pending cytogenetics and FISH studies is suggested. FISH panel: 1p32 (CDKN2C): Normal pattern 1q21 (CKS1B): Normal pattern +9 (CEP9): Normal pattern t(11;14)(q13;q32)(IGH/CCND1): Normal pattern 13q14 (RB1): Normal pattern 14q32 (IGH): Positive for IGH translocation (33/100) +15 (CEP15): Normal pattern 17p13 (TP53): Normal pattern t(4;14)(p16;q32)(MMSET/IGH): Negative t(14;16)(q32;q23)(IGH/MAF): Positive (40/100) INTERPRETATION: These findings demonstrate a plasma cell population with IGH::MAF translocation Overall, the immunophenotype by CD138 IHC estimation and FISH result support bone marrow involvement by plasma cell neoplasm. Clinical correlation is suggested. 46,XX[20] IMAGING: PET 08/25/2024: IMPRESSION: OSSEOUS DISEASE: * No metabolically active osseous lesion. EXTRAOSSEOUS DISEASE: * No metabolically active extraosseous disease. ADDITIONAL FINDINGS: * Diffuse increased thyroid uptake for correlation with thyroid function. Relevant baseline labs and symptoms: Alkaline phosphatase normal. Latest Ref Rng 09/22/2024 NT Pro BNP <125 pg/mL 111 DEMARIO High Sensitivity <12 ng/L 13 (H) No symptoms of neuropathy. ASSESSMENT/PLAN: Assessment: MGUS -69-year-old female with a past medical history as outlined above who was found to have a serum monoclonal protein when undergoing workup for left flank pain. -IgG lambda IgH translocated MGUS. -No evidence of cardiac amyloid on original work up. -Reviewed results. All stable. -Following urology for left renal lesion--CT in May. Plan: -6-month reevaluation. Annually thereafter if stable in 6 months. -Follow up with Dr. Plummer. Portions of this documentation were copied and pasted from my previous office visit note dated 10/06/2024 in order to provide a cohesive continuity of the history. The note has been reviewed and edited and updated as necessary. I spent a total of 20 minutes on the date of the service which included preparing to see the patient, [id number] patient care, performing a medically appropriate examination, counseling and educating the patient/family/caregiver, communicating with other HCPs (not separately reported), and communicating results to the patient/family/caregiver. Daniel Roberson DO documented in this encounter [facility] 11-21-2024 History of Present illness Narrative Referring Provider: Self Chief Complaint: Left renal mass HPI Valerie Almaraz is a 69 year old female with a history of MGUS, incidentally diagnosed left renal mass on CT for abdominal pain in 10/2023 (prior CT A/P at OSH negative on report) , confirmed by her oncologist on MRI ,who presents for evaluation of the same Interval Hx: Complains of continuous left flank pian, dull- aching for the past 6 months No Family history of malignancy PSH: Laparoscopic Cholecystectomy (2009), C-sections x 2 Never- smoker Not on any AC, H/O DVT/PE/ Cardiac issues LABS Creatinine Date Value Ref Range Status 10/30/2024 0.78 0.58 - 0.96 mg/dL Final 08/13/2024 0.87 0.58 - 0.96 mg/dL Final IMAGING MRI Kidney (11/10/2024) IMPRESSION: Upper pole left renal heterogeneously enhancing solid mass is consistent with neoplasm. No evidence of metastatic disease within the visualized abdomen. Sub-5 mm nonenhancing pancreatic cystic foci are consistent with IPMN. No solid or enhancing pancreatic lesion or focal enlargement CT Abdomen/Pelvis (10/31/2024) IMPRESSION: 1. There is a 3.0 x 2.8 cm heterogeneously enhancing mass within the upper pole of the left kidney that is considered malignant until proven otherwise. Further evaluation with MRI is recommended. 2. A 1.3 cm enhancing focus within the pancreatic body is incidentally noted. However, this is not well seen and may be artifactual, reflecting small vascular structures. This can also be further evaluated at MRI. REVIEW OF SYSTEMS: GENERAL: Negative for fevers, chills, or night sweats. HEENT: Negative for sudden vision or hearing changes. RESPIRATORY: Negative for cough or shortness of breath. CARDIAC: Negative for chest pain, palpitations, murmurs, or syncopal episodes. GASTROINTESTINAL: Negative for diarrhea, constipation, abdominal pain and poor appetite. GENITOURINARY: See HPI. MUSCULOSKELETAL: Negative Bone Aches/pain NEUROLOGIC: Negative for dizziness, headache, weakness or numbness. HEMATOLOGIC: Negative for bleeding or easy bruising. SKIN: Negative for rashes or other skin changes. 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 Back: Normal exam Lungs: Negative Heart: Not examined Abdomen: Normal abdominal exam Extremities: Extremities normal. No deformities, edema, or skin discoloration. Good capillary refill. Musculoskeletal: Negative Genitourinary: No CVA tenderness Assessment We talked with the patient about vs. Biopsy vs Partial Nephrectomy, all risks and befits were explained. The patient wants to continue with , with CT kidney in April 2025 at [facility]. Plan CT Kidney w/ WO contrast in 04/2025 and VV atleast [address] Plummer. Anjelica Attestation: By signing my name below, IDany, attest that this documentation has been prepared under the direction and in the presence of Dr. Chelsey Plummer MD. Electronically signed: Anjelica Stack, November 21, 2024 8:53 AM IChelsey MD, personally performed the services described in this documentation. All medical record entries made by the boraibfederica were at my direction and in my presence. I have reviewed the chart and discharge instructions (if applicable) and agree that the record reflects my personal performance and is accurate and complete. Chelsey Plummer MD documented in this encounter [facility] 11-21-2024 Note HNO ID: [id number] Author: CHELSEY PLUMMER MD Service: ? Author Type: Physician Type: Progress Notes Filed: 01/08/2025 14:58 Note Text: Referring Provider: Self Chief Complaint: Left renal mass HPI Valerie Almaraz is a 69 year old female with a history of MGUS, incidentally diagnosed left renal mass on CT for abdominal pain in 10/2023 (prior CT A/P at OSH negative on report) , confirmed by her oncologist on MRI ,who presents for evaluation of the same Interval Hx: Complains of continuous left flank pian, dull- aching for the past 6 months No Family history of malignancy PSH: Laparoscopic Cholecystectomy (2009), C-sections x 2 Never- smoker Not on any AC, H/O DVT/PE/ Cardiac issues LABS Creatinine Date Value Ref Range Status 10/30/2024 0.78 0.58 - 0.96 mg/dL Final 08/13/2024 0.87 0.58 - 0.96 mg/dL Final IMAGING MRI Kidney (11/10/2024) IMPRESSION: Upper pole left renal heterogeneously enhancing solid mass is consistent with neoplasm. No evidence of metastatic disease within the visualized abdomen. Sub-5 mm nonenhancing pancreatic cystic foci are consistent with IPMN. No solid or enhancing pancreatic lesion or focal enlargement CT Abdomen/Pelvis (10/31/2024) IMPRESSION: 1. There is a 3.0 x 2.8 cm heterogeneously enhancing mass within the upper pole of the left kidney that is considered malignant until proven otherwise. Further evaluation with MRI is recommended. 2. A 1.3 cm enhancing focus within the pancreatic body is incidentally noted. However, this is not well seen and may be artifactual, reflecting small vascular structures. This can also be further evaluated at MRI. REVIEW OF SYSTEMS: GENERAL: Negative for fevers, chills, or night sweats. HEENT: Negative for sudden vision or hearing changes. RESPIRATORY: Negative for cough or shortness of breath. CARDIAC: Negative for chest pain, palpitations, murmurs, or syncopal episodes. GASTROINTESTINAL: Negative for diarrhea, constipation, abdominal pain and poor appetite. GENITOURINARY: See HPI. MUSCULOSKELETAL: Negative Bone Aches/pain NEUROLOGIC: Negative for dizziness, headache, weakness or numbness. HEMATOLOGIC: Negative for bleeding or easy bruising. SKIN: Negative for rashes or other skin changes. 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 Back: Normal exam Lungs: Negative Heart: Not examined Abdomen: Normal abdominal exam Extremities: Extremities normal. No deformities, edema, or skin discoloration. Good capillary refill. Musculoskeletal: Negative Genitourinary: No CVA tenderness Assessment We talked with the patient about vs. Biopsy vs Partial Nephrectomy, all risks and befits were explained. The patient wants to continue with , with CT kidney in April 2025 at [facility]. Plan CT Kidney w/ WO contrast in 04/2025 and VV atleast [address] Plummer. Anjelica Attestation: By signing my name below, I, Dany Cobb, attest that this documentation has been prepared under the direction and in the presence of Dr. Chelsey Plummer MD. Electronically signed: Anjelica Stack, November 21, 2024 8:53 AM I, Chelsey Plummer MD, personally performed the services described in this documentation. All medical record entries made by the scribe were at my direction and in my presence. I have reviewed the chart and discharge instructions (if applicable) and agree that the record reflects my personal performance and is accurate and complete. Chelsey Plummer MD [facility] 11-21-2024 Note Patient Outreach (UR OLMN) VALERIE ALMARAZ ([id number]) 1955 F Date Time Provider Department 11/21/24 CHELSEY PLUMMER During your visit today, we recorded the following information about you: Allergies As of Date: 11/21/2024 Noted Allergy Reaction CHLORHEXIDINE 11/30/2009 2 - Rash Date Reviewed: 11/21/2024 Reviewed by: Vivian Bay MA - Fully Assessed Visit Diagnosis:Screening for genitourinary condition [Z13.89] Order(s):UA DIP, URINE (POC) [[id number]] Order #: [id number] FUTURE Prescriptions as of 11/24/2024 - Benzonatate 200 mg capsule - LORazepam (ATIVAN) 1 mg tablet Take 1 tablet by mouth one time only for 1 dose. about 1 hour prior to MRI. - RABEprazole (ACIPHEX) 20 mg tablet Take 20 mg by mouth once daily. - acetaminophen (TYLENOL EXTRA STRENGTH) 500 mg tablet Take 1,000 mg by mouth every 8 hours as needed. Problem List As Of Date 11/21/2024 Noted Resolved Epigastric pain [R10.13] 03/05/2016 Gastro-esophageal reflux disease with esophagit*03/05/2016 Arthritis of carpometacarpal (CMC) joint of lef*09/28/2021 Arthritis of msstmsac-dktwkybvr-elpqpsouy joint*09/28/2021 Encounter Status:Closed by EPIC, PRODUSER on 11/24/24 [facility] 11-10-2024 History of Present illness Narrative Radiology Service Progress Note DATE OF SERVICE: November 10, 2024 TIME: 11:47 AM PATIENT IDENTITY VERIFICATION COMPLETED USING TWO (2) STANDARD IDENTIFIERS: Name and Date of confirmed by patient verbally. FALL SCREENING: Has the patient had 2 falls in the last year or 1 fall with injury or currently using an Ambulatory Assistive Device (Walker, Cane, Wheelchair, Crutches, etc.)? No PATIENT GENDER DATA: Assigned female at . status: : No status: NO. PATIENT RELEVANT IMPLANT DATA REVIEWED: Yes PATIENT PRESENTS WITH AN IMPLANTABLE OR ATTACHED BLOWER INSULATOR: No ALLERGIES: Reviewed and unchanged CONTRAST ALLERGY: NO. EXAM: MRI - CONTRAST TYPE: GROUP II PERIPHERAL IV DATA: Ambulatory: A peripheral IV was started in the Left antecubital site with a Angio cath: 22 gauge. RADIOLOGY DEPARTMENT: MR; Exam(s) Completed: Body: Renal SIGNATURE: ENRRIQUE Cannon) PATIENT NAME: Valerie Almaraz DATE: November 10, 2024 TIME: 11:47 AM documented in this encounter [facility] 11-10-2024 Note HNO ID: [id number] Author: RACH HUBER RT(R) Service: ? Author Type: Technologist Type: Progress Notes Filed: 11/10/2024 11:47 Note Text: Radiology Service Progress Note DATE OF SERVICE: November 10, 2024 TIME: 11:47 AM PATIENT IDENTITY VERIFICATION COMPLETED USING TWO (2) STANDARD IDENTIFIERS: Name and Date of confirmed by patient verbally. FALL SCREENING: Has the patient had 2 falls in the last year or 1 fall with injury or currently using an Ambulatory Assistive Device (Walker, Cane, Wheelchair, Crutches, etc.)? No PATIENT GENDER DATA: Assigned female at . status: : No status: NO. PATIENT RELEVANT IMPLANT DATA REVIEWED: Yes PATIENT PRESENTS WITH AN IMPLANTABLE OR ATTACHED BLOWER INSULATOR: No ALLERGIES: Reviewed and unchanged CONTRAST ALLERGY: NO. EXAM: MRI - CONTRAST TYPE: GROUP II PERIPHERAL IV DATA: Ambulatory: A peripheral IV was started in the Left antecubital site with a Angio cath: 22 gauge. RADIOLOGY DEPARTMENT: MR; Exam(s) Completed: Body: Renal SIGNATURE: Rach Huber RT(R) PATIENT NAME: Valerie Almaraz DATE: November 10, 2024 TIME: 11:47 AM [facility] 11-04-2024 Telephone encounter Note Can let her know the echocardiogram showed normal heart pumping strength and no evidence of cardiac amyloidosis. Can schedule up as followed in April. Daniel Roberson DO [facility] Work Phone: 11-04-2024 Miscellaneous Notes Can let her know the echocardiogram showed normal heart pumping strength and no evidence of cardiac amyloidosis. Can schedule up as followed in April. Daniel Roberson DO documented in this encounter [facility] 10-28-2024 Telephone encounter Note Please place order for stat creatinine order for pt , pt appt on 10/31/[address] [facility] 10-28-[address] order for stat creatinine order for pt , pt appt on 10/31/[address] documented in this encounter [facility] 10-06-2024 History of Present illness Narrative Hematologic problem(s): 1) IgG lambda monoclonal gammopathy. HPI: The patient is a 69-year-old female with past medical history as outlined below. Initial consultation: Noticed morning stiffness "all over" beginning about a year ago. Labs for RA negative. Left flank pain started more consistently and couldn't find comfortable position. CT A/P. EGD/colonoscopy. Diverticula. Biopsy--inflammation in duodenum. Was told needs serologic testing for celiac. Patient had a CBC on 06/18/2024 demonstrated total white count 4700. Red blood cell count slightly low at 4,120,000/mm . Hemoglobin normal 12.8 g/dL with a normal hematocrit of 40.7%. MCV was 98.8 fL and MCH was 31.1 pg. Platelet count was 202,000. Differential was unremarkable with the exception of extremely mild increase in basophils of 1.1%. In March 2023 basophils were 1.2%. On 2 other occasions in 2023 basophils were normal. A recent chemistry panel on 03/19/2024 demonstrated a serum creatinine of 1.31 mg/L with a BUN of 16. Calcium was normal at 9.0 mg/dL. Repeat chemistry panel on 06/18/2024 revealed a serum creatinine of 1.15 mg/dL with a BUN of 21. Ratio was 18.3. Calcium was 9.2 mg/dL. Total bilirubin 0.40 mg/dL with normal AST and ALT of 20 and 23 units/L respectively. Alkaline phosphatase normal at 73 units/L. Total serum protein of 7.3 g/dL with an albumin of 3.7 g/dL and a globulin fraction of 3.6 g/dL. On 06/25/2024, had electrophoresis of the serum which demonstrated a monoclonal spike quantitated at 0.6 g/dL. No immunofixation. No symptoms of neuropathy. The flank pain is localized to left CVA. Pain radiates if turns to the right. All other motions okay. Long history microscopic hematuria. No NSAID use. Presents for ongoing hematologic management. Interim history: Left flank pain persists. Additionally she has been having epigastric pain on a daily basis. Pain-free when first wakes up but after eating, pain comes on. She has been back on PPI for about 10 days with no difference. PAST MEDICAL HISTORY Diagnosis Date Abdominal pain Abdominal pain, epigastric 11/22/2009 Flatulence, eructation, and gas pain 11/22/2009 GERD (gastroesophageal reflux disease) Other specified disorders of biliary tract 11/22/2009 PAST SURGICAL HISTORY Procedure Laterality Date DELIVERY ONLY , low transverse x2 COLONOSCOPY 06/20/2024 COLONOSCOPY FLX DX W/COLLJ SPEC WHEN PFRMD 10/25/2012 Colonoscopy EGD 08/05/2024 EGD TRANSORAL BIOPSY SINGLE/MULTIPLE 03/03/2016 distal esophagitis ESOPHAGOGASTRODUODENOSCOPY TRANSORAL DIAGNOSTIC 10/25/2012 EGD LAPS SURG CHOLECYSTECTOMY W/CHOLANGIOGRAPHY 11/22/2009 PAST SURGICAL HISTORY OF lap x2 TONSILLECTOMY PRIMARY/SECONDARY <AGE 13 Tonsillectomy RABEprazole (ACIPHEX) 20 mg tablet Take 20 mg by mouth once daily. acetaminophen (TYLENOL EXTRA STRENGTH) 500 mg tablet Take 1,000 mg by mouth every 8 hours as needed. ALLERGIES Allergen Reactions Chlorhexidine Rash Social History Tobacco Use Smoking status: Never Smokeless tobacco: Never Substance Use Topics Alcohol use: No Drug use: No FAMILY HISTORY Problem Relation Age of Onset Hearing Loss Mother Heart Brother Heart Brother Coronary Artery Disease Maternal Grandfather Emphysema Paternal Grandfather Breast Cancer Paternal Aunt Ovarian cancer Paternal Aunt Breast Cancer Maternal Aunt REVIEW OF SYSTEMS: Constitutional: No episodes of fever and night sweats. Not significantly fatigued. Normal appetite. Neuro: No OQUENDO, vertigo, dizziness and imbalance. HEENT: No recent change in voice, vision or hearing. Resp: No cough, wheeze and hemoptysis. No shortness of breath at rest. No DUFFY. CVS: No exertional chest pain, PND, orthopnea and LE edema. GI: No n/v, change in bowel habits or abdominal pain. : No dysuria or gross hematuria. No symptoms of bladder outlet obstruction. Endo: No hot flashes. No polyuria and polydipsia. No heat and cold intolerance. Musculoskeletal: See above. Derm: No current rash. No history of jaundice or diffuse pruritis. Heme: No unusual bleeding and unexplained bruising. Psych: Normal mood. PHYSICAL EXAM: Vitals: Blood pressure 119/58, pulse (!) 56, temperature 36.7 C (98.1 F), temperature source Temporal, height 166 cm (5' 5.35"), weight 59.9 kg (132 lb), SpO2 98%. Well-appearing and in no acute distress. EYES: Sclerae are anicteric bilaterally. LYMPHATIC: There is no palpable cervical or supraclavicular adenopathy. CARDIOVASCULAR: Rhythm is regular. ABDOMEN: The abdomen is nondistended. No epigastric tenderness currently. Extremities: No swelling or edema. SKIN: No jaundice. LABS: Latest Ref Rn 08/13/2024 WBC 3.70 - 11.00 k/uL 6.33 RBC 3.90 - 5.20 m/uL 3.98 Hemoglobin 11.5 - 15.5 g/dL 12.4 Hematocrit 36.0 - 46.0 % 38.4 MCV 80.0 - 100.0 fL 96.5 MCH 26.0 - 34.0 pg 31.2 MCHC 30.5 - 36.0 g/dL 32.3 RDW-CV 11.5 - 15.0 % 12.3 Platelet Count 150 - 400 k/uL 203 MPV 9.0 - 12.7 fL 9.2 Neut% % 71.4 Abs Neut (ANC) 1.45 - 7.50 k/uL 4.52 Lymph% % 21.0 Abs Lymph 1.00 - 4.00 k/uL 1.33 Sibley% % 5.2 Abs Sibley <0.87 k/uL 0.33 Eosin% % 1.1 Abs Eosin <0.46 k/uL 0.07 Baso% % 0.8 Abs Baso <0.11 k/uL 0.05 Immature Gran % % 0.5 IMMATURE GRANS (ABS) <0.10 k/uL 0.03 NRBC /100 WBC 0.0 Absolute nRBC <0.01 k/uL <0.01 DTYPE Auto Protein, Total 6.3 - 8.0 g/dL 6.8 Albumin 3.9 - 4.9 g/dL 4.4 Calcium 8.5 - 10.2 mg/dL 9.5 Bilirubin, Total 0.2 - 1.3 mg/dL 0.5 Alkaline Phosphatase 34 - 123 U/L 73 AST 13 - 35 U/L 15 ALT 7 - 38 U/L 11 Glucose 74 - 99 mg/dL 91 BUN 7 - 21 mg/dL 16 Creatinine 0.58 - 0.96 mg/dL 0.87 Sodium 136 - 144 mmol/L 141 Potassium 3.7 - 5.1 mmol/L 3.6 (L) Chloride 98 - 107 mmol/L 105 CO2 22 - 30 mmol/L 28 Anion Gap 8 - 15 mmol/L 8 eGFR >=60 mL/min/1.73m 73 Latest Ref Rng 08/13/2024 LD 135 - 214 U/L 181 B2 Microglobulin <3.1 mg/L 2.1 Viscosity, Serum <=1.50 cP 1.10 Uric Acid 2.5 - 6.6 mg/dL 5.7 WSR 0 - 20 mm/hr 2 CRP <0.9 mg/dL <0.3 Latest Ref Rng 08/13/2024 Albumin 3.43 - 5.41 g/dL 4.38 Alpha 1 Globulin 0.18 - 0.43 g/dL 0.25 Alpha 2 Globulin 0.42 - 0.98 g/dL 0.48 Beta Globulin 0.61 - 1.17 g/dL 0.60 (L) Gamma Globulin 0.53 - 1.51 g/dL 1.00 Interpretation (Prot Electro) No definitive M protein is identified on protein electrophoresis. An M protein is identified on protein electrophoresis. ! Interpretation Comment for Protein Electrophoresis See separate immunofixation report for characterization of monoclonal gammopathy. M-Protein Location Gamma Fraction 1 M-Protein Concentration <=0.00 g/dL 0.48 (H) SPE Staff Review Reviewed by Dr. Alireza Marshall MD IgG 700 - 1,600 mg/dL 1,179 IgA 70 - 400 mg/dL 67 (L) IgM 40 - 230 mg/dL 68 MPA Result No M protein is identified. M protein is present. ! Interpretation (MPA) Atypical restricted bands are present in the IgG and lambda regions. Consistent with IgG lambda monoclonal gammopathy. Staff Review (MPA) Reviewed by Dr. Alireza Marshall MD [place] Free, Serum 3.3 - 19.4 mg/L 11.9 Lambda Free, Serum 5.7 - 26.3 mg/L 76.0 (H) K/L Ratio, Serum 0.26 - 1.65 0.16 (L) Protein, Total 6.3 - 8.0 g/dL 6.7 Latest Ref Rng 08/18/2024 Albumin %, 24 Hr Urine % 23.52 Alpha 1 Globulin %, 24 Hr Ur % 3.77 Alpha 2 Globulin %, 24 Hr Ur % 18.66 Beta Globulin %, 24 Hr Ur % 26.82 Gamma Globulin %, 24 Hr Ur % 27.23 Interpretation (UEPG24) No definitive M protein is identified on protein electrophoresis. An M protein is identified on protein electrophoresis. ! M Evan Quant, 24 Hr Urine g/24hr 0.01 Staff Review ([facility]) Reviewed by Dr. Alireza Marshall MD Interpretation Comment for Protein Electrophoresis See separate immunofixation report for characterization of monoclonal gammopathy. Result ([facility]) No M protein is identified. M protein is present. ! Interpretation ([facility]) Atypical restricted bands are present in the IgG and lambda regions. Consistent with IgG lambda monoclonal gammopathy. Staff Review ([facility]) Reviewed by Dr. Alireza Marshall MD Protein, Timed Urine <0.15 g/24 Hr 0.09 Period hr 24 Urine Volume 24 hour mL 450 PATHOLOGY: Bone marrow bipsy This addendum is to note results of CD138, kappa and lambda Immunohistochemical studies performed on clot section. CD138 highlights clustered and scattered plasma cells, variable 3-8% of clot section, plasma cells appear slightly lambda predominant over kappa. Correlation with pending cytogenetics and FISH studies is suggested. FISH panel: 1p32 (CDKN2C): Normal pattern 1q21 (CKS1B): Normal pattern +9 (CEP9): Normal pattern t(11;14)(q13;q32)(IGH/CCND1): Normal pattern 13q14 (RB1): Normal pattern 14q32 (IGH): Positive for IGH translocation (33/100) +15 (CEP15): Normal pattern 17p13 (TP53): Normal pattern t(4;14)(p16;q32)(MMSET/IGH): Negative t(14;16)(q32;q23)(IGH/MAF): Positive (40/100) INTERPRETATION: These findings demonstrate a plasma cell population with IGH::MAF translocation Overall, the immunophenotype by CD138 IHC estimation and FISH result support bone marrow involvement by plasma cell neoplasm. Clinical correlation is suggested. 46,XX[20] IMAGING: PET 08/25/2024: IMPRESSION: OSSEOUS DISEASE: * No metabolically active osseous lesion. EXTRAOSSEOUS DISEASE: * No metabolically active extraosseous disease. ADDITIONAL FINDINGS: * Diffuse increased thyroid uptake for correlation with thyroid function. Relevant baseline labs and symptoms: Alkaline phosphatase normal. Latest Ref Rng 09/22/2024 NT Pro BNP <125 pg/mL 111 DEMARIO High Sensitivity <12 ng/L 13 (H) No symptoms of neuropathy. ASSESSMENT/PLAN: Assessment: MGUS -The patient is a 69-year-old female with a past medical history as outlined above who was found to have a serum monoclonal protein when undergoing workup for left flank pain. -IgG lambda IgH translocated MGUS. -Reviewed the bone marrow biopsy results in detail. -EKG normal. Discussed rationale for echocardiogram based on mild elevation in troponin. If echocardiogram normal then reevaluate MGUS in 6 months. Plan: -Scheduled for 6-month reevaluation. -She will be contacted with the results of echocardiogram. Epigastric pain Left flank pain. Abnormal weight loss. Family history of breast cancer in a male on her father's side and ovarian cancer in a paternal aunt. Assessment: -Pain sounds to be gastric in nature based on symptoms however given the weight loss and persistent pain and family history, discussed rationale for repeat CT abdomen pelvis with attention to the pancreas. Plan: -CT abdomen pelvis. -Obtain outside EGD report and pathology report from biopsies. Portions of this documentation were copied and pasted from my previous office visit note dated 09/11/2024 in order to provide a cohesive continuity of the history. The note has been reviewed and edited and updated as necessary. I spent a total of 40 minutes on the date of the service which included preparing to see the patient, [id number] patient care, completing clinical documentation, obtaining and/or reviewing separately obtained history, performing a medically appropriate examination, counseling and educating the patient/family/caregiver, ordering medications, tests, or procedures, communicating with other HCPs (not separately reported), and communicating results to the patient/family/caregiver. Daniel Roberson DO documented in this encounter [facility] 10-06-2024 Note HNO ID: [id number] Author: DANIEL ROBERSON DO Service: ? Author Type: Physician Type: Progress Notes Filed: 10/06/2024 09:58 Note Text: Hematologic problem(s): 1) IgG lambda monoclonal gammopathy. HPI: The patient is a 69-year-old female with past medical history as outlined below. Initial consultation: Noticed morning stiffness "all over" beginning about a year ago. Labs for RA negative. Left flank pain started more consistently and couldn't find comfortable position. CT A/P. EGD/colonoscopy. Diverticula. Biopsy--inflammation in duodenum. Was told needs serologic testing for celiac. Patient had a CBC on 06/18/2024 demonstrated total white count 4700. Red blood cell count slightly low at 4,120,000/mm?. Hemoglobin normal 12.8 g/dL with a normal hematocrit of 40.7%. MCV was 98.8 fL and MCH was 31.1 pg. Platelet count was 202,000. Differential was unremarkable with the exception of extremely mild increase in basophils of 1.1%. In March 2023 basophils were 1.2%. On 2 other occasions in 2023 basophils were normal. A recent chemistry panel on 03/19/2024 demonstrated a serum creatinine of 1.31 mg/L with a BUN of 16. Calcium was normal at 9.0 mg/dL. Repeat chemistry panel on 06/18/2024 revealed a serum creatinine of 1.15 mg/dL with a BUN of 21. Ratio was 18.3. Calcium was 9.2 mg/dL. Total bilirubin 0.40 mg/dL with normal AST and ALT of 20 and 23 units/L respectively. Alkaline phosphatase normal at 73 units/L. Total serum protein of 7.3 g/dL with an albumin of 3.7 g/dL and a globulin fraction of 3.6 g/dL. On 06/25/2024, had electrophoresis of the serum which demonstrated a monoclonal spike quantitated at 0.6 g/dL. No immunofixation. No symptoms of neuropathy. The flank pain is localized to left CVA. Pain radiates if turns to the right. All other motions okay. Long history microscopic hematuria. No NSAID use. Presents for ongoing hematologic management. Interim history: Left flank pain persists. Additionally she has been having epigastric pain on a daily basis. Pain-free when first wakes up but after eating, pain comes on. She has been back on PPI for about 10 days with no difference. PAST MEDICAL HISTORY Diagnosis Date Abdominal pain Abdominal pain, epigastric 11/22/2009 Flatulence, eructation, and gas pain 11/22/2009 GERD (gastroesophageal reflux disease) Other specified disorders of biliary tract 11/22/2009 PAST SURGICAL HISTORY Procedure Laterality Date DELIVERY ONLY , low transverse x2 COLONOSCOPY 06/20/2024 COLONOSCOPY FLX DX W/COLLJ SPEC WHEN PFRMD 10/25/2012 Colonoscopy EGD 08/05/2024 EGD TRANSORAL BIOPSY SINGLE/MULTIPLE 03/03/2016 distal esophagitis ESOPHAGOGASTRODUODENOSCOPY TRANSORAL DIAGNOSTIC 10/25/2012 EGD LAPS SURG CHOLECYSTECTOMY W/CHOLANGIOGRAPHY 11/22/2009 PAST SURGICAL HISTORY OF lap x2 TONSILLECTOMY PRIMARY/SECONDARY Tonsillectomy RABEprazole (ACIPHEX) 20 mg tablet Take 20 mg by mouth once daily. acetaminophen (TYLENOL EXTRA STRENGTH) 500 mg tablet Take 1,000 mg by mouth every 8 hours as needed. ALLERGIES Allergen Reactions Chlorhexidine Rash Social History Tobacco Use Smoking status: Never Smokeless tobacco: Never Substance Use Topics Alcohol use: No Drug use: No FAMILY HISTORY Problem Relation Age of Onset Hearing Loss Mother Heart Brother Heart Brother Coronary Artery Disease Maternal Grandfather Emphysema Paternal Grandfather Breast Cancer Paternal Aunt Ovarian cancer Paternal Aunt Breast Cancer Maternal Aunt REVIEW OF SYSTEMS: Constitutional: No episodes of fever and night sweats. Not significantly fatigued. Normal appetite. Neuro: No OQUENDO, vertigo, dizziness and imbalance. HEENT: No recent change in voice, vision or hearing. Resp: No cough, wheeze and hemoptysis. No shortness of breath at rest. No DUFFY. CVS: No exertional chest pain, PND, orthopnea and LE edema. GI: No n/v, change in bowel habits or abdominal pain. : No dysuria or gross hematuria. No symptoms of bladder outlet obstruction. Endo: No hot flashes. No polyuria and polydipsia. No heat and cold intolerance. Musculoskeletal: See above. Derm: No current rash. No history of jaundice or diffuse pruritis. Heme: No unusual bleeding and unexplained bruising. Psych: Normal mood. PHYSICAL EXAM: Vitals: Blood pressure 119/58, pulse (!) 56, temperature 36.7 ?C (98.1 ?F), temperature source Temporal, height 166 cm (5' 5.35"), weight 59.9 kg (132 lb), SpO2 98%. Well-appearing and in no acute distress. EYES: Sclerae are anicteric bilaterally. LYMPHATIC: There is no palpable cervical or supraclavicular adenopathy. CARDIOVASCULAR: Rhythm is regular. ABDOMEN: The abdomen is nondistended. No epigastric tenderness currently. Extremities: No swelling or edema. SKIN: No jaundice. LABS: Latest Ref Rng 08/13/2024 WBC 3.70 - 11.00 k/uL 6.33 RBC 3.90 - 5.20 m/uL 3.98 Hemoglobin 11.5 - 15.5 g/dL 12.4 (more content not included)... [facility] 09-22-2024 Note HNO ID: [id number] Author: DEMETRA RUIZ APRN.CNP Service: ? Author Type: Nurse Practitioner Type: Procedures Filed: 09/22/2024 13:25 Note Text: BEDSIDE PROCEDURE NOTE BONE MARROW BIOPSY Date/Start Time: 09/22/2024 1:00 PM Date/Stop Time: 09/22/2024 1:14 PM Performed by: Demetra Ruiz APRN.RADHA Authorized by: Demetra Ruiz APRN.CNP Where was Patient When this Procedure was Performed: [facility] Informed Consent Consent Obtained: Written [place] Protocol A moment to CARE was completed. SIGN IN Personnel directly involved with the procedure wore the appropriate PPE. Special Equipment: Yes Patient/Surrogate Stated/Verified: Patient name, Date of , Relevant allergies and Intended procedure TIME OUT Relevant labs, photos, and/or imaging studies have been reviewed. Intended patient and procedure match the source document(s). Consent documented and matches the intended procedure. Correct side/site marked and visible. Medications required for procedure verified. No fire risk assessment and interventions applicable. No implant(s) inserted. Pre-Procedure Details: The area was prepped with povidone Iodine (Betadine) and allowed to dry. A sterile partial body drape was applied following the usual aseptic technique. Medications: Local Anesthesia (see MAR): Lidocaine 1% Anxiolysis (see MAR): Lorazapem Procedure Details: Patient Position: Left lateral decubitus Aspiration Laterality: Unilateral Aspiration Site: Right posterior superior iliac crest Biopsy Laterality: Unilateral Biopsy Site: Right posterior sperior iliac crest OnControl biopsy system was used. Using aseptic technique, bone marrow aspiration was performed. A touch prep was taken. Core biopsy was obtained 0.9 cm. The core biopsy was confirmed. Number of External Insertion Sites: 1 Pressure dressing applied to Bone Marrow site(s). Hemostasis maintained. Assisting Clinician(s): Deanna Xavier LPN and Teresa Pinto MA Post-Procedure Details: Patient Tolerance: Patient tolerated the procedure well with no immediate complications Immediate Complications: N/A Estimated Blood Loss: scant Specimens Sent: bone marrow analysis, bone marrow chromosome analysis, DNA extraction and flow cytometry Teaching Complete: Bone Marrow Biopsy Post-procedure teaching complete Post-procedure care was reviewed and explained. Patient instructed to communicate complaints of redness, swelling, increased or unresolved pain, bleeding chills, bruising, and/or fever. Patient verbalized understanding. SIGN OUT All specimen containers correctly labeled. All instruments, equipment, possible retained foreign bodies accounted for. Post-procedure follow-up management communicated and Plan of Care Visit completed when applicable SIGNATURE: Demetra Ruiz APRN.RADHA PATIENT NAME: Valerie Almaraz DATE: September 22, 2024 TIME: 1:23 PM [facility] 09-22-2024 Procedure note Associated Ord er(s): BONE MARROW BIOPSY Post-Procedure Diagnose(s): MGUS (monoclonal gammopathy of unknown significance) BEDSIDE PROCEDURE NOTE BONE MARROW BIOPSY Date/Start Time: 09/22/2024 1:00 PM Date/Stop Time: 09/22/2024 1:14 PM Performed by: Demetra Ruiz APRN.FLAKER OPERATOR Authorized by: Demetra Ruiz APRN.FLAKER OPERATOR Where was Patient When this Procedure was Performed: [facility] Informed Consent Consent Obtained: Written [place] Protocol A moment to CARE was completed. SIGN IN Personnel directly involved with the procedure wore the appropriate PPE. Special Equipment: Yes Patient/Surrogate Stated/Verified: Patient name, Date of , Relevant allergies and Intended procedure TIME OUT Relevant labs, photos, and/or imaging studies have been reviewed. Intended patient and procedure match the source document(s). Consent documented and matches the intended procedure. Correct side/site marked and visible. Medications required for procedure verified. No fire risk assessment and interventions applicable. No implant(s) inserted. Pre-Procedure Details: The area was prepped with povidone Iodine (Betadine) and allowed to dry. A sterile partial body drape was applied following the usual aseptic technique. Medications: Local Anesthesia (see MAR): Lidocaine 1% Anxiolysis (see MAR): Lorazapem Procedure Details: Patient Position: Left lateral decubitus Aspiration Laterality: Unilateral Aspiration Site: Right posterior superior iliac crest Biopsy Laterality: Unilateral Biopsy Site: Right posterior sperior iliac crest OnControl biopsy system was used. Using aseptic technique, bone marrow aspiration was performed. A touch prep was taken. Core biopsy was obtained 0.9 cm. The core biopsy was confirmed. Number of External Insertion Sites: 1 Pressure dressing applied to Bone Marrow site(s). Hemostasis maintained. Assisting Clinician(s): Deanna Xavier LPN and Teresa Pinto MA Post-Procedure Details: Patient Tolerance: Patient tolerated the procedure well with no immediate complications Immediate Complications: N/A Estimated Blood Loss: scant Specimens Sent: bone marrow analysis, bone marrow chromosome analysis, DNA extraction and flow cytometry Teaching Complete: Bone Marrow Biopsy Post-procedure teaching complete Post-procedure care was reviewed and explained. Patient instructed to communicate complaints of redness, swelling, increased or unresolved pain, bleeding chills, bruising, and/or fever. Patient verbalized understanding. SIGN OUT All specimen containers correctly labeled. All instruments, equipment, possible retained foreign bodies accounted for. Post-procedure follow-up management communicated and Plan of Care Visit completed when applicable SIGNATURE: Demetra Ruiz APRN.CNP PATIENT NAME: Valerie Almaraz DATE: September 22, 2024 TIME: 1:23 PM [facility] Work Phone: 09-22-2024 Procedure note Associated Ord er(s): BONE MARROW BIOPSY Post-Procedure Diagnose(s): MGUS (monoclonal gammopathy of unknown significance) BEDSIDE PROCEDURE NOTE BONE MARROW BIOPSY Date/Start Time: 09/22/2024 1:00 PM Date/Stop Time: 09/22/2024 1:14 PM Performed by: Demetra Ruiz APRN.FLAKER OPERATOR Authorized by: Demetra Ruiz APRN.RADHA Where was Patient When this Procedure was Performed: [facility] Informed Consent Consent Obtained: Written [place] Protocol A moment to CARE was completed. SIGN IN Personnel directly involved with the procedure wore the appropriate PPE. Special Equipment: Yes Patient/Surrogate Stated/Verified: Patient name, Date of , Relevant allergies and Intended procedure TIME OUT Relevant labs, photos, and/or imaging studies have been reviewed. Intended patient and procedure match the source document(s). Consent documented and matches the intended procedure. Correct side/site marked and visible. Medications required for procedure verified. No fire risk assessment and interventions applicable. No implant(s) inserted. Pre-Procedure Details: The area was prepped with povidone Iodine (Betadine) and allowed to dry. A sterile partial body drape was applied following the usual aseptic technique. Medications: Local Anesthesia (see MAR): Lidocaine 1% Anxiolysis (see MAR): Lorazapem Procedure Details: Patient Position: Left lateral decubitus Aspiration Laterality: Unilateral Aspiration Site: Right posterior superior iliac crest Biopsy Laterality: Unilateral Biopsy Site: Right posterior sperior iliac crest [employer] biopsy system was used. Using aseptic technique, bone marrow aspiration was performed. A touch prep was taken. Core biopsy was obtained 0.9 cm. The core biopsy was confirmed. Number of External Insertion Sites: 1 Pressure dressing applied to Bone Marrow site(s). Hemostasis maintained. Assisting Clinician(s): Deanna Xavier LPN and Teresa Pinto MA Post-Procedure Details: Patient Tolerance: Patient tolerated the procedure well with no immediate complications Immediate Complications: N/A Estimated Blood Loss: scant Specimens Sent: bone marrow analysis, bone marrow chromosome analysis, DNA extraction and flow cytometry Teaching Complete: Bone Marrow Biopsy Post-procedure teaching complete Post-procedure care was reviewed and explained. Patient instructed to communicate complaints of redness, swelling, increased or unresolved pain, bleeding chills, bruising, and/or fever. Patient verbalized understanding. SIGN OUT All specimen containers correctly labeled. All instruments, equipment, possible retained foreign bodies accounted for. Post-procedure follow-up management communicated and Plan of Care Visit completed when applicable SIGNATURE: Demetra Ruiz APRN.CNP PATIENT NAME: Valerie Almaraz DATE: September 22, 2024 TIME: 1:23 PM documented in this encounter [facility] 09-22-2024 Note HNO ID: [id number] Author: DEANNA XAVIER LPN Service: ? Author Type: LICENSED NURSE Type: Progress Notes Filed: 09/22/2024 13:25 Note Text: Pt discharged to home with after BMBX with dry sterile dressing in place. No drainage noted. Post-procedure care reviewed with patient. Pt to call with any complaints of redness, swelling, increased or unresolved pain, bleeding, chills, bruising, and/or fever. Pt verbalized understanding. Deanna Xavier LPN [facility] 09-22-2024 History of Present illness Narrative Pt discharged to home with after BMBX with dry sterile dressing in place. No drainage noted. Post-procedure care reviewed with patient. Pt to call with any complaints of redness, swelling, increased or unresolved pain, bleeding, chills, bruising, and/or fever. Pt verbalized understanding. Deanna Xavier LPN documented in this encounter [facility] 09-22-2024 Note HNO ID: [id number] Author: CHAVO ALMANZAR RN Service: ? Author Type: Registered Nurse Type: Progress Notes Filed: 09/22/2024 12:00 Note Text: EKG completed without issue. [facility] 09-22-2024 History of Present illness Narrative EKG completed without issue. documented in this encounter [facility] 09-12-2024 Telephone encounter Note Patient returned the call, informed the below appointment Samreen Brewer [facility] 09-12-2024 Miscellaneous Notes Patient returned the call, informed the below appointment Samreen Brewer 1st attempt. Message left for patient to call for message below. EKG is scheduled, inform patient to arrive at 1215. Can let her know we got the fax of her previous EKG from March 25. Difficult to read but no obvious abnormality. Plan to repeat EKG when here for bone marrow biopsy. Order filed under today's office visit encounter. Daniel Roberson DO documented in this encounter [facility] 09-12-2024 Telephone encounter Note 1st attempt. Message left for patient to call for message below. EKG is scheduled, inform patient to arrive at 1215. [facility] Work Phone: 09-11-2024 Telephone encounter Note Can let her know we got the fax of her previous EKG from March 25. Difficult to read but no obvious abnormality. Plan to repeat EKG when here for bone marrow biopsy. Order filed under today's office visit encounter. Daniel Roberson DO [facility] Work Phone: 09-11-2024 Note HNO ID: [id number] Author: DANIEL ROBERSON DO Service: ? Author Type: Physician Type: Progress Notes Filed: 09/11/2024 17:00 Note Text: Hematologic problem(s): 1) IgG lambda monoclonal gammopathy. HPI: The patient is a 69-year-old female with past medical history as outlined below. Noticed morning stiffness "all over" beginning about a year ago. Labs for RA negative. Left flank pain started more consistently and couldn't find comfortable position. CT A/P. EGD/colonoscopy. Diverticular today. Biopsy--inflammation in duodenum. Was told needs serologic testing for celiac. Patient had a CBC on 06/18/2024 demonstrated total white count 4700. Red blood cell count slightly low at 4,120,000/mm?. Hemoglobin normal 12.8 g/dL with a normal hematocrit of 40.7%. MCV was 98.8 fL and MCH was 31.1 pg. Platelet count was 202,000. Differential was unremarkable with the exception of extremely mild increase in basophils of 1.1%. In March 2023 basophils were 1.2%. On 2 other occasions in 2023 basophils were normal. A recent chemistry panel on 03/19/2024 demonstrated a serum creatinine of 1.31 mg/L with a BUN of 16. Calcium was normal at 9.0 mg/dL. Repeat chemistry panel on 06/18/2024 revealed a serum creatinine of 1.15 mg/dL with a BUN of 21. Ratio was 18.3. Calcium was 9.2 mg/dL. Total bilirubin 0.40 mg/dL with normal AST and ALT of 20 and 23 units/L respectively. Alkaline phosphatase normal at 73 units/L. Total serum protein of 7.3 g/dL with an albumin of 3.7 g/dL and a globulin fraction of 3.6 g/dL. On 06/25/2024, had electrophoresis of the serum which demonstrated a monoclonal spike quantitated at 0.6 g/dL. No immunofixation. No symptoms of neuropathy. The flank pain is localized to left CVA. Pain radiates if turns to the right. All other motions okay. Long history microscopic hematuria. No NSAID use. Presents for ongoing hematologic management. Interim history: Left flank pain persists. PAST MEDICAL HISTORY Diagnosis Date Abdominal pain Abdominal pain, epigastric 11/22/2009 Flatulence, eructation, and gas pain 11/22/2009 GERD (gastroesophageal reflux disease) Other specified disorders of biliary tract 11/22/2009 PAST SURGICAL HISTORY Procedure Laterality Date DELIVERY ONLY , low transverse x2 COLONOSCOPY 06/20/2024 COLONOSCOPY FLX DX W/COLLJ SPEC WHEN PFRMD 10/25/2012 Colonoscopy EGD 08/05/2024 EGD TRANSORAL BIOPSY SINGLE/MULTIPLE 03/03/2016 distal esophagitis ESOPHAGOGASTRODUODENOSCOPY TRANSORAL DIAGNOSTIC 10/25/2012 EGD LAPS SURG CHOLECYSTECTOMY W/CHOLANGIOGRAPHY 11/22/2009 PAST SURGICAL HISTORY OF lap x2 TONSILLECTOMY PRIMARY/SECONDARY Tonsillectomy RABEprazole (ACIPHEX) 20 mg tablet Take 20 mg by mouth once daily. acetaminophen (TYLENOL EXTRA STRENGTH) 500 mg tablet Take 1,000 mg by mouth every 8 hours as needed. ALLERGIES Allergen Reactions Chlorhexidine Rash Social History Tobacco Use Smoking status: Never Smokeless tobacco: Never Substance Use Topics Alcohol use: No Drug use: No FAMILY HISTORY Problem Relation Age of Onset Hearing Loss Mother Heart Brother Heart Brother Coronary Artery Disease Maternal Grandfather Emphysema Paternal Grandfather Breast Cancer Paternal Aunt Ovarian cancer Paternal Aunt Breast Cancer Maternal Aunt REVIEW OF SYSTEMS: Constitutional: No episodes of fever and night sweats. Not significantly fatigued. Normal appetite. Neuro: No OQUENDO, vertigo, dizziness and imbalance. HEENT: No recent change in voice, vision or hearing. Resp: No cough, wheeze and hemoptysis. No shortness of breath at rest. No DUFFY. CVS: No exertional chest pain, PND, orthopnea and LE edema. GI: No n/v, change in bowel habits or abdominal pain. : No dysuria or gross hematuria. No symptoms of bladder outlet obstruction. Endo: No hot flashes. No polyuria and polydipsia. No heat and cold intolerance. Musculoskeletal: See above. Derm: No current rash. No history of jaundice or diffuse pruritis. Heme: No unusual bleeding and unexplained bruising. Psych: Normal mood. PHYSICAL EXAM: Vitals: Blood pressure 118/70, pulse 77, temperature 37.1 ?C (98.8 ?F), resp. rate 12, weight 60.8 kg (134 lb), SpO2 98%. Well-appearing and in no acute distress. EYES: Sclerae are anicteric bilaterally. LYMPHATIC: There is no palpable cervical or supraclavicular adenopathy. CARDIOVASCULAR: Rhythm is regular. ABDOMEN: The abdomen is nondistended. Extremities: No swelling or edema. SKIN: No jaundice. MUSCULOSKELETAL: No left flank tenderness. No posterior rib tenderness. ASSESSMENT/PLAN: Assessment: -The patient is a 69-year-old female with a past medical history as outlined above who was found to have a serum monoclonal protein when undergoing workup for left flank pain. -Convex left lumbar scoliosis. -IgG lambda monoclonal gammopathy. -Reviewed imaging and lab work. Reviewed the spectrum of plasma (more content not included)... [facility] 09-11-2024 History of Present illness Narrative Hematologic problem(s): 1) IgG lambda monoclonal gammopathy. HPI: The patient is a 69-year-old female with past medical history as outlined below. Noticed morning stiffness "all over" beginning about a year ago. Labs for RA negative. Left flank pain started more consistently and couldn't find comfortable position. CT A/P. EGD/colonoscopy. Diverticular today. Biopsy--inflammation in duodenum. Was told needs serologic testing for celiac. Patient had a CBC on 06/18/2024 demonstrated total white count 4700. Red blood cell count slightly low at 4,120,000/mm . Hemoglobin normal 12.8 g/dL with a normal hematocrit of 40.7%. MCV was 98.8 fL and MCH was 31.1 pg. Platelet count was 202,000. Differential was unremarkable with the exception of extremely mild increase in basophils of 1.1%. In March 2023 basophils were 1.2%. On 2 other occasions in 2023 basophils were normal. A recent chemistry panel on 03/19/2024 demonstrated a serum creatinine of 1.31 mg/L with a BUN of 16. Calcium was normal at 9.0 mg/dL. Repeat chemistry panel on 06/18/2024 revealed a serum creatinine of 1.15 mg/dL with a BUN of 21. Ratio was 18.3. Calcium was 9.2 mg/dL. Total bilirubin 0.40 mg/dL with normal AST and ALT of 20 and 23 units/L respectively. Alkaline phosphatase normal at 73 units/L. Total serum protein of 7.3 g/dL with an albumin of 3.7 g/dL and a globulin fraction of 3.6 g/dL. On 06/25/2024, had electrophoresis of the serum which demonstrated a monoclonal spike quantitated at 0.6 g/dL. No immunofixation. No symptoms of neuropathy. The flank pain is localized to left CVA. Pain radiates if turns to the right. All other motions okay. Long history microscopic hematuria. No NSAID use. Presents for ongoing hematologic management. Interim history: Left flank pain persists. PAST MEDICAL HISTORY Diagnosis Date Abdominal pain Abdominal pain, epigastric 11/22/2009 Flatulence, eructation, and gas pain 11/22/2009 GERD (gastroesophageal reflux disease) Other specified disorders of biliary tract 11/22/2009 PAST SURGICAL HISTORY Procedure Laterality Date DELIVERY ONLY , low transverse x2 COLONOSCOPY 06/20/2024 COLONOSCOPY FLX DX W/COLLJ SPEC WHEN PFRMD 10/25/2012 Colonoscopy EGD 08/05/2024 EGD TRANSORAL BIOPSY SINGLE/MULTIPLE 03/03/2016 distal esophagitis ESOPHAGOGASTRODUODENOSCOPY TRANSORAL DIAGNOSTIC 10/25/2012 EGD LAPS SURG CHOLECYSTECTOMY W/CHOLANGIOGRAPHY 11/22/2009 PAST SURGICAL HISTORY OF lap x2 TONSILLECTOMY PRIMARY/SECONDARY <AGE 13 Tonsillectomy RABEprazole (ACIPHEX) 20 mg tablet Take 20 mg by mouth once daily. acetaminophen (TYLENOL EXTRA STRENGTH) 500 mg tablet Take 1,000 mg by mouth every 8 hours as needed. ALLERGIES Allergen Reactions Chlorhexidine Rash Social History Tobacco Use Smoking status: Never Smokeless tobacco: Never Substance Use Topics Alcohol use: No Drug use: No FAMILY HISTORY Problem Relation Age of Onset Hearing Loss Mother Heart Brother Heart Brother Coronary Artery Disease Maternal Grandfather Emphysema Paternal Grandfather Breast Cancer Paternal Aunt Ovarian cancer Paternal Aunt Breast Cancer Maternal Aunt REVIEW OF SYSTEMS: Constitutional: No episodes of fever and night sweats. Not significantly fatigued. Normal appetite. Neuro: No OQUENDO, vertigo, dizziness and imbalance. HEENT: No recent change in voice, vision or hearing. Resp: No cough, wheeze and hemoptysis. No shortness of breath at rest. No DUFFY. CVS: No exertional chest pain, PND, orthopnea and LE edema. GI: No n/v, change in bowel habits or abdominal pain. : No dysuria or gross hematuria. No symptoms of bladder outlet obstruction. Endo: No hot flashes. No polyuria and polydipsia. No heat and cold intolerance. Musculoskeletal: See above. Derm: No current rash. No history of jaundice or diffuse pruritis. Heme: No unusual bleeding and unexplained bruising. Psych: Normal mood. PHYSICAL EXAM: Vitals: Blood pressure 118/70, pulse 77, temperature 37.1 C (98.8 F), resp. rate 12, weight 60.8 kg (134 lb), SpO2 98%. Well-appearing and in no acute distress. EYES: Sclerae are anicteric bilaterally. LYMPHATIC: There is no palpable cervical or supraclavicular adenopathy. CARDIOVASCULAR: Rhythm is regular. ABDOMEN: The abdomen is nondistended. Extremities: No swelling or edema. SKIN: No jaundice. MUSCULOSKELETAL: No left flank tenderness. No posterior rib tenderness. ASSESSMENT/PLAN: Assessment: -The patient is a 69-year-old female with a past medical history as outlined above who was found to have a serum monoclonal protein when undergoing workup for left flank pain. -Convex left lumbar scoliosis. -IgG lambda monoclonal gammopathy. -Reviewed imaging and lab work. Reviewed the spectrum of plasma cell disorders. -Bone marrow biopsy indicated due to light chain ratio. -Alkaline phosphatase normal. -No albuminuria. Very low level urine monoclonal protein. -We discussed the rationale for bone marrow biopsy. Consented. -Also discussed workup for cardiac amyloidosis. She has no symptoms but the check of her BNP and high-sensitivity troponin warranted. Explained that cardiac MRI may be indicated based on those results. Plan: -Bone marrow biopsy. with [place] red stain. -Recheck CBC and because of lambda light chain, check troponin and BNP when here for bone marrow biopsy. -We will contact PCPs office to see if she has had a recent EKG. -If none in the last 6 months then repeat EKG when here for bone marrow biopsy. Portions of this documentation were copied and pasted from my previous office visit note dated 08/13/2024 in order to provide a cohesive continuity of the history. The note has been reviewed and edited and updated as necessary. I spent a total of 30 minutes on the date of the service which included preparing to see the patient, [id number] patient care, completing clinical documentation, counseling and educating the patient/family/caregiver, ordering medications, tests, or procedures, communicating with other HCPs (not separately reported), and communicating results to the patient/family/caregiver. Daniel Roberson DO documented in this encounter [facility] 09-10-2024 Note HNO ID: [id number] Author: NADIA LOVELL LPN Service: ? Author Type: LICENSED NURSE Type: Progress Notes Filed: 09/10/2024 15:00 Note Text: Injection prepared per YOVANY Hennessy's order and handed directly to her. Injection site: right thumb Nadia Lovell LPN [facility] 09-10-2024 History of Present illness Narrative Injection prepared per YOVANY Hennessy's order and handed directly to her. Injection site: right thumb Nadia Lovell LPN REVIEW OF SYSTEMS: GENERAL: Well developed, well nourished. No acute distress PAIN: Negative for pain, history of chronic pain or current treatment for chronic pain conditions CARDIOVASCULAR: Negative for chest pain, leg swelling and palpations. MSK: Negative for joint swelling SKIN: Negative for lesions, rash, itching, metal sensitivity NEURO: Negative for seizure, trauma, numbness/tingling of extremities. ENDOCRINE: Negative for diabetic associated symptoms HEMATOLOGY: Negative for excessive bleeding, clots, bleeding disorders. Associated Order(s): Small Joint Arthro/Inj: R thumb CMC Post-Procedure Diagnose(s): Arthritis of carpometacarpal (CMC) joint of right thumb Images from the original note were not included. ORTHOPAEDIC OFFICE NOTE CHIEF COMPLAINT: Follow Up and Pain of the Right Hand and Follow Up and Pain of the Right Thumb Patient presents with: Right Hand - Follow Up, Pain Right Thumb - Follow Up, Pain HISTORY OF PRESENT ILLNESS: Valerie Almaraz presents to the office for follow up of right thumb CMC joint pain. Patient states she has pain and difficulty with gripping, grasping, and twisting motions. She states it is difficult for her to wear the push MetaGrip splint due to how active she is. She is interested in hearing about all treatment options for her right thumb CMC arthritis. Location: Right thumb Severity: 1 on a scale of 0-10 Duration of symptoms: Years Date of injury: None Symptoms have: Worsened Previous treatment: Right thumb CMC joint injection x 1 Numbness/tingling: No Radiating: Yes Context worse with Activity/Motion and Gripping Smoking status: Tobacco Use: Never Reviewed nursing note and current pain scale. PAIN EVALUATION 09/03/2024 1835 09/10/2024 1429 Pain Level: 4 1 Pain Location: Hand-Right -- Description: Aching;Sharp Aching;Stabbing Duration Amount of Time: 8 -- Duration Units: Months -- Frequency: Intermittent Intermittent Intervention/Comfort measure: Reposition;Positioning -- PAST MEDICAL HISTORY Past medical, surgical, family, and social histories have been reviewed and updated with the patient today and are located elsewhere in the medical record. Diabetes:No ALLERGIES ALLERGIES Allergen Reactions Chlorhexidine Rash PHYSICAL EXAMINATION Temp 36.8 C (98.3 F) Ht 167.6 cm (5' 6") Wt 59 kg (130 lb) BMI 20.98 kg/m Body mass index is 20.98 kg/m . General Appearance: Well appearing, alert, in no acute distress, well-hydrated, well nourished. Psyche: she is alert and oriented and cooperative to our examination. Neuro: she alert and oriented times: 3. Normal affect times: 3. Gait and station: normal. Pulmonary: she has non labored breathing. There is no evidence of cyanosis. There is no clubbing of fingernails. she has no pursed lips. Head: Normocephalic and atraumatic Neck: Supple with no JVD Lymph: There is no palpable epitrochlear Musculoskeletal- Right Hand/Wrist/Upper Extremity Exam: Skin: WNL. There is no swelling or ecchymosis. There are no skin lacerations or abrasions. Inspection: There is no boutonniere or swan-neck deformity of the fingers. There is no ulnar drift of the fingers. There is no intrinsic muscular atrophy. There is a + shoulder sign over the thumb CMC joint. There is no dorsal subluxation of the ulnar head. Cardiovascular: <3 sec capillary refill, +2 radial pulse palpated. Tenderness to palpation: Over right thumb CMC joint ROM: Able to make full fist. Instability: none Sensation: Normal sensation Atrophy: None Special tests: - Thumb CMC grind: Positive REVIEW OF STUDIES: No new imaging obtained at today's visit. ASSESSMENT AND PLAN: 1. Arthritis of carpometacarpal (CMC) joint of right thumb - ICD9: 716.94, ICD10: M18.11 - SMALL JOINT INJECTION/ARTHROCENTESIS Patient educated on clinical and exam findings, suspected diagnosis, and treatment options. -We discussed treatment options such as thumb CMC MetaGrip splint, thumb CMC custom orthosis made by OT, [id number] oral medicines such as ibuprofen and Tylenol, topical Voltaren, steroid injections, and thumb CMC arthroplasty surgery. After discussion, patient would like to pursue injection. -I did offer patient a corticosteroid injection into right thumb CMC joint. I explained the risks and benefits of this. Risks of corticosteroid injection were discussed including self-limited post-injection flare, risk of transient blood glucose elevation, risk of self-limited facial flushing, risk of skin atrophy or depigmentation and risk of infection. Activities and restrictions after injection were also discussed. Patient may perform any ADLs after injection. I recommend no increase in baseline activity while the lidocaine is in effect. It could take 3-5 days for maximal steroid effect. Patient advised to monitor symptoms for the next 3 days and allow 2 weeks for maximal effect. Patient expressed understanding and agreed to proceed. See procedure note below. -Ice/elevate as needed -NSAIDs/Tylenol as needed Follow up as needed - Patient instructed to call office with questions or concerns. Arthritis of carpometacarpal (cmc) joint of right thumb (primary encounter diagnosis) Injection performed as detailed below: Small Joint Arthro/Inj: R thumb CMC Informed Consent Consent Obtained: Verbal [place] Protocol A moment to CARE was completed. SIGN IN Personnel directly involved with the procedure wore the appropriate PPE. Special Equipment: Yes Patient/Surrogate Stated/Verified: Patient name, Date of , Relevant allergies and Intended procedure TIME OUT Relevant labs, photos, and/or imaging studies have been reviewed. Intended patient and procedure match the source document(s). Consent documented and matches the intended procedure. Correct side/site marked and visible. Medications required for procedure verified. No fire risk assessment and interventions applicable. No implant(s) inserted.09/10/2024 2:56 PM The procedure site was prepped in the usual sterile fashion. Medications: 6 mg betamethasone acetate-betamethasone sodium phosphate 6 mg/mL Anesthetics: 1 mL lidocaine 10 mg/mL (1 %) Outcome: tolerated well, no immediate complications Post-injection instructions were reviewed with the patient and the patient voiced understanding of these instructions. SIGN OUT No specimen collected. All instruments, equipment, possible retained foreign bodies accounted for. Post-procedure follow-up management communicated and Plan of Care Visit completed when applicable This note was generated via [employer] dictation and may contain errors related to that system such as spelling, grammar, punctuation, gender, words, and phrases that may be inappropriate. All reasonable efforts were made to correct dictation errors, however, they still may occur given the software used. MARIMAR Ness PA-C [facility] documented in this encounter [facility] 09-10-2024 Note HNO ID: [id number] Author: HAM DEWEY Tech Service: ? Author Type: Social Work Coordinator Type: Progress Notes Filed: 09/10/2024 15:00 Note Text: REVIEW OF SYSTEMS: GENERAL: Well developed, well nourished. No acute distress PAIN: Negative for pain, history of chronic pain or current treatment for chronic pain conditions CARDIOVASCULAR: Negative for chest pain, leg swelling and palpations. MSK: Negative for joint swelling SKIN: Negative for lesions, rash, itching, metal sensitivity NEURO: Negative for seizure, trauma, numbness/tingling of extremities. ENDOCRINE: Negative for diabetic associated symptoms HEMATOLOGY: Negative for excessive bleeding, clots, bleeding disorders. [facility] 09-10-2024 Note HNO ID: [id number] Author: DOMITILA HENNESSY PA-C Service: ? Author Type: Physician Rn Paralegal Type: Progress Notes Filed: 09/10/2024 15:00 Note Text: ORTHOPAEDIC OFFICE NOTE CHIEF COMPLAINT: Follow Up and Pain of the Right Hand and Follow Up and Pain of the Right Thumb Patient presents with: Right Hand - Follow Up, Pain Right Thumb - Follow Up, Pain HISTORY OF PRESENT ILLNESS: Valerie Almaraz presents to the office for follow up of right thumb CMC joint pain. Patient states she has pain and difficulty with gripping, grasping, and twisting motions. She states it is difficult for her to wear the push MetaGrip splint due to how active she is. She is interested in hearing about all treatment options for her right thumb CMC arthritis. Location: Right thumb Severity: 1 on a scale of 0-10 Duration of symptoms: Years Date of injury: None Symptoms have: Worsened Previous treatment: Right thumb CMC joint injection x 1 Numbness/tingling: No Radiating: Yes Context worse with Activity/Motion and Gripping Smoking status: Tobacco Use: Never Reviewed nursing note and current pain scale. PAIN EVALUATION 09/03/2024 1835 09/10/2024 1429 Pain Level: 4 1 Pain Location: Hand-Right -- Description: Aching;Sharp Aching;Stabbing Duration Amount of Time: 8 -- Duration Units: Months -- Frequency: Intermittent Intermittent Intervention/Comfort measure: Reposition;Positioning -- PAST MEDICAL HISTORY Past medical, surgical, family, and social histories have been reviewed and updated with the patient today and are located elsewhere in the medical record. Diabetes:No ALLERGIES ALLERGIES Allergen Reactions Chlorhexidine Rash PHYSICAL EXAMINATION Temp 36.8 ?C (98.3 ?F) Ht 167.6 cm (5' 6") Wt 59 kg (130 lb) BMI 20.98 kg/m? Body mass index is 20.98 kg/m?. General Appearance: Well appearing, alert, in no acute distress, well-hydrated, well nourished. Psyche: she is alert and oriented and cooperative to our examination. Neuro: she alert and oriented times: 3. Normal affect times: 3. Gait and station: normal. Pulmonary: she has non labored breathing. There is no evidence of cyanosis. There is no clubbing of fingernails. she has no pursed lips. Head: Normocephalic and atraumatic Neck: Supple with no JVD Lymph: There is no palpable epitrochlear Musculoskeletal- Right Hand/Wrist/Upper Extremity Exam: Skin: WNL. There is no swelling or ecchymosis. There are no skin lacerations or abrasions. Inspection: There is no boutonniere or swan-neck deformity of the fingers. There is no ulnar drift of the fingers. There is no intrinsic muscular atrophy. There is a + shoulder sign over the thumb CMC joint. There is no dorsal subluxation of the ulnar head. Cardiovascular: <3 sec capillary refill, +2 radial pulse palpated. Tenderness to palpation: Over right thumb CMC joint ROM: Able to make full fist. Instability: none Sensation: Normal sensation Atrophy: None Special tests: - Thumb CMC grind: Positive REVIEW OF STUDIES: No new imaging obtained at today's visit. ASSESSMENT AND PLAN: 1. Arthritis of carpometacarpal (CMC) joint of right thumb - ICD9: 716.94, ICD10: M18.11 - SMALL JOINT INJECTION/ARTHROCENTESIS Patient educated on clinical and exam findings, suspected diagnosis, and treatment options. -We discussed treatment options such as thumb CMC MetaGrip splint, thumb CMC custom orthosis made by OT, [id number] oral medicines such as ibuprofen and Tylenol, topical Voltaren, steroid injections, and thumb CMC arthroplasty surgery. After discussion, patient would like to pursue injection. -I did offer patient a corticosteroid injection into right thumb CMC joint. I explained the risks and benefits of this. Risks of corticosteroid injection were discussed including self-limited post-injection flare, risk of transient blood glucose elevation, risk of self-limited facial flushing, risk of skin atrophy or depigmentation and risk of infection. Activities and restrictions after injection were also discussed. Patient may perform any ADLs after injection. I recommend no increase in baseline activity while the lidocaine is in effect. It could take 3-5 days for maximal steroid effect. Patient advised to monitor symptoms for the next 3 days and allow 2 weeks for maximal effect. Patient expressed understanding and agreed to proceed. See procedure note below. -Ice/elevate as needed -NSAIDs/Tylenol as needed Follow up as needed - Patient instructed to call office with questions or concerns. Arthritis of carpometacarpal (cmc) joint of right thumb (primary encounter diagnosis) Injection performed as detailed below: Small Joint Arthro/Inj: R thumb CMC Informed Consent Consent Obtained: Verbal [place] Protocol A moment to CARE was completed. SIGN IN Personnel directly involved with the procedure wore the appropriate PPE. Special Equipment: Yes (more content not included)... [facility] 08-25-2024 History of Present illness Narrative RADIOLOGY SERVICE PROGRESS NOTE SERVICE DATE: 08/25/2024 SERVICE TIME: 11:43 AM PATIENT IDENTITY VERIFICATION COMPLETED USING TWO (2) STANDARD IDENTIFIERS: Name and Date of confirmed by patient verbally FALL SCREENING: Has the patient had 2 falls in the last year or 1 fall with injury or currently using an Ambulatory Assistive Device (Walker, Cane, Wheelchair, Crutches, etc.)? No PATIENT GENDER DATA: .female : No ALLERGIES: Reviewed and unchanged MEDICATIONS REVIEWED: No PATIENT RELEVANT IMPLANT DATA REVIEWED: Not Applicable PATIENT PRESENTS WITH AN IMPLANTABLE OR ATTACHED BLOWER INSULATOR: No CREATININE: Creatinine Date Value Ref Range Status 08/13/2024 0.87 0.58 - 0.96 mg/dL Final Estimated Glomerular Filtration Rate Date Value Ref Range Status 08/13/2024 73 >=60 mL/min/1.73m Final Comment: Estimated Glomerular Filtration Rate (eGFR) is calculated using the 2020 CKD-EPI creatinine equation. This equation utilizes serum creatinine, sex, and age as parameters. The creatinine assay has traceable calibration to isotope dilution-mass spectrometry. Refer to KDIGO guidelines for clinical interpretation. In patients with unstable renal function, e.g. those with acute kidney injury, the eGFR may not accurately reflect actual GFR. P.O.C.T. RESULTS: N/A August 25, [address] PERFORMED: No IV SITE: Ambulatory: A peripheral IV was started in the Right antecubital site with a Angio cath: 24 gauge. POST EXAM PIV STATUS: Discontinued PROCEDURE TYPE: NM INJECT: PET/CT WHOLE BODY SCAN. 10.6 mCi F18 FDG. No other medications given.. ADMINISTRATION TIME: 1135 PATIENT DISCHARGED TO: Ambulatory patient, left [place] department area. Is this a therapy: No A Diagnostic radioactive procedure has taken place, with no further precautions necessary other than routine body substance precautions. More information regarding radiation safety can be found using this link: [email or web address] %20Medicine%[email or web address] SIGNATURE: ENRRIQUE Ball) PATIENT NAME: Valerie Almaraz DATE: August 25, 2024 TIME: 11:43 AM PAGER/CONTACT #: documented in this encounter [facility] 08-25-2024 Note HNO ID: [id number] Author: ROMAN GARCIA RT (R) Service: Nuclear Medicine Author Type: Technologist Type: Progress Notes Filed: 08/25/2024 11:43 Note Text: RADIOLOGY SERVICE PROGRESS NOTE SERVICE DATE: 08/25/2024 SERVICE TIME: 11:43 AM PATIENT IDENTITY VERIFICATION COMPLETED USING TWO (2) STANDARD IDENTIFIERS: Name and Date of confirmed by patient verbally FALL SCREENING: Has the patient had 2 falls in the last year or 1 fall with injury or currently using an Ambulatory Assistive Device (Walker, Cane, Wheelchair, Crutches, etc.)? No PATIENT GENDER DATA: .female : No ALLERGIES: Reviewed and unchanged MEDICATIONS REVIEWED: No PATIENT RELEVANT IMPLANT DATA REVIEWED: Not Applicable PATIENT PRESENTS WITH AN IMPLANTABLE OR ATTACHED BLOWER INSULATOR: No CREATININE: Creatinine Date Value Ref Range Status 08/13/2024 0.87 0.58 - 0.96 mg/dL Final Estimated Glomerular Filtration Rate Date Value Ref Range Status 08/13/2024 73 >=60 mL/min/1.73m? Final Comment: Estimated Glomerular Filtration Rate (eGFR) is calculated using the 2020 CKD-EPI creatinine equation. This equation utilizes serum creatinine, sex, and age as parameters. The creatinine assay has traceable calibration to isotope dilution-mass spectrometry. Refer to KDIGO guidelines for clinical interpretation. In patients with unstable renal function, e.g. those with acute kidney injury, the eGFR may not accurately reflect actual GFR. P.O.C.T. RESULTS: N/A August 25, [address] PERFORMED: No IV SITE: Ambulatory: A peripheral IV was started in the Right antecubital site with a Angio cath: 24 gauge. POST EXAM PIV STATUS: Discontinued PROCEDURE TYPE: NM INJECT: PET/CT WHOLE BODY SCAN. 10.6 mCi F18 FDG. No other medications given.. ADMINISTRATION TIME: 1135 PATIENT DISCHARGED TO: Ambulatory patient, left [place] department area. Is this a therapy: No A Diagnostic radioactive procedure has taken place, with no further precautions necessary other than routine body substance precautions. More information regarding radiation safety can be found using this link: [email or web address] 20Diagnostic%20Nuclear%20Medicine% 20Procedures.pdf SIGNATURE: RT Quinn(R) PATIENT NAME: Valerie Almaraz DATE: August 25, 2024 TIME: 11:43 AM PAGER/CONTACT #: [facility] 08-13-2024 History of Present illness Narrative Radiology Service Progress Note PATIENT NAME: Valerie Almaraz DATE OF SERVICE: August 13, 2024 TIME: 4:02 PM PATIENT IDENTITY VERIFICATION COMPLETED USING TWO (2) IDENTIFIERS: Name and Date of confirmed by patient verbally. FALL SCREENING: Has the patient had 2 falls in the last year or 1 fall with injury or currently using an Ambulatory Assistive Device (Walker, Cane, Wheelchair, Crutches, etc.)? No PATIENT GENDER DATA: Female. status: : No status: NO. PATIENT RELEVANT IMPLANT DATA REVIEWED: Not Applicable PATIENT PRESENTS WITH AN IMPLANTABLE OR ATTACHED BLOWER INSULATOR: No RADIOLOGY DEPARTMENT: General X-ray: Exam(s) Completed: Bone Survey PERIPHERAL IV DATA: Not applicable SIGNED BY: RT Halina(R) August 13, 2024 4:02 PM documented in this encounter [facility] 08-13-2024 Note HNO ID: [id number] Author: JULISA ABDI RT(Benita) Service: ? Author Type: Technologist Type: Progress Notes Filed: 08/13/2024 16:03 Note Text: Radiology Service Progress Note PATIENT NAME: Valerie Almaraz DATE OF SERVICE: August 13, 2024 TIME: 4:02 PM PATIENT IDENTITY VERIFICATION COMPLETED USING TWO (2) IDENTIFIERS: Name and Date of confirmed by patient verbally. FALL SCREENING: Has the patient had 2 falls in the last year or 1 fall with injury or currently using an Ambulatory Assistive Device (Walker, Cane, Wheelchair, Crutches, etc.)? No PATIENT GENDER DATA: Female. status: : No status: NO. PATIENT RELEVANT IMPLANT DATA REVIEWED: Not Applicable PATIENT PRESENTS WITH AN IMPLANTABLE OR ATTACHED BLOWER INSULATOR: No RADIOLOGY DEPARTMENT: General X-ray: Exam(s) Completed: Bone Survey PERIPHERAL IV DATA: Not applicable SIGNED BY: RT Halina(R) August 13, 2024 4:02 PM [facility] 08-13-2024 Note HNO ID: [id number] Author: DANIEL ROBERSON, DO Service: ? Author Type: Physician Type: Progress Notes Filed: 08/13/2024 14:26 Note Text: 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 HPI: The patient is a 69-year-old female with past medical history as outlined below. Noticed morning stiffness "all over" beginning about a year ago. Labs for RA negative. Left flank pain started more consistently and couldn't find comfortable position. CT A/P. EGD/colonoscopy. Diverticular today. Biopsy--inflammation in duodenum. Was told needs serologic testing for celiac. Patient had a CBC on 06/18/2024 demonstrated total white count 4700. Red blood cell count slightly low at 4,120,000/mm?. Hemoglobin normal 12.8 g/dL with a normal hematocrit of 40.7%. MCV was 98.8 fL and MCH was 31.1 pg. Platelet count was 202,000. Differential was unremarkable with the exception of extremely mild increase in basophils of 1.1%. In March 2023 basophils were 1.2%. On 2 other occasions in 2023 basophils were normal. A recent chemistry panel on 03/19/2024 demonstrated a serum creatinine of 1.31 mg/L with a BUN of 16. Calcium was normal at 9.0 mg/dL. Repeat chemistry panel on 06/18/2024 revealed a serum creatinine of 1.15 mg/dL with a BUN of 21. Ratio was 18.3. Calcium was 9.2 mg/dL. Total bilirubin 0.40 mg/dL with normal AST and ALT of 20 and 23 units/L respectively. Alkaline phosphatase normal at 73 units/L. Total serum protein of 7.3 g/dL with an albumin of 3.7 g/dL and a globulin fraction of 3.6 g/dL. On 06/25/2024, had electrophoresis of the serum which demonstrated a monoclonal spike quantitated at 0.6 g/dL. No immunofixation. No symptoms of neuropathy. The flank pain is localized to left CVA. Pain radiates if turns to the right. All other motions okay. Long history microscopic hematuria. No NSAID use. PAST MEDICAL HISTORY Diagnosis Date Abdominal pain Abdominal pain, epigastric 11/22/2009 Flatulence, eructation, and gas pain 11/22/2009 GERD (gastroesophageal reflux disease) Other specified disorders of biliary tract 11/22/2009 PAST SURGICAL HISTORY Procedure Laterality Date DELIVERY ONLY , low transverse x2 COLONOSCOPY 06/20/2024 COLONOSCOPY FLX DX W/COLLJ SPEC WHEN PFRMD 10/25/2012 Colonoscopy EGD TRANSORAL BIOPSY SINGLE/MULTIPLE 03/03/2016 distal esophagitis ESOPHAGOGASTRODUODENOSCOPY TRANSORAL DIAGNOSTIC 10/25/2012 EGD LAPS SURG CHOLECYSTECTOMY W/CHOLANGIOGRAPHY 11/22/2009 PAST SURGICAL HISTORY OF lap x2 TONSILLECTOMY PRIMARY/SECONDARY Tonsillectomy RABEprazole (ACIPHEX) 20 mg tablet Take 20 mg by mouth once daily. acetaminophen (TYLENOL EXTRA STRENGTH) 500 mg tablet Take 1,000 mg by mouth every 8 hours as needed. pantoprazole (PROTONIX) 40 mg tablet Take 1 tablet by mouth once daily. (may use generic) ALLERGIES Allergen Reactions Chlorhexidine Rash Social History Tobacco Use Smoking status: Never Smokeless tobacco: Never Substance Use Topics Alcohol use: No Drug use: No FAMILY HISTORY Problem Relation Age of Onset Coronary Artery Disease Brother Coronary Artery Disease Maternal Grandfather Emphysema Paternal Grandfather Hearing Loss Mother REVIEW OF SYSTEMS: Constitutional: No episodes of fever and night sweats. Not significantly fatigued. Normal appetite. Neuro: No OQUENDO, vertigo, dizziness and imbalance. HEENT: No recent change in voice, vision or hearing. Resp: No cough, wheeze and hemoptysis. No shortness of breath at rest. No DUFFY. CVS: No exertional chest pain, PND, orthopnea and LE edema. GI: No n/v, change in bowel habits or abdominal pain. : No dysuria or gross hematuria. No symptoms of bladder outlet obstruction. Endo: No hot flashes. No polyuria and polydipsia. No heat and cold intolerance. Musculoskeletal: See above. Derm: No current rash. No history of jaundice or diffuse pruritis. Heme: No unusual bleeding and unexplained bruising. Psych: Normal mood. PHYSICAL EXAM: Vitals: Blood pressure 133/76, pulse 69, temperature 36.2 ?C (97.2 ?F), temperature source Temporal, height 165.1 cm (5' 5"), weight 62.1 kg (137 lb), SpO2 99%. Well-appearing and in no acute distress. EYES: Sclerae are anicteric bilaterally. LYMPHATIC: There is no palpable cervical or supraclavicular adenopathy. CARDIOVASCULAR: Rhythm is regular. ABDOMEN: The abdomen is nondistended. Extremities: No swelling or edema. SKIN: No jaundice. MUSCULOSKELETAL: No left flank tenderness. No posterior rib tenderness. 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 -Personally reviewed CT abdomen pelvis images via [facility] electronic record. Convex left lumbar scoliosis. -I discussed with her the potential significance of monoclonal protein and the (more content not included)... [facility] 08-13-2024 History of Present illness Narrative 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 HPI: The patient is a 69-year-old female with past medical history as outlined below. Noticed morning stiffness "all over" beginning about a year ago. Labs for RA negative. Left flank pain started more consistently and couldn't find comfortable position. CT A/P. EGD/colonoscopy. Diverticular today. Biopsy--inflammation in duodenum. Was told needs serologic testing for celiac. Patient had a CBC on 06/18/2024 demonstrated total white count 4700. Red blood cell count slightly low at 4,120,000/mm . Hemoglobin normal 12.8 g/dL with a normal hematocrit of 40.7%. MCV was 98.8 fL and MCH was 31.1 pg. Platelet count was 202,000. Differential was unremarkable with the exception of extremely mild increase in basophils of 1.1%. In March 2023 basophils were 1.2%. On 2 other occasions in 2023 basophils were normal. A recent chemistry panel on 03/19/2024 demonstrated a serum creatinine of 1.31 mg/L with a BUN of 16. Calcium was normal at 9.0 mg/dL. Repeat chemistry panel on 06/18/2024 revealed a serum creatinine of 1.15 mg/dL with a BUN of 21. Ratio was 18.3. Calcium was 9.2 mg/dL. Total bilirubin 0.40 mg/dL with normal AST and ALT of 20 and 23 units/L respectively. Alkaline phosphatase normal at 73 units/L. Total serum protein of 7.3 g/dL with an albumin of 3.7 g/dL and a globulin fraction of 3.6 g/dL. On 06/25/2024, had electrophoresis of the serum which demonstrated a monoclonal spike quantitated at 0.6 g/dL. No immunofixation. No symptoms of neuropathy. The flank pain is localized to left CVA. Pain radiates if turns to the right. All other motions okay. Long history microscopic hematuria. No NSAID use. PAST MEDICAL HISTORY Diagnosis Date Abdominal pain Abdominal pain, epigastric 11/22/2009 Flatulence, eructation, and gas pain 11/22/2009 GERD (gastroesophageal reflux disease) Other specified disorders of biliary tract 11/22/2009 PAST SURGICAL HISTORY Procedure Laterality Date DELIVERY ONLY , low transverse x2 COLONOSCOPY 06/20/2024 COLONOSCOPY FLX DX W/COLLJ SPEC WHEN PFRMD 10/25/2012 Colonoscopy EGD TRANSORAL BIOPSY SINGLE/MULTIPLE 03/03/2016 distal esophagitis ESOPHAGOGASTRODUODENOSCOPY TRANSORAL DIAGNOSTIC 10/25/2012 EGD LAPS SURG CHOLECYSTECTOMY W/CHOLANGIOGRAPHY 11/22/2009 PAST SURGICAL HISTORY OF lap x2 TONSILLECTOMY PRIMARY/SECONDARY <AGE 13 Tonsillectomy RABEprazole (ACIPHEX) 20 mg tablet Take 20 mg by mouth once daily. acetaminophen (TYLENOL EXTRA STRENGTH) 500 mg tablet Take 1,000 mg by mouth every 8 hours as needed. pantoprazole (PROTONIX) 40 mg tablet Take 1 tablet by mouth once daily. (may use generic) ALLERGIES Allergen Reactions Chlorhexidine Rash Social History Tobacco Use Smoking status: Never Smokeless tobacco: Never Substance Use Topics Alcohol use: No Drug use: No FAMILY HISTORY Problem Relation Age of Onset Coronary Artery Disease Brother Coronary Artery Disease Maternal Grandfather Emphysema Paternal Grandfather Hearing Loss Mother REVIEW OF SYSTEMS: Constitutional: No episodes of fever and night sweats. Not significantly fatigued. Normal appetite. Neuro: No OQUENDO, vertigo, dizziness and imbalance. HEENT: No recent change in voice, vision or hearing. Resp: No cough, wheeze and hemoptysis. No shortness of breath at rest. No DUFFY. CVS: No exertional chest pain, PND, orthopnea and LE edema. GI: No n/v, change in bowel habits or abdominal pain. : No dysuria or gross hematuria. No symptoms of bladder outlet obstruction. Endo: No hot flashes. No polyuria and polydipsia. No heat and cold intolerance. Musculoskeletal: See above. Derm: No current rash. No history of jaundice or diffuse pruritis. Heme: No unusual bleeding and unexplained bruising. Psych: Normal mood. PHYSICAL EXAM: Vitals: Blood pressure 133/76, pulse 69, temperature 36.2 C (97.2 F), temperature source Temporal, height 165.1 cm (5' 5"), weight 62.1 kg (137 lb), SpO2 99%. Well-appearing and in no acute distress. EYES: Sclerae are anicteric bilaterally. LYMPHATIC: There is no palpable cervical or supraclavicular adenopathy. CARDIOVASCULAR: Rhythm is regular. ABDOMEN: The abdomen is nondistended. Extremities: No swelling or edema. SKIN: No jaundice. MUSCULOSKELETAL: No left flank tenderness. No posterior rib tenderness. 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 -Personally reviewed CT abdomen pelvis images via [facility] electronic record. Convex left lumbar scoliosis. -I discussed with her the potential significance of monoclonal protein and the spectrum of plasma cell disorders. We also discussed this could be a nonspecific inflammatory consequence. However given mild increase in serum creatinine along with plain musculoskeletal pain, workup indicated. Outlined plan below. Plan: -CBC, chemistry panel, remote hepatitis panel, LDH, beta-2 microglobulin, electrophoresis and immunofixation of the serum as well as serum viscosity today. -Whole-body bone survey today. -24-hour urine collection for electrophoresis and monoclonal protein analysis. -Whole-body PET scan. -Office visit following above. I spent a total of 70 minutes on the date of the service which included preparing to see the patient, [id number] patient care, completing clinical documentation, obtaining and/or reviewing separately obtained history, counseling and educating the patient/family/caregiver, ordering medications, tests, or procedures, communicating with other HCPs (not separately reported), and communicating results to the patient/family/caregiver. Daniel Roberson DO documented in this encounter [facility] 07-23-2024 Telephone encounter Note Patient called back and has been scheduled for 08/13/24 @ 1:00 pm with She confirmed this date, time and location Lucía Mendoza [facility] 12-18-2024 Miscellaneous Notes Patient called back and has been scheduled for 08/13/24 @ 1:00 pm with She confirmed this date, time and location Lucía Chavis Pss The only thing we received for this referral was a referral note. No labs and no OV note. I sent a fax requesting labs be sent and again today contacted the office to request labs and OV note. They were faxed today. 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 Deanna Xavier LPN Pt called to schedule appt with mascclyde, Pt stated orders were sent twice on 07/16 and 07/[address] Kym Rock. Please advise. documented in this encounter [facility] 07-23-2024 Telephone encounter Note The only thing we received for this referral was a referral note. No labs and no OV note. I sent a fax requesting labs be sent and again today contacted the office to request labs and OV note. They were faxed today. 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 Deanna Xavier LPN [facility] 07-23-2024 Telephone encounter Note Pt called to schedule appt with mascclyde, Pt stated orders were sent twice on 07/16 and 07/[address] Kym Rock. Please advise. [facility] 03-03-2024 Note HNO ID: [id number] Author: NADIA LOVELL LPN Service: ? Author Type: LICENSED NURSE Type: Progress Notes Filed: 03/10/2024 21:53 Note Text: Injection prepared per Dr. Molina's order and handed directly to him. Injection site: karen thumbs Nadia Lovell LPN [facility] 03-03-2024 History of Present illness Narrative Injection prepared per Dr. Molina's order and handed directly to him. Injection site: karen thumbs Nadia Lovell LPN Associated Order(s): Small Joint Arthro/Inj: bilateral thumb CMC Post-Procedure Diagnose(s): Arthritis of carpometacarpal (CMC) joint of right thumb; Arthritis of carpometacarpal (CMC) joint of left thumb Patient presents with: Right Thumb - New, Pain HISTORY OF PRESENT ILLNESS Valerie Almaraz presents to the office for evaluation of [...] EXAMINATION Resp 16 Ht 167.6 cm (5' 6") Wt 68 kg (150 lb) BMI 24.21 [...] thumb CMC Informed Consent Consent Obtained: Verbal [place] Protocol A moment to CARE was completed. [...] of Care Visit completed when applicable Andrés Molina MD Patient educated on treatment options for [...] clots, bleeding disorders. documented in this encounter [facility] 03-03-2024 Note HNO ID: [id number] Author: ANDRÉS MOLINA MD Service: ? Author Type: Physician Type: Progress Notes Filed: 03/10/2024 21:53 Note Text: Patient presents with: Right Thumb - New, Pain HISTORY OF PRESENT ILLNESS Valerie Almaraz presents to the office for evaluation of [...] EXAMINATION Resp 16 Ht 167.6 cm (5' 6") Wt 68 kg (150 lb) BMI 24.21 [...] thumb CMC Informed Consent Consent Obtained: Verbal [place] Protocol A moment to CARE was completed. [...] of Care Visit completed when applicable Andrés Molina MD Patient educated on treatment options for thumb CMC arthritis. Patient instructed to call the office with questions or concerns. [facility] 03-03-2024 Note HNO ID: [id number] Author: PANCHO CARDENAS Tech Service: ? Author Type: Social Work Coordinator Type: Progress Notes Filed: 03/10/2024 21:53 Note [...] Negative for excessive bleeding, clots, bleeding disorders. [facility] 12-30-2021 History of Present illness Narrative Injection prepared per Dr. Molina's order and handed directly to him. Lulu Calderon LPN Associated Order(s): Small Joint Arthro/Inj: L thumb CMC Post-Procedure Diagnose(s): Arthritis of carpometacarpal (CMC) joint of left thumb Patient presents with: Left Thumb - Follow Up Follow Up: lt thumb HISTORY OF PRESENT ILLNESS Valerie Almaraz presents to the office for follow up [...] EXAMINATION Resp 18 Ht 167.6 cm (5' 6") Wt 68 kg (150 lb) BMI 24.21 [...] ICD10: M18.12 (primary diagnosis) 2. Arthritis of mqywnhlu-zqpgnztlk-lhjzsndba joint of left hand - ICD9: 716.93, [...] thumb CMC Informed Consent Consent Obtained: Verbal [place] Protocol A moment to CARE was completed. [...] of Care Visit completed when applicable Andrés Molina Patient educated on treatment options for thumb CMC, STT arthritis Patient instructed to call the office with questions or concerns. documented in this encounter [facility] Chief complaint+Reason for v isit Narrative [facility] Work Phone: Evaluation note* Diagnosis Arthritis of carpometacarpal (CMC) joint of left thumb- Primary Arthritis of bzidzcyt-eqkjvdyjt-tyncstgdm joint of left hand [facility] Work [facility]: Evaluation note* Diagnosis Arthritis of carpometacarpal (CMC) joint of right thumb- Primary Arthritis of carpometacarpal (CMC) joint of left thumb [facility] Diagnosis Monoclonal gammopathy- Primary Monoclonal paraproteinemia Left flank pain Abdominal pain, unspecified site [facility] Diagnosis Monoclonal gammopathy Monoclonal paraproteinemia [facility] Diagnosis Monoclonal gammopathy Monoclonal paraproteinemia Left flank pain Abdominal pain, unspecified site [facility] Diagnosis Arthritis of carpometacarpal (CMC) joint of right thumb- Primary [facility] Diagnosis MGUS (monoclonal gammopathy of unknown significance)- Primary Monoclonal paraproteinemia documented in this encounter [facility] note* Diagnosis MGUS (monoclonal gammopathy of unknown significance) Monoclonal paraproteinemia documented in this encounter [facility] note* Diagnosis IgG lambda monoclonal gammopathy- Primary Elevated troponin Other abnormal blood chemistry Epigastric pain Abdominal pain, epigastric Left flank pain Abdominal pain, unspecified site Abnormal weight loss Loss of weight Family history of breast cancer in male Family history of other specified malignant neoplasm Family history of ovarian cancer Family history of malignant neoplasm of ovary documented in this encounter [facility] note* Diagnosis MGUS (monoclonal gammopathy of unknown significance)- Primary Monoclonal paraproteinemia IgG lambda monoclonal gammopathy documented in this encounter [facility] note* Diagnosis IgG lambda monoclonal gammopathy Epigastric pain Abdominal pain, epigastric Left flank pain Abdominal pain, unspecified site documented in this encounter [facility] note* Diagnosis Other specified disorders of kidney and ureter Renal mass Unspecified disorder of kidney and ureter Pancreatic lesion (HCC) Unspecified disease of pancreas [facility]* Diagnosis Screening for genitourinary condition- Primary Screening for other and unspecified genitourinary condition Renal mass Unspecified disorder of kidney and ureter Other specified disorders of kidney and ureter Screening for genitourinary condition Screening for other and unspecified genitourinary condition documented in this encounter [facility] note* Diagnosis Screening for genitourinary condition- Primary Screening for other and unspecified genitourinary condition Renal mass Unspecified disorder of kidney and ureter Other specified disorders of kidney and ureter [facility]* Diagnosis IgG lambda monoclonal gammopathy- Primary documented in this encounter [facility] for referral (narrative)* Diagnostic Procedure Only (Routine) - New Request Specialty Diagnoses / Procedures Referred By Hugo tellez Referred To Contact XR IMAGING Diagnoses Arthritis of carpometacarpal (CMC) joint of right thumb Procedures XR HAND GENERAL 3V PA/LAT/OBL RIGHT RADEX HAND MINIMUM 3 VIEWS Andrés Molina MD [address] [address] [place] [id number] Referral ID Status Reason Start Date Expiration Date Visits Requested Visits Authorized [id number] New Request Auto-Generat ed Referral 03/03/2024 04/02/2025 1 1 [facility] for referral (narrative)* Diagnostic Procedure Only (Routine) - Authorized Specialty Diagnoses / Procedures Referred By Contac t Referred To Contact MOLECULAR & FUNCTIONAL IMAGING Diagnoses Monoclonal gammopathy Left flank pain Procedures NM PET/CT WHOLE BODY INITIAL PET IMAGING FOR CT ATTENUATION WHOLE BODY Daniel Roberson, DO [address] [place] [address] Molecular & Functional Imaging [address] [place] [address] Referral ID Status Reason Start Date Expiration Date Visits Requested Visits Authorized [id number] Authorized Auto-Generat ed Referral 08/13/2024 09/12/2025 1 1 * Diagnostic Procedure Only (Routine) - Closed Specialty Diagnoses / Procedures [facility] To Contact XR IMAGING Diagnoses Monoclonal gammopathy Procedures XR BONE SURVEY ROUTINE RADIOLOGIC EXAMINATION OSSEOUS SURVEY COMPL Daniel Roberson DO [address] [place] [address] [place] [address] Referral ID Status Reason Start Date Expiration Date V isits Requested Visits Authorized [id number] Closed Auto-Generate d Referral 08/13/2024 09/12/2025 1 1 [facility] for referral (narrative)* Diagnostic Procedure Only (Routine) - Closed Specialty Diagnoses / Procedures Referred By Hugo t Referred To Contact MOLECULAR & FUNCTIONAL IMAGING Diagnoses Monoclonal gammopathy Left flank pain Procedures NM PET/CT WHOLE BODY INITIAL PET IMAGING FOR CT ATTENUATION WHOLE BODY Daniel Roberson DO [address] [place] [address] Molecular & Functional Imaging [address] [place] [address] Referral ID Status Reason Start Date Expiration Date V isits Requested Visits Authorized [id number] Closed Auto-Generate d Referral 08/13/2024 09/12/2025 1 1 [facility] for referral (narrative)* Outpatient Procedure (Routine) - New Request Specialty Diagnoses / Procedures Referred By Contac t Referred To Contact [facility] Diagnoses MGUS (monoclonal gammopathy of unknown significance) Procedures ECG COMPLETE ECG ROUTINE ECG W/LEAST 12 LDS W/I&R Daniel Roberson DO [address] [place] [address] [facility] [place] [address] [place] [address] Referral ID Status Reason Start Date Expiration Date Visits Requested Visits Authorized [id number] New Request Auto-Generat ed Referral 09/11/2024 09/11/2025 1 1 [facility] for referral (narrative)No reason for referral information [facility]: Reason for visit Narrative* Diagnostic Procedure Only (Routine) - Closed Specialty Diagnoses / Procedures Referred By Hugo t Referred To Contact XR IMAGING Diagnoses Monoclonal gammopathy Procedures XR BONE SURVEY ROUTINE RADIOLOGIC EXAMINATION OSSEOUS SURVEY COMPL Daniel Roberson DO [address] [place] [address] [place] [address] Referral ID Status Reason Start Date Expiration Date V isits Requested Visits Authorized [id number] Closed Auto-Generate d Referral 08/13/2024 09/12/2025 1 1 [facility] for visit Narrative* Diagnostic Procedure Only (Routine) - Closed Specialty Diagnoses / Procedures Referred By Hugo t Referred To Contact MOLECULAR & FUNCTIONAL IMAGING Diagnoses Monoclonal gammopathy Left flank pain Procedures NM PET/CT WHOLE BODY INITIAL PET IMAGING FOR CT ATTENUATION WHOLE BODY Daniel Roberson DO [address] [place] [address] Molecular & Functional Imaging [address] [place] [address] Referral ID Status Reason Start Date Expiration Date V isits Requested Visits Authorized [id number] Closed Auto-Generate d Referral 08/13/2024 09/12/2025 1 1 [facility] for visit Narrative* MRI/CT (Routine) - Closed Specialty Diagnoses / Procedures Referred By Contrayna t Referred To Contact CT IMAGING Diagnoses IgG lambda monoclonal gammopathy Epigastric pain Left flank pain Procedures CT ABD/PEL W IVCON CT ABD & PELVIS W/CONTRAST Daniel Roberson, DO [address] [place] [address] Phone: tel: fax: [place] [address] Referral ID Status Reason Start Date Expiration Date V isits Requested Visits Authorized [id number] Closed Auto-Generate d Referral 10/06/2024 11/05/2025 1 1 [facility] for visit Narrative* MRI/CT (Routine) - Closed Specialty Diagnoses / Procedures Referred By Hugo tellez Referred To Contact MR IMAGING Diagnoses Other specified disorders of kidney and ureter Renal mass Pancreatic lesion (HCC) Procedures MRI KIDNEY WO/W IVCON MRI ABDOMEN W/O & W/CONTRAST MATERIAL Daniel Roberson, DO [address] [place] [address] Phone: tel: fax: MR IMAGING [facility] Referral ID Status Reason Start Date Expiration Date V isits Requested Visits Authorized [id number] Closed Auto-Generate d Referral 11/05/2024 12/05/2025 1 1 [facility] Summary Purpose Family History Relationship Condition Age at Onset Recorded Date/T marilyn Unknown Family History?No pe rtinent history Unknown March 03, 2016 4:52am Family History?No pe rtinent history Unknown March 03, 2016 4:52am Family History?No pe rtinent history Unknown September 25, 2021 10:32am Relationship Condition Age at Onset Recorded Date/T marilyn Unknown Family History?No pe rtinent history Unknown March 03, 2016 3:52am Family History?No pe rtinent history Unknown March 03, 2016 3:52am Family History?No pe rtinent history Unknown September 25, 2021 9:32am Advance Directives Advance Directive Response Recorded Date/ Time Advance Directives No September 10:32am Living Will No January 28, 2022 7:04pm Power of Vessel Operator No January 28 7:04pm Advance Directive Response Recorded Date/ Time Advance Directives No September 9:32am Living Will No January 28, 2022 6:04pm Power of Vessel Operator No January 28 6:04pm Medications Administered Section Inactive Administered Medications - [...] Given 12/30/2021 9:38 AM EDT 40 mg Chief Complaint and Reason for Visit Chief Complaint SCREENING OSTEO ABNORMAL MAMMOGRAM Additional Source Comments INFORMATION SOURCE (unrecogn ized section and content) DATE CREATED AUTHOR 01/30/2018 [facility] DATE CREATED AUTHOR AUTHOR'S ORGANIZ ATION 08/26/2024 [facility] DATE CREATED AUTHOR AUTHOR'S ORGANIZ ATION 09/12/2024 [facility] DATE CREATED AUTHOR AUTHOR'S ORGANIZ ATION 05/17/2025 [facility] DATE CREATED AUTHOR AUTHOR'S ORGANIZ ATION 05/17/2025 [facility] Source Comments (unrecognize d section and content) In the event this informatio n is protected by the Federal Confidentiality of Alcohol and Drug Abuse Patient Records regulations: The Federal rules restrict any use of the information to criminally investigate or prosecute any alcohol or drug abuse patient.[facility] the event this information is protected by the Federal Confidentiality of Alcohol and Drug Abuse Patient Records regulations: The Federal rules restrict any use of the information to criminally investigate or prosecute any alcohol or drug abuse patient.[facility] the event this information is protected by the Federal Confidentiality of Alcohol and Drug Abuse Patient Records regulations: The Federal rules restrict any use of the information to criminally investigate or prosecute any alcohol or drug abuse patient.[facility] the event this information is protected by the Federal Confidentiality of Alcohol and Drug Abuse Patient Records regulations: The Federal rules restrict any use of the information to criminally investigate or prosecute any alcohol or drug abuse patient.[facility] the event this information is protected by the Federal Confidentiality of Alcohol and Drug Abuse Patient Records regulations: The Federal rules restrict any use of the information to criminally investigate or prosecute any alcohol or drug abuse patient.[facility] the event this information is protected by the Federal Confidentiality of Alcohol and Drug Abuse Patient Records regulations: The Federal rules restrict any use of the information to criminally investigate or prosecute any alcohol or drug abuse patient.[facility] the event this information is protected by the Federal Confidentiality of Alcohol and Drug Abuse Patient Records regulations: The Federal rules restrict any use of the information to criminally investigate or prosecute any alcohol or drug abuse patient.[facility] the event this information is protected by the Federal Confidentiality of Alcohol and Drug Abuse Patient Records regulations: The Federal rules restrict any use of the information to criminally investigate or prosecute any alcohol or drug abuse patient.[facility] the event this information is protected by the Federal Confidentiality of Alcohol and Drug Abuse Patient Records regulations: The Federal rules restrict any use of the information to criminally investigate or prosecute any alcohol or drug abuse patient.[facility] the event this information is protected by the Federal Confidentiality of Alcohol and Drug Abuse Patient Records regulations: The Federal rules restrict any use of the information to criminally investigate or prosecute any alcohol or drug abuse patient.[facility] the event this information is protected by the Federal Confidentiality of Alcohol and Drug Abuse Patient Records regulations: The Federal rules restrict any use of the information to criminally investigate or prosecute any alcohol or drug abuse patient.[facility] the event this information is protected by the Federal Confidentiality of Alcohol and Drug Abuse Patient Records regulations: The Federal rules restrict any use of the information to criminally investigate or prosecute any alcohol or drug abuse patient.[facility] the event this information is protected by the Federal Confidentiality of Alcohol and Drug Abuse Patient Records regulations: The Federal rules restrict any use of the information to criminally investigate or prosecute any alcohol or drug abuse patient.[facility] the event this information is protected by the Federal Confidentiality of Alcohol and Drug Abuse Patient Records regulations: The Federal rules restrict any use of the information to criminally investigate or prosecute any alcohol or drug abuse patient.[facility] the event this information is protected by the Federal Confidentiality of Alcohol and Drug Abuse Patient Records regulations: The Federal rules restrict any use of the information to criminally investigate or prosecute any alcohol or drug abuse patient.[facility] the event this information is protected by the Federal Confidentiality of Alcohol and Drug Abuse Patient Records regulations: The Federal rules restrict any use of the information to criminally investigate or prosecute any alcohol or drug abuse patient.[facility] the event this information is protected by the Federal Confidentiality of Alcohol and Drug Abuse Patient Records regulations: The Federal rules restrict any use of the information to criminally investigate or prosecute any alcohol or drug abuse patient.[facility] the event this information is protected by the Federal Confidentiality of Alcohol and Drug Abuse Patient Records regulations: The Federal rules restrict any use of the information to criminally investigate or prosecute any alcohol or drug abuse patient.[facility] the event this information is protected by the Federal Confidentiality of Alcohol and Drug Abuse Patient Records regulations: The Federal rules restrict any use of the information to criminally investigate or prosecute any alcohol or drug abuse patient.[facility] the event this information is protected by the Federal Confidentiality of Alcohol and Drug Abuse Patient Records regulations: The Federal rules restrict any use of the information to criminally investigate or prosecute any alcohol or drug abuse patient.[facility] the event this information is protected by the Federal Confidentiality of Alcohol and Drug Abuse Patient Records regulations: The Federal rules restrict any use of the information to criminally investigate or prosecute any alcohol or drug abuse patient.[facility] the event this information is protected by the Federal Confidentiality of Alcohol and Drug Abuse Patient Records regulations: The Federal rules restrict any use of the information to criminally investigate or prosecute any alcohol or drug abuse patient.[facility] the event this information is protected by the Federal Confidentiality of Alcohol and Drug Abuse Patient Records regulations: The Federal rules restrict any use of the information to criminally investigate or prosecute any alcohol or drug abuse patient.[facility] the event this information is protected by the Federal Confidentiality of Alcohol and Drug Abuse Patient Records regulations: The Federal rules restrict any use of the information to criminally investigate or prosecute any alcohol or drug abuse patient.[facility] Reason for Visit (unrecogniz ed section and content) Reason Comments Follow Up lt thumb Follow Up Reason Comments New Pain Reason Comments New Patient Evaluation Reason Comments Radiology NM Specialty Diagnoses / Procedures Referred By Contac t Referred To Contact MOLECULAR & FUNCTIONAL IMAGING Diagnoses Monoclonal gammopathy Left flank pain Procedures NM PET/CT WHOLE BODY INITIAL PET IMAGING FOR CT ATTENUATION WHOLE BODY Daniel Roberson, DO [address] [place] [address] Molecular & Functional Imaging [address] [place] [address] Referral ID Status Reason Start Date Expiration Date V isits Requested Visits Authorized [id number] Closed Auto-Generate d Referral 08/13/2024 09/12/2025 1 1 Reason Comments Opened In Error Reason Comments Follow Up Pain Reason Comments Established Patient OV,review PET Reason Comments Follow Up Reason Comments EKG Specialty Diagnoses / Procedures Referred By Contac t Referred To Contact [facility] Diagnoses MGUS (monoclonal gammopathy of unknown significance) Procedures ECG COMPLETE ECG ROUTINE ECG W/LEAST 12 LDS W/I&R Daniel Roberson, DO [address] [place] [address] Phone: tel: fax: [facility] [place] [address] [place] [address] Referral ID Status Reason Start Date Expiration Date V isits Requested Visits Authorized [id number] Closed Auto-Generate d Referral 09/11/2024 09/11/2025 1 1 Reason Comments Procedure BMBX Reason Comments Established Patient Reason Comments Orders Reason Comments Results Reason Comments New Patient Specialty Diagnoses / Procedures Referred By Contac t Referred To Contact Urology Diagnoses Renal mass Procedures CONSULT TO UROLOGY OFFICE/OUTPATIENT NEW HIGH MDM 60 MINUTES Daniel Roberson, DO [address] [place] [address] Phone: tel: fax: Referral ID Status Reason Start Date Expiration Date V isits Requested Visits Authorized [id number] Closed PCP Requested Referral 11/05/2024 11/05/2025 1 1 Reason Comments Established Patient Care Teams (unrecognized sec tion and content) Canvas Worker Apprentice Relationship Specialty Start Date End Date Heide Villavicencio [address] [place] [address] PCP - General 11/13/00 Team Status: Active Member Role Status Dates Dr. Heide Villavicencio MD Family Provider Active Dr. Heide Villavicencio MD Primary Care Provider Active Team Status: Inactive Member Role Status Dates Dr. Heide Villavicencio MD Primary Care Provider, Attendin g Provider Active Team Status: Inactive Member Role Status Dates Dr. Heide Villavicencio MD Primary Care Prov ider, Attending Provider, Referring Provider Active Team Status: Active Member Role Status Dates Dr. Heide Villavicencio MD Primary Care Prov ider, Attending Provider, Referring Provider Active Team Status: Inactive Member Role Status Dates Dr. Heide Villavicencio MD Primary Care Provider Active Dr. Daniel Lucero MD Attending Provider, Referring Pr ovider Active Canvas Worker Apprentice Relationship Specialty Start Date End Date Heide Villavicencio [address] [facility] [address] [place] [address] PCP - General 11/13/00 Canvas Worker Apprentice Relationship Specialty Start Date End Date Heide Villavicencio [address] [facility] [address] [place] [address] PCP - General 11/13/00 Canvas Worker Apprentice Relationship Specialty Start Date End Date Heide Villavicencio [address] [facility] [address] [place], [place] [address] PCP - General 11/13/00 Canvas Worker Apprentice Relationship Specialty Start Date End Date Heide Villavicencio [address] [facility] [address] [place], [place] [id number] PCP - General 11/13/00 Canvas Worker Apprentice Relationship Specialty Start Date End Date Heide Villavicencio Ke [address] [place] [address] PCP - General 11/13/00 Canvas Worker Apprentice Relationship Specialty Start Date End Date Sheelastuart Heide Ke [address] [place] [address] PCP - General 11/13/00 Canvas Worker Apprentice Relationship Specialty Start Date End Date Saud Heide Ke [address] [place] [address] PCP - General 11/13/00 Canvas Worker Apprentice Relationship Specialty Start Date End Date Heide Villavicencio [address] [place] [address] PCP - General 11/13/00 Canvas Worker Apprentice Relationship Specialty Start Date End Date Saud Heide Ke [address] [place] [address] PCP - General 11/13/00 Canvas Worker Apprentice Relationship Specialty Start Date End Date Heide Villavicencio [address] [place] [address] PCP - General 11/13/00 Canvas Worker Apprentice Relationship Specialty Start Date End Date Heide Villavicencio [address] [place] [address] PCP - General 11/13/00 Joseph Méndez MD [address] [place] [address] Gastroenterology 10/06/24 Canvas Worker Apprentice Relationship Specialty Start Date End Date Heide Villavicencio [address] [place] [address] PCP - General 11/13/00 Joseph Méndez MD [address] [place] [address] Gastroenterology 10/06/24 Canvas Worker Apprentice Relationship Specialty Start Date End Date Heide Villavicencio [address] [place] [address] PCP - General 11/13/00 Joseph Méndez MD [address] [place] [address] Gastroenterology 10/06/24 Canvas Worker Apprentice Relationship Specialty Start Date End Date Heide Villavicencio [address] [place] [address] PCP - General 11/13/00 Joseph Méndez MD [address] [place] [address] Gastroenterology 10/06/24 Canvas Worker Apprentice Relationship Specialty Start Date End Date Heide Villavicencio [address] [place] [address] PCP - General 11/13/00 Joseph Méndez MD [address] [place] [address] Gastroenterology 10/06/24 Canvas Worker Apprentice Relationship Specialty Start Date End Date Heide Villavicencio [address] [place] [address] PCP - General 11/13/00 Joseph Méndez MD [address] [place] [address] Gastroenterology 10/06/24 Canvas Worker Apprentice Relationship Specialty Start Date End Date Heide Villavicencio [address] [place] [address] PCP - General 11/13/00 Joseph Méndez MD [address] [place] [address] Gastroenterology 10/06/24 Canvas Worker Apprentice Relationship Specialty Start Date End Date Heide Villavicencio [address] [place] [address] PCP - General 11/13/00 Joseph Méndez MD [address] [place] [address] Gastroenterology 10/06/24 Canvas Worker Apprentice Relationship Specialty Start Date End Date Heide Villavicencio [address] [place] [address] PCP - General 11/13/00 Joseph Méndez MD [address] [place] [address] Gastroenterology 10/06/24 Canvas Worker Apprentice Relationship Specialty Start Date End Date Heide Villavicencio [address] [facility] [address] [place], [place] [address] PCP - General 11/13/00 Joseph Méndez MD [address] [facility] [address] [place] [phone] Gastroenterology 10/06/24 Goals (unrecognized section and content) Goals may be documented in a n alternate sectionGoals may be documented in an alternate sectionGoals may be documented in an alternate sectionGoals may be documented in an alternate sectionGoals may be documented in an alternate sectionGoals may be documented in an alternate section FOR RECORDS PERTAINING TO PATIENTS WHO ARE [...] BE BASED ON THE PRIMARY CLINICAL RECORDS. [facility] provides no warranty or guarantee of the accuracy or completeness of information in this document.
== END | disposition home or self-care (01) ==
LOC: OPBI 12:35
PROVIDERS: PCP Family Medicine; Referring Provider Family Medicine; Visit Provider Family Medicine
DX: Z12.31 Encounter for screening mammogram for malignant neoplasm of breast (principal)
CPT/HCPCS: 77063; 77067